=== PATIENT | male | born 1970 | race Caucasian/White ===

== ENCOUNTER → 2018-04-06 11:20 | Outpatient (CLI) | payer MEDICARE, MEDICAID, SELFPAY ==
[2018-04-06 12:26] LABS: Absolute Lymphocyte Count 1.14 X10^3/ul (0.83-4.51); Absolute Neutrophil Count 4.6 X10^3/uL (2.0-7.7); Basophil# 0.02 X10^3/uL; Basophil% 0.3 % (0-1); Eosinophil# 0.15 X10^3/uL; Eosinophils% 2.2 % (0-5); Hematocrit 38.9 % (40-54); Lymphocyte # 1.14 X10^3/ul (4.0); Lymphocyte % 16.8 % (19-41); Mean Corpuscular Hgb 31.2 pg (27.0-32.0); Mean Corpuscular Volume 86.6 fL (80-94); Mean Platelet Vol. 9.8 fl (6.2-12.0); Monocyte# 0.88 X10^3/uL; Monocyte% 12.9 % (0-10); Neutrophil # 4.58 X10^3/uL (2.7-7.7); Neutrophil % 67.4 % (47-70); Platelet Count 206 K/mm3 (150-450); RBC Distribution Width CV 12.5 % (11.6-14.6); RBC Distribution Width SD 38.8 fl (35.1-43.9); Red Blood Count 4.49 M/mm3 (4.6-6.2); White Blood Count 6.8 K/mm3 (4.4-11.0)
[2018-04-06 12:31] LABS: POSITIVE COUNT NO; POSITIVE DIFFERENTIAL NO; POSITIVE MORPHOLOGY NO
[2018-04-06 12:47] LABS: ALB/GLOB Ratio 1.1 RATIO (0.9-2.4); AST(SGOT) 12 U/L (15-37); Alanine Aminotransfer ALT/SGPT 31 U/L (16-61); Albumin, Serum 3.5 g/dL (3.2-5.0); Alkaline Phosphatase 61 U/L (45-117); Anion Gap 11 (5-15); BUN 6 mg/dL (7-18); BUN/Creat Ratio 8.6 RATIO (10-20); Calcium,Total 8.8 mg/dL (8.5-10.1); Chloride 93 mmol/L (98-107); EST Glomerular Filtration Rate 130 mL/min (>60); Est Glom Filt Rate - Afr Amer 158 mL/min (>60); Globulin 3.3 g/dL (2.2-4.2); Glucose 205 mg/dL (74-106); Potassium 3.9 mmol/L (3.5-5.1); Protein, Total 6.8 g/dL (6.4-8.2); Sodium Level 131 mmol/L (136-145); Thyroid Stim Hormone (TSH) 1.31 uIU/mL (0.358-3.74)
== END ==
PROVIDERS: Family Provider Family Medicine Geriatric Medicine; PCP Family Medicine Geriatric Medicine; Visit Provider Family Medicine Geriatric Medicine
DX: E11.9 Type 2 diabetes mellitus without complications (principal)
CPT/HCPCS: 36415; 80053; 84443; 85025

== ENCOUNTER → 2018-05-16 08:53 | Outpatient (CLI) | payer MEDICARE, MEDICAID, SELFPAY ==
[2018-05-16 10:29] LABS: Platelet Count 229 K/mm3 (150-450)
[2018-05-16 10:43] LABS: AST(SGOT) 14 U/L (15-37); Alanine Aminotransfer ALT/SGPT 34 U/L (16-61); Valproic Acid (Depakene) Level 92 ug/mL (50-100)
== END ==
PROVIDERS: Family Provider Family Medicine Geriatric Medicine; PCP Family Medicine Geriatric Medicine; Visit Provider Psychiatry & Neurology Psychiatry
DX: Z79.899 Other long term (current) drug therapy (principal)
CPT/HCPCS: 36415; 80164; 84450; 84460; 85049

== ENCOUNTER → 2018-10-12 11:54 | Outpatient (CLI) | payer MEDICARE, MEDICAID, SELFPAY ==
[2018-10-12 12:50] LABS: Absolute Lymphocyte Count 2.04 X10^3/ul (0.83-4.51); Absolute Neutrophil Count 3.7 X10^3/uL (2.0-7.7); Basophil# 0.01 X10^3/uL; Basophil% 0.2 % (0-1); Eosinophil# 0.19 X10^3/uL; Eosinophils% 2.9 % (0-5); Hematocrit 39.9 % (40-54); Hemoglobin 14.5 g/dl (13.0-16.5); Lymphocyte # 2.04 X10^3/ul (4.0); Lymphocyte % 30.6 % (19-41); Mean Corp Hgb Conc 36.3 g/gl (32-36); Mean Corpuscular Hgb 31.5 pg (27.0-32.0); Mean Corpuscular Volume 86.7 fL (80-94); Mean Platelet Vol. 11.5 fl (6.2-12.0); Monocyte# 0.64 X10^3/uL; Monocyte% 9.6 % (0-10); Neutrophil # 3.74 X10^3/uL (2.7-7.7); Neutrophil % 56.1 % (47-70); Platelet Count 173 K/mm3 (150-450); RBC Distribution Width CV 12.7 % (11.6-14.6); RBC Distribution Width SD 39.4 fl (35.1-43.9); White Blood Count 6.7 K/mm3 (4.4-11.0)
[2018-10-12 12:52] LABS: POSITIVE COUNT NO; POSITIVE DIFFERENTIAL NO; POSITIVE MORPHOLOGY NO
[2018-10-12 13:12] LABS: AST(SGOT) 21 U/L (15-37); Alanine Aminotransfer ALT/SGPT 32 U/L (16-61); Albumin, Serum 3.5 g/dL (3.2-5.0); Alkaline Phosphatase 63 U/L (45-117); Anion Gap 13 (5-15); BUN 9 mg/dL (7-18); Calcium,Total 9.1 mg/dL (8.5-10.1); Chloride 90 mmol/L (98-107); Creatinine, Serum 0.75 mg/dL (0.70-1.30); EST Glomerular Filtration Rate 120 mL/min (>60); Est Glom Filt Rate - Afr Amer 145 mL/min (>60); Globulin 3.4 g/dL (2.2-4.2); Glucose 183 mg/dL (74-106); Potassium 3.8 mmol/L (3.5-5.1); Protein, Total 6.9 g/dL (6.4-8.2); Sodium Level 131 mmol/L (136-145); Thyroid Stim Hormone (TSH) 1.81 uIU/mL (0.358-3.74)
== END ==
PROVIDERS: Family Provider Family Medicine Geriatric Medicine; PCP Family Medicine Geriatric Medicine; Visit Provider Family Medicine Geriatric Medicine
DX: E11.9 Type 2 diabetes mellitus without complications (principal); I10 Essential (primary) hypertension
CPT/HCPCS: 36415; 80053; 84443; 85025

== ENCOUNTER → 2018-11-16 08:19 | Outpatient (CLI) | payer MEDICARE, MEDICAID, SELFPAY ==
[2018-11-16 10:30] LABS: AST(SGOT) 15 U/L (15-37); Alanine Aminotransfer ALT/SGPT 33 U/L (16-61); Valproic Acid (Depakene) Level 110 ug/mL (50-100)
[2018-11-16 12:42] LABS: Platelet Count 203 K/mm3 (150-450)
--- OUTSIDE RECORDS SUMMARY | 2019-02-17 08:42 | XMS RPT_ITS ---
:1970 Author Organization OHIP Care Team Providers Name Role Phone Fabiola Vgea Attending Unavailable Astreika, Vera Referring Unavailable Kamlesh, Kit Chi Primary Care Unavailable Kamlesh, Kit Chi Attending Unavailable Kamlesh, Kit Chi Primary Care Unavailable Astreika, Vera Attending Unavailable Astreika, Vera Referring Unavailable Kamlesh, Kit Chi Primary Care Unavailable Kamlesh, Kit Chi Attending Unavailable Kamlesh, Kit Chi Primary Care Unavailable PROBLEMS PROBLEMS DATE TYPE CONDITION / CODE ATTENDING STATUS SOURCE 11/16/2018 Unknown Z79.899 - Other Fabiola Vega Active [facility]current[facility] drug Hospital therapy / Repository Z79.899(ICD-10) PROCEDURES PROCEDURES No Procedure Records FoundRESULTS RESULTS VALPROIC ACID Collected: 11/16/2018 Status: F Source: [facility]ESS[facility] ([facility]PAKEN[facility]) LEVEL 8[facility] TYPE CODE TESTS RESULT OUT OF REFERENCE UNITS RANGE LAB L501.8100 50-100 ug/mL High VALPROIC ACID 110 Performed By: #### L501.8100 #### [facility] [address] [place], [address] AST(SGOT) Collected: 11/16/2018 Status: F Source: JESSICA 8:24 AM [facility] REPOSITORY TYPE CODE TESTS RESULT OUT OF RANGE REFERENCE UNITS LAB L501.4100 15-37 U/L Normal AST 15 Performed By: #### L501.4100, L501.4405 #### [facility] [address] [place], [address] ALANINE AMINOTRANSFERAS Collected: 11/16/2018 Status: F Source: JESSICA (SGPT) 8:24 AM [facility] REPOSITORY TYPE CODE TESTS RESULT OUT OF RANGE REFERENCE UNITS LAB L501.4405 16-61 U/L Normal ALT 33 Performed By: #### L501.4100, L501.4405 #### [facility] [address] [place], [address] PLATELET COUNT Collected: 11/16/2018 Status: F Source: [place] 8:24 AM [facility] REPOSITORY TYPE CODE TESTS RESULT OUT OF RANGE REFERENCE UNITS LAB L100.1900 150-450 K/mm3 Normal PLT 203 Performed By: #### L100.1900 #### [facility] [address] [place], [address] CBC W/DIFF, AUTOMATED Collected: 10/12/2018 Status: F Source: JESSICA 11:57 AM [facility] REPOSITORY TYPE CODE TESTS RESULT OUT OF RANGE REFERENCE UNITS LAB L100.1000 4.4-11.0 K/mm3 Normal WBC 6.7 LAB L100.1200 4.6-6.2 M/mm3 Normal RBC 4.60 LAB L100.1300 13.0-16.5 g/dl Normal HGB 14.5 LAB L100.1400 40-54 % Low HCT 39.9 LAB L100.1500 80-94 fL Normal MCV 86.7 LAB L100.1600 27.0-32.0 pg Normal MCH 31.5 LAB L100.1700 32-36 g/gl High MCHC 36.3 LAB L100.1810 11.6-14.6 % Normal RDW CV 12.7 LAB L100.1820 35.1-43.9 fl Normal RDW SD 39.4 LAB L100.1900 150-450 K/mm3 Normal PLT 173 LAB L100.2000 6.2-12.0 fl Normal MPV 11.5 LAB L100.2100 47-70 % Normal NEUT% 56.1 LAB L100.2200 19-41 % Normal LY% 30.6 LAB L100.2300 0-10 % Normal MONO% 9.6 LAB L100.2400 0-5 % Normal EO% 2.9 LAB L100.2500 0-1 % Normal BASO% 0.2 LAB L100.2550 0.0-0.9 % Normal IM GRAN % 0.600 Result Comment: IG% - Immature Granulocytes (promyelocytes, myelocytes and metamyelocytes) > 1% indicates that a LEFT SHIFT is Present. LAB L100.2620 2.0-7.7 X10 3/uL Normal Absolute Neut 3.7 LAB L100.2720 0.83-4.51 X10 3/ul Normal Absolute Lymph 2.04 Performed By: #### L100.0100 #### [facility] [address] [place], [place], [address] COMPREHENSIVE METABOLIC Collected: 10/12/2018 Status: F Source: [facility] 11:57 AM [facility] REPOSITORY TYPE CODE TESTS RESULT OUT OF RANGE REFERENCE UNITS LAB L501.0100 74-106 mg/dL High GLU 183 Result Comment: Fasting Glucose result greater than or equal to 126 mg/dL suggests DIABETES MELLITUS per A.D.A. criteria. Please note revised GLUCOSE reference range effective 2017. LAB L501.1000 7-18 mg/dL Normal BUN 9 LAB L501.1100 0.70-1.30 mg/dL Normal CREAT,SERUM 0.75 Result Comment: The validity of the calculated GFR AND GFRAA in patients over 70 years has not been determined. Clinical correlation is essential. LAB L501.1110 >60 mL/min Normal EST GFR 120 Result Comment: Non- GFR Calc LAB L501.1115 >60 mL/min Normal EST GFR - AA 145 Result Comment: GFR Calc LAB L501.1300 10-20 RATIO Normal BUN/CRE 12.0 LAB L501.1500 6.4-8.2 g/dL T Normal PROT 6.9 LAB L501.1800 3.2-5.0 g/dL Normal ALB 3.5 LAB L501.1950 2.2-4.2 g/dL Normal GLOB 3.4 LAB L501.2000 0.9-2.4 RATIO Normal A/G 1.0 LAB L501.2200 8.5-10.1 mg/dL CA Normal 9.1 LAB L501.4100 15-37 U/L Normal AST 21 Result Comment: Moderate Hemolysis, Result may be falsely increased. LAB L501.4305 45-117 U/L Normal ALK P 63 LAB L501.4405 16-61 U/L Normal ALT 32 LAB L501.4600 0.20-1.00 mg/dL Normal T BILI 0.50 LAB L501.5300 136-145 mmol/L Low NA 131 LAB L501.5600 3.5-5.1 mmol/L Normal K 3.8 Result Comment: Moderate Hemolysis, Result may be falsely increased. LAB L501.5900 98-107 mmol/L Low CL 90 LAB L501.6100 21.0-32.0 mmol/L Normal CO2 28.0 LAB L501.6200 5-15 Normal GAP 13 Performed By: #### L500.4050, L501.9520 #### [facility] [address] [place], [place], [id number] THYROID STIM HORMONE Collected: 10/12/2018 Status: F Source: JESSICA (TSH) 11:57 AM [facility] REPOSITORY TYPE CODE TESTS RESULT OUT OF RANGE REFERENCE UNITS LAB L501.9520 0.358-3.74 uIU/mL Normal TSH 1.81 Performed By: #### L500.4050, L501.9520 #### [facility] [address] [place], [place], [address] PLATELET COUNT Collected: 05/16/2018 Status: F Source: [place]ESS[place] 8:59 AM [facility] REPOSITORY TYPE CODE TESTS RESULT OUT OF RANGE REFERENCE UNITS LAB L100.1900 150-450 K/mm3 Normal PLT 229 Performed By: #### L100.1900 #### [facility] [address] [place], [address] VALPROIC ACID Collected: 05/16/2018 Status: F Source: JESSICA ([place]KEN[place]) LEVEL 8:59 AM [facility] REPOSITORY TYPE CODE TESTS RESULT OUT OF RANGE REFERENCE UNITS LAB L501.8100 50-100 ug/mL Normal VALPROIC ACID 92 Performed By: #### L501.8100 #### [facility] [address] [place], [address] AST(SGOT) Collected: 05/16/2018 Status: F Source: [place] 8:59 AM [facility] REPOSITORY TYPE CODE TESTS RESULT OUT OF RANGE REFERENCE UNITS LAB L501.4100 15-37 U/L Low AST 14 Performed By: #### L501.4100, L501.4405 #### [facility] [address] [place], [address] ALANINE AMINOTRANSFERAS Collected: 05/16/2018 Status: F Source: JESSICA (SGPT) 8:59 AM [facility] REPOSITORY TYPE CODE TESTS RESULT OUT OF RANGE REFERENCE UNITS LAB L501.4405 16-61 U/L Normal ALT 34 Performed By: #### L501.4100, L501.4405 #### [facility] [address] [place], [address] CBC W/DIFF, AUTOMATED Collected: 04/06/2018 Status: F Source: [place] 11:23 AM [facility] REPOSITORY TYPE CODE TESTS RESULT OUT OF RANGE REFERENCE UNITS LAB L100.1000 4.4-11.0 K/mm3 Normal WBC 6.8 LAB L100.1200 4.6-6.2 M/mm3 Low RBC 4.49 LAB L100.1300 13.0-16.5 g/dl Normal HGB 14.0 LAB L100.1400 40-54 % Low HCT 38.9 LAB L100.1500 80-94 fL Normal MCV 86.6 LAB L100.1600 27.0-32.0 pg Normal MCH 31.2 LAB L100.1700 32-36 g/gl Normal MCHC 36.0 LAB L100.1810 11.6-14.6 % Normal RDW CV 12.5 LAB L100.1820 35.1-43.9 fl Normal RDW SD 38.8 LAB L100.1900 150-450 K/mm3 Normal PLT 206 LAB L100.2000 6.2-12.0 fl Normal MPV 9.8 LAB L100.2100 47-70 % Normal NEUT% 67.4 LAB L100.2200 19-41 % Low LY% 16.8 LAB L100.2300 0-10 % High MONO% 12.9 LAB L100.2400 0-5 % Normal EO% 2.2 LAB L100.2500 0-1 % Normal BASO% 0.3 LAB L100.2550 0.0-0.9 % Normal IM GRAN % 0.400 Result Comment: IG% - Immature Granulocytes (promyelocytes, myelocytes and metamyelocytes) > 1% indicates that a LEFT SHIFT is Present. LAB L100.2620 2.0-7.7 X10 3/uL Normal Absolute Neut 4.6 LAB L100.2720 0.83-4.51 X10 3/ul Normal Absolute Lymph 1.14 Performed By: #### L100.0100 #### [facility] [address] [place], [place], [address] COMPREHENSIVE METABOLIC Collected: 04/06/2018 Status: F Source: [facility] 11:23 AM [facility] REPOSITORY TYPE CODE TESTS RESULT OUT OF RANGE REFERENCE UNITS LAB L501.0100 74-106 mg/dL High GLU 205 Result Comment: Glucose result greater than or equal to 200 mg/dL suggests DIABETES MELLITUS per A.D.A. criteria. Please note revised GLUCOSE reference range effective 2017. LAB L501.1000 7-18 mg/dL Low BUN 6 LAB L501.1100 0.70-1.30 mg/dL Normal CREAT,SERUM 0.70 Result Comment: The validity of the calculated GFR AND GFRAA in patients over 70 years has not been determined. Clinical correlation is essential. LAB L501.1110 >60 mL/min Normal EST GFR 130 Result Comment: Non- GFR Calc LAB L501.1115 >60 mL/min Normal EST GFR - AA 158 Result Comment: GFR Calc LAB L501.1300 10-20 RATIO Low BUN/CRE 8.6 LAB L501.1500 6.4-8.2 g/dL Normal T PROT 6.8 LAB L501.1800 3.2-5.0 g/dL Normal ALB 3.5 LAB L501.1950 2.2-4.2 g/dL Normal GLOB 3.3 LAB L501.2000 0.9-2.4 RATIO Normal A/G 1.1 LAB L501.2200 8.5-10.1 mg/dL Normal CA 8.8 LAB L501.4100 15-37 U/L Low AST 12 LAB L501.4305 45-117 U/L Normal ALK P 61 LAB L501.4405 16-61 U/L Normal ALT 31 LAB L501.4600 0.20-1.00 mg/dL Normal T BILI 0.40 LAB L501.5300 136-145 mmol/L Low NA 131 LAB L501.5600 3.5-5.1 mmol/L Normal K 3.9 LAB L501.5900 98-107 mmol/L Low CL 93 LAB L501.6100 21.0-32.0 mmol/L Normal CO2 27.0 LAB L501.6200 5-15 Normal GAP 11 Performed By: #### L500.4050, L501.9520 #### [facility] [address] [place], [place], [address] THYROID STIM HORMONE Collected: 04/06/2018 Status: F Source: [place] (TSH) 11:23 AM [facility] REPOSITORY TYPE CODE TESTS RESULT OUT OF RANGE REFERENCE UNITS LAB L501.9520 0.358-3.74 uIU/mL Normal TSH 1.31 Performed By: #### L500.4050, L501.9520 #### [facility] [address] [place], [address] ALLERGIES ALLERGIES No Allergies Records FoundENCOUNTERS ENCOUNTERS ADMIT/DISCHARGE ACCOUNT ADMITTING ENCOUNTER LOCATION SOURCE NUMBER CLASS 11/16/2018 [id number] Ambulatory [address] ing:MTLAB Repository 10/12/2018 [id number] Ambulatory [address] ing:POLAB3 Repository 05/16/2018 [id number] Ambulatory [place] [facility] ing:MTLAB Repository 04/06/2018 [id number] Amb[place] [facility] ing:POLAB3 Repository PAYERS PAYERS ENCOUNTER GUARANTOR PAYER SUBSCRIBER SOURCE 11/16/2018 ALAN D Primary ALAN D [place] [id number] Insurance:MEDICARE BUTLERDOB: [facility], PART A [facility] [id number] [facility]ley [facility] [address]Ktp: Number: Repository [id number] (HP) Date:2018-11-16 11/16/2018 Secondary ALAN D [place] Insurance:MEDICAIDPol BUTLERDOB: [facility] Number: [id number] Hospital [id number] Repository Date:2018-11-16 11/16/2018 Tertiary NOT GIVENUNK Jessica Insurance:SELF PAY [facility] Number: Effective Repository Date:2018-11-16 10/12/2018 Alan D Primary Alan D [place] [id number] [place] Insurance:MEDICARE ButlerDOB: [facility] PART A [facility] [id number] Tingley Hospital [address]Thi: Number: Repository [id number] (HP) Date:2018-10-12 10/12/2018 Secondary Alan D Jessica Insurance:MEDICAIDPol ButlerDOB: [facility] Number: [id number] [facility] [id number] Repository Date:2018-10-12 10/12/2018 Tertiary NOT GIVENUNK Jessica Insurance:SELF PAY [facility] Number: Effective Repository Date:2018-10-12 05/16/2018 Alan D Primary Alan D [place] [id number] [place] Insurance:MEDICARE ButlerDOB: [facility], PART A [facility] [id number] Tingley Hospital [address]Tih: Number: Repository [id number] (HP) Date:2018-05-16 05/16/2018 Secondary Alan D [place] Insurance:MEDICAIDPol ButlerDOB: [facility] ic Number: [id number] Hospital [id number] Repository Date:2018-05-16 05/16/2018 Tertiary NOT GIVENUNK [place] Insurance:SELF PAY [facility]: Effective Repository Date:2018-05-16 04/06/2018 Alna D Primary Alan D Jessica [id number] [place] Insurance:MEDICARE ButlerDOB[facility] BPolicy [id number] Tingley Hospital [address]Szu: Number: Repository [id number] (HP) Date:2018-04-06 04/06/2018 Secondary Alan Daniels Jessica Insurance:MEDICAIDPol ButlerDOB: [facility] icy Number: [id number] Hospital [id number] Repository Date:2018-04-06 04/06/2018 Tertiary NOT GIVENUNK [place] Insurance:SELF PAY [facility] Number: Effective Repository Date:2018-04-06
== END ==
PROVIDERS: Family Provider Family Medicine Geriatric Medicine; PCP Family Medicine Geriatric Medicine; Referring Provider Psychiatry & Neurology Psychiatry; Visit Provider Psychiatry & Neurology Psychiatry
DX: Z79.899 Other long term (current) drug therapy (principal)
CPT/HCPCS: 36415; 80164; 84450; 84460; 85049

== ENCOUNTER → 2019-02-15 12:01 | Outpatient (CLI) | payer MEDICARE, MEDICAID, SELFPAY | PROVIDERS: Family Provider Family Medicine Geriatric Medicine; PCP Family Medicine Geriatric Medicine; Referring Provider Family Medicine Geriatric Medicine; Visit Provider Family Medicine Geriatric Medicine | DX: R68.83 Chills (without fever) (principal) | CPT/HCPCS: 87633 ==

== ENCOUNTER → 2019-04-13 11:32 | Outpatient (CLI) | payer MEDICARE, MEDICAID, SELFPAY ==
[2019-04-13 12:48] LABS: Absolute Lymphocyte Count 1.54 X10^3/ul (0.83-4.51); Absolute Neutrophil Count 3.3 X10^3/uL (2.0-7.7); Basophil# 0.01 X10^3/uL; Basophil% 0.2 % (0-1); Eosinophil# 0.07 X10^3/uL; Eosinophils% 1.3 % (0-5); Hematocrit 40.6 % (40-54); Hemoglobin 14.2 g/dl (13.0-16.5); Lymphocyte # 1.54 X10^3/ul (4.0); Lymphocyte % 27.8 % (19-41); Mean Corpuscular Hgb 30.9 pg (27.0-32.0); Mean Corpuscular Volume 88.3 fL (80-94); Monocyte# 0.59 X10^3/uL; Monocyte% 10.7 % (0-10); Neutrophil # 3.27 X10^3/uL (2.7-7.7); Neutrophil % 59.1 % (47-70); Platelet Count 233 K/mm3 (150-450); RBC Distribution Width CV 13.4 % (11.6-14.6); RBC Distribution Width SD 42.4 fl (35.1-43.9); White Blood Count 5.5 K/mm3 (4.4-11.0)
[2019-04-13 12:49] LABS: POSITIVE COUNT NO; POSITIVE DIFFERENTIAL NO; POSITIVE MORPHOLOGY NO
[2019-04-13 13:17] LABS: ALB/GLOB Ratio 1.2 RATIO (0.9-2.4); AST(SGOT) 11 U/L (15-37); Alanine Aminotransfer ALT/SGPT 28 U/L (16-61); Albumin, Serum 3.6 g/dL (3.2-5.0); Alkaline Phosphatase 51 U/L (45-117); Anion Gap 7 (5-15); BUN 8 mg/dL (7-18); BUN/Creat Ratio 11.2 RATIO (10-20); Calcium,Total 8.8 mg/dL (8.5-10.1); Chloride 94 mmol/L (98-107); Creatinine, Serum 0.71 mg/dL (0.70-1.30); EST Glomerular Filtration Rate 126 mL/min (>60); Est Glom Filt Rate - Afr Amer 153 mL/min (>60); Globulin 3.1 g/dL (2.2-4.2); Glucose 172 mg/dL (74-106); Potassium 3.9 mmol/L (3.5-5.1); Protein, Total 6.7 g/dL (6.4-8.2); Sodium Level 130 mmol/L (136-145); Thyroid Stim Hormone (TSH) 1.75 uIU/mL (0.358-3.74)
== END ==
PROVIDERS: Family Provider Family Medicine Geriatric Medicine; PCP Family Medicine Geriatric Medicine; Visit Provider Family Medicine Geriatric Medicine
DX: E11.9 Type 2 diabetes mellitus without complications (principal); I10 Essential (primary) hypertension
CPT/HCPCS: 36415; 80053; 84443; 85025

== ENCOUNTER → 2019-07-06 08:46 | Outpatient (CLI) | payer MEDICARE, MEDICAID, SELFPAY ==
[2019-07-06 10:02] LABS: Platelet Count 220 K/mm3 (150-450)
[2019-07-06 10:25] LABS: AST(SGOT) 11 U/L (15-37); Alanine Aminotransfer ALT/SGPT 29 U/L (16-61)
[2019-07-06 10:27] LABS: Valproic Acid (Depakene) Level 90 ug/mL (50-100)
== END ==
PROVIDERS: Family Provider Family Medicine Geriatric Medicine; PCP Family Medicine Geriatric Medicine; Referring Provider Psychiatry & Neurology Psychiatry; Visit Provider Psychiatry & Neurology Psychiatry
DX: Z79.899 Other long term (current) drug therapy (principal)
CPT/HCPCS: 36415; 80164; 82140; 84450; 84460; 85049

== ENCOUNTER → 2019-07-27 09:59 | Outpatient (CLI) | payer MEDICARE, MEDICAID, SELFPAY ==
[2019-07-27 12:14] LABS: Absolute Lymphocyte Count 1.59 X10^3/uL (0.83-4.51); Absolute Neutrophil Count 3.3 X10^3/uL (2.0-7.7); Basophil# 0.03 X10^3/uL; Basophil% 0.5 % (0-1); Eosinophil# 0.09 X10^3/uL; Eosinophils% 1.6 % (0-5); Hematocrit 44.4 % (40-54); Hemoglobin 15.3 g/dL (13.0-16.5); Lymphocyte # 1.59 X10^3/ul (4.0); Lymphocyte % 27.9 % (19-41); Mean Corp Hgb Conc 34.5 g/dL (32-36); Mean Corpuscular Hgb 31.7 pg (27.0-32.0); Mean Corpuscular Volume 92.1 fL (80-94); Mean Platelet Vol. 9.4 fl (6.2-12.0); Monocyte# 0.64 X10^3/uL; Monocyte% 11.2 % (0-10); NRBC Flagged by Analyzer 0 % (0-5); Neutrophil # 3.31 X10^3/uL (2.7-7.7); Neutrophil % 58.1 % (47-70); Platelet Count 225 K/mm3 (150-450); RBC Distribution Width CV 12.7 % (11.6-14.6); RBC Distribution Width SD 43.1 fl (35.1-43.9); Red Blood Count 4.82 M/mm3 (4.6-6.2); White Blood Count 5.7 K/mm3 (4.4-11.0)
[2019-07-27 12:34] LABS: ALB/GLOB Ratio 1.1 RATIO (0.9-2.4); AST(SGOT) 10 U/L (15-37); Alanine Aminotransfer ALT/SGPT 30 U/L (16-61); Albumin, Serum 3.8 g/dL (3.2-5.0); Alkaline Phosphatase 57 U/L (45-117); Anion Gap 6 (5-15); BUN 9 mg/dL (7-18); BUN/Creat Ratio 14.3 RATIO (10-20); Calcium,Total 9.5 mg/dL (8.5-10.1); Chloride 101 mmol/L (98-107); Creatinine, Serum 0.63 mg/dL (0.70-1.30); EST Glomerular Filtration Rate 145 mL/min (>60); Est Glom Filt Rate - Afr Amer 176 mL/min (>60); Globulin 3.6 g/dL (2.2-4.2); Glucose 131 mg/dL (74-106); Potassium 3.9 mmol/L (3.5-5.1); Protein, Total 7.4 g/dL (6.4-8.2); Sodium Level 136 mmol/L (136-145)
== END ==
PROVIDERS: Family Provider Family Medicine Geriatric Medicine; PCP Family Medicine Geriatric Medicine; Visit Provider Family Medicine Geriatric Medicine
DX: R74.8 Abnormal levels of other serum enzymes (principal); E72.20 Disorder of urea cycle metabolism, unspecified
CPT/HCPCS: 36415; 80053; 82140; 85025

== ENCOUNTER → 2019-08-04 09:01 | Outpatient (CLI) | payer MEDICARE, MEDICAID, SELFPAY ==
--- NOTE | 2019-08-04 09:04 | US_ITS ---
STUDY: ABDOMINAL ULTRASOUND - RIGHT UPPER QUADRANT REASON FOR VISIT: Male, 49 years old. Cirrhosis. TECHNIQUE: Ultrasound evaluation of the right upper quadrant was performed with real-time and static jennings-scale imaging. TECHNICAL QUALITY: Limited. Examination limited due to the patient?s condition. COMPARISON: None. FINDINGS: Liver: The liver measures 15.0 cm. There is increased echogenicity consistent with mild fatty infiltration. The bile ducts are within normal limits. There is hepatic color flow. The direction of portal flow is hepatopetal. There is no demonstrated mass lesion. Gallbladder: Normal distended gallbladder. The gallbladder wall measures 3.0 mm. There is a negative sonographic Bolivar's sign. There is no pericholecystic fluid. There are no gallstones. Common Bile Duct (C.B.D.): The common bile duct measures 4.0 mm. Pancreas: There is nonvisualization of the pancreas due to overlying bowel gas. Right Kidney: Normal size of the right kidney. The right kidney measures 12.9 cm x 7.1 cm x 7.6 cm. Normal renal cortex. The right cortex measures 2.4 cm. There is no demonstrated renal mass or cyst. There is no right hydronephrosis. US/Abdomen Limited IMPRESSION: Mild degree of fatty infiltration of the liver. Electronically Signed: Gordo Downing, at 14:57 EDT , Service support ,
== END ==
PROVIDERS: Family Provider Family Medicine Geriatric Medicine; PCP Family Medicine Geriatric Medicine; Referring Provider Family Medicine Geriatric Medicine; Visit Provider Family Medicine Geriatric Medicine
DX: K74.60 Unspecified cirrhosis of liver (principal)
CPT/HCPCS: 76705

== ENCOUNTER → 2019-08-04 09:53 | Outpatient (CLI) | payer MEDICARE, MEDICAID, SELFPAY | PROVIDERS: Family Provider Family Medicine Geriatric Medicine; PCP Family Medicine Geriatric Medicine; Visit Provider Family Medicine Geriatric Medicine | DX: E72.20 Disorder of urea cycle metabolism, unspecified (principal) | CPT/HCPCS: 36415; 76705; 82140 ==

== ENCOUNTER → 2019-09-07 09:12 | Outpatient (CLI) | payer MEDICARE, MEDICAID, SELFPAY | PROVIDERS: Family Provider Family Medicine Geriatric Medicine; PCP Family Medicine Geriatric Medicine; Visit Provider Family Medicine Geriatric Medicine | DX: E72.20 Disorder of urea cycle metabolism, unspecified (principal) | CPT/HCPCS: 36415; 82140 ==

== ENCOUNTER → 2019-10-06 08:55 | Outpatient (CLI) | payer MEDICARE, MEDICAID, SELFPAY | PROVIDERS: Family Provider Family Medicine Geriatric Medicine; PCP Family Medicine Geriatric Medicine; Referring Provider Psychiatry & Neurology Psychiatry; Visit Provider Psychiatry & Neurology Psychiatry | DX: Z79.899 Other long term (current) drug therapy (principal) | CPT/HCPCS: 36415; 82140 ==

== ENCOUNTER → 2019-10-12 14:13 | Outpatient (CLI) | payer MEDICARE, MEDICAID, SELFPAY ==
--- NOTE | 2019-10-12 14:15 | CT_ITS ---
STUDY: CT ABDOMEN AND PELVIS WITH CONTRAST REASON FOR EXAM: Male, 49 years old. Cirrhosis, diabetes and hypertension. RADIATION DOSAGE (If Supplied By Facility): CTDIvol = ( 23.61 ) mGy, DLP = ( 1481.39 ) mGycm TECHNIQUE: Transaxial images were obtained from the dome of the diaphragm to the symphysis pubis without oral contrast. IV/Oral Isovue 300 100mL was administered. Sagittal and coronal images were reconstructed. Individualized dose optimization techniques were used for this CT. COMPARISON: None. FINDINGS: The visualized lung bases are unremarkable. The visualized portions of the heart are within normal limits. Normal liver. Normal gallbladder and extrahepatic biliary system. Normal spleen. Normal pancreas. Normal bilateral adrenal glands. There is a right middle renal pole round, structure and oriented posteriorly with slightly elevated Hounsfield units compatible with a cyst. There are several, small low-attenuation structures largest seen within the left mid upper renal pole and measuring 7 mm to be adequately characterize and statistically consistent with cysts. There is nonspecific bilateral perinephric stranding. Otherwise normal bilateral kidneys. Normal visualized stomach. Normal small intestine. Normal colon. The appendix is visualized and appears normal. Normal abdominal aorta. Normal inferior vena cava. Normal retroperitoneum. Normal urinary bladder. There is absence of the uterus consistent with a prior hysterectomy. Normal abdominal wall. There are diffuse degenerative changes of the visualized lumbar spine. CT/Abdomen/Pelvis WITH Contrast IMPRESSION: Nonspecific bilateral perinephric stranding with bilateral renal cyst as described above. One cyst within the right middle with exophytic augmentation in the ultrasound. Remainder of abdominal viscera are unremarkable. No acute appendicitis. No bowel obstruction. Electronically Signed: Pinky Marcano MD at 4:21 EST , Service support ,
== END ==
PROVIDERS: Family Provider Family Medicine Geriatric Medicine; PCP Family Medicine Geriatric Medicine; Referring Provider Internal Medicine Gastroenterology; Visit Provider Internal Medicine Gastroenterology
DX: K74.60 Unspecified cirrhosis of liver (principal)
CPT/HCPCS: 74177; Q9967

== ENCOUNTER → 2019-10-16 09:05 | Outpatient (CLI) | payer MEDICARE, MEDICAID, SELFPAY ==
[2019-10-16 10:15] LABS: Absolute Lymphocyte Count 1.68 X10^3/uL (0.83-4.51); Absolute Neutrophil Count 4.5 X10^3/uL (2.0-7.7); Basophil# 0.04 X10^3/uL; Basophil% 0.6 % (0-1); Eosinophil# 0.12 X10^3/uL; Eosinophils% 1.7 % (0-5); Hematocrit 44.6 % (40-54); Hemoglobin 15.5 g/dL (13.0-16.5); Lymphocyte # 1.68 X10^3/ul (4.0); Lymphocyte % 24.2 % (19-41); Mean Corp Hgb Conc 34.8 g/dL (32-36); Mean Corpuscular Hgb 30.8 pg (27.0-32.0); Mean Corpuscular Volume 88.7 fL (80-94); Mean Platelet Vol. 10.5 fl (6.2-12.0); Monocyte# 0.52 X10^3/uL; Monocyte% 7.5 % (0-10); NRBC Flagged by Analyzer 0.3 % (0-5); Neutrophil # 4.54 X10^3/uL (2.7-7.7); Neutrophil % 65.4 % (47-70); Platelet Count 275 K/mm3 (150-450); RBC Distribution Width CV 12.6 % (11.6-14.6); RBC Distribution Width SD 40.7 fl (35.1-43.9); Red Blood Count 5.03 M/mm3 (4.6-6.2); White Blood Count 6.9 K/mm3 (4.4-11.0)
[2019-10-16 10:41] LABS: AST(SGOT) 17 U/L (15-37); Alanine Aminotransfer ALT/SGPT 39 U/L (16-61); Albumin, Serum 3.7 g/dL (3.2-5.0); Alkaline Phosphatase 82 U/L (45-117); Anion Gap 13 (5-15); BUN 17 mg/dL (7-18); BUN/Creat Ratio 17.9 RATIO (10-20); Calcium,Total 9.2 mg/dL (8.5-10.1); Chloride 99 mmol/L (98-107); Creatinine, Serum 0.95 mg/dL (0.70-1.30); EST Glomerular Filtration Rate 90 mL/min (>60); Est Glom Filt Rate - Afr Amer 109 mL/min (>60); Globulin 3.6 g/dL (2.2-4.2); Glucose 287 mg/dL (74-106); Protein, Total 7.3 g/dL (6.4-8.2); Sodium Level 137 mmol/L (136-145); Thyroid Stim Hormone (TSH) 1.84 uIU/mL (0.358-3.74)
== END ==
PROVIDERS: Family Provider Family Medicine Geriatric Medicine; PCP Family Medicine Geriatric Medicine; Visit Provider Family Medicine Geriatric Medicine
DX: E11.9 Type 2 diabetes mellitus without complications (principal); I10 Essential (primary) hypertension
CPT/HCPCS: 36415; 80053; 82140; 84443; 85025

== ENCOUNTER → 2020-01-18 11:37 | Outpatient (CLI) | payer MEDICARE, MEDICAID, SELFPAY ==
[2020-01-18 12:32] LABS: Absolute Lymphocyte Count 1.77 X10^3/uL (0.83-4.51); Absolute Neutrophil Count 4.3 X10^3/uL (2.0-7.7); Basophil# 0.05 X10^3/uL; Basophil% 0.7 % (0-1); Eosinophil# 0.21 X10^3/uL; Hematocrit 43.5 % (40-54); Hemoglobin 14.6 g/dL (13.0-16.5); Lymphocyte # 1.77 X10^3/ul (4.0); Lymphocyte % 25.6 % (19-41); Mean Corp Hgb Conc 33.6 g/dL (32-36); Mean Corpuscular Hgb 29.7 pg (27.0-32.0); Mean Corpuscular Volume 88.6 fL (80-94); Mean Platelet Vol. 10.3 fl (6.2-12.0); Monocyte# 0.59 X10^3/uL; Monocyte% 8.5 % (0-10); NRBC Flagged by Analyzer 0 % (0-5); Neutrophil # 4.25 X10^3/uL (2.7-7.7); Neutrophil % 61.6 % (47-70); Platelet Count 249 K/mm3 (150-450); RBC Distribution Width SD 42.1 fl (35.1-43.9); Red Blood Count 4.91 M/mm3 (4.6-6.2); White Blood Count 6.9 K/mm3 (4.4-11.0)
[2020-01-18 12:44] LABS: ALB/GLOB Ratio 1.1 RATIO (0.9-2.4); AST(SGOT) 12 U/L (15-37); Alanine Aminotransfer ALT/SGPT 41 U/L (16-61); Albumin, Serum 3.9 g/dL (3.2-5.0); Alkaline Phosphatase 101 U/L (45-117); Anion Gap 11 (5-15); BUN 5 mg/dL (7-18); BUN/Creat Ratio 5.3 RATIO (10-20); Calcium,Total 9.5 mg/dL (8.5-10.1); Chloride 100 mmol/L (98-107); Creatinine, Serum 0.94 mg/dL (0.70-1.30); EST Glomerular Filtration Rate 92 mL/min (>60); Est Glom Filt Rate - Afr Amer 111 mL/min (>60); Globulin 3.4 g/dL (2.2-4.2); Glucose 280 mg/dL (74-106); Potassium 3.5 mmol/L (3.5-5.1); Protein, Total 7.3 g/dL (6.4-8.2); Sodium Level 135 mmol/L (136-145); Thyroid Stim Hormone (TSH) 1.32 uIU/mL (0.358-3.74)
== END ==
PROVIDERS: PCP Family Medicine Geriatric Medicine; Visit Provider Family Medicine Geriatric Medicine
DX: E11.9 Type 2 diabetes mellitus without complications (principal); I10 Essential (primary) hypertension; E72.20 Disorder of urea cycle metabolism, unspecified
CPT/HCPCS: 36415; 80053; 82140; 84443; 85025

== ENCOUNTER → 2020-04-02 16:04 | Outpatient (CLI) | payer MEDICARE, MEDICAID, SELFPAY ==
[2020-04-02 17:49] LABS: Prothrombin Time (Protime)PT. 12.9 SECONDS (11.7-14.9)
[2020-04-02 17:50] LABS: Partial Thromboplast Time 28.1 Seconds (24.1-36.2)
[2020-04-02 18:03] LABS: ALB/GLOB Ratio 1.2 RATIO (0.9-2.4); AST(SGOT) 7 U/L (15-37); Alanine Aminotransfer ALT/SGPT 32 U/L (16-61); Alkaline Phosphatase 89 U/L (45-117); Anion Gap 6 (5-15); BUN 14 mg/dL (7-18); BUN/Creat Ratio 21.1 RATIO (10-20); Calcium,Total 9.7 mg/dL (8.5-10.1); Chloride 102 mmol/L (98-107); Creatinine, Serum 0.66 mg/dL (0.70-1.30); EST Glomerular Filtration Rate 136 mL/min (>60); Est Glom Filt Rate - Afr Amer 165 mL/min (>60); Globulin 3.4 g/dL (2.2-4.2); Glucose 138 mg/dL (74-106); Potassium 4.1 mmol/L (3.5-5.1); Protein, Total 7.4 g/dL (6.4-8.2); Sodium Level 135 mmol/L (136-145)
[2020-04-04 15:49] LABS: AFP, Tumor Marker 2.7 ng/mL (0.0-8.3)
== END ==
PROVIDERS: PCP Family Medicine Geriatric Medicine; Referring Provider Internal Medicine Gastroenterology; Visit Provider Internal Medicine Gastroenterology
DX: K74.60 Unspecified cirrhosis of liver (principal)
CPT/HCPCS: 36415; 80053; 82105; 82140; 85610; 85730

== ENCOUNTER → 2020-04-18 11:33 | Outpatient (CLI) | payer MEDICARE, MEDICAID, SELFPAY ==
[2020-04-18 12:44] LABS: Absolute Lymphocyte Count 1.99 X10^3/uL (0.83-4.51); Absolute Neutrophil Count 5.8 X10^3/uL (2.0-7.7); Basophil# 0.04 X10^3/uL; Basophil% 0.5 % (0-1); Eosinophil# 0.11 X10^3/uL; Eosinophils% 1.3 % (0-5); Hematocrit 45.8 % (40-54); Hemoglobin 15.4 g/dL (13.0-16.5); Lymphocyte # 1.99 X10^3/ul (4.0); Mean Corp Hgb Conc 33.6 g/dL (32-36); Mean Corpuscular Hgb 30.1 pg (27.0-32.0); Mean Corpuscular Volume 89.6 fL (80-94); Mean Platelet Vol. 10.3 fl (6.2-12.0); Monocyte# 0.66 X10^3/uL; Monocyte% 7.6 % (0-10); NRBC Flagged by Analyzer 0 % (0-5); Neutrophil # 5.82 X10^3/uL (2.7-7.7); Neutrophil % 67.1 % (47-70); Platelet Count 227 K/mm3 (150-450); RBC Distribution Width CV 13.5 % (11.6-14.6); RBC Distribution Width SD 44.1 fl (35.1-43.9); Red Blood Count 5.11 M/mm3 (4.6-6.2); White Blood Count 8.7 K/mm3 (4.4-11.0)
[2020-04-18 13:04] LABS: Vitamin D,25 Hydroxy 29.7 ng/mL
[2020-04-18 13:19] LABS: ALB/GLOB Ratio 1.2 RATIO (0.9-2.4); AST(SGOT) 12 U/L (15-37); Alanine Aminotransfer ALT/SGPT 29 U/L (16-61); Albumin, Serum 3.8 g/dL (3.2-5.0); Alkaline Phosphatase 77 U/L (45-117); Anion Gap 9 (5-15); BUN 10 mg/dL (7-18); BUN/Creat Ratio 16.2 RATIO (10-20); Calcium,Total 9.4 mg/dL (8.5-10.1); Chloride 102 mmol/L (98-107); Creatinine, Serum 0.62 mg/dL (0.70-1.30); EST Glomerular Filtration Rate 148 mL/min (>60); Est Glom Filt Rate - Afr Amer 180 mL/min (>60); Globulin 3.1 g/dL (2.2-4.2); Glucose 130 mg/dL (74-106); Potassium 3.9 mmol/L (3.5-5.1); Protein, Total 6.9 g/dL (6.4-8.2); Sodium Level 134 mmol/L (136-145); Thyroid Stim Hormone (TSH) 1.11 uIU/mL (0.358-3.74)
== END ==
PROVIDERS: PCP Family Medicine Geriatric Medicine; Visit Provider Family Medicine Geriatric Medicine
DX: E11.9 Type 2 diabetes mellitus without complications (principal); E55.9 Vitamin D deficiency, unspecified; I10 Essential (primary) hypertension
CPT/HCPCS: 36415; 80053; 82306; 84443; 85025

== ENCOUNTER → 2020-06-19 09:33 | Outpatient (CLI) | payer MEDICARE, MEDICAID, SELFPAY ==
[2020-06-19 10:41] LABS: Anion Gap 6 (5-15); BUN 12 mg/dL (7-18); BUN/Creat Ratio 17.9 RATIO (10-20); Calcium,Total 9.3 mg/dL (8.5-10.1); Chloride 101 mmol/L (98-107); Creatinine, Serum 0.67 mg/dL (0.70-1.30); EST Glomerular Filtration Rate 134 mL/min (>60); Est Glom Filt Rate - Afr Amer 163 mL/min (>60); Glucose 110 mg/dL (74-106); Sodium Level 133 mmol/L (136-145)
== END ==
PROVIDERS: PCP Family Medicine Geriatric Medicine; Visit Provider Family Medicine Geriatric Medicine
DX: I10 Essential (primary) hypertension (principal)
CPT/HCPCS: 36415; 80048

== ENCOUNTER → 2020-07-18 11:18 | Outpatient (CLI) | payer MEDICARE, MEDICAID, SELFPAY ==
[2020-07-18 12:20] LABS: Absolute Lymphocyte Count 1.66 X10^3/uL (0.83-4.51); Absolute Neutrophil Count 4.2 X10^3/uL (2.0-7.7); Basophil# 0.03 X10^3/uL; Basophil% 0.5 % (0-1); Eosinophils% 1.5 % (0-5); Hematocrit 44.1 % (40-54); Hemoglobin 14.6 g/dL (13.0-16.5); Lymphocyte # 1.66 X10^3/ul (4.0); Lymphocyte % 25.2 % (19-41); Mean Corp Hgb Conc 33.1 g/dL (32-36); Mean Corpuscular Hgb 30.2 pg (27.0-32.0); Mean Corpuscular Volume 91.3 fL (80-94); Mean Platelet Vol. 9.9 fl (6.2-12.0); Monocyte% 9.1 % (0-10); NRBC Flagged by Analyzer 0 % (0-5); Neutrophil # 4.16 X10^3/uL (2.7-7.7); Neutrophil % 63.2 % (47-70); Platelet Count 245 K/mm3 (150-450); RBC Distribution Width CV 13.2 % (11.6-14.6); Red Blood Count 4.83 M/mm3 (4.6-6.2); White Blood Count 6.6 K/mm3 (4.4-11.0)
[2020-07-18 12:43] LABS: Vitamin D,25 Hydroxy 40.2 ng/mL
[2020-07-18 12:52] LABS: ALB/GLOB Ratio 1.3 RATIO (0.9-2.4); AST(SGOT) 10 U/L (15-37); Alanine Aminotransfer ALT/SGPT 23 U/L (16-61); Albumin, Serum 3.9 g/dL (3.2-5.0); Alkaline Phosphatase 75 U/L (45-117); Anion Gap 4 (5-15); BUN 12 mg/dL (7-18); BUN/Creat Ratio 18.5 RATIO (10-20); Calcium,Total 9.4 mg/dL (8.5-10.1); Chloride 101 mmol/L (98-107); Creatinine, Serum 0.65 mg/dL (0.70-1.30); EST Glomerular Filtration Rate 140 mL/min (>60); Est Glom Filt Rate - Afr Amer 169 mL/min (>60); Glucose 103 mg/dL (74-106); Potassium 4.3 mmol/L (3.5-5.1); Protein, Total 6.9 g/dL (6.4-8.2); Sodium Level 132 mmol/L (136-145)
== END ==
PROVIDERS: PCP Family Medicine Geriatric Medicine; Visit Provider Family Medicine Geriatric Medicine
DX: E11.9 Type 2 diabetes mellitus without complications (principal); E55.9 Vitamin D deficiency, unspecified; I10 Essential (primary) hypertension
CPT/HCPCS: 36415; 80053; 82306; 84443; 85025

== ENCOUNTER → 2020-10-17 11:31 | Outpatient (CLI) | payer MEDICARE, MEDICAID, SELFPAY ==
[2020-10-17 12:38] LABS: Absolute Lymphocyte Count 2.01 X10^3/uL (0.83-4.51); Basophil# 0.06 X10^3/uL; Basophil% 0.8 % (0-1); Eosinophil# 0.17 X10^3/uL; Eosinophils% 2.1 % (0-5); Hematocrit 47.3 % (40-54); Hemoglobin 15.9 g/dL (13.0-16.5); Lymphocyte # 2.01 X10^3/ul (4.0); Lymphocyte % 25.4 % (19-41); Mean Corp Hgb Conc 33.6 g/dL (32-36); Mean Corpuscular Hgb 30.2 pg (27.0-32.0); Mean Corpuscular Volume 89.9 fL (80-94); Monocyte# 0.69 X10^3/uL; Monocyte% 8.7 % (0-10); NRBC Flagged by Analyzer 0 % (0-5); Neutrophil # 4.96 X10^3/uL (2.7-7.7); Neutrophil % 62.7 % (47-70); Platelet Count 249 K/mm3 (150-450); RBC Distribution Width CV 12.5 % (11.6-14.6); Red Blood Count 5.26 M/mm3 (4.6-6.2); White Blood Count 7.9 K/mm3 (4.4-11.0)
[2020-10-17 13:16] LABS: Vitamin D,25 Hydroxy 31.5 ng/mL
[2020-10-17 13:53] LABS: BUN 12 mg/dL (7-18); Creatinine, Serum 0.69 mg/dL (0.70-1.30); Glucose 94 mg/dL (74-106)
[2020-10-17 13:54] LABS: ALB/GLOB Ratio 1.4 RATIO (0.9-2.4); AST(SGOT) 15 U/L (15-37); Alanine Aminotransfer ALT/SGPT 29 U/L (16-61); Albumin, Serum 4.2 g/dL (3.2-5.0); Alkaline Phosphatase 86 U/L (45-117); Anion Gap 9 (5-15); BUN/Creat Ratio 17.3 RATIO (10-20); Calcium,Total 9.4 mg/dL (8.5-10.1); Chloride 100 mmol/L (98-107); EST Glomerular Filtration Rate 129 mL/min (>60); Est Glom Filt Rate - Afr Amer 156 mL/min (>60); Globulin 3.1 g/dL (2.2-4.2); Potassium 3.9 mmol/L (3.5-5.1); Protein, Total 7.3 g/dL (6.4-8.2); Sodium Level 133 mmol/L (136-145); Thyroid Stim Hormone (TSH) 1.15 uIU/mL (0.358-3.74)
== END ==
PROVIDERS: PCP Family Medicine Geriatric Medicine; Visit Provider Family Medicine Geriatric Medicine
DX: E11.9 Type 2 diabetes mellitus without complications (principal); E55.9 Vitamin D deficiency, unspecified; I10 Essential (primary) hypertension
CPT/HCPCS: 36415; 80053; 82306; 84443; 85025

== ENCOUNTER → 2020-10-18 10:01 | Outpatient (CLI) | payer MEDICARE, MEDICAID, SELFPAY | PROVIDERS: PCP Family Medicine Geriatric Medicine; Visit Provider Internal Medicine Gastroenterology | DX: Z11.59 Encounter for screening for other viral diseases (principal) | CPT/HCPCS: 87635; C9803; U0003 ==

== ENCOUNTER → 2021-01-22 11:30 | Outpatient (CLI) | payer MEDICARE, MEDICAID, SELFPAY ==
[2021-01-22 11:57] LABS: Absolute Neutrophil Count 5.1 X10^3/uL (2.0-7.7); Basophil# 0.05 X10^3/uL; Basophil% 0.7 % (0-1); Eosinophil# 0.15 X10^3/uL; Hematocrit 48.2 % (40-54); Hemoglobin 16.1 g/dL (13.0-16.5); Lymphocyte % 22.8 % (19-41); Mean Corp Hgb Conc 33.4 g/dL (32-36); Mean Corpuscular Hgb 30.2 pg (27.0-32.0); Mean Corpuscular Volume 90.4 fL (80-94); Mean Platelet Vol. 9.5 fl (6.2-12.0); Monocyte# 0.45 X10^3/uL; NRBC Flagged by Analyzer 0 % (0-5); Neutrophil % 68.2 % (47-70); Platelet Count 278 K/mm3 (150-450); RBC Distribution Width CV 13.1 % (11.6-14.6); RBC Distribution Width SD 42.7 fl (35.1-43.9); Red Blood Count 5.33 M/mm3 (4.6-6.2); White Blood Count 7.5 K/mm3 (4.4-11.0)
[2021-01-22 12:37] LABS: ALB/GLOB Ratio 1.2 RATIO (0.9-2.4); AST(SGOT) 12 U/L (15-37); Alanine Aminotransfer ALT/SGPT 24 U/L (16-61); Albumin, Serum 4.1 g/dL (3.2-5.0); Alkaline Phosphatase 79 U/L (45-117); Anion Gap 5 (5-15); BUN 11 mg/dL (7-18); BUN/Creat Ratio 17.2 RATIO (10-20); Calcium,Total 9.6 mg/dL (8.5-10.1); Chloride 103 mmol/L (98-107); Creatinine, Serum 0.64 mg/dL (0.70-1.30); EST Glomerular Filtration Rate 142 mL/min (>60); Est Glom Filt Rate - Afr Amer 171 mL/min (>60); Globulin 3.4 g/dL (2.2-4.2); Glucose 94 mg/dL (74-106); Potassium 4.3 mmol/L (3.5-5.1); Protein, Total 7.5 g/dL (6.4-8.2); Sodium Level 138 mmol/L (136-145); Thyroid Stim Hormone (TSH) 0.92 uIU/mL (0.358-3.74)
== END ==
PROVIDERS: PCP Family Medicine Geriatric Medicine; Visit Provider Family Medicine Geriatric Medicine
DX: E11.9 Type 2 diabetes mellitus without complications (principal); E55.9 Vitamin D deficiency, unspecified; I10 Essential (primary) hypertension
CPT/HCPCS: 36415; 80053; 82306; 84443; 85025

== ENCOUNTER → 2021-04-23 10:26 | Outpatient (CLI) | payer MEDICARE, MEDICAID, SELFPAY ==
[2021-04-23 12:14] LABS: Absolute Lymphocyte Count 1.65 X10^3/uL (0.83-4.51); Absolute Neutrophil Count 3.6 X10^3/uL (2.0-7.7); Basophil# 0.04 X10^3/uL; Basophil% 0.7 % (0-1); Eosinophil# 0.14 X10^3/uL; Eosinophils% 2.3 % (0-5); Hematocrit 44.9 % (40-54); Hemoglobin 15.4 g/dL (13.0-16.5); Lymphocyte # 1.65 X10^3/ul (0.83-4.51); Lymphocyte % 27.3 % (19-41); Mean Corp Hgb Conc 34.3 g/dL (32-36); Mean Corpuscular Hgb 30.7 pg (27.0-32.0); Mean Corpuscular Volume 89.6 fL (80-94); Mean Platelet Vol. 10.4 fl (6.2-12.0); Monocyte# 0.61 X10^3/uL; Monocyte% 10.1 % (0-10); NRBC Flagged by Analyzer 0 % (0-5); Neutrophil # 3.58 X10^3/uL (2.7-7.7); Neutrophil % 59.3 % (47-70); Platelet Count 219 K/mm3 (150-450); RBC Distribution Width CV 12.7 % (11.6-14.6); RBC Distribution Width SD 41.7 fl (35.1-43.9); Red Blood Count 5.01 M/mm3 (4.6-6.2)
[2021-04-23 12:40] LABS: ALB/GLOB Ratio 1.3 RATIO (0.9-2.4); AST(SGOT) 16 U/L (15-37); Alanine Aminotransfer ALT/SGPT 27 U/L (16-61); Albumin, Serum 3.8 g/dL (3.2-5.0); Alkaline Phosphatase 76 U/L (45-117); Anion Gap 8 (5-15); BUN 9 mg/dL (7-18); BUN/Creat Ratio 14.9 RATIO (10-20); Calcium,Total 9.3 mg/dL (8.5-10.1); Chloride 102 mmol/L (98-107); EST Glomerular Filtration Rate 151 mL/min (>60); Est Glom Filt Rate - Afr Amer 183 mL/min (>60); Globulin 2.9 g/dL (2.2-4.2); Glucose 83 mg/dL (74-106); Potassium 3.7 mmol/L (3.5-5.1); Protein, Total 6.7 g/dL (6.4-8.2); Sodium Level 137 mmol/L (136-145); Thyroid Stim Hormone (TSH) 1.32 uIU/mL (0.358-3.74)
[2021-04-24 12:19] LABS: Vitamin D,25 Hydroxy 28.2 ng/mL
== END ==
PROVIDERS: PCP Family Medicine Geriatric Medicine; Visit Provider Family Medicine Geriatric Medicine
DX: I10 Essential (primary) hypertension (principal); E11.9 Type 2 diabetes mellitus without complications; E55.9 Vitamin D deficiency, unspecified
CPT/HCPCS: 36415; 80053; 82306; 84443; 85025

== ENCOUNTER 2021-06-18 14:56 | Emergency (ER) | payer MEDICARE, MEDICAID, SELFPAY ==
[2021-06-18 14:57] VITALS: BP 110/69; PULSE 68; RESP 16; TEMP 36.4; O2SAT 97; BMI 27.9
[2021-06-18 15:57] LABS: Absolute Lymphocyte Count 1.47 X10^3/uL (0.83-4.51); Absolute Neutrophil Count 3.9 X10^3/uL (2.0-7.7); Basophil# 0.03 X10^3/uL; Basophil% 0.5 % (0-1); Eosinophil# 0.19 X10^3/uL; Eosinophils% 3.1 % (0-5); Hematocrit 44.4 % (40-54); Hemoglobin 15.5 g/dL (13.0-16.5); Lymphocyte # 1.47 X10^3/ul (0.83-4.51); Lymphocyte % 24.1 % (19-41); Mean Corp Hgb Conc 34.9 g/dL (32-36); Mean Corpuscular Hgb 30.9 pg (27.0-32.0); Mean Corpuscular Volume 88.6 fL (80-94); Mean Platelet Vol. 9.3 fl (6.2-12.0); Monocyte# 0.48 X10^3/uL; Monocyte% 7.9 % (0-10); NRBC Flagged by Analyzer 0 % (0-5); Neutrophil # 3.91 X10^3/uL (2.7-7.7); Neutrophil % 64.2 % (47-70); Platelet Count 217 K/mm3 (150-450); RBC Distribution Width CV 12.8 % (11.6-14.6); RBC Distribution Width SD 41.7 fl (35.1-43.9); Red Blood Count 5.01 M/mm3 (4.6-6.2); White Blood Count 6.1 K/mm3 (4.4-11.0)
[2021-06-18 16:18] LABS: ALB/GLOB Ratio 1.4 RATIO (0.9-2.4); AST(SGOT) 8 U/L (15-37); Alanine Aminotransfer ALT/SGPT 24 U/L (16-61); Alkaline Phosphatase 77 U/L (45-117); Anion Gap 5 (5-15); BUN 9 mg/dL (7-18); BUN/Creat Ratio 16.1 RATIO (10-20); Calcium,Total 9.2 mg/dL (8.5-10.1); Chloride 103 mmol/L (98-107); Creatinine, Serum 0.56 mg/dL (0.70-1.30); EST Glomerular Filtration Rate 165 mL/min (>60); Est Glom Filt Rate - Afr Amer 200 mL/min (>60); Estimated Creatinine Clearance 150.82 ml/min; Globulin 2.9 g/dL (2.2-4.2); Glucose 109 mg/dL (74-106); Potassium 3.7 mmol/L (3.5-5.1); Protein, Total 6.9 g/dL (6.4-8.2); Sodium Level 136 mmol/L (136-145)
--- NOTE | 2021-06-18 16:26 | EDS_ITS ---
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 He has been perseverating about being poisoned lately for no good reason. He has been hearing voices although he states he does not know exactly what they are saying, he denies any command hallucinations or suicidality. He was sent by the skilled nursing out of concerns of his behavior, and concerned that he may need further psychiatric treatment. [facility] Medical History (Updated 06/18/21 @ 19:[address] Titus Reeder MD) Schizophrenia Home Medications atenolol 100 mg PO DAILY 06/18/21 [History Last Taken Unknown] atorvastatin 40 mg PO DAILY 06/18/21 [History Last Taken Unknown] dapagliflozin [Farxiga] 10 mg PO DAILY 06/18/21 [History Last Taken Unknown] metformin 1,000 mg PO BID 06/18/21 [History Last Taken Unknown] olanzapine 30 mg PO QHS 06/18/21 [History Last Taken Unknown] pioglitazone 30 mg PO DAILY 06/18/21 [History Last Taken Unknown] risperidone 3 mg PO DAILY 06/18/21 [History Last Taken Unknown] valsartan 320 mg PO DAILY 06/18/21 [History Last Taken Unknown] Allergy/AdvReac Type Severity Reaction Status Date / Time No Known Allergies Allergy Verified 06/18/21 15:00 Social History Smoking Status: Never smoker [facility] ED Constitutional Constitutional ED: Denies chills or fever(s) Eyes Eyes: Denies change in vision or diplopia ENT ENT ED: Denies rhinorrhea or sore throat Cardiovascular Cardiovascular: Denies chest pain or palpitations Respiratory/Chest Respiratory/Chest: Denies cough or dyspnea Gastrointestinal Gastrointestinal: Reports vomiting and other Details: Patient states he was nauseated earlier and vomited once but that is resolved now ; Denies abdominal pain, diarrhea or nausea Genitourinary Genitourinary ED: Denies dysuria or hematuria Musculoskeletal Musculoskeletal: Denies back pain or neck pain Integumentary Denies abscess or rash Neurologic Neurologic: Denies headache(s), paresthesias or weakness Psychiatric Psychiatric: Reports as per HPI, behavioral changes, depression, hallucinations and paranoia; Denies homicidal ideation, suicidal ideation or suicidal thoughts EXAM Physical Exam Const Vital Signs: 06/18/21 14:57 06/18/21 18:16 Temperature 97.5 F L Temperature Source Temporal Pulse Rate 68 Respiratory Rate 16 16 Blood Pressure 110/69 Blood Pressure Mean 82 Pulse Ox 97 Oxygen Delivery Method Room Air Positive well nourished and well developed General Appearance ED: well developed and NAD HEENT Reports moist mucous membranes normocephalic and atraumatic Eyes PERRL and EOMs intact bilaterally General Eye ED: Negative for scleral icterus Neck no lymphadenopathy and supple Resp normal respiratory effort and clear to auscultation bilaterally Cardio no murmurs Rate: regular rate Rhythm: regular rhythm GI non-tender and non-distended Auscultation: normoactive bowel sounds Palpation: soft Back/Spine no CVA tenderness and normal ROM Extremity normal to inspection General Extremety ED: Negative for edema General Extremity: Negative for edema Neuro oriented x3, CN's II-XII intact bilaterally, no sensory deficits noted and gait normal Sensorium / Orientation: alert Motor Exam: strength 5/5 throughout Psych mental status grossly normal, cooperative, activity/motor behavior normal, denies homicidal ideation and denies suicidal ideation; Negative for thought process normal Appearance: grossly normal Attitude: calm Speech: minimal and slow Mood & Affect: flat affect Thought Process: illogical Thought Content: delusion(s) Delusional Thought Content Details: Positive for paranoid and hallucination(s) Positive for auditory Attention / Concentration: attention grossly intact Skin Lesions: no lesions Rashes: no rashes MDM MDM MDM Narrative Medical decision making narrative: Labs and toxicology unremarkable, patient is medically cleared. Evaluated by social work who agrees patient needs to be placed, patient is pink slipped and we are attempting to obtain placement. While waiting, patient became aggressive. He kept trying to leave so we put him with a sitter and changed him to a room closer to the nursing desk. When he was not allowed to leave at some point, he became verbally and physically aggressive towards staff requiring physical and chemical restraint to help calm him down. Lab Data Attestation: I reviewed the patient's lab results. Labs: Laboratory Results - last 24 hr 06/18/21 06/18/21 06/18/21 15:50 15:50 15:50 WBC 6.1 RBC 5.01 Hgb 15.5 Hct 44.4 MCV 88.6 MCH 30.9 MCHC 34.9 RDW Std Deviation 41.7 RDW Coeff of Gautam 12.8 Plt Count 217 MPV 9.3 Immature Gran % (Auto) 0.200 Neut % (Auto) 64.2 Lymph % (Auto) 24.1 [place] % (Auto) 7.9 Eos % (Auto) 3.1 Baso % (Auto) 0.5 Absolute Neuts (auto) 3.9 Absolute Lymphs (auto) 1.47 Nucleated RBC % 0 Sodium 136 Potassium 3.7 Chloride 103 Carbon Dioxide 28.0 Anion Gap 5 BUN 9 Creatinine 0.56 L Estim Creat Clear Calc 150.82 Est GFR (MDRD) Af Amer 200 Est GFR (MDRD) Non-Af 165 BUN/Creatinine Ratio 16.1 Glucose 109 H Calcium 9.2 Total Bilirubin 0.90 AST 8 L ALT 24 Alkaline Phosphatase 77 Total Protein 6.9 Albumin 4.0 Globulin 2.9 Albumin/Globulin Ratio 1.4 Urine Opiates Screen Urine Methadone Screen Ur Barbiturates Screen Ur Phencyclidine Scrn Ur Amphetamines Screen U Methamphetamin-MDMA U Benzodiazepines Scrn Urine Cocaine Screen U Cannabinoids Screen Ur Drug Screen Comment Ethyl Alcohol 6.0 06/18/21 17:37 WBC RBC Hgb Hct MCV MCH MCHC RDW Std Deviation RDW Coeff of Gautam Plt Count MPV Immature Gran % (Auto) Neut % (Auto) Lymph % (Auto) [place] % (Auto) Eos % (Auto) Baso % (Auto) Absolute Neuts (auto) Absolute Lymphs (auto) Nucleated RBC % Sodium Potassium Chloride Carbon Dioxide Anion Gap BUN Creatinine Estim Creat Clear Calc Est GFR (MDRD) Af Amer Est GFR (MDRD) Non-Af BUN/Creatinine Ratio Glucose Calcium Total Bilirubin AST ALT Alkaline Phosphatase Total Protein Albumin Globulin Albumin/Globulin Ratio Urine Opiates Screen NEGATIVE Urine Methadone Screen NEGATIVE Ur Barbiturates Screen NEGATIVE Ur Phencyclidine Scrn NEGATIVE Ur Amphetamines Screen NEGATIVE U Methamphetamin-MDMA NEGATIVE U Benzodiazepines Scrn NEGATIVE Urine Cocaine Screen NEGATIVE U Cannabinoids Screen NEGATIVE Ur Drug Screen Comment Ethyl Alcohol Discharge Plan Triage Chief Complaint: Mental Health ED Provider: Titus Reeder Dx/Rx/DC Orders Clinical Impression: Schizophrenia, paranoid Prescriptions: No Action atorvastatin 40 mg tablet 40 mg PO DAILY RF: 0 atenolol 100 mg tablet 100 mg PO DAILY RF: 0 risperidone 3 mg tablet 3 mg PO DAILY RF: 0 metformin 1,000 mg tablet 1,000 mg PO BID RF: 0 valsartan 320 mg tablet 320 mg PO DAILY RF: 0 pioglitazone 30 mg tablet 30 mg PO DAILY RF: 0 olanzapine 20 mg tablet 30 mg PO QHS RF: 0 Farxiga 10 mg tablet 10 mg PO DAILY RF: 0 Primary Care Provider: Kit Whitlock Chi Referrals: Kit Whitlock Chi, MD [Primary Care Provider] - Disposition Disposition: Psychiatric Hospital or Unit
--- NOTE | 2021-06-18 16:58 | CM.ED ---
SOCIAL WORK ASSESSMENT Referral Source: Crisis, Dr. Reeder Reason for Consult: Mental Health Evaluation Chief Compliant: Patient presents by police from [facility] through [facility] for mental health evaluation. Patient with history of paranoid schizophrenia. Patient with delusions stating I think I drank poison. They poisoned me. Marital/Social History: Single Living Situation: Shelter Support/Resources: [facility], staff at halfway, Dr. Vega, Board of [employer] History: None Education: High School Mental Health Treatment/History: Paranoid schizophrenia, mild intellectual disability, impulse disorder. Patient is treated with medications. Crisis staff reported no recent change to medications and is treated by Dr. Vega. Triggers/Stressors: Patient having delusions and paranoia that he has been poisoned Coping Skills: color, draw, watch cartoons Abuse Issues: Patient denies any history of emotional, physical, or sexual trauma. Substance Abuse History:Patient denies any history of substance abuse. Risk to Self/Others: Suicidal- Patient denies any suicidal ideation, plan or intent. Homicidal- Patient denies any homicidal ideation. Violence- Patient with recent violence towards objects-broke a window. Mental Status Exam: Orientation- A&Ox3 Memory: fair Appearance/General Behavior: clean/appropriate, calm Mood/Affect: depressed, anxious Communication Pattern: responds to questions Thought Process: paranoid, delusions General Intellectual Functioning: Mild Intellectual disability, connected with [facility] [employer] Judgement: poor Insight: poor Assessment: Prior to patient's arrival to ER, received call from ship worker through [facility] reporting patient is from [facility]. Patient with history of paranoid schizophrenia and has been decompensating. Patient paranoid having delusions that he has been poisoned. Patient broke a window at halfway today and has been more aggressive and attempted to wander from home. Police were called and brought patient to ER. Staff concerned for safety of self and other halfway residents. Recommending referral to inpatient psych for medication stabilization. Patient able to return to halfway was stabilized. Met with patient in room. Introduced role and reason for referral. Patient up pacing in room. Patient asking am I in trouble?? Patient easily redirected. Patient reports believes he drank poison, they are trying to poison me. Patient states I didn't mean to break the window. Patient admits to sometimes having hallucinations. Patient requesting to leave. Education and support provided to patient. Collaboration with Dr. Reeder. Plan for inpatient psych for stabilization. This worker to facilitate placement. Plan: Referral to inpatient psych for medication stabilization Godfrey Marcum MSW, ENGRAVER TIRE MOLD
--- NOTE | 2021-06-18 17:47 | CM.ED ---
SOCIAL WORK Referral faxed and called to [facility]. Godfrey Marcum, SUPERVISOR WEAVING, LEVEL DESIGNER
[2021-06-18 18:12] LABS: Amphetamine Urine VISTA NEGATIVE (<1000 ng/mL); Barbiturate Urine VISTA NEGATIVE (< 200 ng/mL); Benzodiazepine Urine VISTA NEGATIVE (< 200 ng/mL); Cocaine Urine VISTA NEGATIVE (< 300 ng/mL); Ecstacy Urine VISTA NEGATIVE (< 500 ng/mL); Methadone Urine VISTA NEGATIVE (< 300 ng/mL); PCP Urine VISTA NEGATIVE (< 25 ng/mL); THC Urine VISTA NEGATIVE (< 50 ng/mL); Vista UDS pH Range 6
[2021-06-18 18:16] VITALS: RESP 16
--- NOTE | 2021-06-18 18:46 | CM.ED ---
SOCIAL WORK Patient has been declined by [facility]. Referral has been faxed and called to [facility]. Godfrey Marcum, JAVA SPRING DEVELOPER, OPTICAL ENGINEER
[2021-06-18] MEDS: Ziprasidone IM 20 MG/ML VIAL IM (19:00)
--- NOTE | 2021-06-18 19:02 | ED.RN ---
pt escalating in room, asking Why do I have to stay in the hospital. PD outside room at this time. pt aggressively trying to leave room multiple times. dr syed notified. Geodon 20 mg IM given at 1900.
--- NOTE | 2021-06-18 19:18 | CM.ED ---
SOCIAL WORK Patient has been accepted to [facility] by Dr. Van to the Intensive Treatment Unit. Nurse to call report to option 1. [place] to set up transport. Staff kedar. Godfrey Marcum MSW, SPECIAL EDUCATION ASSOCIATE
[2021-06-18 20:17] VITALS: RESP 16
[2021-06-18 20:44] VITALS: BP 110/69; PULSE 68; RESP 16; O2SAT 99
== END 2021-06-18 20:44 ==
PROVIDERS: Emergency Provider Emergency Medicine; PCP Family Medicine Geriatric Medicine
DX: F20.0 Paranoid schizophrenia (principal); Z79.84 Long term (current) use of oral hypoglycemic drugs; Z79.899 Other long term (current) drug therapy
CPT/HCPCS: 36415; 80053; 80307; 82077; 85025; 87426; 96372; 99285; J3486

== ENCOUNTER → 2021-07-17 14:17 | Outpatient (CLI) | payer MEDICARE, MEDICAID, SELFPAY ==
[2021-07-17 15:26] LABS: Absolute Lymphocyte Count 1.48 X10^3/uL (0.83-4.51); Absolute Neutrophil Count 4.5 X10^3/uL (2.0-7.7); Basophil# 0.06 X10^3/uL; Basophil% 0.9 % (0-1); Eosinophil# 0.21 X10^3/uL; Eosinophils% 3.1 % (0-5); Hematocrit 45.7 % (40-54); Hemoglobin 15.1 g/dL (13.0-16.5); Lymphocyte # 1.48 X10^3/ul (0.83-4.51); Lymphocyte % 21.6 % (19-41); Mean Corpuscular Hgb 30.6 pg (27.0-32.0); Mean Corpuscular Volume 92.7 fL (80-94); Mean Platelet Vol. 9.6 fl (6.2-12.0); Monocyte# 0.58 X10^3/uL; Monocyte% 8.5 % (0-10); NRBC Flagged by Analyzer 0 % (0-5); Neutrophil # 4.47 X10^3/uL (2.7-7.7); Platelet Count 234 K/mm3 (150-450); RBC Distribution Width CV 13.1 % (11.6-14.6); RBC Distribution Width SD 44.3 fl (35.1-43.9); Red Blood Count 4.93 M/mm3 (4.6-6.2); White Blood Count 6.9 K/mm3 (4.4-11.0)
[2021-07-17 15:56] LABS: AST(SGOT) 11 U/L (15-37); Alanine Aminotransfer ALT/SGPT 21 U/L (16-61); Albumin, Serum 3.4 g/dL (3.2-5.0); Alkaline Phosphatase 65 U/L (45-117); Anion Gap 8 (5-15); BUN 14 mg/dL (7-18); Calcium,Total 8.9 mg/dL (8.5-10.1); Chloride 95 mmol/L (98-107); Cholesterol 154 mg/dL (200); Creatinine, Serum 0.64 mg/dL (0.70-1.30); EST Glomerular Filtration Rate 143 mL/min (>60); Est Glom Filt Rate - Afr Amer 173 mL/min (>60); Globulin 3.4 g/dL (2.2-4.2); Glucose 138 mg/dL (74-106); Hemoglobin A1c 5.9 % (3.8-5.6); High Density Lipoprotein 44 mg/dL; Protein, Total 6.8 g/dL (6.4-8.2); Sodium Level 134 mmol/L (136-145); Triglycerides 217 mg/dL; Very Low Density Lipoprotein 43 mg/dL (5-40)
== END ==
PROVIDERS: PCP Family Medicine Geriatric Medicine; Referring Provider Family Medicine Geriatric Medicine; Visit Provider Family Medicine Geriatric Medicine
DX: I10 Essential (primary) hypertension (principal); E55.9 Vitamin D deficiency, unspecified; E11.9 Type 2 diabetes mellitus without complications; E78.5 Hyperlipidemia, unspecified
CPT/HCPCS: 36415; 80053; 80061; 82140; 82306; 83036; 84443; 85025

== ENCOUNTER → 2021-07-24 08:44 | Outpatient (CLI) | payer MEDICARE, MEDICAID, SELFPAY ==
[2021-07-24 09:56] LABS: Platelet Count 208 K/mm3 (150-450)
[2021-07-24 10:12] LABS: AST(SGOT) 9 U/L (15-37); Alanine Aminotransfer ALT/SGPT 21 U/L (16-61)
[2021-07-24 10:30] LABS: Valproic Acid (Depakene) Level 99 ug/mL (50-100)
== END ==
PROVIDERS: PCP Family Medicine Geriatric Medicine; Referring Provider Psychiatry & Neurology Psychiatry; Visit Provider Psychiatry & Neurology Psychiatry
DX: Z79.899 Other long term (current) drug therapy (principal)
CPT/HCPCS: 36415; 80164; 82140; 84450; 84460; 85049

== ENCOUNTER → 2021-08-20 11:09 | Outpatient (CLI) | payer MEDICARE, MEDICAID, SELFPAY ==
[2021-08-20 12:11] LABS: Color, Urine Straw (Yellow); Glucose, Dipstick 1000 mg/dl (Normal); Ketone-Dipstick 5 mg/dl (Negative); Leukocyte Esterase-Dipstick Negative /ul (Negative); Nitrite-Dipstick Negative (Negative); Occult Blood-Urine Negative /ul (Negative); Protein-Dipstick Negative (Negative); Urine Bilirubin Dipstick Negative (Negative); Urine Clarity Clear (Clear); Urine Urobilinogen Normal (Normal)
[2021-08-20 12:36] LABS: Valproic Acid (Depakene) Level 128 ug/mL (50-100)
== END ==
PROVIDERS: PCP Family Medicine Geriatric Medicine; Referring Provider Psychiatry & Neurology Psychiatry; Visit Provider Psychiatry & Neurology Psychiatry
DX: Z79.899 Other long term (current) drug therapy (principal)
CPT/HCPCS: 36415; 80164; 81002; 82140

== ENCOUNTER → 2021-08-29 09:00 | Outpatient (CLI) | payer MEDICARE, MEDICAID, SELFPAY | PROVIDERS: PCP Family Medicine Geriatric Medicine; Visit Provider Family Medicine Geriatric Medicine | DX: E72.20 Disorder of urea cycle metabolism, unspecified (principal) | CPT/HCPCS: 36415; 82140 ==

== ENCOUNTER → 2021-09-02 12:07 | Outpatient (CLI) | payer MEDICARE, MEDICAID, SELFPAY | PROVIDERS: PCP Family Medicine Geriatric Medicine; Visit Provider Family Medicine Geriatric Medicine | DX: E72.20 Disorder of urea cycle metabolism, unspecified (principal) | CPT/HCPCS: 36415; 82140 ==

== ENCOUNTER → 2021-09-03 10:53 | Outpatient (CLI) | payer MEDICARE, MEDICAID, SELFPAY ==
--- NOTE | 2021-09-03 10:58 | RAD_ITS ---
STUDY: X-RAY - RIGHT WRIST REASON FOR EXAM: Male, 51 years old. HAND PAIN TECHNIQUE: 3 view(s) of the wrist were obtained. COMPARISON: None. FINDINGS: Normal visualized distal radius and ulna. Normal radiocarpal articulation. Normal distal radioulnar articulation. Normal carpal bones. Normal carpal articulations. Normal carpometacarpal articulation of the thumb. Normal second through fifth carpometacarpal articulations. Transverse fracture of the fifth metacarpus with displacement and angulation. Soft tissue swelling. The soft tissue structures are otherwise unremarkable. RAD/Wrist min 3 Views IMPRESSION: Fifth metacarpal fracture. Electronically Signed: Zach Vaughn MD (Brooks) at 14:27 EDT , Service support ,
--- NOTE | 2021-09-03 10:58 | RAD_ITS ---
STUDY: X-RAY - RIGHT HAND REASON FOR EXAM: Male, 51 years old. HIT HAND ON SOMETHING, PAIN AND BRUISING ON ANTERIOR ASPECT, PINKIE SIDE HAND SWOLLEN TECHNIQUE: 3 view(s) of the hand. COMPARISON: None. FINDINGS: Normal radiocarpal articulation. Normal distal radioulnar joint. Normal visualized carpal bones. Normal carpal articulations Normal carpometacarpal articulation of the thumb. Normal second through fifth carpometacarpal joints. Obliquely oriented fracture of the proximal fifth metacarpal with mild foreshortening. Approximately 4 mm of displacement. Soft tissue swelling. Normal metacarpophalangeal joint of the thumb. Normal interphalangeal joint of the thumb. Normal proximal and distal phalanges of the thumb. Normal metacarpophalangeal joints of the second through fifth fingers. Normal proximal and distal interphalangeal joints of the second through fifth fingers. Normal phalanges of the second through fifth fingers. The soft tissue structures are otherwise unremarkable. RAD/Hand Min 3 Views IMPRESSION: Right fifth metacarpal fracture. Electronically Signed: Zach Vaughn MD (Brooks) at 14:28 EDT , Service support ,
== END ==
PROVIDERS: PCP Family Medicine Geriatric Medicine; Referring Provider Family Medicine Geriatric Medicine; Visit Provider Family Medicine Geriatric Medicine
DX: M79.609 Pain in unspecified limb (principal)
CPT/HCPCS: 73110; 73130

== ENCOUNTER 2021-09-18 13:10 | Emergency (ER) | payer MEDICARE, MEDICAID, SELFPAY ==
[2021-09-18 13:10] VITALS: BP 170/95; PULSE 82; RESP 16; TEMP 36.3; O2SAT 99; BMI 26.1
--- NOTE | 2021-09-18 13:45 | EDS_ITS ---
HPI History of Present Illness Chief Complaint: Suicidal Informant: patient, family and mental health staff Narrative Narrative: 51-year-old male history of paranoid schizophrenia was at workshop today when he made the comment that he was tired of living and wanted to kill himself and kill some biometry teacher. He tells me that he is not feeling that way right now but that the radio is saying some very weird things about him to him. He cannot really specify as to what those things are. Family notes that he lives in a retirement and that he has not been sleeping. His PCP doubled his trazodone recently. He returned to the retirement at the beginning of June after being hospitalized in [place]. Apparently he was put on Depakote but he has since been weaned off of that because of high ammonia levels and elevated liver enzymes. Family states that those have returned to normal. His psychiatrist before she left on vacation had left instructions to place him on lithium if the medications that she was prescribing was not helping him. Therefore he started lithium about 7 days ago. [facility] Medical History (Updated 09/18/21 @ 13:[address] Joe Hudson, ) Diabetes mellitus Hypercholesterolemia Hypertension Schizophrenia Home Medications atorvastatin 40 mg PO DAILY 06/18/21 [History Last Taken Unknown] dapagliflozin [Farxiga] 10 mg PO DAILY 06/18/21 [History Last Taken Unknown] metformin 1,000 mg PO BID 06/18/21 [History Last Taken Unknown] pioglitazone 30 mg PO DAILY 06/18/21 [History Last Taken Unknown] valsartan 320 mg PO DAILY 06/18/21 [History Last Taken Unknown] aripiprazole 300 mg intramuscular suspension,extended release 300 mg IM QMONTH 09/05/21 [History Last Taken Unknown] divalproex 500 mg tablet,delayed release 1,000 mg PO BID tab 09/05/21 [History Last Taken Unknown] fluticasone propionate 50 mcg/actuation nasal spray,suspension 1 spray INTRANASAL DAILY g 09/05/21 [History Last Taken Unknown] lactulose 10 gram/15 mL oral solution 15 ml PO BID ml 09/05/21 [History Last Taken Unknown] propranolol 20 mg tablet 20 mg PO TID tab 09/05/21 [History Last Taken Unknown] trazodone 100 mg tablet 200 mg PO QHS tab 09/05/21 [History Last Taken Unknown] cephalexin 500 mg capsule 500 mg PO TID #30 cap 09/15/21 [Rx Last Taken Unknown] mupirocin 2 % topical ointment 1 applic TOPICAL BID #15 g 09/15/21 [Rx Last Taken Unknown] Allergy/AdvReac Type Severity Reaction Status Date / Time divalproex sodium AdvReac Severe Crtiticly Verified 09/18/21 13:12 [From Depakote] Elevated Ammonia Levels Social History (Updated 09/18/21 @ 13:[address] Joe Hudson, DO) Smoking Status: Never smoker substance use type: does not use ROS ROS ED Constitutional Constitutional ED: Reports difficulty sleeping; Denies chills, fever(s), lethargy or weight loss Eyes Eyes: Denies change in vision or diplopia ENT ENT ED: Denies ear pain, rhinorrhea or sore throat Cardiovascular Cardiovascular: Denies chest pain, orthopnea, palpitations or racing heartbeat Respiratory/Chest Respiratory/Chest: Denies cough, dyspnea or orthopnea Gastrointestinal Gastrointestinal: Denies abdominal pain, diarrhea, nausea or vomiting Genitourinary Genitourinary ED: Denies dysuria, hematuria or urinary frequency Musculoskeletal Musculoskeletal: Denies arthralgias or myalgias Integumentary Denies abscess or rash Neurologic Neurologic: Denies headache(s) or weakness Psychiatric Psychiatric: Reports abnormal sleep pattern, auditory hallucinations, hallucinations, homicidal ideation, suicidal ideation and suicidal thoughts; Denies anxiety or depression Endocrine Endocrinology: Denies polydipsia, polyphagia or polyuria Allergic/Immunologic Allergic/Immunologic ED: Denies mouth swelling, tongue swelling or urticaria EXAM Physical Exam Const Vital Signs: 09/18/21 13:10 Temperature 97.4 F L Temperature Source Temporal Pulse Rate 82 Respiratory Rate 16 Blood Pressure 170/95 H Blood Pressure Mean 120 Pulse Ox 99 Oxygen Delivery Method Room Air Positive well nourished and well developed; Negative for obese General Appearance ED: well developed Nutritional Appearance: Negative for obese HEENT Reports normocephalic, head/scalp atraumatic and moist mucous membranes Eyes PERRL and EOMs intact bilaterally General Eye ED: Yes normal appearance of both eyes Neck no lymphadenopathy, supple and no JVD Resp normal respiratory effort and clear to auscultation bilaterally Cardio regular rate, regular rhythm and no murmurs GI normal to inspection, nondistended, normoactive bowel sounds and non-tender Palpation: soft Back/Spine no CVA tenderness and normal ROM Extremity normal to inspection General Extremety ED: Negative for edema General Extremity: Negative for edema Neuro oriented x3 and CN's II-XII intact bilaterally Sensorium / Orientation: alert Motor Exam: strength 5/5 throughout Psych mental status grossly normal Psych Narrative: Patient appears internally stimulated Appearance: grossly normal Attitude: paranoid Activity / Motor Behavior: restless Speech: minimal Mood & Affect: Negative for depressed or tearful Thought Content: hallucination(s) Skin no rashes or lesions noted and no wounds MDM MDM MDM Narrative Medical decision making narrative: Basic blood work was obtained showed glucose of 121 sodium 129. Alcohol and urine tox tox negative. [place] slightly outside the normal range at 1.6 but not into a toxic area. Covid swab negative. The patient was assessed by EDIN Black and they are in agreement the patient would most likely benefit from stabilization. We will work towards that goal. Lab Data Attestation: I reviewed the patient's lab results. Labs: Laboratory Results - last 24 hr 09/18/21 09/18/21 09/18/21 14:00 14:00 14:00 WBC 7.0 RBC 5.22 Hgb 16.4 Hct 47.6 MCV 91.2 MCH 31.4 MCHC 34.5 RDW Std Deviation 44.4 H RDW Coeff of Gautam 13.2 Plt Count 279 MPV 8.5 Immature Gran % (Auto) 0.300 Neut % (Auto) 62.1 Lymph % (Auto) 25.8 Chey[place] % (Auto) 8.8 Eos % (Auto) 2.7 Baso % (Auto) 0.3 Absolute Neuts (auto) 4.4 Absolute Lymphs (auto) 1.81 Nucleated RBC % 0 Sodium 129 L Potassium 3.7 Chloride 94 L Carbon Dioxide 31.0 Anion Gap 4 L BUN 12 Creatinine 0.81 Estim Creat Clear Calc 113.91 Est GFR (MDRD) Af Amer 130 Est GFR (MDRD) Non-Af 107 BUN/Creatinine Ratio 14.8 Glucose 121 H Calcium 9.1 Total Bilirubin 1.00 AST 15 ALT 24 Alkaline Phosphatase 84 Total Protein 7.2 Albumin 3.9 Globulin 3.3 Albumin/Globulin Ratio 1.2 Urine Opiates Screen Urine Methadone Screen Ur Barbiturates Screen Ur Phencyclidine Scrn Ur Amphetamines Screen U Methamphetamin-MDMA U Benzodiazepines Scrn [place] Urine Cocaine Screen U Cannabinoids Screen Ur Drug Screen Comment Ethyl Alcohol 4.0 09/18/21 09/18/21 14:00 14:00 WBC RBC Hgb Hct MCV MCH MCHC RDW Std Deviation RDW Coeff of Gautam Plt Count MPV Immature Gran % (Auto) Neut % (Auto) Lymph % (Auto) [place] % (Auto) Eos % (Auto) Baso % (Auto) Absolute Neuts (auto) Absolute Lymphs (auto) Nucleated RBC % Sodium Potassium Chloride Carbon Dioxide Anion Gap BUN Creatinine Estim Creat Clear Calc Est GFR (MDRD) Af Amer Est GFR (MDRD) Non-Af BUN/Creatinine Ratio Glucose Calcium Total Bilirubin AST ALT Alkaline Phosphatase Total Protein Albumin Globulin Albumin/Globulin Ratio Urine Opiates Screen NEGATIVE Urine Methadone Screen NEGATIVE Ur Barbiturates Screen NEGATIVE Ur Phencyclidine Scrn NEGATIVE Ur Amphetamines Screen NEGATIVE U Methamphetamin-MDMA NEGATIVE U Benzodiazepines Scrn NEGATIVE [place] 1.60 H* Urine Cocaine Screen NEGATIVE U Cannabinoids Screen NEGATIVE Ur Drug Screen Comment Ethyl Alcohol EKG Initial EKG: Attestation: I personally reviewed and interpreted this EKG as follows: Comments: Normal sinus rhythm with a ventricular rate of 71 bpm. Discharge Plan Triage Chief Complaint: Suicidal ED Provider: Joe Hudson Dx/Rx/DC Orders Clinical Impression: Schizophrenia, paranoid Prescriptions: No Action fluticasone propionate 50 mcg/actuation spray,suspension 1 spray intranasal DAILY RF: 0 trazodone 100 mg tablet 200 mg PO QHS RF: 0 divalproex 500 mg tablet,delayed release (DR/EC) 1,000 mg PO BID RF: 0 propranolol 20 mg tablet 20 mg PO TID RF: 0 Abilify Maintena 300 mg suspension,extended rel recon 300 mg IM QMONTH RF: 0 lactulose 10 gram/15 mL solution 15 ml PO BID RF: 0 cephalexin 500 mg capsule 500 mg PO TID Qty: 30 RF: 0 mupirocin 2 % ointment 1 applic topical BID Qty: 15 RF: 0 atorvastatin 40 mg tablet 40 mg PO DAILY RF: 0 metformin 1,000 mg tablet 1,000 mg PO BID RF: 0 valsartan 320 mg tablet 320 mg PO DAILY RF: 0 pioglitazone 30 mg tablet 30 mg PO DAILY RF: 0 Farxiga 10 mg tablet 10 mg PO DAILY RF: 0 Primary Care Provider: Kit Whitlock Chi Referrals: Kit Whitlock Chi, MD [Primary Care Provider] - Disposition Disposition: Psychiatric Hospital or Unit
--- NOTE | 2021-09-18 14:06 | CM.ED ---
SOCIAL WORK ASSESSMENT Referral Source: Reason for Consult: Mental Health Chief Compliant: Patient said that he is at the hospital as he is ?hearing voices?. Patient said that the voices are coming from the AM radio. SW asked what the voices are saying, and he said, ?I don?t know?. Patient said that at the correction he was not hearing voices. Patient said that he started hearing voices at the workshop. Patient said that the voices said ?handrailing?. Patient said that the voices said, ?Identify Gee Borden? and that he ?thought I had heard transmission?. Olya, from the correction, said that the workshop called this morning and said that patient was agitated this morning and said some ?choice words? and that he did not want to live anymore and wanted to kill a copra sampler. Olya reported that patient was hearing bad things about his self. Marital/Social History: Single Living Situation: [facility]. Patient is independent in his ADL?s ?just needs to be reminded?. Support/Resources: [facility] staff, [facility] [employer] staff, Dr Vega from [facility] and the correction staff. History: None Education and Employment History: Patient goes to the [employer] workshop. He graduated from high school. Mental Health Treatment/History: Patient has a diagnosis of paranoid schizophrenia and mild intellectual disability, impulse disorder. Patient is treated with medication. Patient reports medication compliance. Patient was on Depakote but per staff at the correction patient is allergic to Depakote. MD was weaning patient off the Depakote as his liver enzymes were high and patient began lithium 150mg 2 x day on09/11/21. Patient also gets maintenance Abilify. Triggers/Stressors: Patient reports no worries or triggers. Coping Skills: Coloring, drawing, and watching cartoons Abuse and Neglect History: Patient denied Substance Abuse History: Patient denied Risk to Self/Others: Suicidal- Patient denied any current SI. Patient denied SI plans and attempts however at the workshop this morning he said that he did not want to live anymore per staffing. Homicidal: Patient denied any current HI. JOHN reviewed with patient that he reported wanting to kill ?paleobotanist?. Patient denied any police patrol officer. Patient said he was ?not mad at the paleobotanist? I just kept hearing the radio?. Violence: Per correction staff patient had broken his hand 2 weeks ago because he hit a chair and broke it. Staff reports that patient has ?hit the wall? in the past. Mental Status Exam: Orientation:x4 Memory: Intact Appearance/General Behavior: Wearing Street clothes. Disheveled. No eye contact. Mood and Affect: Depressed mood and affect Thought Process: Patient appears to be responding to internal stimuli General Intellectual Functioning: Mild intellectual disability per charting. Judgement: Impaired Insight: Impaired Assessment: Staff from correction said that patient has not been sleeping well. They report at times patient does not sleep at all. SW asked patient about his appetite, and he said it is ?alright?. SW asked if patient had lost or gained weight and he said, ?I don?t know?. Due to patient?s statements about self-harm and harm to police patient needs inpatient psychiatric hospitalization for stabilization. Patient also has had recent med changes. Plan: Inpatient psych unit [facility]
[2021-09-18 14:11] LABS: Absolute Lymphocyte Count 1.81 X10^3/uL (0.83-4.51); Absolute Neutrophil Count 4.4 X10^3/uL (2.0-7.7); Basophil# 0.02 X10^3/uL; Basophil% 0.3 % (0-1); Eosinophil# 0.19 X10^3/uL; Eosinophils% 2.7 % (0-5); Hematocrit 47.6 % (40-54); Hemoglobin 16.4 g/dL (13.0-16.5); Lymphocyte # 1.81 X10^3/ul (0.83-4.51); Lymphocyte % 25.8 % (19-41); Mean Corp Hgb Conc 34.5 g/dL (32-36); Mean Corpuscular Hgb 31.4 pg (27.0-32.0); Mean Corpuscular Volume 91.2 fL (80-94); Mean Platelet Vol. 8.5 fl (6.2-12.0); Monocyte# 0.62 X10^3/uL; Monocyte% 8.8 % (0-10); NRBC Flagged by Analyzer 0 % (0-5); Neutrophil # 4.36 X10^3/uL (2.7-7.7); Neutrophil % 62.1 % (47-70); Platelet Count 279 K/mm3 (150-450); RBC Distribution Width CV 13.2 % (11.6-14.6); RBC Distribution Width SD 44.4 fl (35.1-43.9); Red Blood Count 5.22 M/mm3 (4.6-6.2)
[2021-09-18 14:30] LABS: ALB/GLOB Ratio 1.2 RATIO (0.9-2.4); AST(SGOT) 15 U/L (15-37); Alanine Aminotransfer ALT/SGPT 24 U/L (16-61); Albumin, Serum 3.9 g/dL (3.2-5.0); Alkaline Phosphatase 84 U/L (45-117); Anion Gap 4 (5-15); BUN 12 mg/dL (7-18); BUN/Creat Ratio 14.8 RATIO (10-20); Calcium,Total 9.1 mg/dL (8.5-10.1); Chloride 94 mmol/L (98-107); Creatinine, Serum 0.81 mg/dL (0.70-1.30); EST Glomerular Filtration Rate 107 mL/min (>60); Est Glom Filt Rate - Afr Amer 130 mL/min (>60); Estimated Creatinine Clearance 113.91 ml/min; Globulin 3.3 g/dL (2.2-4.2); Glucose 121 mg/dL (74-106); Potassium 3.7 mmol/L (3.5-5.1); Protein, Total 7.2 g/dL (6.4-8.2); Sodium Level 129 mmol/L (136-145)
[2021-09-18 14:40] LABS: Amphetamine Urine VISTA NEGATIVE (<1000 ng/mL); Barbiturate Urine VISTA NEGATIVE (< 200 ng/mL); Benzodiazepine Urine VISTA NEGATIVE (< 200 ng/mL); Cocaine Urine VISTA NEGATIVE (< 300 ng/mL); Ecstacy Urine VISTA NEGATIVE (< 500 ng/mL); Methadone Urine VISTA NEGATIVE (< 300 ng/mL); PCP Urine VISTA NEGATIVE (< 25 ng/mL); THC Urine VISTA NEGATIVE (< 50 ng/mL); Vista UDS pH Range 7
--- NOTE | 2021-09-18 14:52 | CM.ED ---
JOHN Note JOHN called [facility]. They have beds. JOHN faxed referral to [facility]. JOHN called Anastacia at [facility]. They have beds. JOHN faxed referral to [facility]. Plan: Psychiatric Hospitalization [facility]
--- NOTE | 2021-09-18 16:24 | CM.ED ---
SW Note SW received call from [facility]. Patient declined. SW received call from [facility] and patient was accepted. Patient is going to psych ICU. [employer] accepting is Varsha. RN to RN is [phone]. Patient and Staff updated. JOHN called [facility] and spoke to Nettie and updated her that patient was accepted at [facility]. JOHN called Beatriz at [facility] and updated them regarding plan for patient to go to [facility]. JOHN encouraged staff to contact [facility] regarding their concern with Depakote. Plan: [place] [facility]
[2021-09-18 17:10] VITALS: BP 172/80; PULSE 80
--- NOTE | 2021-09-18 17:30 | ED.RN ---
Report called to [facility] [phone], gave ETA of [phone] to intake transferred to floor for report and no answer.
--- NOTE | 2021-09-18 19:07 | NURSING ---
CALLED PHYSICIANS ETA WAS ORIGINALLY AT 1830. I CALLED AT 1905 AND WAS TOLD IT WOULD BE ANOTHER 40-45 MINUTES TILL ARRIVAL.
[2021-09-18 20:05] VITALS: BP 174/80; PULSE 80; RESP 16
== END 2021-09-18 20:07 ==
PROVIDERS: Emergency Provider Emergency Medicine; PCP Family Medicine Geriatric Medicine
DX: F20.0 Paranoid schizophrenia (principal); E11.9 Type 2 diabetes mellitus without complications; E78.00 Pure hypercholesterolemia, unspecified; I10 Essential (primary) hypertension; Z79.84 Long term (current) use of oral hypoglycemic drugs; Z79.899 Other long term (current) drug therapy
CPT/HCPCS: 80053; 80178; 80307; 82077; 85025; 87426; 93005; 99285

== ENCOUNTER → 2021-10-21 11:29 | Outpatient (CLI) | payer MEDICARE, MEDICAID, SELFPAY ==
[2021-10-21 12:17] LABS: Absolute Lymphocyte Count 1.21 X10^3/uL (0.83-4.51); Absolute Neutrophil Count 5.4 X10^3/uL (2.0-7.7); Basophil# 0.03 X10^3/uL; Basophil% 0.4 % (0-1); Eosinophil# 0.25 X10^3/uL; Eosinophils% 3.3 % (0-5); Hematocrit 46.8 % (40-54); Hemoglobin 15.9 g/dL (13.0-16.5); Lymphocyte # 1.21 X10^3/ul (0.83-4.51); Lymphocyte % 15.7 % (19-41); Mean Corpuscular Hgb 31.7 pg (27.0-32.0); Mean Corpuscular Volume 93.4 fL (80-94); Mean Platelet Vol. 9.2 fl (6.2-12.0); Monocyte# 0.73 X10^3/uL; Monocyte% 9.5 % (0-10); NRBC Flagged by Analyzer 0 % (0-5); Neutrophil # 5.43 X10^3/uL (2.7-7.7); Neutrophil % 70.6 % (47-70); Platelet Count 250 K/mm3 (150-450); RBC Distribution Width CV 13.2 % (11.6-14.6); RBC Distribution Width SD 44.9 fl (35.1-43.9); Red Blood Count 5.01 M/mm3 (4.6-6.2); White Blood Count 7.7 K/mm3 (4.4-11.0)
[2021-10-21 12:44] LABS: Hemoglobin A1c 5.6 % (3.8-5.6)
[2021-10-21 12:52] LABS: ALB/GLOB Ratio 1.1 RATIO (0.9-2.4); AST(SGOT) 13 U/L (15-37); Alanine Aminotransfer ALT/SGPT 27 U/L (16-61); Albumin, Serum 3.8 g/dL (3.2-5.0); Alkaline Phosphatase 92 U/L (45-117); Anion Gap 8 (5-15); BUN 12 mg/dL (7-18); BUN/Creat Ratio 17.2 RATIO (10-20); Calcium,Total 9.3 mg/dL (8.5-10.1); Chloride 99 mmol/L (98-107); Cholesterol 139 mg/dL (200); EST Glomerular Filtration Rate 127 mL/min (>60); Est Glom Filt Rate - Afr Amer 154 mL/min (>60); Globulin 3.4 g/dL (2.2-4.2); Glucose 99 mg/dL (74-106); High Density Lipoprotein 51 mg/dL; Potassium 4.1 mmol/L (3.5-5.1); Protein, Total 7.2 g/dL (6.4-8.2); Sodium Level 135 mmol/L (136-145); Thyroid Stim Hormone (TSH) 2.05 uIU/mL (0.358-3.74); Triglycerides 100 mg/dL; Very Low Density Lipoprotein 20 mg/dL (5-40)
== END ==
PROVIDERS: PCP Family Medicine Geriatric Medicine; Visit Provider Family Medicine Geriatric Medicine
DX: R74.8 Abnormal levels of other serum enzymes (principal); E87.6 Hypokalemia; I10 Essential (primary) hypertension; E11.9 Type 2 diabetes mellitus without complications
CPT/HCPCS: 36415; 80053; 80061; 82140; 83036; 84443; 85025

== ENCOUNTER → 2021-11-12 07:36 | Outpatient (CLI) | payer MEDICARE, MEDICAID, SELFPAY ==
[2021-11-12 10:36] LABS: Creatinine, Serum 0.67 mg/dL (0.70-1.30); EST Glomerular Filtration Rate 134 mL/min (>60); Est Glom Filt Rate - Afr Amer 162 mL/min (>60); Thyroid Stim Hormone (TSH) 1.99 uIU/mL (0.358-3.74)
== END ==
PROVIDERS: PCP Family Medicine Geriatric Medicine; Referring Provider Psychiatry & Neurology Psychiatry; Visit Provider Psychiatry & Neurology Psychiatry
DX: Z79.899 Other long term (current) drug therapy (principal)
CPT/HCPCS: 36415; 80178; 82565; 84443

== ENCOUNTER 2021-12-23 10:48 | Outpatient (CLI) | payer MEDICARE, MEDICAID, SELFPAY ==
[2021-12-23 11:06] LABS: Absolute Lymphocyte Count 0.97 X10^3/uL (0.83-4.51); Absolute Neutrophil Count 3.3 X10^3/uL (2.0-7.7); Basophil# 0.04 X10^3/uL; Basophil% 0.8 % (0-1); Eosinophil# 0.19 X10^3/uL; Eosinophils% 3.7 % (0-5); Hematocrit 45.7 % (40-54); Lymphocyte # 0.97 X10^3/ul (0.83-4.51); Mean Corp Hgb Conc 32.8 g/dL (32-36); Mean Corpuscular Hgb 31.6 pg (27.0-32.0); Mean Corpuscular Volume 96.4 fL (80-94); Mean Platelet Vol. 9.2 fl (6.2-12.0); Monocyte# 0.56 X10^3/uL; NRBC Flagged by Analyzer 0 % (0-5); Neutrophil # 3.32 X10^3/uL (2.7-7.7); Neutrophil % 65.1 % (47-70); Platelet Count 265 K/mm3 (150-450); RBC Distribution Width CV 13.4 % (11.6-14.6); RBC Distribution Width SD 48.3 fl (35.1-43.9); Red Blood Count 4.74 M/mm3 (4.6-6.2); White Blood Count 5.1 K/mm3 (4.4-11.0)
[2021-12-23 11:47] LABS: ALB/GLOB Ratio 1.2 RATIO (0.9-2.4); AST(SGOT) 16 U/L (15-37); Alanine Aminotransfer ALT/SGPT 28 U/L (16-61); Albumin, Serum 3.6 g/dL (3.2-5.0); Alkaline Phosphatase 95 U/L (45-117); Anion Gap 5 (5-15); BUN 14 mg/dL (7-18); BUN/Creat Ratio 22.5 RATIO (10-20); Calcium,Total 8.8 mg/dL (8.5-10.1); Chloride 104 mmol/L (98-107); Creatinine, Serum 0.62 mg/dL (0.70-1.30); EST Glomerular Filtration Rate 145 mL/min (>60); Est Glom Filt Rate - Afr Amer 176 mL/min (>60); Globulin 3.1 g/dL (2.2-4.2); Glucose 85 mg/dL (74-106); Potassium 4.3 mmol/L (3.5-5.1); Protein, Total 6.7 g/dL (6.4-8.2); Sodium Level 135 mmol/L (136-145)
== END 2021-12-23 23:59 | disposition short-term general hospital (02) ==
LOC: POLAB3 10:49
PROVIDERS: PCP Family Medicine Geriatric Medicine; Visit Provider Family Medicine Geriatric Medicine
DX: E72.20 Disorder of urea cycle metabolism, unspecified (principal); G93.40 Encephalopathy, unspecified
CPT/HCPCS: 36415; 80053; 82140; 85025

== ENCOUNTER 2022-02-04 09:52 | Outpatient (CLI) | payer MEDICARE, MEDICAID, SELFPAY ==
[2022-02-04 12:05] LABS: Absolute Lymphocyte Count 1.47 X10^3/uL (0.83-4.51); Absolute Neutrophil Count 5.4 X10^3/uL (2.0-7.7); Basophil# 0.05 X10^3/uL; Basophil% 0.6 % (0-1); Eosinophil# 0.28 X10^3/uL; Eosinophils% 3.6 % (0-5); Hematocrit 43.1 % (40-54); Hemoglobin 14.7 g/dL (13.0-16.5); Lymphocyte # 1.47 X10^3/ul (0.83-4.51); Lymphocyte % 18.7 % (19-41); Mean Corp Hgb Conc 34.1 g/dL (32-36); Mean Corpuscular Hgb 32.4 pg (27.0-32.0); Mean Corpuscular Volume 94.9 fL (80-94); Mean Platelet Vol. 10.7 fl (6.2-12.0); Monocyte# 0.59 X10^3/uL; Monocyte% 7.5 % (0-10); NRBC Flagged by Analyzer 0 % (0-5); Neutrophil # 5.41 X10^3/uL (2.7-7.7); Neutrophil % 68.8 % (47-70); Platelet Count 211 K/mm3 (150-450); RBC Distribution Width CV 13.2 % (11.6-14.6); RBC Distribution Width SD 45.7 fl (35.1-43.9); Red Blood Count 4.54 M/mm3 (4.6-6.2); White Blood Count 7.9 K/mm3 (4.4-11.0)
[2022-02-04 12:17] LABS: Vitamin D,25 Hydroxy 12.9 ng/mL
[2022-02-04 12:30] LABS: ALB/GLOB Ratio 1.2 RATIO (0.9-2.4); AST(SGOT) 13 U/L (15-37); Alanine Aminotransfer ALT/SGPT 26 U/L (16-61); Albumin, Serum 3.8 g/dL (3.2-5.0); Alkaline Phosphatase 95 U/L (45-117); Anion Gap 4 (5-15); BUN 17 mg/dL (7-18); BUN/Creat Ratio 25.4 RATIO (10-20); Calcium,Total 9.7 mg/dL (8.5-10.1); Chloride 103 mmol/L (98-107); Creatinine, Serum 0.67 mg/dL (0.70-1.30); EST Glomerular Filtration Rate 134 mL/min (>60); Est Glom Filt Rate - Afr Amer 162 mL/min (>60); Globulin 3.2 g/dL (2.2-4.2); Glucose 109 mg/dL (74-106); Potassium 4.2 mmol/L (3.5-5.1); Sodium Level 137 mmol/L (136-145); Thyroid Stim Hormone (TSH) 3.09 uIU/mL (0.358-3.74)
== END 2022-02-04 23:59 | disposition home or self-care (01) ==
LOC: POLAB3 09:57
PROVIDERS: PCP Family Medicine Geriatric Medicine; Visit Provider Family Medicine Geriatric Medicine
DX: E11.9 Type 2 diabetes mellitus without complications (principal); E55.9 Vitamin D deficiency, unspecified; I10 Essential (primary) hypertension
CPT/HCPCS: 36415; 80053; 82140; 82306; 84443; 85025

== ENCOUNTER 2022-02-12 08:58 | Outpatient (CLI) | payer MEDICARE, MEDICAID, SELFPAY ==
--- NOTE | 2022-02-12 09:03 | US_ITS ---
STUDY: ABDOMINAL ULTRASOUND - ELASTOGRAPHY REASON FOR VISIT: Male, 51 years old. Fatty infiltration of the liver. TECHNIQUE: Liver stiffness measurements were obtained on a Affresol RS 85 ultrasound machine using a CA 1-7 probe following the SRU guidelines. 3 measurements were obtained using a 2-D-SWE method. The IQR/M was 24% suggesting a quality data set. TECHNICAL QUALITY: Adequate. COMPARISON: Comparison is made with prior study dated 02/12/2022. FINDINGS: Liver: Fatty infiltration of the liver. Median liver stiffness measured 6.3 kPa. US/Elastography Parenchyma/Organ IMPRESSION: Liver stiffness measures 6.3 kPa compatible with F1 Metavir score. Electronically Signed: Gordo Downing MD at 12:16 EDT ,
--- NOTE | 2022-02-12 09:03 | US_ITS ---
STUDY: ABDOMINAL ULTRASOUND - RIGHT UPPER QUADRANT REASON FOR VISIT: Male, 51 years old FATTY LIVER TECHNIQUE: Ultrasound evaluation of the right upper quadrant was performed with real-time and static jennings-scale imaging. TECHNICAL QUALITY: Limited. Examination limited by bowel gas. COMPARISON: None. FINDINGS: Liver: The liver measures 15.7 cm. There is increased echogenicity consistent with fatty infiltration. The bile ducts are within normal limits. There is hepatic color flow. The direction of portal flow is hepatopetal. There is no demonstrated mass lesion. Gallbladder: Normal distended gallbladder. The gallbladder wall measures 2.0 mm. There is a negative sonographic Bolivar''s sign. There is no pericholecystic fluid. There are no gallstones. Common Bile Duct (C.B.D.): The common bile duct measures 3.0 mm. Pancreas: There is nonvisualization of the pancreas due to overlying bowel gas. Right Kidney: Normal size of the right kidney. The right kidney measures 11.5 cm x 6.2 cm x 6.7 cm. Normal renal cortex. The right cortex measures 2 cm x 2 cm x 2.2 cm. There is no demonstrated renal mass or cyst. There is no right hydronephrosis. US/Abdomen Limited IMPRESSION: Fatty infiltration of the liver. The pancreas was not visualized due to overlying bowel gas. Electronically Signed: Gordo Downing MD at 9:19 EDT ,
== END 2022-02-12 23:59 | disposition home or self-care (01) ==
LOC: US 09:01
PROVIDERS: PCP Family Medicine Geriatric Medicine; Referring Provider Family Medicine Geriatric Medicine; Visit Provider Family Medicine Geriatric Medicine
DX: K76.0 Fatty (change of) liver, not elsewhere classified (principal)
CPT/HCPCS: 76705; 76981

== ENCOUNTER → 2022-05-06 | Outpatient (CLI) | payer MEDICARE, MEDICAID, SELFPAY ==
[2022-05-06 12:02] LABS: Absolute Lymphocyte Count 1.69 X10^3/uL (0.83-4.51); Absolute Neutrophil Count 4.6 X10^3/uL (2.0-7.7); Basophil# 0.08 X10^3/uL; Basophil% 1.1 % (0-1); Eosinophil# 0.33 X10^3/uL; Eosinophils% 4.6 % (0-5); Hematocrit 46.4 % (40-54); Hemoglobin 15.9 g/dL (13.0-16.5); Lymphocyte # 1.69 X10^3/ul (0.83-4.51); Lymphocyte % 23.3 % (19-41); Mean Corp Hgb Conc 34.3 g/dL (32-36); Mean Corpuscular Hgb 31.9 pg (27.0-32.0); Mean Corpuscular Volume 93.2 fL (80-94); Mean Platelet Vol. 9.9 fl (6.2-12.0); Monocyte# 0.53 X10^3/uL; Monocyte% 7.3 % (0-10); NRBC Flagged by Analyzer 0 % (0-5); Neutrophil # 4.57 X10^3/uL (2.7-7.7); Platelet Count 230 K/mm3 (150-450); RBC Distribution Width CV 12.6 % (11.6-14.6); RBC Distribution Width SD 43.4 fl (35.1-43.9); Red Blood Count 4.98 M/mm3 (4.6-6.2); White Blood Count 7.3 K/mm3 (4.4-11.0)
[2022-05-06 12:21] LABS: Vitamin D,25 Hydroxy 20.8 ng/mL
[2022-05-06 12:42] LABS: ALB/GLOB Ratio 1.2 RATIO (0.9-2.4); AST(SGOT) 11 U/L (15-37); Alanine Aminotransfer ALT/SGPT 29 U/L (16-61); Alkaline Phosphatase 122 U/L (45-117); Anion Gap 4 (5-15); BUN 13 mg/dL (7-18); Calcium,Total 9.5 mg/dL (8.5-10.1); Chloride 102 mmol/L (98-107); Creatinine, Serum 0.72 mg/dL (0.70-1.30); EST Glomerular Filtration Rate 123 mL/min (>60); Est Glom Filt Rate - Afr Amer 148 mL/min (>60); Globulin 3.2 g/dL (2.2-4.2); Glucose 143 mg/dL (74-106); Potassium 4.2 mmol/L (3.5-5.1); Protein, Total 7.2 g/dL (6.4-8.2); Sodium Level 136 mmol/L (136-145); Thyroid Stim Hormone (TSH) 2.98 uIU/mL (0.358-3.74)
== END | disposition home or self-care (01) ==
LOC: POLAB3 10:08
PROVIDERS: PCP Family Medicine Geriatric Medicine; Visit Provider Family Medicine Geriatric Medicine
DX: E11.9 Type 2 diabetes mellitus without complications (principal); I10 Essential (primary) hypertension; E55.9 Vitamin D deficiency, unspecified
CPT/HCPCS: 36415; 80053; 82306; 84443; 85025

== ENCOUNTER → 2022-08-04 | Outpatient (CLI) | payer MEDICARE, MEDICAID, SELFPAY ==
[2022-08-04 17:06] LABS: Absolute Lymphocyte Count 1.88 X10^3/uL (0.83-4.51); Absolute Neutrophil Count 4.4 X10^3/uL (2.0-7.7); Basophil# 0.05 X10^3/uL; Basophil% 0.7 % (0-1); Eosinophil# 0.27 X10^3/uL; Eosinophils% 3.8 % (0-5); Hematocrit 43.8 % (40-54); Hemoglobin 14.8 g/dL (13.0-16.5); Lymphocyte # 1.88 X10^3/ul (0.83-4.51); Lymphocyte % 26.3 % (19-41); Mean Corp Hgb Conc 33.8 g/dL (32-36); Mean Corpuscular Hgb 31.7 pg (27.0-32.0); Mean Corpuscular Volume 93.8 fL (80-94); Mean Platelet Vol. 10.6 fl (6.2-12.0); Monocyte# 0.53 X10^3/uL; Monocyte% 7.4 % (0-10); NRBC Flagged by Analyzer 0 % (0-5); Neutrophil # 4.37 X10^3/uL (2.7-7.7); Neutrophil % 61.1 % (47-70); Platelet Count 233 K/mm3 (150-450); RBC Distribution Width CV 13.2 % (11.6-14.6); RBC Distribution Width SD 45.3 fl (35.1-43.9); Red Blood Count 4.67 M/mm3 (4.6-6.2); White Blood Count 7.2 K/mm3 (4.4-11.0)
[2022-08-04 17:25] LABS: Vitamin D,25 Hydroxy 20.4 ng/mL
[2022-08-04 17:38] LABS: ALB/GLOB Ratio 1.1 RATIO (0.9-2.4); AST(SGOT) 13 U/L (15-37); Alanine Aminotransfer ALT/SGPT 34 U/L (16-61); Albumin, Serum 3.6 g/dL (3.2-5.0); Alkaline Phosphatase 120 U/L (45-117); Anion Gap 6 (5-15); BUN 14 mg/dL (7-18); Calcium,Total 8.9 mg/dL (8.5-10.1); Chloride 105 mmol/L (98-107); Creatinine, Serum 0.58 mg/dL (0.70-1.30); EST Glomerular Filtration Rate 156 mL/min (>60); Est Glom Filt Rate - Afr Amer 189 mL/min (>60); Globulin 3.2 g/dL (2.2-4.2); Glucose 143 mg/dL (74-106); Potassium 4.4 mmol/L (3.5-5.1); Protein, Total 6.8 g/dL (6.4-8.2); Sodium Level 137 mmol/L (136-145); Thyroid Stim Hormone (TSH) 3.91 uIU/mL (0.358-3.74)
== END | disposition home or self-care (01) ==
LOC: POLAB3 12:50
PROVIDERS: PCP Family Medicine Geriatric Medicine; Visit Provider Family Medicine Geriatric Medicine
DX: E11.9 Type 2 diabetes mellitus without complications (principal); E55.9 Vitamin D deficiency, unspecified; I10 Essential (primary) hypertension
CPT/HCPCS: 36415; 80053; 82306; 84443; 85025

== ENCOUNTER → 2022-08-21 | Outpatient (CLI) | payer MEDICARE, MEDICAID, SELFPAY ==
--- NOTE | 2022-08-22 06:37 | PFT ---
INTRODUCTION: The patient is a 52-year-old male that presents for pulmonary function studies secondary to a diagnosis of wheezing. Respiratory therapy reported that the patient was unable to cooperate with testing to produce acceptable and reproducible results. The patient was unable to complete a DLCO maneuver. INTERPRETATION: Forced expiration spirometry demonstrates no evidence of a large airways obstructive ventilatory impairment. There was a significant response to aerosolized bronchodilators. Spirograms are of suboptimal quality and terminate prior to 6 seconds, likely underestimating FVC. Body plethysmography demonstrated a decreased TLC to 3.67 L, 65% of predicted, indicative of a moderate restrictive ventilatory impairment. Diffusing capacity was unable to be obtained. IMPRESSION: Testing results should be reviewed with caution, due to the patient's inability to perform adequate test maneuvers. There was stigmata of small airways disease on spirometry with significant bronchodilator response along with a moderate restrictive ventilatory impairment on lung volumes.
== END | disposition home or self-care (01) ==
PROVIDERS: PCP Family Medicine Geriatric Medicine; Referring Provider Family Medicine Geriatric Medicine; Visit Provider Family Medicine Geriatric Medicine
DX: R06.2 Wheezing (principal)
CPT/HCPCS: 94060; 94726

== ENCOUNTER → 2022-09-08 | Outpatient (CLI) | payer MEDICARE, MEDICAID, SELFPAY | END | disposition home or self-care (01) | LOC: PSN 11:40 | PROVIDERS: PCP Family Medicine Geriatric Medicine; Referring Provider Family Medicine Geriatric Medicine; Visit Provider Family Medicine Geriatric Medicine | DX: R68.83 Chills (without fever) (principal) | CPT/HCPCS: 87635; 87804; 87807; C9803; U0003; U0005 ==

== ENCOUNTER → 2022-11-02 | Outpatient (CLI) | payer MEDICARE, MEDICAID, SELFPAY ==
[2022-11-02 17:13] LABS: Absolute Lymphocyte Count 1.69 X10^3/uL (0.83-4.51); Absolute Neutrophil Count 6.7 X10^3/uL (2.0-7.7); Basophil# 0.08 X10^3/uL; Basophil% 0.8 % (0-1); Eosinophil# 0.28 X10^3/uL; Hematocrit 44.3 % (40-54); Hemoglobin 14.8 g/dL (13.0-16.5); Lymphocyte # 1.69 X10^3/ul (0.83-4.51); Lymphocyte % 17.9 % (19-41); Mean Corp Hgb Conc 33.4 g/dL (32-36); Mean Corpuscular Hgb 31.4 pg (27.0-32.0); Mean Corpuscular Volume 93.9 fL (80-94); Mean Platelet Vol. 10.4 fl (6.2-12.0); Monocyte# 0.65 X10^3/uL; Monocyte% 6.9 % (0-10); NRBC Flagged by Analyzer 0 % (0-5); Neutrophil # 6.67 X10^3/uL (2.7-7.7); Neutrophil % 70.7 % (47-70); Platelet Count 264 K/mm3 (150-450); RBC Distribution Width CV 13.4 % (11.6-14.6); RBC Distribution Width SD 46.3 fl (35.1-43.9); Red Blood Count 4.72 M/mm3 (4.6-6.2); White Blood Count 9.4 K/mm3 (4.4-11.0)
[2022-11-02 18:09] LABS: Thyroid Stim Hormone (TSH) 3.86 uIU/mL (0.358-3.74)
[2022-11-05 09:51] LABS: ALB/GLOB Ratio 1.3 RATIO (0.9-2.4); AST(SGOT) 16 U/L (15-37); Alanine Aminotransfer ALT/SGPT 29 U/L (16-61); Albumin, Serum 3.9 g/dL (3.2-5.0); Alkaline Phosphatase 121 U/L (45-117); Anion Gap 10 (5-15); BUN 14 mg/dL (7-18); BUN/Creat Ratio 15.6 RATIO (10-20); Calcium,Total 9.5 mg/dL (8.5-10.1); Chloride 104 mmol/L (98-107); EST Glomerular Filtration Rate 95 mL/min (>60); Est Glom Filt Rate - Afr Amer 115 mL/min (>60); Glucose 154 mg/dL (74-106); Potassium 4.7 mmol/L (3.5-5.1); Protein, Total 6.9 g/dL (6.4-8.2); Sodium Level 137 mmol/L (136-145)
== END | disposition home or self-care (01) ==
LOC: POLAB3 13:41
PROVIDERS: PCP Family Medicine Geriatric Medicine; Visit Provider Family Medicine Geriatric Medicine
DX: I10 Essential (primary) hypertension (principal); E11.65 Type 2 diabetes mellitus with hyperglycemia
CPT/HCPCS: 36415; 80053; 84443; 85025

== ENCOUNTER → 2023-01-04 | Outpatient (CLI) | payer MEDICARE, MEDICAID, SELFPAY ==
[2023-01-04 14:14] LABS: Thyroid Stim Hormone (TSH) 3.05 uIU/mL (0.358-3.74)
== END | disposition home or self-care (01) ==
LOC: POLAB3 13:09
PROVIDERS: PCP Family Medicine Geriatric Medicine; Visit Provider Family Medicine Geriatric Medicine
DX: E03.9 Hypothyroidism, unspecified (principal)
CPT/HCPCS: 36415; 84443

== ENCOUNTER → 2023-02-01 | Outpatient (CLI) | payer MEDICARE, MEDICAID, SELFPAY ==
[2023-02-01 17:28] LABS: Absolute Lymphocyte Count 1.47 X10^3/uL (0.83-4.51); Absolute Neutrophil Count 8.4 X10^3/uL (2.0-7.7); Basophil# 0.06 X10^3/uL; Basophil% 0.5 % (0-1); Eosinophil# 0.32 X10^3/uL; Eosinophils% 2.9 % (0-5); Hematocrit 47.8 % (40-54); Hemoglobin 15.2 g/dL (13.0-16.5); Lymphocyte # 1.47 X10^3/ul (0.83-4.51); Lymphocyte % 13.2 % (19-41); Mean Corp Hgb Conc 31.8 g/dL (32-36); Mean Corpuscular Hgb 31.2 pg (27.0-32.0); Mean Corpuscular Volume 98.2 fL (80-94); Mean Platelet Vol. 10.4 fl (6.2-12.0); Monocyte# 0.82 X10^3/uL; Monocyte% 7.3 % (0-10); NRBC Flagged by Analyzer 0 % (0-5); Neutrophil % 75.2 % (47-70); Platelet Count 271 K/mm3 (150-450); RBC Distribution Width CV 13.4 % (11.6-14.6); Red Blood Count 4.87 M/mm3 (4.6-6.2); White Blood Count 11.2 K/mm3 (4.4-11.0)
[2023-02-01 17:48] LABS: ALB/GLOB Ratio 1.1 RATIO (0.9-2.4); AST(SGOT) 12 U/L (15-37); Alanine Aminotransfer ALT/SGPT 24 U/L (16-61); Albumin, Serum 3.6 g/dL (3.2-5.0); Alkaline Phosphatase 162 U/L (45-117); Anion Gap 7 (5-15); BUN 27 mg/dL (7-18); BUN/Creat Ratio 18.1 RATIO (10-20); Chloride 100 mmol/L (98-107); Creatinine, Serum 1.49 mg/dL (0.70-1.30); EST Glomerular Filtration Rate 53 mL/min (>60); Est Glom Filt Rate - Afr Amer 64 mL/min (>60); Globulin 3.3 g/dL (2.2-4.2); Glucose 175 mg/dL (74-106); Potassium 4.5 mmol/L (3.5-5.1); Protein, Total 6.9 g/dL (6.4-8.2); Sodium Level 136 mmol/L (136-145); Thyroid Stim Hormone (TSH) 2.47 uIU/mL (0.358-3.74)
== END | disposition home or self-care (01) ==
LOC: POLAB3 14:41
PROVIDERS: PCP Family Medicine Geriatric Medicine; Visit Provider Family Medicine Geriatric Medicine
DX: E11.65 Type 2 diabetes mellitus with hyperglycemia (principal); I10 Essential (primary) hypertension
CPT/HCPCS: 36415; 80053; 84443; 85025

== ENCOUNTER → 2023-05-03 | Outpatient (CLI) | payer MEDICARE, MEDICAID, SELFPAY | END | disposition home or self-care (01) | LOC: LAB 14:24 | PROVIDERS: PCP Family Medicine Geriatric Medicine; Referring Provider Family Medicine Geriatric Medicine; Visit Provider Family Medicine Geriatric Medicine | DX: F31.9 Bipolar disorder, unspecified (principal) | CPT/HCPCS: 36415; 82140 ==

== ENCOUNTER → 2023-05-24 | Outpatient (CLI) | payer MEDICARE, MEDICAID, SELFPAY ==
[2023-05-24 15:35] LABS: Probe Check PASS; Specimen Processing Control PASS
== END | disposition home or self-care (01) ==
LOC: PSN 12:25
PROVIDERS: PCP Family Medicine Geriatric Medicine; Referring Provider Family Medicine Geriatric Medicine; Visit Provider Family Medicine Geriatric Medicine
DX: R68.83 Chills (without fever) (principal)
CPT/HCPCS: 87635; 87804; 87807

== ENCOUNTER → 2023-07-20 | Outpatient (CLI) | payer MEDICARE, MEDICAID, SELFPAY ==
[2023-07-20 18:34] LABS: International Normalized Ratio 0.9; Prothrombin Time (Protime)PT. 12.2 SECONDS (11.7-14.9)
[2023-07-20 18:35] LABS: Partial Thromboplast Time 25.5 Seconds (24.1-36.2)
[2023-07-20 18:49] LABS: ALB/GLOB Ratio 1.1 RATIO (0.9-2.4); AST(SGOT) 19 U/L (15-37); Alanine Aminotransfer ALT/SGPT 33 U/L (16-61); Albumin, Serum 3.8 g/dL (3.2-5.0); Alkaline Phosphatase 121 U/L (45-117); Anion Gap 7 (5-15); BUN 18 mg/dL (7-18); BUN/Creat Ratio 22.5 RATIO (10-20); Calcium,Total 9.6 mg/dL (8.5-10.1); Chloride 100 mmol/L (98-107); EST Glomerular Filtration Rate 109 mL/min (>60); Est Glom Filt Rate - Afr Amer 131 mL/min (>60); Globulin 3.4 g/dL (2.2-4.2); Glucose 221 mg/dL (74-106); Potassium 4.5 mmol/L (3.5-5.1); Protein, Total 7.2 g/dL (6.4-8.2); Sodium Level 138 mmol/L (136-145)
[2023-07-22 04:07] LABS: AFP, Tumor Marker 2.1 ng/mL (0.0-8.4)
== END | disposition home or self-care (01) ==
LOC: MTLAB 15:08
PROVIDERS: PCP Family Medicine Geriatric Medicine; Referring Provider Internal Medicine Gastroenterology; Visit Provider Internal Medicine Gastroenterology
DX: K74.60 Unspecified cirrhosis of liver (principal)
CPT/HCPCS: 36415; 80053; 82105; 82140; 85610; 85730

== ENCOUNTER → 2023-08-04 | Outpatient (CLI) | payer MEDICARE, MEDICAID, SELFPAY ==
[2023-08-04 14:11] LABS: Absolute Lymphocyte Count 1.71 X10^3/uL (0.83-4.51); Absolute Neutrophil Count 7.1 X10^3/uL (2.0-7.7); Basophil# 0.05 X10^3/uL; Basophil% 0.5 % (0-1); Eosinophil# 0.25 X10^3/uL; Eosinophils% 2.5 % (0-5); Hematocrit 49.8 % (40-54); Hemoglobin 16.2 g/dL (13.0-16.5); Lymphocyte # 1.71 X10^3/ul (0.83-4.51); Lymphocyte % 17.3 % (19-41); Mean Corp Hgb Conc 32.5 g/dL (32-36); Mean Corpuscular Hgb 30.4 pg (27.0-32.0); Mean Corpuscular Volume 93.4 fL (80-94); Mean Platelet Vol. 11.8 fl (6.2-12.0); Monocyte# 0.73 X10^3/uL; Monocyte% 7.4 % (0-10); NRBC Flagged by Analyzer 0 % (0-5); Neutrophil # 7.08 X10^3/uL (2.7-7.7); Neutrophil % 71.6 % (47-70); Platelet Count 204 K/mm3 (150-450); RBC Distribution Width CV 13.5 % (11.6-14.6); RBC Distribution Width SD 46.2 fl (35.1-43.9); Red Blood Count 5.33 M/mm3 (4.6-6.2); White Blood Count 9.9 K/mm3 (4.4-11.0)
[2023-08-04 14:47] LABS: AST(SGOT) 14 U/L (15-37); Alanine Aminotransfer ALT/SGPT 34 U/L (16-61); Albumin, Serum 3.5 g/dL (3.2-5.0); Alkaline Phosphatase 127 U/L (45-117); Anion Gap 7 (5-15); BUN 22 mg/dL (7-18); BUN/Creat Ratio 18.6 RATIO (10-20); Calcium,Total 9.1 mg/dL (8.5-10.1); Chloride 100 mmol/L (98-107); Cholesterol 138 mg/dL (200); Creatinine, Serum 1.18 mg/dL (0.70-1.30); EST Glomerular Filtration Rate 69 mL/min (>60); Est Glom Filt Rate - Afr Amer 84 mL/min (>60); Globulin 3.6 g/dL (2.2-4.2); Glucose 330 mg/dL (74-106); High Density Lipoprotein 37 mg/dL; Potassium 4.5 mmol/L (3.5-5.1); Protein, Total 7.1 g/dL (6.4-8.2); Sodium Level 137 mmol/L (136-145); Thyroid Stim Hormone (TSH) 2.09 uIU/mL (0.358-3.74); Triglycerides 450 mg/dL
[2023-08-04 15:05] LABS: Hemoglobin A1c 9.4 % (3.8-5.6)
== END | disposition home or self-care (01) ==
LOC: POLAB3 13:37
PROVIDERS: PCP Family Medicine Geriatric Medicine; Visit Provider Family Medicine Geriatric Medicine
DX: E11.65 Type 2 diabetes mellitus with hyperglycemia (principal); I10 Essential (primary) hypertension
CPT/HCPCS: 36415; 80053; 80061; 83036; 84443; 85025

== ENCOUNTER → 2023-08-04 | Outpatient (CLI) | payer MEDICARE, MEDICAID, SELFPAY ==
--- NOTE | 2023-08-04 15:12 | MRI_ITS ---
EXAM: MR ABDOMEN WITHOUT AND WITH INTRAVENOUS CONTRAST CLINICAL INDICATION: CIRRHOSIS ELEVATED LIVER LABS TECHNIQUE: Multiplanar and multisequence MR images of the abdomen without and with intravenous contrast. CONTRAST: IV Yes YES COMPARISON: CT abdomen and pelvis 10/12/2019 and abdominal ultrasound 02/12/2022 FINDINGS: ARTIFACTS: Motion artifacts degrade the overall quality of the exam. LOWER THORAX: Normal. No pleural effusion. LIVER: Signal loss within the liver on the out of phase image suggests steatosis. No space-occupying lesions within the liver. No stigmata of cirrhosis. GALLBLADDER AND BILE DUCTS: Normal. No gallstones. No gallbladder distention or wall edema. No intra- or extrahepatic biliary ductal dilation. PANCREAS: Normal. No focal cystic or solid mass. SPLEEN: Normal. Normal size without focal cystic or solid mass. ADRENALS: Normal. No nodules. KIDNEYS AND URETERS: 14 mm stable left renal cyst. Stable 3 cm complex right renal cyst. Normal renal size and position. No hydronephrosis. INTRAPERITONEAL SPACE: Normal. No ascites or other fluid collection. No free air. VASCULATURE: Patent portal vein. Abdominal aorta is non-dilated. LYMPH NODES: No enlarged lymph nodes. MRI/MRI Abd WITH and W/O Contrast IMPRESSION: 1. Motion degraded exam. 2. Mild hepatic steatosis. 3. No evidence of liver cirrhosis or portal hypertension. Electronically Signed: Dinesh Birmingham MD at 8:54 EDT ,
== END | disposition home or self-care (01) ==
LOC: MRI 14:51
PROVIDERS: PCP Family Medicine Geriatric Medicine; Referring Provider Internal Medicine Gastroenterology; Visit Provider Internal Medicine Gastroenterology
DX: K74.60 Unspecified cirrhosis of liver (principal)
CPT/HCPCS: 74183; A9575; A4216

== ENCOUNTER → 2023-11-10 | Outpatient (CLI) | payer MEDICARE, MEDICAID, SELFPAY ==
[2023-11-10 14:05] LABS: Absolute Lymphocyte Count 1.69 X10^3/uL (0.83-4.51); Absolute Neutrophil Count 7.6 X10^3/uL (2.0-7.7); Basophil# 0.07 X10^3/uL; Basophil% 0.7 % (0-1); Eosinophil# 0.19 X10^3/uL; Eosinophils% 1.8 % (0-5); Hematocrit 48.4 % (40-54); Hemoglobin 15.5 g/dL (13.0-16.5); Lymphocyte # 1.69 X10^3/ul (0.83-4.51); Lymphocyte % 16.2 % (19-41); Mean Corpuscular Hgb 30.3 pg (27.0-32.0); Mean Corpuscular Volume 94.7 fL (80-94); Mean Platelet Vol. 11.1 fl (6.2-12.0); Monocyte# 0.83 X10^3/uL; Monocyte% 7.9 % (0-10); NRBC Flagged by Analyzer 0 % (0-5); Neutrophil # 7.57 X10^3/uL (2.7-7.7); Neutrophil % 72.4 % (47-70); Platelet Count 267 K/mm3 (150-450); RBC Distribution Width SD 45.5 fl (35.1-43.9); Red Blood Count 5.11 M/mm3 (4.6-6.2); White Blood Count 10.5 K/mm3 (4.4-11.0)
[2023-11-10 14:42] LABS: ALB/GLOB Ratio 1.1 RATIO (0.9-2.4); AST(SGOT) 13 U/L (15-37); Alanine Aminotransfer ALT/SGPT 32 U/L (16-61); Albumin, Serum 3.9 g/dL (3.2-5.0); Alkaline Phosphatase 129 U/L (45-117); Anion Gap 5 (5-15); BUN 24 mg/dL (7-18); BUN/Creat Ratio 23.3 RATIO (10-20); Calcium,Total 9.4 mg/dL (8.5-10.1); Chloride 101 mmol/L (98-107); Cholesterol 152 mg/dL (200); Creatinine, Serum 1.03 mg/dL (0.70-1.30); EST Glomerular Filtration Rate 81 mL/min (>60); Est Glom Filt Rate - Afr Amer 98 mL/min (>60); Globulin 3.5 g/dL (2.2-4.2); Glucose 250 mg/dL (74-106); High Density Lipoprotein 33 mg/dL; Potassium 4.8 mmol/L (3.5-5.1); Protein, Total 7.4 g/dL (6.4-8.2); Sodium Level 137 mmol/L (136-145); Thyroid Stim Hormone (TSH) 2.98 uIU/mL (0.358-3.74); Triglycerides 717 mg/dL
[2023-11-10 15:19] LABS: Hemoglobin A1c 8.9 % (3.8-5.6)
== END | disposition home or self-care (01) ==
LOC: POLAB3 13:13
PROVIDERS: PCP Family Medicine Geriatric Medicine; Visit Provider Family Medicine Geriatric Medicine
DX: E11.65 Type 2 diabetes mellitus with hyperglycemia (principal); I10 Essential (primary) hypertension
CPT/HCPCS: 36415; 80053; 80061; 83036; 84443; 85025

== ENCOUNTER → 2023-12-08 | Outpatient (CLI) | payer MEDICARE, MEDICAID, SELFPAY ==
--- OUTSIDE RECORDS SUMMARY | 2023-12-08 16:02 | XMS RPT_ITS | CCD ---
Author Name Unknown Address [address] [place] [id number] Organization [facility] Care Team Providers Care Associate Professor Of Archaeology Name Role Phone CARINA MARTINEZ MD Consulting Unavailable JAYDEN MCCABE MD Primary Care Unavailable JAYDEN MCCABE MD Attending Unavailable JAYDEN MCCABE MD Admitting Unavailable PROVIDER, UNKNOWN Consulting Unavailable PROVIDER, UNKNOWN Consulting Unavailable JAYDEN MCCABE MD Primary Care Unavailable JAYDEN MCCABE MD Attending Unavailable JAYDEN MCCABE MD Admitting Unavailable CARINA MARTINEZ MD Consulting Unavailable JAYDEN MCCABE MD Primary Care Unavailable JAYDEN MCCABE MD Attending Unavailable JAYDEN MCCABE MD Admitting Unavailable PROVIDER, UNKNOWN Consulting Unavailable PROVIDER, UNKNOWN Consulting Unavailable CSERNYIK, ALBERTINA DO Admitting Unavailable CSERNYIK, ALBERTINA DO Primary Care Unavailable CARINA MARTINEZ MD Consulting Unavailable CARINA MARTINEZ MD Referring Unavailable CSERNYIK, ALBERTINA DO Attending Unavailable PROVIDER, UNKNOWN Consulting Unavailable PROVIDER, UNKNOWN Consulting Unavailable CARINA MARTINEZ MD Consulting Unavailable JAYDEN MCCABE MD Attending Unavailable JAYDEN MCCABE MD Admitting Unavailable JAYDEN MCCABE MD Primary Care Unavailable PROVIDER, UNKNOWN Consulting Unavailable PROVIDER, UNKNOWN Consulting Unavailable Results Test Name Value Interpretation Reference Range Facil ity Encounters Encounter Date Encounter Type Care Provider Facility Start: 08-05-2023 ambulatory CARINA LANGFORD [facility] Start: 03-22-2023 End: 03-22-2023 ambulatory CARINA LANGFORD [facility] Start: 02-24-2023 End: 02-24-2023 ambulatory CARINA LANGFORD [facility] Start: 02-05-2023 End: 02-05-2023 Emergency department patient visit ALBERTINA TORRES [facility] Start: 02-04-2023 End: 02-04-2023 marely MCCABE [facility] Payers Date Payer Category Payer Unknown [id number] 2.16.8 [id number] 1972 Unknown [id number] 2.16.84 [id number] 1972 Unknown [id number] 2.16.84 [id number] 1972 Unknown [id number] 2.16.84 [id number] 1972 Unknown [id number] 2.16.84 [id number] Medicaid [id number] Medicare [id number] Summary Purpose Family History No Family History Records FoundNo Family History Records Found Advance Directives No Advanced Directives Records FoundNo Advanced Directives Records Found Additional Source Comments (unrecognized sect ion and content) No Status Records FoundNo Status Records Found INFORMATION SOURCE (unrecogn ized section and content) DATE CREATED AUTHOR AUTHOR'S ORGANNATHAN ATION 08/06/2023 [facility] FOR RECORDS PERTAINING TO PATIENTS WHO ARE OR HAVE BEEN ENROLLED IN A CHEMICAL DEPENDENCY/SUBSTANCEABUSE PROGRAM, SOME INFORMATION MAY BE OMITTED. This clinical summary was aggregated from multiple sources. Caution should be exercised in using it in the provision of clinical care. This summary normalizes information from multiple sources, and as a consequence, information in this document may materially change the coding, format and clinical context of patient data. In addition, data may be omitted in some cases. CLINICAL DECISIONS SHOULD BE BASED ON THE PRIMARY CLINICAL RECORDS. [employer] provides no warranty or guarantee of the accuracy or completeness of information in this document.
[2023-12-08 16:30] LABS: Hemoglobin A1c 8.2 % (3.8-5.6)
== END | disposition home or self-care (01) ==
LOC: POLAB3 15:34
PROVIDERS: PCP Family Medicine Geriatric Medicine; Visit Provider Family Medicine Geriatric Medicine
DX: E11.65 Type 2 diabetes mellitus with hyperglycemia (principal)
CPT/HCPCS: 36415; 83036

== ENCOUNTER → 2024-01-06 | Outpatient (CLI) | payer MEDICARE, MEDICAID, SELFPAY ==
[2024-01-06 16:12] LABS: Absolute Lymphocyte Count 1.91 X10^3/uL (0.83-4.51); Absolute Neutrophil Count 6.9 X10^3/uL (2.0-7.7); Basophil# 0.05 X10^3/uL; Basophil% 0.5 % (0-1); Eosinophil# 0.32 X10^3/uL; Eosinophils% 3.2 % (0-5); Hematocrit 45.5 % (40-54); Hemoglobin 14.7 g/dL (13.0-16.5); Lymphocyte # 1.91 X10^3/ul (0.83-4.51); Lymphocyte % 18.9 % (19-41); Mean Corp Hgb Conc 32.3 g/dL (32-36); Mean Corpuscular Hgb 30.3 pg (27.0-32.0); Mean Corpuscular Volume 93.8 fL (80-94); Mean Platelet Vol. 10.4 fl (6.2-12.0); Monocyte# 0.86 X10^3/uL; Monocyte% 8.5 % (0-10); NRBC Flagged by Analyzer 0 % (0-5); Neutrophil % 68.3 % (47-70); Platelet Count 274 K/mm3 (150-450); RBC Distribution Width CV 13.3 % (11.6-14.6); RBC Distribution Width SD 45.4 fl (35.1-43.9); Red Blood Count 4.85 M/mm3 (4.6-6.2); White Blood Count 10.1 K/mm3 (4.4-11.0)
[2024-01-06 16:33] LABS: ALB/GLOB Ratio 1.2 RATIO (0.9-2.4); AST(SGOT) 9 U/L (15-37); Alanine Aminotransfer ALT/SGPT 28 U/L (16-61); Albumin, Serum 3.8 g/dL (3.2-5.0); Alkaline Phosphatase 130 U/L (45-117); Anion Gap 5 (5-15); BUN 22 mg/dL (7-18); BUN/Creat Ratio 18.5 RATIO (10-20); Calcium,Total 9.6 mg/dL (8.5-10.1); Chloride 102 mmol/L (98-107); Creatinine, Serum 1.19 mg/dL (0.70-1.30); EST Glomerular Filtration Rate 68 mL/min (>60); Est Glom Filt Rate - Afr Amer 83 mL/min (>60); Globulin 3.3 g/dL (2.2-4.2); Glucose 160 mg/dL (74-106); Potassium 4.5 mmol/L (3.5-5.1); Protein, Total 7.1 g/dL (6.4-8.2); Sodium Level 138 mmol/L (136-145); Thyroid Stim Hormone (TSH) 3.33 uIU/mL (0.358-3.74)
--- OUTSIDE RECORDS SUMMARY | 2024-01-06 17:41 | XMS RPT_ITS | CCD ---
Author Name Unknown Address [address] [place] [id number] Organization [facility] Care Team Providers Care Sewing Machine Operator Name Role Phone CRAINA MARTINEZ MD Consulting Unavailable JAYDEN MCCABE MD [...] Provider Facility Start: 08-05-2023 ambulatory CARINA LANGFORD [facility] Start: 03-22-2023 End: 03-22-2023 ambulatory CARINA LANGFORD [facility] Start: 02-24-2023 End: 02-24-2023 ambulatory CARINA LANGFORD [facility] Start: 02-05-2023 End: 02-05-2023 Emergency department patient visit ALBERTINA TORRES [facility] Start: 02-04-2023 End: 02-04-2023 marely MCCABE [facility] Payers Date Payer Category Payer Unknown [id number] 2.16.8 [id number] 1970 Unknown [id number] 2.16.84 [id number] 1972 Unknown [id number] 2.16.84 [id number] 1972 Unknown [id number] 2.16.84 [id number] 1972 Unknown [id number] 2.16.84 [id number] Medicaid [id number] Medicare [id number] Summary Purpose Family History No Family History Records FoundNo Family History Records Found Advance Directives No Advanced Directives Records FoundNo Advanced Directives Records Found Additional Source Comments (unrecognized sect ion and content) No Status Records FoundNo Status Records Found INFORMATION SOURCE (unrecogn ized section and content) DATE CREATED AUTHOR AUTHOR'S ORGANNATHAN ATION 08/06/2023 [facility] FOR RECORDS PERTAINING TO PATIENTS [...] BE BASED ON THE PRIMARY CLINICAL RECORDS. [employer] provides no warranty or guarantee of the accuracy or completeness of information in this document.
== END | disposition home or self-care (01) ==
LOC: POLAB3 14:57
PROVIDERS: PCP Family Medicine Geriatric Medicine; Visit Provider Family Medicine Geriatric Medicine
DX: R11.2 Nausea with vomiting, unspecified (principal); E11.65 Type 2 diabetes mellitus with hyperglycemia; I10 Essential (primary) hypertension
CPT/HCPCS: 36415; 80053; 84443; 85025

== ENCOUNTER → 2024-01-11 | Outpatient (CLI) | payer MEDICARE, MEDICAID, SELFPAY ==
[2024-01-11 16:25] LABS: Color, Urine Yellow (Yellow); Glucose, Dipstick Normal (Normal); Ketone-Dipstick 5 mg/dl (Negative); Leukocyte Esterase-Dipstick 25 /ul (Negative); Nitrite-Dipstick Negative (Negative); Occult Blood-Urine Negative /ul (Negative); Protein-Dipstick 100 mg/dl (Negative); Urine Bilirubin Dipstick Negative (Negative); Urine Clarity Clear (Clear); Urine Urobilinogen Normal (Normal)
--- OUTSIDE RECORDS SUMMARY | 2024-01-11 19:53 | XMS RPT_ITS | CCD ---
Author Name Unknown Address [address] [place] [address] Organization [facility] Care Team Providers Care Manager Community Relations Name Role Phone CARINA MARTINEZ MD Consulting [...] Provider Facility Start: 08-05-2023 ambulatory CARINA LANGFORD [facility] Start: 03-22-2023 End: 03-22-2023 ambulatory CARINA LANGFORD [facility] Start: 02-24-2023 End: 02-24-2023 ambulatory CARINA LANGFORD [facility] Start: 02-05-2023 End: 02-05-2023 Emergency department patient visit ALBERTINA TORRES [facility] Start: 02-04-2023 End: 02-04-2023 marely MCCABE [facility] Payers Date Payer Category Payer Unknown [id number] 2.16.8 [id number] 1970 Unknown [id number] 2.16.84 [id number] 1972 Unknown [id number] 2.16.84 [id number] 1972 Unknown [id number] 2.16.84 [id number] 1972 Unknown [id number] 2.16.84 [id number] Medicaid [id number] Medicare [id number] Summary Purpose Family History No Family History Records FoundNo Family History Records Found Advance Directives No Advanced Directives Records FoundNo Advanced Directives Records Found Additional Source Comments (unrecognized sect ion and content) No Status Records FoundNo Status Records Found INFORMATION SOURCE (unrecogn ized section and content) DATE CREATED AUTHOR AUTHOR'S ORGANNATHAN ATION 08/06/2023 [facility] FOR RECORDS PERTAINING TO PATIENTS WHO [...] BE BASED ON THE PRIMARY CLINICAL RECORDS. [employer] provides no warranty or guarantee of the accuracy or completeness of information in this document.
== END | disposition home or self-care (01) ==
LOC: POLAB3 15:37
PROVIDERS: PCP Family Medicine Geriatric Medicine; Visit Provider Family Medicine Geriatric Medicine
DX: R11.2 Nausea with vomiting, unspecified (principal); E11.65 Type 2 diabetes mellitus with hyperglycemia; I10 Essential (primary) hypertension
CPT/HCPCS: 81002

== ENCOUNTER → 2024-02-10 | Outpatient (CLI) | payer MEDICARE, MEDICAID, SELFPAY ==
[2024-02-10 13:33] LABS: Absolute Lymphocyte Count 1.63 X10^3/uL (0.83-4.51); Absolute Neutrophil Count 6.1 X10^3/uL (2.0-7.7); Basophil# 0.05 X10^3/uL; Basophil% 0.6 % (0-1); Eosinophil# 0.24 X10^3/uL; Eosinophils% 2.7 % (0-5); Hematocrit 45.1 % (40-54); Hemoglobin 14.5 g/dL (13.0-16.5); Lymphocyte # 1.63 X10^3/ul (0.83-4.51); Lymphocyte % 18.7 % (19-41); Mean Corp Hgb Conc 32.2 g/dL (32-36); Mean Corpuscular Hgb 30.5 pg (27.0-32.0); Mean Corpuscular Volume 94.9 fL (80-94); Mean Platelet Vol. 10.4 fl (6.2-12.0); Monocyte# 0.67 X10^3/uL; Monocyte% 7.7 % (0-10); NRBC Flagged by Analyzer 0 % (0-5); Neutrophil # 6.07 X10^3/uL (2.7-7.7); Neutrophil % 69.5 % (47-70); Platelet Count 252 K/mm3 (150-450); RBC Distribution Width CV 13.4 % (11.6-14.6); RBC Distribution Width SD 46.9 fl (35.1-43.9); Red Blood Count 4.75 M/mm3 (4.6-6.2); White Blood Count 8.7 K/mm3 (4.4-11.0)
[2024-02-10 13:50] LABS: ALB/GLOB Ratio 1.1 RATIO (0.9-2.4); AST(SGOT) 11 U/L (15-37); Alanine Aminotransfer ALT/SGPT 26 U/L (16-61); Albumin, Serum 3.9 g/dL (3.2-5.0); Alkaline Phosphatase 140 U/L (45-117); Anion Gap 4 (5-15); BUN 17 mg/dL (7-18); BUN/Creat Ratio 21.3 RATIO (10-20); Calcium,Total 9.5 mg/dL (8.5-10.1); Chloride 103 mmol/L (98-107); Cholesterol 129 mg/dL (200); EST Glomerular Filtration Rate 108 mL/min (>60); Est Glom Filt Rate - Afr Amer 131 mL/min (>60); Globulin 3.5 g/dL (2.2-4.2); Glucose 178 mg/dL (74-106); High Density Lipoprotein 30 mg/dL; Protein, Total 7.4 g/dL (6.4-8.2); Sodium Level 137 mmol/L (136-145); Thyroid Stim Hormone (TSH) 2.24 uIU/mL (0.358-3.74); Triglycerides 424 mg/dL
[2024-02-10 14:18] LABS: Hemoglobin A1c 7.1 % (3.8-5.6)
--- OUTSIDE RECORDS SUMMARY | 2024-02-10 20:30 | XMS RPT_ITS | CCD ---
Author Name Unknown Address [address] [place] [id number] Organization [facility] Care Team Providers Care Ground Instructor Advanced Name Role Phone CARINA MARTINEZ MD Consulting [...] Provider Facility Start: 08-05-2023 ambulatory CARINA LANGFORD [facility] Start: 03-22-2023 End: 03-22-2023 ambulatory CARINA LANGFORD [facility] Start: 02-24-2023 End: 02-24-2023 ambulatory CARINA LANGFORD [facility] Start: 02-05-2023 End: 02-05-2023 Emergency department patient visit ALBERTINA TORRES [facility] Start: 02-04-2023 End: 02-04-2023 marely MCCABE [facility] Payers Date Payer Category Payer Unknown [id number] 2.16.8 [id number] 1970 Unknown [id number] 2.16.84 [id number] 1972 Unknown [id number] 2.16.84 [id number] 1972 Unknown [id number] 2.16.84 [id number] 1972 Unknown [id number] 2.16.84 [id number] Medicaid [id number] Medicare [id number] Summary Purpose Family History No Family History Records FoundNo Family History Records Found Advance Directives No Advanced Directives Records FoundNo Advanced Directives Records Found Additional Source Comments (unrecognized sect ion and content) No Status Records FoundNo Status Records Found INFORMATION SOURCE (unrecogn ized section and content) DATE CREATED AUTHOR AUTHOR'S ORGANNATHAN ATION 08/06/2023 [facility] FOR RECORDS PERTAINING TO PATIENTS WHO ARE [...] BE BASED ON THE PRIMARY CLINICAL RECORDS. [employer] provides no warranty or guarantee of the accuracy or completeness of information in this document.
== END | disposition home or self-care (01) ==
LOC: POLAB3 12:13
PROVIDERS: PCP Family Medicine Geriatric Medicine; Visit Provider Family Medicine Geriatric Medicine
DX: E11.65 Type 2 diabetes mellitus with hyperglycemia (principal); I10 Essential (primary) hypertension; E78.5 Hyperlipidemia, unspecified
CPT/HCPCS: 36415; 80053; 80061; 83036; 84443; 85025

== ENCOUNTER 2024-02-11 11:54 | Outpatient (CLI) | payer MEDICARE, MEDICAID, SELFPAY | END 2024-02-11 23:59 | disposition home or self-care (01) | LOC: PSN 11:55 | PROVIDERS: PCP Family Medicine Geriatric Medicine; Referring Provider Family Medicine Geriatric Medicine; Visit Provider Family Medicine Geriatric Medicine | DX: R68.83 Chills (without fever) (principal) | CPT/HCPCS: 87631 ==

== ENCOUNTER → 2024-03-07 | Outpatient (CLI) | payer MEDICARE, MEDICAID, SELFPAY | END | disposition home or self-care (01) | LOC: PSN 13:15 | PROVIDERS: PCP Family Medicine Geriatric Medicine; Referring Provider Family Medicine Geriatric Medicine; Visit Provider Family Medicine Geriatric Medicine | DX: R68.83 Chills (without fever) (principal) | CPT/HCPCS: 87631 ==

== ENCOUNTER → 2024-04-07 | Outpatient (CLI) | payer MEDICARE, MEDICAID, SELFPAY | END | disposition home or self-care (01) | LOC: PSN 11:55 | PROVIDERS: PCP Family Medicine Geriatric Medicine; Referring Provider Family Medicine Geriatric Medicine; Visit Provider Family Medicine Geriatric Medicine | DX: R68.83 Chills (without fever) (principal) | CPT/HCPCS: 87631 ==

== ENCOUNTER → 2024-05-08 | Outpatient (CLI) | payer MEDICARE, MEDICAID, SELFPAY ==
[2024-05-08 16:11] LABS: Hemoglobin A1c 8.4 % (3.8-5.6)
[2024-05-08 16:17] LABS: Cholesterol 167 mg/dL (200); High Density Lipoprotein 27 mg/dL; Triglycerides 958 mg/dL
[2024-05-09 04:21] LABS: ALB/GLOB Ratio 1.1 RATIO (0.9-2.4); AST(SGOT) 16 U/L (15-37); Alanine Aminotransfer ALT/SGPT 26 U/L (16-61); Albumin, Serum 3.7 g/dL (3.2-5.0); Alkaline Phosphatase 140 U/L (45-117); Anion Gap 5 (5-15); BUN 16 mg/dL (7-18); BUN/Creat Ratio 19.1 RATIO (10-20); Calcium,Total 9.1 mg/dL (8.5-10.1); Chloride 102 mmol/L (98-107); Creatinine, Serum 0.84 mg/dL (0.70-1.30); EST Glomerular Filtration Rate 103 mL/min (>60); Est Glom Filt Rate - Afr Amer 124 mL/min (>60); Globulin 3.3 g/dL (2.2-4.2); Glucose 254 mg/dL (74-106); Potassium 4.3 mmol/L (3.5-5.1); Sodium Level 136 mmol/L (136-145); Thyroid Stim Hormone (TSH) 2.54 uIU/mL (0.358-3.74)
[2024-05-09 05:19] LABS: Absolute Lymphocyte Count 1.67 X10^3/uL (0.83-4.51); Absolute Neutrophil Count 5.3 X10^3/uL (2.0-7.7); Basophil# 0.07 X10^3/uL; Basophil% 0.9 % (0-1); Eosinophil# 0.22 X10^3/uL; Eosinophils% 2.8 % (0-5); Hematocrit 45.9 % (40-54); Hemoglobin 15.3 g/dL (13.0-16.5); Lymphocyte # 1.67 X10^3/ul (0.83-4.51); Lymphocyte % 20.9 % (19-41); Mean Corp Hgb Conc 33.3 g/dL (32-36); Mean Corpuscular Hgb 30.9 pg (27.0-32.0); Mean Corpuscular Volume 92.7 fL (80-94); Mean Platelet Vol. 11.1 fl (6.2-12.0); Monocyte# 0.68 X10^3/uL; Monocyte% 8.5 % (0-10); NRBC Flagged by Analyzer 0 % (0-5); Neutrophil # 5.29 X10^3/uL (2.7-7.7); Neutrophil % 66.1 % (47-70); Platelet Count 319 K/mm3 (150-450); RBC Distribution Width SD 43.8 fl (35.1-43.9); Red Blood Count 4.95 M/mm3 (4.6-6.2)
== END | disposition home or self-care (01) ==
LOC: LAB 14:47
PROVIDERS: PCP Family Medicine Geriatric Medicine; Referring Provider Family Medicine Geriatric Medicine; Visit Provider Family Medicine Geriatric Medicine
DX: I10 Essential (primary) hypertension (principal); E11.65 Type 2 diabetes mellitus with hyperglycemia; E78.5 Hyperlipidemia, unspecified
CPT/HCPCS: 36415; 80053; 80061; 83036; 84443; 85025

== ENCOUNTER → 2024-06-12 | Outpatient (CLI) | payer MEDICARE, MEDICAID, SELFPAY ==
[2024-06-12 19:15] LABS: Hemoglobin A1c 8.4 % (3.8-5.6)
== END | disposition home or self-care (01) ==
LOC: LAB 13:06
PROVIDERS: PCP Family Medicine Geriatric Medicine; Referring Provider Family Medicine Geriatric Medicine; Visit Provider Family Medicine Geriatric Medicine
DX: E11.65 Type 2 diabetes mellitus with hyperglycemia (principal)
CPT/HCPCS: 36415; 83036

== ENCOUNTER → 2024-07-04 | Outpatient (CLI) | payer MEDICARE, MEDICAID, SELFPAY | END | disposition home or self-care (01) | LOC: POLAB3 16:07 | PROVIDERS: PCP Family Medicine Geriatric Medicine; Visit Provider Family Medicine Geriatric Medicine | DX: R68.83 Chills (without fever) (principal) | CPT/HCPCS: 87631 ==

== ENCOUNTER → 2024-08-07 | Outpatient (CLI) | payer MEDICARE, MEDICAID, SELFPAY ==
[2024-08-07 14:09] LABS: Absolute Lymphocyte Count 1.68 X10^3/uL (0.83-4.51); Absolute Neutrophil Count 5.6 X10^3/uL (2.0-7.7); Basophil# 0.06 X10^3/uL; Basophil% 0.7 % (0-1); Eosinophil# 0.28 X10^3/uL; Eosinophils% 3.4 % (0-5); Hematocrit 46.5 % (40-54); Hemoglobin 14.8 g/dL (13.0-16.5); Lymphocyte # 1.68 X10^3/ul (0.83-4.51); Lymphocyte % 20.1 % (19-41); Mean Corp Hgb Conc 31.8 g/dL (32-36); Mean Corpuscular Volume 94.3 fL (80-94); Mean Platelet Vol. 10.1 fl (6.2-12.0); Monocyte# 0.65 X10^3/uL; Monocyte% 7.8 % (0-10); NRBC Flagged by Analyzer 0 % (0-5); Neutrophil # 5.61 X10^3/uL (2.7-7.7); Neutrophil % 67.3 % (47-70); Platelet Count 259 K/mm3 (150-450); RBC Distribution Width CV 13.5 % (11.6-14.6); RBC Distribution Width SD 46.7 fl (35.1-43.9); Red Blood Count 4.93 M/mm3 (4.6-6.2); White Blood Count 8.3 K/mm3 (4.4-11.0)
[2024-08-07 14:59] LABS: AST(SGOT) 14 U/L (15-37); Alanine Aminotransfer ALT/SGPT 28 U/L (16-61); Albumin, Serum 3.5 g/dL (3.2-5.0); Alkaline Phosphatase 125 U/L (45-117); Anion Gap 6 (5-15); BUN 14 mg/dL (7-18); BUN/Creat Ratio 16.6 RATIO (10-20); Calcium,Total 9.2 mg/dL (8.5-10.1); Chloride 101 mmol/L (98-107); Cholesterol 127 mg/dL (200); Creatinine, Serum 0.84 mg/dL (0.70-1.30); EST Glomerular Filtration Rate 102 mL/min (>60); Est Glom Filt Rate - Afr Amer 123 mL/min (>60); Globulin 3.6 g/dL (2.2-4.2); Glucose 228 mg/dL (74-106); High Density Lipoprotein 33 mg/dL; Potassium 4.2 mmol/L (3.5-5.1); Protein, Total 7.1 g/dL (6.4-8.2); Sodium Level 138 mmol/L (136-145); Triglycerides 359 mg/dL; Very Low Density Lipoprotein 72 mg/dL (5-40)
[2024-08-07 15:07] LABS: Hemoglobin A1c 7.2 % (3.8-5.6)
== END | disposition home or self-care (01) ==
LOC: POLAB3 13:58
PROVIDERS: PCP Family Medicine Geriatric Medicine; Visit Provider Family Medicine Geriatric Medicine
DX: E11.65 Type 2 diabetes mellitus with hyperglycemia (principal); I10 Essential (primary) hypertension; E78.5 Hyperlipidemia, unspecified
CPT/HCPCS: 36415; 80053; 80061; 83036; 84443; 85025

== ENCOUNTER → 2024-11-13 | Outpatient (CLI) | payer MEDICARE, MEDICAID, SELFPAY ==
[2024-11-13 14:25] LABS: Absolute Lymphocyte Count 1.88 X10^3/uL (0.83-4.51); Absolute Neutrophil Count 6.9 X10^3/uL (2.0-7.7); Basophil# 0.07 X10^3/uL; Basophil% 0.7 % (0-1); Eosinophil# 0.27 X10^3/uL; Eosinophils% 2.7 % (0-5); Hematocrit 48.2 % (40-54); Hemoglobin 15.2 g/dL (13.0-16.5); Lymphocyte # 1.88 X10^3/ul (0.83-4.51); Lymphocyte % 18.9 % (19-41); Mean Corp Hgb Conc 31.5 g/dL (32-36); Mean Corpuscular Hgb 29.7 pg (27.0-32.0); Mean Corpuscular Volume 94.3 fL (80-94); Mean Platelet Vol. 10.1 fl (6.2-12.0); Monocyte# 0.74 X10^3/uL; Monocyte% 7.4 % (0-10); NRBC Flagged by Analyzer 0 % (0-5); Neutrophil # 6.92 X10^3/uL (2.7-7.7); Neutrophil % 69.6 % (47-70); Platelet Count 245 K/mm3 (150-450); RBC Distribution Width CV 13.5 % (11.6-14.6); RBC Distribution Width SD 46.6 fl (35.1-43.9); Red Blood Count 5.11 M/mm3 (4.6-6.2)
[2024-11-13 15:00] LABS: Hemoglobin A1c 6.6 % (3.8-5.6)
[2024-11-13 15:04] LABS: AST(SGOT) 15 U/L (15-37); Alanine Aminotransfer ALT/SGPT 29 U/L (16-61); Albumin, Serum 3.6 g/dL (3.2-5.0); Alkaline Phosphatase 133 U/L (45-117); Anion Gap 2 (5-15); BUN 17 mg/dL (7-18); BUN/Creat Ratio 17.6 RATIO (10-20); Calcium,Total 9.3 mg/dL (8.5-10.1); Chloride 104 mmol/L (98-107); Cholesterol 133 mg/dL (200); Creatinine, Serum 0.96 mg/dL (0.70-1.30); EST Glomerular Filtration Rate 87 mL/min (>60); Est Glom Filt Rate - Afr Amer 105 mL/min (>60); Globulin 3.6 g/dL (2.2-4.2); Glucose 212 mg/dL (74-106); High Density Lipoprotein 35 mg/dL; Potassium 4.1 mmol/L (3.5-5.1); Protein, Total 7.2 g/dL (6.4-8.2); Sodium Level 140 mmol/L (136-145); Triglycerides 282 mg/dL; Very Low Density Lipoprotein 56 mg/dL (5-40)
== END | disposition home or self-care (01) ==
LOC: POLAB3 14:10
PROVIDERS: PCP Family Medicine Geriatric Medicine; Visit Provider Family Medicine Geriatric Medicine
DX: E11.65 Type 2 diabetes mellitus with hyperglycemia (principal); I10 Essential (primary) hypertension; E78.5 Hyperlipidemia, unspecified
CPT/HCPCS: 36415; 80053; 80061; 82043; 83036; 84443; 85025

== ENCOUNTER → 2025-02-13 | Outpatient (CLI) | payer MEDICARE, MEDICAID, SELFPAY ==
[2025-02-13 15:50] LABS: Absolute Lymphocyte Count 1.92 X10^3/uL (0.83-4.51); Absolute Neutrophil Count 6.6 X10^3/uL (2.0-7.7); Basophil# 0.05 X10^3/uL; Basophil% 0.5 % (0-1); Eosinophil# 0.25 X10^3/uL; Eosinophils% 2.5 % (0-5); Hematocrit 48.4 % (40-54); Hemoglobin 15.5 g/dL (13.0-16.5); Lymphocyte # 1.92 X10^3/ul (0.83-4.51); Lymphocyte % 19.3 % (19-41); Mean Corpuscular Hgb 30.3 pg (27.0-32.0); Mean Corpuscular Volume 94.7 fL (80-94); Mean Platelet Vol. 10.4 fl (6.2-12.0); Monocyte# 1.03 X10^3/uL; Monocyte% 10.4 % (0-10); NRBC Flagged by Analyzer 0 % (0-5); Neutrophil # 6.64 X10^3/uL (2.7-7.7); Neutrophil % 66.9 % (47-70); Platelet Count 255 K/mm3 (150-450); RBC Distribution Width CV 13.7 % (11.6-14.6); RBC Distribution Width SD 47.7 fl (35.1-43.9); Red Blood Count 5.11 M/mm3 (4.6-6.2); White Blood Count 9.9 K/mm3 (4.4-11.0)
[2025-02-13 18:59] LABS: Hemoglobin A1c 7.4 % (<=5.6)
[2025-02-13 19:22] LABS: ALB/GLOB Ratio 1.6 RATIO (0.9-2.4); AST(SGOT) 21 U/L (<=37); Alanine Aminotransfer ALT/SGPT 25 U/L (<=46); Albumin, Serum 4.2 g/dL (3.5-5.0); Alkaline Phosphatase 137 U/L (40-129); Anion Gap 10 (5-15); BUN 22 mg/dL (4-19); BUN/Creat Ratio 20.6 RATIO (10-20); Calcium,Total 10.1 mg/dL (7.6-11.0); Carbon Dioxide 27.5 mmol/L (21.0-32.0); Chloride 100 mmol/L (98-108); Cholesterol 116 mg/dL (<=200); Creatinine, Serum 1.09 mg/dL (0.70-1.20); EST Glomerular Filtration Rate 82 (>60); Globulin 2.7 g/dL (2.2-4.2); Glucose 101 mg/dL (70-99); High Density Lipoprotein 29 mg/dL; Low Density Lipoprotein Calc. 33 mg/dL; Potassium 4.8 mmol/L (3.3-5.1); Protein, Total 6.9 g/dL (5.9-8.4); Sodium Level 137 mmol/L (133-145); Total Bilirubin 0.77 mg/dL (0.00-1.30); Triglycerides 268 mg/dL; Very Low Density Lipoprotein 54 mg/dL (5-40); cholesterol:hdl ratio screen 3.96
== END | disposition home or self-care (01) ==
PROVIDERS: PCP Family Medicine Geriatric Medicine; Referring Provider Family Medicine Geriatric Medicine; Visit Provider Family Medicine Geriatric Medicine
DX: E11.65 Type 2 diabetes mellitus with hyperglycemia (principal); I10 Essential (primary) hypertension; E78.5 Hyperlipidemia, unspecified
CPT/HCPCS: 36415; 80053; 80061; 83036; 84443; 85025

== ENCOUNTER → 2025-04-02 | Outpatient (CLI) | payer MEDICARE, MEDICAID, SELFPAY | END | disposition home or self-care (01) | PROVIDERS: PCP Family Medicine Geriatric Medicine; Referring Provider Family Medicine Geriatric Medicine; Visit Provider Family Medicine Geriatric Medicine | DX: R05.9 Cough, unspecified (principal); R06.2 Wheezing | CPT/HCPCS: 87631 ==

== ENCOUNTER 2025-05-15 14:52 | Inpatient (IN) | payer MEDICARE, MEDICAID, SELFPAY ==
[2025-05-15] VITALS (26 sets, daily range): BP systolic 84–140; BP diastolic 51–93; PULSE 60–80; RESP 10–40; TEMP 36.2–37.7; O2SAT 22–100; BMI 35.6; BMI 34.9
--- NOTE | 2025-05-15 15:39 | EKG12_ITS ---
Test Reason : SOB Blood Pressure : */* mmHG Vent. Rate : 70 BPM Atrial Rate : 70 BPM P-R Int : 166 ms QRS Dur : 84 ms QT Int : 394 ms P-R-T Axes : 63 136 37 degrees QTcB Int : 425 ms Critical Test Result: STEMI Normal sinus rhythm Left posterior fascicular block ST elevation consider inferior injury or acute infarct Reconfirmed by SABRINA LANGFORD, HARLAN ([id number]), newspaper editor BERNY GARIBAY ([id number]) on 05/16/2025 8:26:23 AM Referred By: TB/UG Confirmed By: HARLAN BENNETT MD
--- NOTE | 2025-05-15 15:41 | EX.ED.DYSGE1 ---
HPI History of Present Illness Chief Complaint: Shortness of Breath Detail of Chief Complaint: Shortness of breath and pulse ox of 70% at Dr. collier's office Informant: parent Onset/Context/Timing Onset: - (Unknown) Context: - (Unable to determine) Timing: Continuous (Per mom) Quality: Shortness of breath and low oxygen level Location: Respiratory Current Severity: Moderate Maximum Severity: Severe Worsened by: Activity and no oxygen Relieved by: Nothing Associated Symptoms Associated Symptoms: Cough Narrative Narrative: Patient is a 54-year-old male with history of schizophrenia, bipolar affective disorder, hypertension, hyperlipidemia and type 2 diabetes. He was seen for routine visit. He was sent from Dr. Russell's office. There is no call. History is limited because of patient's altered mental status and mom is not able to supplement much more than he is short of breath and has a cough Recent Illness/Hospitalization: [facility] OF [facility] Medical History Asthma Hypercholesterolemia Hypertension Diabetes mellitus Schizophrenia Home Medications ?Medication ?Instructions ?Recorded ?Last Taken ?Type atorvastatin 40 mg tablet 40 mg PO QHS 06/18/21 05/14/25 History valsartan 320 mg tablet 320 mg PO DAILY 06/18/21 05/15/25 History aripiprazole 300 mg intramuscular 300 mg IM QMONTH 09/05/21 Unknown History suspension,extended release (Abilify Maintena) fluoxetine 40 mg capsule 40 mg PO DAILY 05/15/25 05/15/25 History glimepiride 2 mg tablet 2 mg PO DAILY 05/15/25 05/15/25 History haloperidol 5 mg tablet 5 mg PO BID 05/15/25 05/15/25 History levothyroxine 25 mcg tablet 25 mcg PO DAILY 05/15/25 05/15/25 History lithium carbonate 300 mg capsule 300 mg PO BID 05/15/25 05/15/25 History metformin 500 mg tablet,extended 500 mg PO BID 05/15/25 05/15/25 History release 24 hr propranolol 40 mg tablet 40 mg PO TID 05/15/25 05/15/25 History semaglutide 3 mg tablet (Rybelsus) 3 mg PO DAILY 05/15/25 05/15/25 History Allergy/AdvReac Type Severity Reaction Status Date / Time divalproex sodium (From AdvReac Severe Crtiticly Verified 05/15/25 14:54 Depakote) Elevated Ammonia Levels Social History (Updated 05/15/25 @ 15:[address] Danny Gloria MD) household members: family Smoking Status: Never smoker substance use type: does not use ROS ROS ED Review of Systems ROS Unobtainable: due to mental status Respiratory/Chest Respiratory/Chest: Reports cough, dyspnea and dyspnea on exertion EXAM Physical Exam Const Vital Signs: 05/15/25 14:55 05/15/25 14:55 05/15/25 15:00 Temperature 97.7 F L 97.7 F L Temperature Source Oral Oral Pulse Rate 67 67 Respiratory Rate 24 H 24 H Respiratory Effort Respiratory Depth Respiratory Pattern Blood Pressure 115/57 L 115/57 L Blood Pressure Mean 76 76 Pulse Ox 78 78 97 Oxygen Delivery Method Room Air Room Air Nasal Cannula Oxygen Flow Rate (L/min) 4 Fraction of Inspired Oxygen (FIO2) 05/15/25 15:03 05/15/25 15:23 05/15/25 15:30 Temperature Temperature Source Pulse Rate 66 66 Respiratory Rate 40 H 25 H Respiratory Effort Labored Respiratory Depth Shallow Respiratory Pattern Tachypnea Blood Pressure 131/61 H 125/70 H Blood Pressure Mean 84 88 Pulse Ox 97 98 Oxygen Delivery Method Nasal Cannula Nasal Cannula Nasal Cannula Oxygen Flow Rate (L/min) 4 4 4 Fraction of Inspired Oxygen (FIO2) 05/15/25 16:00 05/15/25 16:15 05/15/25 16:18 Temperature 97.5 F L Temperature Source Axillary Pulse Rate 64 64 Respiratory Rate 36 H 35 H 33 H Respiratory Effort Respiratory Depth Respiratory Pattern Normal Blood Pressure 119/70 117/76 Blood Pressure Mean 86 89 Pulse Ox 92 94 93 Oxygen Delivery Method Nasal Cannula Bi-pap Oxygen Flow Rate (L/min) 4 Fraction of Inspired Oxygen (FIO2) 35 35 05/15/25 16:30 05/15/25 16:36 05/15/25 17:00 Temperature 97.5 F L Temperature Source Axillary Pulse Rate 62 67 69 Respiratory Rate 20 H 23 H 30 H Respiratory Effort Respiratory Depth Respiratory Pattern Tachypnea Blood Pressure 115/73 116/68 Blood Pressure Mean 87 84 Pulse Ox 22 94 93 Oxygen Delivery Method Bi-pap Bi-pap Oxygen Flow Rate (L/min) Fraction of Inspired Oxygen (FIO2) 35 35 35 Positive well nourished and well developed Constitutional Narrative: BMI is 35.6. Patient is breathing rapidly with depressed level of consciousness he needs continuous verbal stimuli to keep his eyes open. He is slow to answer questions. General Appearance ED: well developed; Negative for pallor HEENT Reports dry mucous membranes HEENT Narrative: Head is atraumatic normocephalic. Ears normal. TMs normal. Nares patent with slight clear drainage. Mucosas dry. Posterior pharynx is normal Mouth ED: Yes dry mucous membranes Mouth: dry mucous membranes Eyes PERRL and EOMs intact bilaterally Eyes Narrative: Patient has injected conjunctive, slight drainage noted bilaterally General Eye ED: Negative for pale conjunctiva or scleral icterus Neck no lymphadenopathy, supple and no JVD Neck Narrative: Trachea is midline. There is no JVD. Chest Wall inspection of chest normal and palpation of chest normal Resp No normal respiratory effort and No clear to auscultation bilaterally Resp Narrative: Patient has use of accessory muscles. There is no retractions. He is breathing rapidly. There is abnormal breath sounds at the right and left base posteriorly. Cardio regular rate, regular rhythm, S1 normal heart sound, S2 normal heart sound and no murmurs GI normal to inspection, nondistended, normoactive bowel sounds, non-tender, non-distended and no masses; Negative for hepatosplenomegaly Back/Spine no CVA tenderness Extremity normal to inspection General Extremety ED: Negative for edema or tenderness General Extremity: Negative for edema Neuro No oriented x3, CN's II-XII intact bilaterally and no sensory deficits noted Neuro Narrative: He is disoriented to time. He initially state he was 64 years of age. He did not know the month or year. Sensorium / Orientation: Negative for alert Psych Psych Narrative: Patient with depressed level consciousness. Difficult to assess his mood and affect. Skin no rashes or lesions noted, no wounds and skin turgor normal General Skin Exam: Negative for jaundice or pallor MDM MDM MDM Narrative Medical decision making narrative: Patient with altered mental status. He was hypoxic. Need to evaluate for pneumonia, pulmonary embolus, or other causes of hypoxia. Doubt pneumothorax as he has equal breath sounds bilaterally. Clinically he does not appear in failure. Will obtain ABG to assess AA gradient and CO2 because there is concern for hypercapnia since he is obese with a BMI greater than 35. Because there is a concern for pneumonia sepsis workup was undertaken which included electrolyte panel, CBC and lactate. Will await chest x-ray to determine if antibiotics are indicated. Lab Data Attestation: I reviewed the patient's lab results. Lab results narrative: White count is elevated 14,000. H&H is normal. There is a slight shift. There is no bandemia. BUN and creatinine are elevated 29 and 1.4 from baseline. BUN to creatinine ratio slightly elevated. Glucose is 173 with a normal CO2 anion gap. Alkaline phosphatase slightly elevated. Labs: Laboratory Results - last 24 hr 05/15/25 15:47 WBC 14.0 H RBC 5.22 Hgb 16.0 Hct 51.1 MCV 97.9 H MCH 30.7 MCHC 31.3 L RDW Std Deviation 52.8 H RDW Coeff of Gautam 14.6 Plt Count 273 MPV 10.4 Immature Gran % (Auto) 0.600 Neut % (Auto) 75.3 H Lymph % (Auto) 14.4 L Story % (Auto) 7.8 Eos % (Auto) 1.4 Baso % (Auto) 0.5 Absolute Neuts (auto) 10.6 H Absolute Lymphs (auto) 2.01 Nucleated RBC % 0 Sodium 140 Potassium 5.0 Chloride 100 Carbon Dioxide 30.2 Anion Gap 10 BUN 29 H Creatinine 1.40 H Estim Creat Clear Calc 77.56 Est GFR (MDRD) Non-Af 60 BUN/Creatinine Ratio 20.4 H Glucose 173 H Lactic Acid 1.4 Calcium 9.7 Total Bilirubin 0.78 AST 16 ALT 36 Alkaline Phosphatase 167 H Total Protein 7.0 Albumin 4.3 Globulin 2.7 Albumin/Globulin Ratio 1.6 ABG Data ABG results: ABG 05/15/25 15:59 Specimen Type ART Sample Site R Radial pH 7.29 L Bicarbonate Actual 32.6 H Total CO2 35 Base Excess 6 H O2 Saturation 96 O2 % 4.0 ABG pCO2 68.5 H* ABG pO2 93 Asif Test Positive O2 Delivery Device Cannula Vent Mode Not entered Crit Call To/Read Back Yes Blood Gas Notified Whom ug Blood Gas Notified Time 16:00:42 Radiography Chest X-Ray - ED: 2 View, Read by ED Physician (Difficult to read because of limited inspiration. There is cardiomegaly. The left heart border is obstructed and consistent with pneumonia. This is best seen on the lateral film. Osseous structures reveal no acute abnormality.) and Left Infiltrate EKG Initial EKG: Attestation: I personally reviewed and interpreted this EKG as follows: Interpretation: Sinus Rhythm (Rate is 70. NH interval is 106 6 ms. QRS duration 84 ms. QT duration 394 ms. Lyons to the ri right. There is evidence of left posterior fascicular block. There is abnormal ST segments that are new from September 18, 2021) Prior: Changed (The flipped T waves in V1 through V4 are new since August 2021.) Management Discussion w/another healthcare provider: Hospitalist (Spoke with Dr. Diaz. Admit to ICU. He requested CTA.) Treatment and Re-Evaluation :: I was informed by patient's nurse that the blood pressure reading of 83/53 was an error. Therefore will not administer the 30 cc/kg bolus. Dr. Diaz requested CTA to evaluate for pulmonary embolus. Critical Care Time Critical Care Time: Yes Critical care time (excluding procedures): 30-74 minutes (33), Including time spent: (History, physical, documentation, discussion with mother, independent rotation laboratory results, imaging and treat for pneumonia with respiratory failure with hypoxemia and hypercapnia.), Discussing w/Patient &/or Family/Research Fellow, Discussing w/Consultants and Arranging Admission or Transfer Discharge Plan Dx/Rx/DC Orders Clinical Impression: Community acquired pneumonia, Schizophrenia, paranoid, Acute respiratory failure with hypoxia and hypercapnia, Encephalopathy, Elevated serum creatinine, Abnormal EKG Disposition Disposition: Acute Care [facility]
--- NOTE | 2025-05-15 15:55 | RAD_ITS ---
PROCEDURE: CHEST PA AND LATERAL 05/15/2025 REASON FOR EXAM: TACHYPNEA, HYPOXIA TECHNIQUE: CHEST PA AND LATERAL COMPARISON: 05/15/2025 FINDINGS: Mild pulmonary vascular congestion and interstitial edema. Retrocardiac/left lower lobe opacity suspected. Stable moderate cardiomegaly. Interval removal of enteric tube and endotracheal tubes. No pleural effusion or pneumothorax. RAD/Chest PA and Lateral IMPRESSION: Mild pulmonary vascular congestion interstitial edema. Retrocardiac/left lower lobe opacity suspected. Stable moderate cardiomegaly. Reading Location: [id number]
[2025-05-15 16:00] LABS: Absolute Lymphocyte Count 2.01 X10^3/uL (0.83-4.51); Absolute Neutrophil Count 10.6 X10^3/uL (2.0-7.7); Basophil# 0.07 X10^3/uL; Basophil% 0.5 % (0-1); Eosinophil# 0.19 X10^3/uL; Eosinophils% 1.4 % (0-5); Hematocrit 51.1 % (40-54); Lymphocyte # 2.01 X10^3/ul (0.83-4.51); Lymphocyte % 14.4 % (19-41); Mean Corp Hgb Conc 31.3 g/dL (32-36); Mean Corpuscular Hgb 30.7 pg (27.0-32.0); Mean Corpuscular Volume 97.9 fL (80-94); Mean Platelet Vol. 10.4 fl (6.2-12.0); Monocyte# 1.09 X10^3/uL; Monocyte% 7.8 % (0-10); NRBC Flagged by Analyzer 0 % (0-5); Neutrophil # 10.55 X10^3/uL (2.7-7.7); Neutrophil % 75.3 % (47-70); Platelet Count 273 K/mm3 (150-450); RBC Distribution Width CV 14.6 % (11.6-14.6); RBC Distribution Width SD 52.8 fl (35.1-43.9); Red Blood Count 5.22 M/mm3 (4.6-6.2)
[2025-05-15 16:03] LABS: Allen Test Positive; Base Excess 6 mmol/L (-2 to +2); Bicarbonate 32.6 mmol/L (22-26); Blood Gas Specimen Type ART; Mode Not entered; O2 Delivery Device Cannula; PO2 93 mmHG (75-100); SITE R Radial; SO2 96 % (95-99); Time Given 16:00:42; Total Carbon Dioxide 35 mmol/L; pCO2 68.5 mmHg (35-45); pH 7.29 (7.35-7.45)
[2025-05-15 16:31] LABS: Lactic Acid 1.4 mmol/L (0.0-2.0)
[2025-05-15 16:33] LABS: ALB/GLOB Ratio 1.6 RATIO (0.9-2.4); AST(SGOT) 16 U/L (<=37); Alanine Aminotransfer ALT/SGPT 36 U/L (<=46); Albumin, Serum 4.3 g/dL (3.5-5.0); Alkaline Phosphatase 167 U/L (40-129); Anion Gap 10 (5-15); BUN 29 mg/dL (4-19); BUN/Creat Ratio 20.4 RATIO (10-20); Calcium,Total 9.7 mg/dL (7.6-11.0); Carbon Dioxide 30.2 mmol/L (21.0-32.0); Chloride 100 mmol/L (98-108); EST Glomerular Filtration Rate 60 (>60); Estimated Creatinine Clearance 77.56 ml/min (50-250); Globulin 2.7 g/dL (2.2-4.2); Glucose 173 mg/dL (70-99); Sodium Level 140 mmol/L (133-145); Total Bilirubin 0.78 mg/dL (0.00-1.30)
--- NOTE | 2025-05-15 17:01 | PCM.HP.STD ---
HPI - General General Date of Admission: 05/15/25 Date of Service: 05/15/25 Chief Complaint: Shortness of breath and hypoxia HPI Narrative ALAN DAUGHERTY, is a 54 M who presented to [facility] ED on 05/15/2025 with worsening shortness of breath and hypoxia. Medical history significant for class I obesity, hypertension, hyperlipidemia, type 2 diabetes, bipolar affective disorder and schizophrenia. He was sent to the ED from his PCP Dr. Whitlock's office due to shortness of breath and hypoxia. Patient was altered on arrival to the ED so history was limited. He was noted to be short of breath and had a nonproductive cough. On home oxygen and was requiring 4 L nasal cannula initially to maintain appropriate oxygen saturations. ABG showed pH 7.29, pCO2 68, pO2 93 on nasal cannula. Given the hypercapnia, patient was placed on BiPAP. Unfortunately, despite being on BiPAP his repeat ABG about 1.5 hours later showed pH 7.29, worsening pCO2 75. He continues to be altered so decision was made to intubate the patient. Intubation was done in the ED without issue. ABG after 2 hours on the ventilator showed improvement with pH 7.39, pCO2 56. CTA chest showed no PE, did show probable pulmonary edema and small pericardial effusion but no other significant abnormalities. Given his respiratory failure, hospitalist was contacted for admission. I saw the patient at bedside in the ED. He was intubated and sedated and not following commands. Will be admitted to the ICU for further management. [facility] Medical History Asthma Hypercholesterolemia Hypertension Diabetes mellitus Schizophrenia Home Medications ?Medication ?Instructions ?Recorded ?Last Taken ?Type atorvastatin 40 mg tablet 40 mg PO QHS 06/18/21 05/14/25 History valsartan 320 mg tablet 320 mg PO DAILY 06/18/21 05/15/25 History aripiprazole 300 mg intramuscular 300 mg IM QMONTH 09/05/21 Unknown History suspension,extended release (Abilify Maintena) fluoxetine 40 mg capsule 40 mg PO DAILY 05/15/25 05/15/25 History glimepiride 2 mg tablet 2 mg PO DAILY 05/15/25 05/15/25 History haloperidol 5 mg tablet 5 mg PO BID 05/15/25 05/15/25 History levothyroxine 25 mcg tablet 25 mcg PO DAILY 05/15/25 05/15/25 History lithium carbonate 300 mg capsule 300 mg PO BID 05/15/25 05/15/25 History metformin 500 mg tablet,extended 500 mg PO BID 05/15/25 05/15/25 History release 24 hr propranolol 40 mg tablet 40 mg PO TID 05/15/25 05/15/25 History semaglutide 3 mg tablet (Rybelsus) 3 mg PO DAILY 05/15/25 05/15/25 History Allergy/AdvReac Type Severity Reaction Status Date / Time divalproex sodium (From AdvReac Severe Crtiticly Verified 05/15/25 14:54 Depakote) Elevated Ammonia Levels Social History (Updated 05/15/25 @ 15:[address] Danny Gloria MD) household members: family Smoking Status: Never smoker substance use type: does not use ROS Review of Systems ROS Unobtainable: due to endotracheal tube Vital Signs Vital Signs Vital Signs: 05/15/25 14:55 05/15/25 14:55 05/15/25 15:00 Temperature 97.7 F L 97.7 F L Temperature Source Oral Oral Pulse Rate 67 67 Respiratory Rate 24 H 24 H Respiratory Effort Respiratory Depth Respiratory Pattern Blood Pressure 115/57 L 115/57 L Blood Pressure Mean 76 76 Pulse Ox 78 78 97 Oxygen Delivery Method Room Air Room Air Nasal Cannula Oxygen Flow Rate (L/min) 4 Fraction of Inspired Oxygen (FIO2) 05/15/25 15:03 05/15/25 15:23 05/15/25 15:30 Temperature Temperature Source Pulse Rate 66 66 Respiratory Rate 40 H 25 H Respiratory Effort Labored Respiratory Depth Shallow Respiratory Pattern Tachypnea Blood Pressure 131/61 H 125/70 H Blood Pressure Mean 84 88 Pulse Ox 97 98 Oxygen Delivery Method Nasal Cannula Nasal Cannula Nasal Cannula Oxygen Flow Rate (L/min) 4 4 4 Fraction of Inspired Oxygen (FIO2) 05/15/25 16:00 05/15/25 16:15 05/15/25 16:18 Temperature 97.5 F L Temperature Source Axillary Pulse Rate 64 64 Respiratory Rate 36 H 35 H 33 H Respiratory Effort Respiratory Depth Respiratory Pattern Normal Blood Pressure 119/70 117/76 Blood Pressure Mean 86 89 Pulse Ox 92 94 93 Oxygen Delivery Method Nasal Cannula Bi-pap Oxygen Flow Rate (L/min) 4 Fraction of Inspired Oxygen (FIO2) 35 35 05/15/25 16:30 05/15/25 16:36 Temperature Temperature Source Pulse Rate 62 67 Respiratory Rate 20 H 23 H Respiratory Effort Respiratory Depth Respiratory Pattern Tachypnea Blood Pressure 115/73 Blood Pressure Mean 87 Pulse Ox 22 94 Oxygen Delivery Method Bi-pap Oxygen Flow Rate (L/min) Fraction of Inspired Oxygen (FIO2) 35 35 Weight Weight: 112.6 kg Body Mass Index (BMI) 35.6 Physical Exam Const Constitutional Narrative: Intubated and sedated, not following commands. HEENT normocephalic and head/scalp atraumatic HEENT Narrative: ET tube in place. Eyes PERRL, EOMs intact bilaterally and conjunctivae normal Neck supple Resp Resp Narrative: Breathing comfortably on mechanical ventilation. Diminished breath sounds noted in bilateral lung bases with mild crackles noted. No wheezing noted. Cardio regular rate, regular rhythm and no murmurs GI normal to inspection, nondistended, normoactive bowel sounds, soft to palpation, non-tender and non-distended Extremity normal to inspection, full ROM and no clubbing, cyanosis or edema Results Lab / Micro Data 05/15/25 15:47 05/15/25 21:08 Labs: Laboratory Results - last 24 hr 05/15/25 15:47: WBC 14.0 H, RBC 5.22, Hgb 16.0, Hct 51.1, MCV 97.9 H, MCH 30.7, MCHC 31.3 L, RDW Std Deviation 52.8 H, RDW Coeff of Gautam 14.6, Plt Count 273, MPV 10.4, Immature Gran % (Auto) 0.600, Neut % (Auto) 75.3 H, Lymph % (Auto) 14.4 L, [place] % (Auto) 7.8, Eos % (Auto) 1.4, Baso % (Auto) 0.5, Absolute Neuts (auto) 10.6 H, Absolute Lymphs (auto) 2.01, Nucleated RBC % 0, Sodium 140, Potassium 5.0, Chloride 100, Carbon Dioxide 30.2, Anion Gap 10, BUN 29 H, Creatinine 1.40 H, Estim Creat Clear Calc 77.56, Est GFR (MDRD) Non-Af 60, BUN/Creatinine Ratio 20.4 H, Glucose 173 H, Lactic Acid 1.4, Calcium 9.7, Total Bilirubin 0.78, AST 16, ALT 36, Alkaline Phosphatase 167 H, Total Protein 7.0, Albumin 4.3, Globulin 2.7, Albumin/Globulin Ratio 1.6 ABG Data ABG results: ABG 05/15/25 15:59 Specimen Type ART Sample Site R Radial pH 7.29 L Bicarbonate Actual 32.6 H Total CO2 35 Base Excess 6 H O2 Saturation 96 O2 % 4.0 ABG pCO2 68.5 H* ABG pO2 93 Asif Test Positive O2 Delivery Device Cannula Vent Mode Not entered Crit Call To/Read Back Yes Blood Gas Notified Whom ug Blood Gas Notified Time 16:00:42 Assessment & Plan Assessment/Plan (1) Acute respiratory failure with hypoxia and hypercapnia: PLAN: Plan Patient is a 54-year-old male who presented to [facility] ED on 05/15/2025 for shortness of breath and hypoxia. 1. Acute hypoxic and hypercapnic respiratory failure suspected secondary to CHF exacerbation, concern for pneumonia ? Admit under inpatient status to ICU. Geology Teacher consulted. Patient presented with hypoxia and altered mentation. Initial ABG showed pH 7.29, pCO2 68, pO2 93. Placed on BiPAP but unfortunately repeat pH remained at 7.29 and had worsening pCO2 75 and pO2 75 so patient was intubated in the ED. Repeat ABG on mechanical ventilation with pH 7.39, pCO2 56, pO2 only 54. CTA chest showed probable pulmonary edema with small pericardial effusion. Did have mildly elevated WBC count of 14 and low-grade fevers noted. BNP elevated at 1732. No prior history of CHF noted in chart. Echo ordered. Will treat with IV Lasix daily for now. Procalcitonin negative so we will hold on antibiotics for now. Ventilator management per equipment maintenance engineer. 2. Mild creatinine elevation ? Creatinine 1.40 on admit, baseline around 1.0-1.1. Presume secondary to CHF exacerbation as above. Treating with IV Lasix as above, monitor daily BMP and urine output. Chronic medical conditions: ? Class I obesity: BMI 34 on admit. Complicates hospital course, care and prognosis. ? Type 2 diabetes mellitus: Glucose 173 on admit. Most recent A1c 7.4% in January. Hold home oral medications. Will treat with sliding scale insulin every 6 hours for now, adjust as needed. ? Hypertension: Holding home propranolol and valsartan as patient has been borderline hypotensive on sedation. ? Hyperlipidemia: Continue home statin. ? History of schizoaffective disorder: Continue home fluoxetine, haloperidol and lithium. ? Hypothyroidism: TSH normal. Continue home Synthroid. DVT prophylaxis: Lovenox CODE STATUS: Full code, unverified Expected disposition: TBD Total clinical time spent by myself addressing the patient's medical issues, reviewing all the data, and collaborating with patient's care team: 75 minutes. Charges/Coding Visit Charges Inpatient E&M: 47430 Init Hosp L3
[2025-05-15 17:29] LABS: Allen Test Positive; Base Excess 10 mmol/L (-2 to +2); Bicarbonate 36.4 mmol/L (22-26); Blood Gas Specimen Type ART; Mode avaps; O2 Delivery Device BiPAP; PEEP 10; PO2 75 mmHG (75-100); RR 10; SITE L Radial; SO2 92 % (95-99); Time Given 17:26:47; Total Carbon Dioxide 39 mmol/L; pCO2 75.1 mmHg (35-45); pH 7.29 (7.35-7.45)
[2025-05-15] MEDS: Etomidate 20 MG/10 ML Vial IV (17:40)
[2025-05-15 17:41] LABS: Troponin T High Sensitivity 18 ng/L (<=22)
[2025-05-15] MEDS: Rocuronium Bromide 50 MG/5 ML Vial 73 MG IV (17:41)
[2025-05-15] MEDS: Propofol 10MG/Ml 1,000 MG/100 ML Bottle 6.8 MG CONT INF (17:45)
[2025-05-15 18:08] LABS: D-Dimer Quantitative (DVT/PE) 0.27 FEU/ug/m (0.27-0.49)
[2025-05-15 18:15] LABS: Troponin T High Sens 2 HR 15 ng/L (<=22)
--- NOTE | 2025-05-15 18:16 | RAD_ITS ---
PROCEDURE: CHEST 1 VIEW (PORTABLE) 05/15/2025 REASON FOR EXAM: INTUBATION TECHNIQUE: Frontal view of the chest. COMPARISON: 05/15/2025 RAD/Chest 1 View (Portable) IMPRESSION: Endotracheal tube tip 2.6 cm above the erika; consider 1 cm retraction. Enteric tube in appropriate placement. Retrocardiac/left lower lobe opacity not excluded. Mild pulmonary vascular con gestion. Stable moderate cardiomegaly. No pleural effusion or pneumothorax. Reading Location: [id number]
--- NOTE | 2025-05-15 18:35 | CT_ITS ---
PROCEDURE: CTA CHEST W/WO CONTRAST 05/15/2025 REASON FOR EXAM: RESPIRATORY FAILURE TECHNIQUE: CTA CHEST W/WO CONTRAST Multiplanar Sagittal and Coronal images were obtained. CONTRAST: Isovue 370 VOLUME: 100 mL One or more dose reduction techniques were used (e.g., Automated exposure control, adjustment of the mA and/or kV according to patient size, use of iterative reconstruction technique). RADIATION DOSE SUMMARY: CTDlvol: 19.00+ 15.83 mGy DLP: 571.91 mGycm . COMPARISON: None. FINDINGS: The peripheral soft tissues are unremarkable. No acute osseous abnormalities. The thyroid is unremarkable. Normal caliber esophagus. Orogastric tube terminates in the mid gastric body. Partially visualized right kidney indeterminate lesion. No mediastinal lymphadenopathy. Small pericardial effusion. The heart is enlarged. No pulmonary artery filling defects. Interlobular septal thickening and bronchial wall thickening in a pattern favoring edema. CT/CTA Chest W/WO Contrast IMPRESSION: No pulmonary embolism. Probable pulmonary edema. Small pericardial effusion. Indeterminate right kidney lesion. Further characterization with nonemergent u ltrasound to determine if it is cystic is recommended. Reading Location: [place] [id number]
[2025-05-15 18:45] LABS: Pro- Brain NATRIURETIC PEPTIDE 1732 pg/mL (<=900); Procalcitonin 0.09 ng/mL (<=0.10)
[2025-05-15] MEDS: Insulin Lispro 100 UNIT/ML INSULN.PEN SC (19:41)
[2025-05-15 19:56] LABS: Bedside Glucose 158 mg/dL (74-106)
[2025-05-15] MEDS: Lactated Ringers 1,000 ML 999 ML IV (20:42)
[2025-05-15] MEDS: fentaNYL drip 100 ML 2.5 MCG CONT INF (21:15)
[2025-05-15] MEDS: Piperacil/Tazobactam 3.375 GM in 0.9% Normal Saline (50mL MB+) 50 ML IV (21:18)
[2025-05-15] MEDS: Haloperidol 5 MG Tablet PO (21:22)
[2025-05-15] MEDS: Atorvastatin Calcium 40 MG Tablet PO (21:22)
[2025-05-15] MEDS: Lithium Carbonate 300mg Capsule 300 MG PO (21:22)
[2025-05-15] MEDS: 0.9% Saline Lock 10 ML Syringe IV (21:23)
[2025-05-15] MEDS: Chlorhexidine 15 ML PO (21:23)
[2025-05-15 21:40] LABS: Allen Test Positive; Blood Gas Specimen Type ART; SITE R RADIAL
[2025-05-15 21:41] LABS: Mode A-C; O2 Delivery Device ADULT VENTILATOR
[2025-05-15 21:42] LABS: PEEP 5; RR 18
[2025-05-15 21:44] LABS: pCO2 56.9 mmHg (35-45); pH 7.39 (7.35-7.45)
[2025-05-15 21:45] LABS: Base Excess 10 mmol/L (-2 to +2); Bicarbonate 34.5 mmol/L (22-26); PO2 54 mmHG (75-100); SO2 86 % (95-99); Total Carbon Dioxide 36 mmol/L
[2025-05-15 21:53] LABS: CPK Total, Creatine Kinase 25 U/L (24-195); Triglycerides 271 mg/dL
[2025-05-15 22:12] LABS: Troponin T High Sens 4 HR 17 ng/L (<=22)
[2025-05-15 22:48] LABS: Anion Gap 14 (5-15); BUN 31 mg/dL (4-19); BUN/Creat Ratio 23.4 RATIO (10-20); Calcium,Total 9.3 mg/dL (7.6-11.0); Carbon Dioxide 27.4 mmol/L (21.0-32.0); Chloride 99 mmol/L (98-108); Creatinine, Serum 1.32 mg/dL (0.70-1.20); EST Glomerular Filtration Rate 65 (>60); Estimated Creatinine Clearance 81.51 ml/min (50-250); Glucose 168 mg/dL (70-99); Potassium 4.9 mmol/L (3.3-5.1); Sodium Level 140 mmol/L (133-145)
--- NOTE | 2025-05-15 23:26 | ECHOD_ITS ---
Reason For Study : CHF Procedure This was a 2D Doppler, Color Flow transthoracic echocardiogram. The study was technically difficult. Patient scanned supine and on a vent. Exam performed portable in ICU/CCU. Left Ventricle Normal LV size. Left ventricular systolic function is normal. The left ventricular ejection fraction is 55 %. No regional wall motion abnormalities noted. Right Ventricle Normal RV size. Normal systolic function. Atria Normal left atrium. Normal right atrium. Mitral Valve Normal mitral valve. Tricuspid Valve Normal tricuspid valve. Aortic Valve Trisinus/trileaflet aortic valve. Mild (1+) aortic valve insufficiency. Great Vessels Normal aortic root. The pulmonary artery is normal size. Pericardium/Pleural Moderate (1.0-2.0 cm) pericardial effusion. There are no echocardiographic indications of cardiac tamponade. MMode/2D Measurements & Calculations LVIDd: 4.5 cm IVSd: 1.3 cm LAV(MOD- bp): 30.0 ml LVIDs: 2.9 cm LVPWd: 0.87 cm LAV(MOD- bp) Indexed: 13.1 ml/m2 RVDd: 4.0 cm FS: 36.1 % LAV(MOD- sp2): 27.3 ml LAV(MOD- sp4): 33.6 ml LA A4 area: 15.1 cm2 LA dimension(2D): 4.1 cm RA A4 area: 13.4 cm2 Time Measurements MV dec time: 0.20 sec Doppler Measurements & Calculations MV E max hardik: 56.7 cm/sec Lat Peak E' Hardik: 10.3 cm/sec Med Peak E' Hardik: 5.0 cm/sec MV A max hardik: 53.1 cm/sec E/E' lat: 5.5 E/E' med: 11.3 MV E/A: 1.1 MV V2 max: 62.0 cm/sec MV P1/2t max hardik: 63.1 cm/sec Ao V2 max: 152.3 cm/sec MV max P.5 mmHg MV P1/2t: 72.5 msec Ao max P.3 mmHg MV V2 mean: 34.0 cm/sec MV dec slope: 254.9 cm/sec2 Ao V2 mean: 88.7 cm/sec MV mean P.55 mmHg Ao mean P.8 mmHg MV V2 VTI: 24.8 cm MVA(P1/2t): 3.0 cm2 Ao V2 VTI: 30.3 cm AV (velocity ratio): 0.53 AI max hardik: 362.4 cm/sec LV V1 max: 91.0 cm/sec PA V2 max: 103.9 cm/sec AI max P.5 mmHg LV V1 max P.3 mmHg PA V2 mean: 74.9 cm/sec AI dec slope: 108.6 cm/sec2 LV V1 mean P.5 mmHg AI P1/2t: 977.3 msec LV V1 mean: 56.1 cm/sec LV V1 VTI: 16.0 cm ECHO/Echo Complete Interpretation Summary Normal LV size. Left ventricular systolic function is normal. The left ventricular ejection fraction is 55 %. Moderate (1.0-2.0 cm) pericardial effusion. There are no echocardiographic indications of cardiac tamponade. Mild (1+) aortic valve insufficiency. Ordering Physician: Fede Diaz Performed By: Lance Best RCS
[2025-05-15 23:32] LABS: Bedside Glucose 120 mg/dL (74-106)
[2025-05-16] VITALS (33 sets, daily range): BP systolic 86–112; BP diastolic 53–78; PULSE 57–65; RESP 18–19; TEMP 37.1–37.6; O2SAT 90–98; BMI 35.7
--- OUTSIDE RECORDS SUMMARY | 2025-05-16 00:23 | XMS RPT_ITS | CCD ---
Author Organization [facility]iniSym[facility] Care Team Providers Care Government Operations Consultant Name Role Phone Dr. Carina Whitlock Chi Primary Care Provider [phone] Dr. Carina Whitlock Chi Referring Provider Dr. Carina Whitlock Chi Other Provider Dr. Real Dent Attending Provider [phone] JAYDEN MCCABE MD Attending Unavailable JAYDEN MCCABE MD Admitting Unavailable JAYDEN MCCABE MD Primary Care Unavailable JAYDEN MCCABE MD Primary Care Unavailable JAYDEN MCCABE MD Attending Unavailable JUAN, CARINA CHI Consulting Unavailable JAYDEN MCCABE MD Admitting Unavailable PROVIDER, UNKNOWN Consulting Unavailable PROVIDER, UNKNOWN Consulting Unavailable JAYDEN MCCABE MD Attending Unavailable JAYDEN MCCABE MD Admitting Unavailable JUAN, CARINA CHI Consulting Unavailable JAYDEN MCCABE MD Primary Care Unavailable PROVIDER, UNKNOWN Consulting Unavailable PROVIDER, UNKNOWN Consulting Unavailable Juan LANGFORD, Dr. Carina West Primary Care Provider Dr. Cairna Whitlock MD, Chi Attending Provider Dr. Carina Whitlock MD, Chi Referring Provider [phone] Dr. Carina Whitlock MD, Chi Primary Care Provider Dr. Carina Whitlock MD, Chi Attending Provider [phone] Juan Carina Chi Attending Unavailable Juan, Carina Chi Primary Care Unavailable Juan, Carina Chi Attending Unavailable Juan, Carina Chi Referring Unavailable Juan, Carina Chi Primary Care Unavailable Juan, Carina Chi Attending Unavailable Juan, Carina Chi Referring Unavailable Juan, Carina Chi Primary Care Unavailable Juan, Carina Chi Primary Care Unavailable Juan, Carina Chi Attending Unavailable Juan, Carina Chi Referring Unavailable Juan, Carina Chi Primary Care Unavailable Juan, Carina Chi Attending Unavailable Juan, Carina Chi Referring Unavailable Juan, Carina Chi Primary Care Unavailable Juan Carina Chi Attending Unavailable Juan, Carina Chi Referring Unavailable Juan, Carina Chi Primary Care Unavailable Juan Carina Chi Attending Unavailable JuanCarina christensen Chi Attending Unavailable Juan, Carina Chi Primary Care Unavailable Faizan LANGFORD, Dr. Delgado Emergency Provider [phone] Fede Diaz DO Admit Provider [phone] Dr. Fede Diaz DO Attending Provider Allergies Allergy Classification Reported Allergen(s) Allergy Type Date of Onset Reaction(s) Facility (19 sources) Valproate Drug Allergy 1 Crtiticly Elevated Ammonia Levels [facility] (1 source) Valproate Drug Allergy 1 [facility] Repository Medications Current Medications Medication Drug Class(es) Dates Sig (Normalized) Sig (Original) ARIPiprazole 300 mg injection (19 sources) Atypical Antipsychotic Start: 09-05-2021 inject 300 mg by intramuscular injection every month Aripiprazole (Abilifmedhat Maintena) 300 mg suspension,extende d rel recon Active 300 mg IM EVERY MONTH September 05, 2021 12:00am atorvastatin 40 mg oral tablet (19 sources) HMG-CoA Reductase Inhibitor Start: 06-18-2021 take 1 tablet by mouth at bedtime Atorvastatin 40 mg tablet Active 40 mg PO AT BEDTIME June 18, 2021 12:00am FLUoxetine 40 mg oral capsule (1 source) Serotonin Reuptake Inhibitor Start: 05-15-2025 take 1 capsule by mouth once daily Fluoxetine 40 mg capsule Active 40 mg PO DAILY May 15, 2025 12:00am glimepiride 2 mg oral tablet (1 source) Sulfonylurea Start: 05-15-2025 take 1 tablet by mouth once daily Glimepiride 2 mg tablet Active 2 mg PO DAILY May 15, 2025 12:00am haloperidol 5 mg oral tablet (1 source) Typical Antipsychotic Start: 05-15-2025 take 1 tablet by mouth twice daily Haloperidol 5 mg tablet Active 5 mg PO TWICE A DAY May 15, 2025 12:00am levothyroxine sodium 0.025 mg oral tablet (1 source) l-Thyroxine Start: 05-15-2025 take 1 tablet by mouth once daily Levothyroxine 25 mcg tablet Active 25 ug PO DAILY May 15, 2025 12:00am lithium carbonate 300 mg oral capsule (1 source) Start: 05-15-2025 take 1 capsule by mouth twice daily [place] Carbonate 300 mg capsule Active 300 mg PO TWICE A DAY May 15, 2025 12:00am 24 hr metFORMIN hydrochloride 500 mg extended release oral tablet (20 sources) Biguanide Start: 05-15-2025 take 1 tablet by mouth twice daily Metformin 500 mg tablet extended release 24 hr Active 500 mg PO TWICE A DAY May 15, 2025 12:00am Start: 06-18-2021 End: 05-15-2025 take 1 tablet by mouth twice daily Metformin 1,000 mg tablet Discontinued 1000 mg PO TWICE A DAY June 18, 2021 12:00am May 15, 2025 4:52pm propranolol hydrochloride 40 mg oral tablet (20 sources) beta-Adrenergic Vargas Start: 05-15-2025 take 1 tablet by mouth three times daily Propranolol 40 mg tablet Active 40 mg PO THREE TIMES A DAY May 15, 2025 12:00am Start: 09-05-2021 End: 05-15-2025 take 1 tablet by mouth three times daily Propranolol 20 mg tablet Discontinued 20 mg PO THREE TIMES A DAY September 05, 2021 12:00am May 15, 2025 4:51pm Semaglutide (Rybelsus) 3 mg tablet (1 source) Start: 05-15-2025 take 1 tablet by mouth once daily Semaglutide (Rybelsus) 3 mg tablet Active 3 mg PO DAILY May 15, 2025 12:00am valsartan 320 mg oral tablet (19 sources) Angiotensin 2 Receptor Vargas Start: 06-18-2021 take 1 tablet by mouth once daily Valsartan 320 mg tablet Active 320 mg PO DAILY June 18, 2021 12:00am Completed/Discontinued Medications Medication Drug Class(es) Dates Sig (Normalized) Sig (Original) atenolol 100 mg oral tablet (19 sources) beta-Adrenergic Vargas Start: 06-18-2021 End: 09-05-2021 take 1 tablet by mouth once daily Atenolol 100 mg tablet Discontinued 100 mg PO DAILY June 18, 2021 12:00am September 05, 2021 10:35am cephalexin 500 mg oral capsule (19 sources) Cephalosporin Antibacterial Start: 09-15-2021 End: 05-15-2025 take 1 capsule by mouth three times daily Cephalexin 500 mg capsule Discontinued 500 mg PO THREE TIMES A DAY September 15, 2021 12:00am May 15, 2025 4:52pm dapagliflozin 10 mg oral tablet (19 sources) Sodium-Glucose Cotransporter 2 Inhibitor Start: 06-18-2021 End: 05-15-2025 take 1 tablet by mouth once daily Dapagliflozin Propanediol (Farxiga) 10 mg tablet Discontinued 10 mg PO DAILY June 18, 2021 12:00am May 15, 2025 4:52pm fluticasone propionate 0.05 mg/actuat metered dose nasal spray (19 sources) Corticosteroid Start: 09-05-2021 End: 05-15-2025 Fluticasone Propionate 50 mcg/actuation spray,suspension Discontinued 1 NMA INTRANASAL DAILY September 05, 2021 12:00am May 15, 2025 4:52pm Start: 09-05-2021 Fluticasone Pr opionate Active 1 SPRAY INTRANASAL DAILY September 05, 2021 12:00am lactulose 667 mg/ml oral solution (19 sources) Osmotic Laxative Start: 09-05-2021 End: 05-15-2025 take 1 mL by mouth twice daily Lactulose 10 gram/15 mL solution Discontinued 15 mL PO TWICE A DAY September 05, 2021 12:00am May 15, 2025 4:52pm Start: 09-05-2021 take 1 mL by mouth twice daily Lactulose Active 15 ML PO TWICE A DAY September 05, 2021 12:00am mupirocin 0.02 mg/mg topical ointment (19 sources) RNA Synthetase Inhibitor Antibacterial Start: 09-15-2021 End: 05-15-2025 Mupirocin 2 % ointment Discontinued 1 NMA TOPICAL TWICE A DAY September 15, 2021 12:00am May 15, 2025 4:52pm OLANZapine 20 mg oral tablet (19 sources) Atypical Antipsychotic Start: 06-18-2021 End: 09-05-2021 Olanzapine 20 mg tablet Discontinued 30 mg PO AT BEDTIME June 18, 2021 12:00am September 05, 2021 10:35am Start: 06-18-2021 End: 09-05-2021 take 30 mg by mouth at bedtime Olanzapine Discontinued 30 MG PO AT BEDTIME June 18, 2021 12:00am September 05, 2021 10:35am pioglitazone 30 mg oral tablet (19 sources) Peroxisome Proliferator Receptor alpha Agonist, Peroxisome Proliferator Receptor gamma Agonist, Thiazolidinedione Start: 06-18-2021 End: 05-15-2025 take 1 tablet by mouth once daily Pioglitazone 30 mg tablet Discontinued 30 mg PO DAILY June 18, 2021 12:00am May 15, 2025 4:52pm risperiDONE 3 mg oral tablet (19 sources) Atypical Antipsychotic Start: 06-18-2021 End: 09-05-2021 take 1 tablet by mouth once daily Risperidone 3 mg tablet Discontinued 3 mg PO DAILY June 18, 2021 12:00am September 05, 2021 10:35am traZODone hydrochloride 100 mg oral tablet (19 sources) Serotonin Reuptake Inhibitor Start: 09-05-2021 End: 05-15-2025 take 2 tablets by mouth at bedtime Trazodone 100 mg tablet Discontinued 200 mg PO AT BEDTIME September 05, 2021 12:00am May 15, 2025 4:52pm Start: 09-05-2021 take 200 mg by mouth at bedtim e Trazodone Active 200 MG PO AT BEDTIME September 05, 2021 12:00am Problems Active Problems Problem Classification Problem Date Documented Da te Episodic/Chronic Diabetes mellitus with complications (1 source) Type 2 diabetes mellitus with hyperglycemia; Translations: [Type 2 diabetes mellitus with hyperglycemia] Onset: 02-22-2025 Chronic Essential hypertension (1 source) Essential (primary) hypertension; Translations: [Essential (primary) hypertension] Onset: 05-16-2024 Chronic Fracture of upper limb (19 sources) Fracture of metacarpal bone; Translations: [Unspecified fracture of fifth metacarpal bone, right hand, initial encounter for closed fracture] 09-05-2021 Episodic Other nervous system disorders (1 source) Disorder of brain; Translations: [Encephalopathy, unspecified] 05-15-2025 Chronic Other screening for suspected conditions (not mental disorders or infectious disease) (3 sources) Serum creatinine raised; Translations: [Other specified abnormal findings of blood chemistry] 05-15-2025 Episodic Pneumonia (except that caused by tuberculosis or sexually transmitted disease) (1 source) Community acquired pneumonia; Translations: [Pneumonia, unspecified organism] 05-15-2025 Episodic Respiratory failure; insufficiency; arrest (adult) (1 source) Acute hypoxemic and hypercapnic respiratory failure; Translations: [Acute respiratory failure with hypoxia] 05-15-2025 Episodic Schizophrenia and other psychotic disorders (19 sources) Paranoid schizophrenia; Translations: [Paranoid schizophrenia] 09-18-2021 Chronic Superficial injury; contusion (19 sources) Abrasion of right hand, initial encounter; Translations: [Abrasion of skin of right hand] 09-15-2021 Episodic Unclassified (1 source) Cough, unspecified; Translations: [Cough, unspecified] Onset: 04-05-2025 Past or Other Problems Problem Classification Problem Date Documented Da te Episodic/Chronic Residual codes; unclassified (1 source) Chills (without fever); Translations: [Chills (without fever)] Onset: 08-03-2024 Episodic Results Test Name Value Interpretation Reference Range Facility Absolute lymphocyte countOrd ered By: Danny Hannon on 05-15-2025 Lymphocytes Auto (Unsp spec) [#/Vol] 2.01 10*3/uL 0.83-4.51 [facility] Absolute neutrophil countOrd ered By: Dannywolfgagn Hannon on 05-15-2025 Neutrophils (Bld) [#/Vol] 10.6 10*3/uL High 2.0-7.7 [facility] Anion gap in Serum or Plasma Ordered By: Dannywolfgang Hannon on 05-15-2025 Anion gap [Moles/Vol] 10 mmol/L 5-15 [facility] Assessment of wrist artery p atency prior to arterial punctureOrdered By: Danny Hannon on 05-15-2025 Arterial patency Wrist artery --pre arterial puncture Positive [facility] Automated lymphocyte count a s percentage of total leukocytesOrdered By: Danny Hannon on 05-15-2025 Lymphocytes/100 WBC Auto (Unsp spec) 14.4 % Low 19-41 [facility] BUN/creatinine ratioOrdered By: Dannywolfgang Hannon on 05-15-2025 Urea nitrogen/Creatinine [Mass ratio] 20.4 mg/mg High 10-20 [facility] Basophil percentageOrdered B y: Danny Hannon on 05-15-2025 Basophils/100 WBC (Bld) 0.5 % 0-1 [facility] Bilirubin, totalOrdered By: Dannywolfgang Hannon on 05-15-2025 Bilirubin [Mass/Vol] 0.78 mg/dL 0.00-1.30 [facility] Blood base excess determinat ionOrdered By: Danny Hannon on 05-15-2025 Base excess Calc (BldV) [Moles/Vol] 10 mmol/L High -2-2 [facility] Blood bicarbonate measuremen tOrdered By: Danny Hannon on 05-15-2025 HCO3 (Bld) [Moles/Vol] 36.4 mmol/L High 22-26 [facility] Carbon dioxide, total [Moles /volume] in Central venous bloodOrdered By: Danny Hannon on 05-15-2025 CO2 [Moles/Vol] 30.2 mmol/L 21.0-32.0 [facility] Chloride assayOrdered By: Lorie Hannon on 05-15-2025 Chloride [Moles/Vol] 100 mmol/L 98-108 [facility] Eosinophil percentageOrdered By: Danny Hannon on 05-15-2025 Eosinophils/100 WBC (Bld) 1.4 % 0-5 [facility] Erythrocyte distribution wid th ratioOrdered By: Danny Hannon on 05-15-2025 Erythrocyte distribution width (RBC) [Ratio] 14.6 % 11.6-14.6 [facility] Erythrocyte distribution wid th standard deviationOrdered By: Dannywolfgang Hannon on 05-15-2025 Erythrocyte distribution width (RBC) [Ratio] 52.8 fl High 35.1-43.9 [facility] Glomerular filtration rate ( GFR) estimation/1.73 sq m using serum, plasma, or whole bOrdered By: Danny Hannon on 05-15-2025 GFR/1.73 sq M.predicted among non-blacks MDRD (S/P/Bld) [Vol rate/Area] 60 mL/min/{1.73_m2} >60 [facility] Comment on above: mL/min/1.73m2 CKD-EP I Creatinine Equation (2020) Hematocrit Auto (Bld) [Volum e fraction]Ordered By: Danny Hannon on 05-15-2025 Hematocrit (Bld) [Volume fraction] 51.1 % 40-54 [facility] Hemoglobin measurementOrdere d By: Danny Hannon on 05-15-2025 Hemoglobin (Bld) [Mass/Vol] 16.0 g/dL 13.0-16.5 [facility] Immature granulocytes/100 WB C Auto (Bld)Ordered By: Danny Hannon on 05-15-2025 Immature granulocytes/100 WBC (Bld) 0.600 % 0.0-0.9 [facility] Comment on above: IG% - Immature Granu locytes (promyelocytes, myelocytes and metamyelocytes) > 1% indicates that a LEFT SHIFT is Present. Influenza virus A and B and SARS-CoV-2 (COVID-19) and Respiratory syncytial virus RNAOrdered By: Danny Hannon on 05-15-2025 SARS-CoV-2 (COVID-19) RNA NELLA+probe Ql (Unsp spec) [facility] Laboratory - Chemistry and C hemistry - challengeOrdered By: Danny Hannon on 05-15-2025 AST [Catalytic activity/Vol] 16 U/L <38 [facility] Lactic acid measurementOrder ed By: Danny Hannon on 05-15-2025 Lactate [Moles/Vol] 1.4 mmol/L 0.0-2.0 [facility] MCV (mean corpuscular volume ) determinationOrdered By: Danny Hannon on 05-15-2025 MCV (RBC) [Entitic vol] 97.9 fL High 80-94 [facility] Mean corpuscular hemoglobin (MCH) determinationOrdered By: Danny Hannon on 05-15-2025 MCH (RBC) [Entitic mass] 30.7 pg 27.0-32.0 [facility] Mean corpuscular hemoglobin concentration (MCHC) determinationOrdered By: Danny Hannon on 05-15-2025 MCHC (RBC) [Mass/Vol] 31.3 g/dL Low 32-36 [facility] Mean platelet volume determi nationOrdered By: Danny Hannon on 05-15-2025 Platelet mean volume (Bld) [Entitic vol] 10.4 fL 6.2-12.0 [facility] Measurement, pHOrdered By: Dorothea Hannon on 05-15-2025 pH (Unsp spec) 7.29 [pH] Low 7.35-7.45 [facility] Monocyte percentageOrdered B y: Danny Hannon on 05-15-2025 Monocytes/100 WBC (Bld) 7.8 % 0-10 [facility] Natriuretic peptide.B prohor kemar N-Terminal [Mass/volume] in Serum or PlasmaOrdered By: Fede Diaz on 05-15-2025 Natriuretic peptide.B prohormone N-Terminal [Mass/Vol] 1732 pg/mL High <900 [facility] Comment on above: Heart Failure Unlike ly: < 300 pg/mLHeart Failure Likely< 50 Years: > 450 pg/mL50-75 Years: > 900 pg/mL>75 Years: > 1800 pg/mL Neutrophil percentageOrdered By: Danny Hannon on 05-15-2025 Neutrophils/100 WBC (Bld) 75.3 % High 47-70 [facility] No Panel InformationOrdered By: Danny Hannon on 05-15-2025 Bedside Blood Gas PEEP 10 [facility] Bld Gas Crit Called To/Read Back By Yes [facility] Blood Gas Notified Time 17:26:47 [facility] Res[facility] Rate 10 [facility] Blood Gas Sample Site L Radial [facility] Blood Gas Specimen Type ART [facility] Blood Gas Tidal Volume 500.0 mL [facility] Blood Gas Vent Mode avaps [facility] Oxygen Delivery Device BiPAP [facility] Nucleated red blood cell per centageOrdered By: Danny Hannon on 05-15-2025 Nucleated RBC/100 WBC (Bld) [Ratio] 0 % 0-5 [facility] Platelet countOrdered By: Lorie Hannon on 05-15-2025 Platelets (Bld) [#/Vol] 273 10*3/uL 150-450 [facility] Potassium measurement (mass/ volume)Ordered By: Danny Hannon on 05-15-2025 Potassium (Unsp spec) [Mass/Vol] 5.0 mmol/L 3.3-5.1 [facility] Procalcitonin [Mass/volume] in Serum or Plasma by ImmunoassayOrdered By: Fede Diaz on 05-15-2025 Procalcitonin IA [Mass/Vol] 0.09 ng/mL <0.11 [facility] Comment on above: Interpretation:<0.10 -0.25 ng/mL: Antibiotic therapy discouraged. Bacterial infection unlikely.0.25-0.50 ng/mL: Antibiotic therapy encouraged. Bacterial infection possible.>0.50 ng/mL: Antibiotic therapy strongly encouraged. Suggestive of presence of bacterial infection.PCT should always be interpreted in the clinical context of the patient. Therefore, clinicians should use the PCT results in conjunction with other laboratory findings and clinical signs of the patient. RBC Auto (Bld) [#/Vol]Ordere d By: Danny Hannon on 05-15-2025 RBC (Bld) [#/Vol] 5.22 10*6/uL 4.6-6.2 [facility] Serum creatinine measurement (mass/volume)Ordered By: Danny Hannon on 05-15-2025 Creatinine [Mass/Vol] 1.40 mg/dL High 0.70-1.20 [facility] Serum globulin measurementOr dered By: Danny Hannon 05-15-2025 Globulin (S) [Mass/Vol] 2.7 g/dL 2.2-4.2 [facility] Serum glucose measurement (m ass/volume)Ordered By: Danny Hannon 05-15-2025 Glucose [Mass/Vol] 173 mg/dL High 70-99 [facility] Serum or plasma alanine guido otransferase (ALT) measurementOrdered By: Danny Hannon 05-15-2025 ALT [Catalytic activity/Vol] 36 U/L <47 [facility] Serum or plasma albumin stacey urement (mass/volume)Ordered By: Danny Hannon 05-15-2025 Albumin [Mass/Vol] 4.3 g/dL 3.5-5.0 [facility] Serum or plasma albumin/glob ulin mass ratioOrdered By: Dannywolfgang Hannon 05-15-2025 Albumin/Globulin [Mass ratio] 1.6 {ratio} 0.9-2.4 [facility] Serum or plasma alkaline rebeca sphatase measurementOrdered By: Dannywolfgang Hannon 05-15-2025 ALP [Catalytic activity/Vol] 167 U/L High 40-129 [facility] Serum or plasma calcium stacey urement (mass/volume)Ordered By: Danny Hannon 05-15-2025 Calcium [Mass/Vol] 9.7 mg/dL 7.6-11.0 [facility] Serum or plasma urea nitroge n measurement (mass/volume)Ordered By: Danny Hannon on 05-15-2025 Urea nitrogen [Mass/Vol] 29 mg/dL High 4-19 [facility] Sodium levelOrdered By: Danny Hannon on 05-15-2025 Sodium [Moles/Vol] 140 mmol/L 133-145 [facility] Total carbon dioxide measure mentOrdered By: Danny Hannon on 05-15-2025 CO2 [Moles/Vol] 39 mmol/L [facility] Total proteinOrdered By: Danny Hannon on 05-15-2025 Protein [Mass/Vol] 7.0 g/dL 5.9-8.4 [facility] Troponin T.cardiac [Mass/vol ume] in Serum or Plasma by High sensitivity methodOrdered By: Danny Hannon on 05-15-2025 Troponin T.cardiac High sensitivity method [Mass/Vol] 15 ng/L <22 [facility] Troponin T.cardiac High sensitivity method [Mass/Vol] 18 ng/L <22 [facility] White blood cell (WBC) count Ordered By: Danny Hannon on 05-15-2025 WBC (Bld) [#/Vol] 14.0 10*3/uL High 4.4-11.0 [facility] Influenza virus A and B and SARS-CoV-2 (COVID-19) and Respiratory syncytial virus RNAOrdered By: Carina Whitlock on 04-02-2025 SARS-CoV-2 (COVID-19) RNA NELLA+probe Ql (Unsp spec) [facility] M100.678on 04-02-2025 M100.678 Pending SARS-CoV-2 (COVID 19) Negative INFLUENZA A Negative INFLUENZA B Negative RSV PCR Negative Normal [facility] Comment on above: Performed By: #### L 100.0100, L500.4100, L501.9985, L501.9520, L500.4050 #### [facility] [address] [place] [address]. [place], [address] Absolute lymphocyte countOrd ered By: Carina Whitlock on 02-13-2025 Lymphocytes Auto (Unsp spec) [#/Vol] 1.92 10*3/uL 0.83-4.51 [facility] Absolute neutrophil countOrd ered By: Carina Whitlock on 02-13-2025 Neutrophils (Bld) [#/Vol] 6.6 10*3/uL 2.0-7.7 [facility] Anion gap in Serum or Plasma Ordered By: Carina Juan on 02-13-2025 Anion gap [Moles/Vol] 10 mmol/L 5-15 [facility] Automated lymphocyte count a s percentage of total leukocytesOrdered By: Carina Whitlock on 02-13-2025 Lymphocytes/100 WBC Auto (Unsp spec) 19.3 % 19-41 [facility] BUN/creatinine ratioOrdered By: Carina Whitlock on 02-13-2025 Urea nitrogen/Creatinine [Mass ratio] 20.6 mg/mg High 10-20 [facility] Basophil percentageOrdered B y: Carina Juan on 02-13-2025 Basophils/100 WBC (Bld) 0.5 % 0-1 [facility] Bilirubin, totalOrdered By: Carina Whitlock on 02-13-2025 Bilirubin [Mass/Vol] 0.77 mg/dL 0.00-1.30 [facility] CBC W/Diff, Automatedon 01-27 Absolute Lymph 1.92 X10 3/uL Normal 0.83-4.51 [facility] Comment on above: Performed By: #### L 100.0100, L500.4100, L501.9985, L501.9520, L500.4050 #### [facility] [address] [place], [address] Absolute Neut 6.6 X10 3/uL Normal 2.0-7.7 [facility] Comment on above: Performed By: #### L 100.0100, L500.4100, L501.9985, L501.9520, L500.4050 #### [facility] [address] [place], [address] Basophils/100 WBC (Bld) 0.5 % Normal 0-1 [facility] Comment on above: Performed By: #### L 100.0100, L500.4100, L501.9985, L501.9520, L500.4050 #### [facility] [address] [place], [address] Eosinophils/100 WBC (Bld) 2.5 % Normal 0-5 [facility] Comment on above: Performed By: #### L 100.0100, L500.4100, L501.9985, L501.9520, L500.4050 #### [facility] [address] [place], [address] Erythrocyte distribution width (RBC) [Ratio] 13.7 % Normal 11.6-14.6 [facility] Comment on above: Performed By: #### L 100.0100, L500.4100, L501.9985, L501.9520, L500.4050 #### [facility] [address] [place], [address] Hematocrit (Bld) [Volume fraction] 48.4 % Normal 40-54 [facility] Comment on above: Performed By: #### L 100.0100, L500.4100, L501.9985, L501.9520, L500.4050 #### [facility] [address] [place], [address] Hemoglobin (Bld) [Mass/Vol] 15.5 g/dL Normal 13.0-16.5 [facility] Comment on above: Performed By: #### L 100.0100, L500.4100, L501.9985, L501.9520, L500.4050 #### [facility] [address] [place], [address] IG% 0.400 Normal 0.0-0.9 [facility] Comment on above: Result Comment: IG% - Immature Granulocytes (promyelocytes, myelocytes and metamyelocytes) > 1% indicates that a LEFT SHIFT is Present. Performed By: #### L 100.0100, L500.4100, L501.9985, L501.9520, L500.4050 #### [facility] [address] [place], [address] Lymphocytes/100 WBC (Bld) 19.3 % Normal 19-41 [facility] Comment on above: Performed By: #### L 100.0100, L500.4100, L501.9985, L501.9520, L500.4050 #### [facility] [address] [place], [address] MCH (RBC) [Entitic mass] 30.3 pg Normal 27.0-32.0 [facility] Comment on above: Performed By: #### L 100.0100, L500.4100, L501.9985, L501.9520, L500.4050 #### [facility] [address] [place], [address] MCHC (RBC) [Mass/Vol] 32.0 g/dL Normal 32-36 [facility] Comment on above: Performed By: #### L 100.0100, L500.4100, L501.9985, L501.9520, L500.4050 #### [facility] [address] [place], [address] MCV (RBC) [Entitic vol] 94.7 fL High 80-94 [facility] Comment on above: Performed By: #### L 100.0100, L500.4100, L501.9985, L501.9520, L500.4050 #### [facility] [address] [place], [address] Monocytes/100 WBC (Bld) 10.4 % High 0-10 [facility] Comment on above: Performed By: #### L 100.0100, L500.4100, L501.9985, L501.9520, L500.4050 #### [facility] [address] [place], [address] Neutrophils/100 WBC (Bld) 66.9 % Normal 47-70 [facility] Comment on above: Performed By: #### L 100.0100, L500.4100, L501.9985, L501.9520, L500.4050 #### [facility] [address] [place], [address] Nucleated RBC (Bld) [#/Vol] 0 10*3/uL Normal 0-5 [facility] Comment on above: Performed By: #### L 100.0100, L500.4100, L501.9985, L501.9520, L500.4050 #### [facility] [address] [place], [address] Platelet mean volume (Bld) [Entitic vol] 10.4 fL Normal 6.2-12.0 [facility] Comment on above: Performed By: #### L 100.0100, L500.4100, L501.9985, L501.9520, L500.4050 #### [facility] [address] [place], [address] Platelets (Bld) [#/Vol] 255 10*3/uL Normal 150-450 [facility] Comment on above: Performed By: #### L 100.0100, L500.4100, L501.9985, L501.9520, L500.4050 #### [facility] [address] [place], [address] RBC (Bld) [#/Vol] 5.11 10*6/uL Normal 4.6-6.2 [facility] Comment on above: Performed By: #### L 100.0100, L500.4100, L501.9985, L501.9520, L500.4050 #### [facility] [address] [place], [address] RDW SD 47.7 fl High 35.1-43.9 [facility] Comment on above: Performed By: #### L 100.0100, L500.4100, L501.9985, L501.9520, L500.4050 #### [facility] [address] [place], [address] WBC (Bld) [#/Vol] 9.9 10*3/uL Normal 4.4-11.0 [facility] Comment on above: Performed By: #### L 100.0100, L500.4100, L501.9985, L501.9520, L500.4050 #### [facility] [address] [place], [address] Calculated very low density lipoprotein (VLDL) cholesterol measurementOrdered By: Carina Whitlock on 02-13-2025 Calculated very low density lipoprotein (VLDL) cholesterol measurement 54 mg/dL High 5-40 [facility] VLDL Cholesterol 54 mg/dL High 5-40 [facility] Carbon dioxide, total [Moles /volume] in Central venous bloodOrdered By: Carina Whitlock on 02-13-2025 CO2 [Moles/Vol] 27.5 mmol/L 21.0-32.0 [facility] Chloride assayOrdered By: Tano Whitlock on 02-13-2025 Chloride [Moles/Vol] 100 mmol/L 98-108 [facility] Comprehensive Metabolic Prof ilon 02-13-2025 Albumin [Mass/Vol] 4.2 g/dL Normal 3.5-5.0 [facility] Comment on above: Performed By: #### L 100.0100, L500.4100, L501.9985, L501.9520, L500.4050 #### [facility] [address] [place], [address] Albumin/Globulin [Mass ratio] 1.6 {ratio} Normal 0.9-2.4 [facility] Comment on above: Performed By: #### L 100.0100, L500.4100, L501.9985, L501.9520, L500.4050 #### [facility] [address] [place], [address] ALK PHOS 137 U/L High 40-129 [facility] Comment on above: Performed By: #### L 100.0100, L500.4100, L501.9985, L501.9520, L500.4050 #### [facility] [address] [place], [address] ALT [Catalytic activity/Vol] 25 U/L Normal <=46 [facility] Comment on above: Performed By: #### L 100.0100, L500.4100, L501.9985, L501.9520, L500.4050 #### [facility] [address] [place], [address] AST [Catalytic activity/Vol] 21 U/L Normal <=37 [facility] Comment on above: Performed By: #### L 100.0100, L500.4100, L501.9985, L501.9520, L500.4050 #### [facility] [address] [place], [address] Bilirubin [Mass/Vol] 0.77 mg/dL Normal 0.00-1.30 [facility] Comment on above: Performed By: #### L 100.0100, L500.4100, L501.9985, L501.9520, L500.4050 #### [facility] [address] [place], [address] BUN/CRE 20.6 RATIO High 10-20 [facility] Comment on above: Performed By: #### L 100.0100, L500.4100, L501.9985, L501.9520, L500.4050 #### [facility] [address] [place], [address] Calcium [Mass/Vol] 10.1 mg/dL Normal 7.6-11.0 [facility] Comment on above: Performed By: #### L 100.0100, L500.4100, L501.9985, L501.9520, L500.4050 #### [facility] [address] [place], [address] Chloride [Moles/Vol] 100 mmol/L Normal 98-108 [facility] Comment on above: Performed By: #### L 100.0100, L500.4100, L501.9985, L501.9520, L500.4050 #### [facility] [address] [place], [address] CO2 [Moles/Vol] 27.5 mmol/L Normal 21.0-32.0 [facility] Comment on above: Performed By: #### L 100.0100, L500.4100, L501.9985, L501.9520, L500.4050 #### [facility] [address] [place], [address] Creatinine [Mass/Vol] 1.09 mg/dL Normal 0.70-1.20 [facility] Comment on above: Performed By: #### L 100.0100, L500.4100, L501.9985, L501.9520, L500.4050 #### [facility] [address] [place], [address] GAP 10 Normal 5-15 [facility] Comment on above: Performed By: #### L 100.0100, L500.4100, L501.9985, L501.9520, L500.4050 #### [facility] [address] [place], [address] GFR/1.73 sq M.predicted among non-blacks MDRD (S/P/Bld) [Vol rate/Area] 82 mL/min/{1.73_m2} Normal >60 [facility] Comment on above: Result Comment: mL/m in/1.73m2 CKD-EPI Creatinine Equation (2020) Performed By: #### L 100.0100, L500.4100, L501.9985, L501.9520, L500.4050 #### [facility] [address] [place], [address] Globulin (S) [Mass/Vol] 2.7 g/dL Normal 2.2-4.2 [facility] Comment on above: Performed By: #### L 100.0100, L500.4100, L501.9985, L501.9520, L500.4050 #### [facility] [address] [place], [address] Glucose [Mass/Vol] 101 mg/dL High 70-99 [facility] Comment on above: Performed By: #### L 100.0100, L500.4100, L501.9985, L501.9520, L500.4050 #### [facility] [address] [place], [address] Potassium [Moles/Vol] 4.8 mmol/L Normal 3.3-5.1 [facility] Comment on above: Performed By: #### L 100.0100, L500.4100, L501.9985, L501.9520, L500.4050 #### [facility] [address] [place], [address] Sodium [Moles/Vol] 137 mmol/L Normal 133-145 [facility] Comment on above: Performed By: #### L 100.0100, L500.4100, L501.9985, L501.9520, L500.4050 #### [facility] [address] [place], [address] T PROT 6.9 g/dL Normal 5.9-8.4 [facility] Comment on above: Performed By: #### L 100.0100, L500.4100, L501.9985, L501.9520, L500.4050 #### [facility] [address] [place], [address] Urea nitrogen [Mass/Vol] 22 mg/dL High 4-19 [facility] Comment on above: Performed By: #### L 100.0100, L500.4100, L501.9985, L501.9520, L500.4050 #### [facility] [address] [place], [address] Eosinophil percentageOrdered By: Carina Whitlock on 02-13-2025 Eosinophils/100 WBC (Bld) 2.5 % 0-5 [facility] Erythrocyte distribution wid th ratioOrdered By: Carina Whitlock on 02-13-2025 Erythrocyte distribution width (RBC) [Ratio] 13.7 % 11.6-14.6 [facility] Erythrocyte distribution wid th standard deviationOrdered By: Carina Whitlock on 02-13-2025 Erythrocyte distribution width (RBC) [Entitic vol] 47.7 fL High 35.1-43.9 [facility] Erythrocyte distribution width (RBC) [Ratio] 47.7 fl High 35.1-43.9 [facility] GFR/1.73 sq M.predicted devyn g non-blacks MDRD (S/P/Bld) [Vol rate/Area]Ordered By: Carina Whitlock on 02-13-2025 Estimated GFR (MDRD) Non-Af Amer 82 >60 [facility] Comment on above: mL/min/1.73m2 CKD-EP I Creatinine Equation (2020) Glomerular filtration rate ( GFR) estimation/1.73 sq m using serum, plasma, or whole bOrdered By: Carina Whitlock on 02-13-2025 GFR/1.73 sq M.predicted among non-blacks MDRD (S/P/Bld) [Vol rate/Area] 82 mL/min/{1.73_m2} >60 [facility] Comment on above: mL/min/1.73m2 CKD-EP I Creatinine Equation (2020) Hematocrit Auto (Bld) [Volum e fraction]Ordered By: Carina Whitlock on 02-13-2025 Hematocrit (Bld) [Volume fraction] 48.4 % 40-54 [facility] Hemoglobin A1con 02-13-2025 HbA1c (Bld) [Mass fraction] 7.4 % Normal <=5.6 [facility] Comment on above: Performed By: #### L 100.0100, L500.4100, L501.9985, L501.9520, L500.4050 #### [facility] [address] [place], [place], [id number] Hemoglobin A1c percentageOrd ered By: Carina Whitlock on 02-13-2025 HbA1c (Bld) [Mass fraction] 7.4 % >5.7 [facility] Hemoglobin measurementOrdere d By: Carina Whitlock on 02-13-2025 Hemoglobin (Bld) [Mass/Vol] 15.5 g/dL 13.0-16.5 [facility] Immature granulocytes/100 WB C Auto (Bld)Ordered By: Carina Whitlock on 02-13-2025 Immature granulocytes/100 WBC (Bld) 0.400 % 0.0-0.9 [facility] Comment on above: IG% - Immature Granu locytes (promyelocytes, myelocytes and metamyelocytes) > 1% indicates that a LEFT SHIFT is Present. LDL calc ser/plasOrdered By: Carina Whitlock on 02-13-2025 Cholesterol in LDL [Mass/Vol] 33 mg/dL [facility] Comment on above: Vhzcddshis=981-164 m g/dL & Higher Gkib=276 mg/dL or greater LDL Cholesterol, Calculated 33 mg/dL [facility] Comment on above: Szvyycyoej=080-607 m g/dL & Higher Lrsw=062 mg/dL or greater Laboratory - Chemistry and C hemistry - challengeOrdered By: Carina Whitlock on 02-13-2025 AST [Catalytic activity/Vol] 21 U/L <38 [facility] Lipid Profileon 02-13-2025 CHOL:HDL 3.96 Normal [facility] Comment on above: Performed By: #### L 100.0100, L500.4100, L501.9985, L501.9520, L500.4050 #### [facility] [address] [place], [address] Cholesterol [Mass/Vol] 116 mg/dL Normal <=200 [facility] Comment on above: Result Comment: Chol esterol level, Desirable <200 mg/dL Borderline high cholesterol 200-239 mg/dL High cholesterol >=240 mg/dL Recommendations of the NCEP Adult Treatment Panel for the following risk-cutoff thresholds for the [place] population. Performed By: #### L 100.0100, L500.4100, L501.9985, L501.9520, L500.4050 #### [facility] [address] [place], [address] Cholesterol in HDL [Mass/Vol] 29 mg/dL Low [facility] Comment on above: Result Comment: Lizett onal Cholesterol Education Program (NCEP) guidelines: <40 mg/dL: Low HDL-cholesterol (major risk factor for CHD) >= 60 mg/dL: High HDL-cholesterol (negative risk factor for CHD) HDL-cholesterol is affected by a number of factors, e.g. smoking, exercise, hormones, sex and age. Performed By: #### L 100.0100, L500.4100, L501.9985, L501.9520, L500.4050 #### [facility] [address] [place], [address] Cholesterol in LDL [Mass/Vol] 33 mg/dL Normal [facility] Comment on above: Result Comment: Bord zcmnnj=867-836 mg/dL Higher Hhvl=858 mg/dL or greater Performed By: #### L 100.0100, L500.4100, L501.9985, L501.9520, L500.4050 #### [facility] [address] [place], [address] Cholesterol in VLDL [Mass/Vol] 54 mg/dL High 5-40 [facility] Comment on above: Performed By: #### L 100.0100, L500.4100, L501.9985, L501.9520, L500.4050 #### [facility] [address] [place], [address] Triglyceride [Mass/Vol] 268 mg/dL High [facility] Comment on above: Result Comment: The drugs N-Acetylcysteine and Metamizole may falsely depress this assay. Normal range: <150 mg/dL Borderline High: 150-199 mg/dL High: 200-499 mg/dL Very High: >500 mg/dL Performed By: #### L 100.0100, L500.4100, L501.9985, L501.9520, L500.4050 #### [facility] [address] [place], [address] Lymphocytes Auto (Unsp spec) [#/Vol]Ordered By: Carina Whitlock on 02-13-2025 Lymphocytes (Bld) [#/Vol] 1.92 10*3/uL 0.83-4.51 [facility] Lymphocytes/100 WBC Auto (Un sp spec)Ordered By: Carina Whitlock on 02-13-2025 Lymphocytes/100 WBC (Bld) 19.3 % 19-41 [facility] MCV (mean corpuscular volume ) determinationOrdered By: Carina Whitlock on 02-13-2025 MCV (RBC) [Entitic vol] 94.7 fL High 80-94 [facility] Mean corpuscular hemoglobin (MCH) determinationOrdered By: Carina Whitlock 02-13-2025 MCH (RBC) [Entitic mass] 30.3 pg 27.0-32.0 [facility] Mean corpuscular hemoglobin concentration (MCHC) determinationOrdered By: Carina Whitlock 02-13-2025 MCHC (RBC) [Mass/Vol] 32.0 g/dL 32-36 [facility] Mean platelet volume determi nationOrdered By: Carina Whitlock on 02-13-2025 Platelet mean volume (Bld) [Entitic vol] 10.4 fL 6.2-12.0 [facility] Monocyte percentageOrdered B y: Carina Whitlock on 02-13-2025 Monocytes/100 WBC (Bld) 10.4 % High 0-10 [facility] Neutrophil percentageOrdered By: Carina Whitlock on 02-13-2025 Neutrophils/100 WBC (Bld) 66.9 % 47-70 [facility] Nucleated red blood cell per centageOrdered By: Carina Whitlock on 02-13-2025 Nucleated RBC/100 WBC (Bld) [Ratio] 0 % 0-5 [facility] Platelet countOrdered By: Tano Whitlock on 02-13-2025 Platelets (Bld) [#/Vol] 255 10*3/uL 150-450 [facility] Potassium (Unsp spec) [Mass/ Vol]Ordered By: Carina Whitlock on 02-13-2025 Potassium [Moles/Vol] 4.8 mmol/L 3.3-5.1 [facility] Potassium measurement (mass/ volume)Ordered By: Carina Whitlock on 02-13-2025 Potassium (Unsp spec) [Mass/Vol] 4.8 mmol/L 3.3-5.1 [facility] RBC Auto (Bld) [#/Vol]Ordere d By: Carina Whitlock on 02-13-2025 RBC (Bld) [#/Vol] 5.11 10*6/uL 4.6-6.2 [facility] Screening total cholesterol/ high density lipoprotein (HDL) cholesterol ratioOrdered By: Carina Whitlock on 02-13-2025 Cholesterol.total/Ana María sterol in HDL [Mass ratio] 3.96 {ratio} [facility] Serum creatinine measurement (mass/volume)Ordered By: Carina Whitlock on 02-13-2025 Creatinine [Mass/Vol] 1.09 mg/dL 0.70-1.20 [facility] Serum globulin measurementOr dered By: Carina Whitlock 02-13-2025 Globulin (S) [Mass/Vol] 2.7 g/dL 2.2-4.2 [facility] Serum glucose measurement (m ass/volume)Ordered By: Carina Whitlock on 02-13-2025 Glucose [Mass/Vol] 101 mg/dL High 70-99 [facility] Serum or plasma alanine guido otransferase (ALT) measurementOrdered By: Carina Whitlock 02-13-2025 ALT [Catalytic activity/Vol] 25 U/L <47 [facility] Serum or plasma albumin stacey urement (mass/volume)Ordered By: Carina Juan 02-13-2025 Albumin [Mass/Vol] 4.2 g/dL 3.5-5.0 [facility] Serum or plasma albumin/glob ulin mass ratioOrdered By: Carina Juan 02-13-2025 Albumin/Globulin [Mass ratio] 1.6 {ratio} 0.9-2.4 [facility] Serum or plasma alkaline rebeca sphatase measurementOrdered By: Carina Whitlock 02-13-2025 ALP [Catalytic activity/Vol] 137 U/L High 40-129 [facility] Serum or plasma calcium stacey urement (mass/volume)Ordered By: Carina Juan 02-13-2025 Calcium [Mass/Vol] 10.1 mg/dL 7.6-11.0 [facility] Serum or plasma cholesterol in HDL measurement (mass/volume)Ordered By: Carina Juan 02-13-2025 Cholesterol in HDL [Mass/Vol] 29 mg/dL Low >40 [facility] Comment on above: National Cholesterol Education Program (NCEP) guidelines:<40 mg/dL: Low HDL-cholesterol (major risk factor for CHD)>= 60 mg/dL: High HDL-cholesterol (negative risk factor for CHD)HDL-cholesterol is affected by a number of factors, e.g. smoking, exercise, hormones, sex and age. Serum or plasma cholesterol measurement (mass/volume)Ordered By: Carina Juan 02-13-2025 Cholesterol [Mass/Vol] 116 mg/dL <201 [facility] Comment on above: Cholesterol level, D esirable <200 mg/dLBorderline high cholesterol 200-239 mg/dLHigh cholesterol >=240 mg/dLRecommendations of the NCEP Adult Treatment Panel for the following risk-cutoff thresholds for the [place] population. Serum or plasma urea nitroge n measurement (mass/volume)Ordered By: Carina Juan 02-13-2025 Urea nitrogen [Mass/Vol] 22 mg/dL High 4-19 [facility] Sodium levelOrdered By: Carina Juan 02-13-2025 Sodium [Moles/Vol] 137 mmol/L 133-145 [facility] TSH DL <= 0.005 mIU/L QnOrde red By: Carina Whitlock on 02-13-2025 Thyroid Stimulating Hormone (TSH) 3.100 uIU/mL 0.300-4.20 0 [facility] TSH Qn 3.100 uIU/mL 0.300-4.20 0 [facility] Thyroid Stim Hormone (TSH)on 02-13-2025 TSH 3.100 uIU/mL Normal 0.300-4.20 0 [facility] Comment on above: Performed By: #### L 100.0100, L500.4100, L501.9985, L501.9520, L500.4050 #### [facility] [address] [place] [address]. [place], [address] Total proteinOrdered By: Carina Whitlock on 02-13-2025 Protein [Mass/Vol] 6.9 g/dL 5.9-8.4 [facility] Triglycerides measurementOrd ered By: Carina Whitlock on 02-13-2025 Triglyceride [Mass/Vol] 268 mg/dL High <199 [facility] Comment on above: The drugs N-Acetylcy steine and Metamizole may falsely depress this assay. Normal range: <150 mg/dLBorderline High: 150-199 mg/dLHigh: 200-499 mg/dLVery High: >500 mg/dL White blood cell (WBC) count Ordered By: Carina Whitlock on 02-13-2025 WBC (Bld) [#/Vol] 9.9 10*3/uL 4.4-11.0 [facility] PROLACTIN [CCL]on 01-10-2025 Prolactin 10.2 ng/mL Normal 4.1-25.1 [facility] Comment on above: Result Comment: Prol actin test is performed using the [employer] Electrochemiluminescence Immunoassay method. Results obtained with different methods or kits cannot be used interchangeably. [facility] [id number] Juan Daniel Chawla III, M.D. [id number] Performed By: #### 2 [id number] #### [facility],[address] [place] [address] CMP with eGFRon 01-09-2025 AGE 54 years Normal [facility] Comment on above: Performed By: #### 2 14307 #### [facility],[address] [place], [place] [id number] Albumin [Mass/Vol] 3.6 g/dL Normal 3.4 - 5.0 [facility] Comment on above: Performed By: #### 2 45210 #### [facility],[address] [place] [address] Albumin/Globulin [Mass ratio] 1.0 {ratio} Normal 0.9 - 1.6 [facility] Comment on above: Performed By: #### 2 86129 #### [facility],[address] [place] [address] ALK PHOS 138 U/L High 46 - 116 [facility] Comment on above: Performed By: #### 2 96443 #### [facility],[address] [place] [address] ALT [Catalytic activity/Vol] 29 U/L Normal 16 - 63 [facility] Comment on above: Performed By: #### 2 68049 #### [facility],[address] [place] [address] Anion gap [Moles/Vol] 14 mmol/L Normal 10 - 20 [facility] Comment on above: Performed By: #### 2 07569 #### [facility],[address] [place] [address] AST [Catalytic activity/Vol] 21 U/L Normal 15 - 37 [facility] Comment on above: Performed By: #### 2 74564 #### [facility],[address] [place] [address] B/C RATIO 21 ratio Normal 0 - 30 [facility] Comment on above: Performed By: #### 2 24462 #### [facility],[address],[place] [address] Bilirubin [Mass/Vol] 1.1 mg/dL High 0.2 - 1.0 [facility] Comment on above: Performed By: #### 2 31648 #### [facility],[address] [place] [address] Calcium [Mass/Vol] 9.4 mg/dL Normal 8.5 - 10.1 [facility] Comment on above: Performed By: #### 2 27035 #### [facility],[address] [place] [address] Chloride [Moles/Vol] 98 mmol/L Normal 98 - 107 [facility] Comment on above: Performed By: #### 2 93755 #### [facility],[address] [place] [address] CMP with eGFR Normal [facility] Comment on above: Result Comment: COMP REHENSIVE METABOLIC PANEL Performed By: #### 2 86612 #### [facility],[address] [place] [address] CO2 [Moles/Vol] 29.6 mmol/L Normal 21.0 - 32.0 [facility] Comment on above: Performed By: #### 2 60995 #### [facility],[address] [place] [address] Creatinine [Mass/Vol] 1.17 mg/dL Normal 0.70 - 1.30 [facility] Comment on above: Performed By: #### 2 80924 #### [facility],[address] [place] [address] GFR/1.73 sq M.predicted among non-blacks MDRD (S/P/Bld) [Vol rate/Area] mL/min/{1.73_m2} Normal 60 - 999 [facility] Comment on above: Performed By: #### 2 59998 #### [facility],[address] [place] [address] Result Comment: ACCO RDING TO THE NATIONAL KIDNEY DISEASE EDUCATION PROGRAM(NKDE), A NORMAL eGFR IS A VALUE GREATER THAN OR EQUAL TO 60 ML/MIN/1.73 SQ METERS. CHRONIC KIDNEY DISEASE: <60mL/MIN/1.73 SQ METERS KIDNEY FAILURE: <15mL/MIN/1.73 SQ METERS THIS TEST SHOULD ONLY BE USED FOR PATIENTS 18 YEARS OF AGE AND OLDER. Globulin (S) [Mass/Vol] 3.6 g/dL Normal 1.5 - 3.8 [facility] Comment on above: Performed By: #### 2 [id number] #### [facility],[address] [place] [address]249 Glucose [Mass/Vol] 250 mg/dL High 74 - 106 [facility] Comment on above: Performed By: #### 2 23020 #### [facility],[address] [place] [address]104 Potassium [Moles/Vol] 4.4 mmol/L Normal 3.5 - 5.1 [facility] Comment on above: Performed By: #### 2 [id number] #### [facility],[address] [place] [address]21 Protein [Mass/Vol] 7.2 g/dL Normal 6.4 - 8.2 [facility] Comment on above: Performed By: #### 2 [id number] #### [facility],[address] [place] [address] 67983 Sodium [Moles/Vol] 137 mmol/L Normal 136 - 145 [facility] Comment on above: Performed By: #### 2 22867 #### [facility],[address] [place] [address] 73828 Urea nitrogen [Mass/Vol] 25 mg/dL High 7 - 18 [facility] Comment on above: Performed By: #### 2 67829 #### [facility],[address] [place] [address] 20177 HEMOGLOBIN A1C (POM)on 01-09 Glucose [Mass/Vol] 157.1 mg/dL High 0.0 - 0.0 [facility] Comment on above: Result Comment: BLDo HEMOGLOBIN A1C REFERENCE RANGESBLDo Suggested Diagnosis HbA1c(%) HbA1C (mmol/mol Diabetic >/=6.5 >/=48 Prediabetes 5.7 - 6.4 39 - 47 Normal <5.7 <39 Performed By: #### 2 [id number] #### [facility],[address] [place] [address] HbA1c (Bld) [Mass fraction] 7.1 % High 0.0 - 6.5 [facility] Comment on above: Performed By: #### 2 09094 #### [facility],[address] [place] [address] LITHIUMon 01-09-2025 [place] [Moles/Vol] 0.7 mmol/L Normal 0.6 - 1.2 [facility] Comment on above: Performed By: #### 2 99157 #### [facility],[address] [place] [address] TSH W/ REFLEX TO FREE T4on 0 01-09-2025 TSH Qn 2.89 m[IU]/L Normal 0.34 - 5.60 [facility] Comment on above: Performed By: #### 2 56686 #### [facility],[address] [place] [address] Absolute neutrophil countOrd ered By: Carina Whitlock on 11-13-2024 Neutrophils (Bld) [#/Vol] 6.9 10*3/uL 2.0-7.7 [facility] Albumin to globulin ratioOrd ered By: Carina Whitlock on 11-13-2024 Albumin/Globulin [Mass ratio] 1.0 {ratio} 0.9-2.4 [facility] Basophil percentageOrdered B y: Carina Whitlock on 11-13-2024 Basophils/100 WBC (Bld) 0.7 % 0-1 [facility] Bilirubin, totalOrdered By: Carina Whitlock on 11-13-2024 Bilirubin [Mass/Vol] 0.60 mg/dL 0.20-1.00 [facility] Comment on above: For patients on eltr ombopag therapy, use of Dimension [place] TBIL is not recommended. Blood urea nitrogen (BUN)/cr eatinine ratioOrdered By: Carina Whitlock on 11-13-2024 Urea nitrogen/Creatinine [Mass ratio] 17.6 mg/mg - [facility] CBC W/Diff, Automatedon 10-29 Absolute Lymph 1.88 X10 3/uL Normal 0.83-4.51 [facility] Comment on above: Performed By: #### L 100.0100, L500.4100, L501.9985, L501.9520, L500.4050 #### [facility] [address] [place], [address] Absolute Neut 6.9 X10 3/uL Normal 2.0-7.7 [facility] Comment on above: Performed By: #### L 100.0100, L500.4100, L501.9985, L501.9520, L500.4050 #### [facility] [address] [place], [address] Basophils/100 WBC (Bld) 0.7 % Normal 0-1 [facility] Comment on above: Performed By: #### L 100.0100, L500.4100, L501.9985, L501.9520, L500.4050 #### [facility] [address] [place], [address] Eosinophils/100 WBC (Bld) 2.7 % Normal 0-5 [facility] Comment on above: Performed By: #### L 100.0100, L500.4100, L501.9985, L501.9520, L500.4050 #### [facility] [address] [place], [address] Erythrocyte distribution width (RBC) [Ratio] 13.5 % Normal 11.6-14.6 [facility] Comment on above: Performed By: #### L 100.0100, L500.4100, L501.9985, L501.9520, L500.4050 #### [facility] [address] [place], [address] Hematocrit (Bld) [Volume fraction] 48.2 % Normal 40-54 [facility] Comment on above: Performed By: #### L 100.0100, L500.4100, L501.9985, L501.9520, L500.4050 #### [facility] [address] [place], [address] Hemoglobin (Bld) [Mass/Vol] 15.2 g/dL Normal 13.0-16.5 [facility] Comment on above: Performed By: #### L 100.0100, L500.4100, L501.9985, L501.9520, L500.4050 #### [facility] [address] [place], [address] IG% 0.700 Normal 0.0-0.9 [facility] Comment on above: Result Comment: IG% - Immature Granulocytes (promyelocytes, myelocytes and metamyelocytes) > 1% indicates that a LEFT SHIFT is Present. Performed By: #### L 100.0100, L500.4100, L501.9985, L501.9520, L500.4050 #### [facility] [address] [place], [address] Lymphocytes/100 WBC (Bld) 18.9 % Low 19-41 [facility] Comment on above: Performed By: #### L 100.0100, L500.4100, L501.9985, L501.9520, L500.4050 #### [facility] [address] [place], [address] MCH (RBC) [Entitic mass] 29.7 pg Normal 27.0-32.0 [facility] Comment on above: Performed By: #### L 100.0100, L500.4100, L501.9985, L501.9520, L500.4050 #### [facility] [address] [place], [address] MCHC (RBC) [Mass/Vol] 31.5 g/dL Low 32-36 [facility] Comment on above: Performed By: #### L 100.0100, L500.4100, L501.9985, L501.9520, L500.4050 #### [facility] [address] [place], [address] MCV (RBC) [Entitic vol] 94.3 fL High 80-94 [facility] Comment on above: Performed By: #### L 100.0100, L500.4100, L501.9985, L501.9520, L500.4050 #### [facility] [address] [place], [address] Monocytes/100 WBC (Bld) 7.4 % Normal 0-10 [facility] Comment on above: Performed By: #### L 100.0100, L500.4100, L501.9985, L501.9520, L500.4050 #### [facility] [address] [place], [address] Neutrophils/100 WBC (Bld) 69.6 % Normal 47-70 [facility] Comment on above: Performed By: #### L 100.0100, L500.4100, L501.9985, L501.9520, L500.4050 #### [facility] [address] [place], [address] Nucleated RBC (Bld) [#/Vol] 0 10*3/uL Normal 0-5 [facility] Comment on above: Performed By: #### L 100.0100, L500.4100, L501.9985, L501.9520, L500.4050 #### [facility] [address] [place], [address] Platelet mean volume (Bld) [Entitic vol] 10.1 fL Normal 6.2-12.0 [facility] Comment on above: Performed By: #### L 100.0100, L500.4100, L501.9985, L501.9520, L500.4050 #### [facility] [address] [place], [address] Platelets (Bld) [#/Vol] 245 10*3/uL Normal 150-450 [facility] Comment on above: Performed By: #### L 100.0100, L500.4100, L501.9985, L501.9520, L500.4050 #### [facility] [address] [place], [address] RBC (Bld) [#/Vol] 5.11 10*6/uL Normal 4.6-6.2 [facility] Comment on above: Performed By: #### L 100.0100, L500.4100, L501.9985, L501.9520, L500.4050 #### [facility] [address] [place], [address] RDW SD 46.6 fl High 35.1-43.9 [facility] Comment on above: Performed By: #### L 100.0100, L500.4100, L501.9985, L501.9520, L500.4050 #### [facility] [address] [place], [address] WBC (Bld) [#/Vol] 10.0 10*3/uL Normal 4.4-11.0 [facility] Comment on above: Performed By: #### L 100.0100, L500.4100, L501.9985, L501.9520, L500.4050 #### [facility] [address] [place], [address] Carbon dioxide measurementOr dered By: Carina Whitlock on 11-13-2024 CO2 [Moles/Vol] 33.0 mmol/L High 21.0-32.0 [facility] Chloride measurementOrdered By: Carina Whitlock on 11-13-2024 Chloride [Moles/Vol] 104 mmol/L 98-107 [facility] Comprehensive Metabolic Prof ilon 11-13-2024 Albumin [Mass/Vol] 3.6 g/dL Normal 3.2-5.0 [facility] Comment on above: Performed By: #### L 100.0100, L500.4100, L501.9985, L501.9520, L500.4050 #### [facility] [address] [place], [address] Albumin/Globulin [Mass ratio] 1.0 {ratio} Normal 0.9-2.4 [facility] Comment on above: Performed By: #### L 100.0100, L500.4100, L501.9985, L501.9520, L500.4050 #### [facility] [address] [place], [address] ALK P 133 U/L High 45-117 [facility] Comment on above: Performed By: #### L 100.0100, L500.4100, L501.9985, L501.9520, L500.4050 #### [facility] [address] [place], [address] ALT [Catalytic activity/Vol] 29 U/L Normal 16-61 [facility] Comment on above: Performed By: #### L 100.0100, L500.4100, L501.9985, L501.9520, L500.4050 #### [facility] [address] [place], [address] AST [Catalytic activity/Vol] 15 U/L Normal 15-37 [facility] Comment on above: Performed By: #### L 100.0100, L500.4100, L501.9985, L501.9520, L500.4050 #### [facility] [address] [place], [address] Bilirubin [Mass/Vol] 0.60 mg/dL Normal 0.20-1.00 [facility] Comment on above: Result Comment: For patients on eltrombopag therapy, use of Dimension [place] TBIL is not recommended. Performed By: #### L 100.0100, L500.4100, L501.9985, L501.9520, L500.4050 #### [facility] [address] [place], [address] BUN/CRE 17.6 RATIO Normal 10-20 [facility] Comment on above: Performed By: #### L 100.0100, L500.4100, L501.9985, L501.9520, L500.4050 #### [facility] [address] [place], [address] CA,Total 9.3 mg/dL Normal 8.5-10.1 [facility] Comment on above: Performed By: #### L 100.0100, L500.4100, L501.9985, L501.9520, L500.4050 #### [facility] [address] [place], [address] Chloride [Moles/Vol] 104 mmol/L Normal 98-107 [facility] Comment on above: Performed By: #### L 100.0100, L500.4100, L501.9985, L501.9520, L500.4050 #### [facility] [address] [place], [address] CO2 [Moles/Vol] 33.0 mmol/L High 21.0-32.0 [facility] Comment on above: Performed By: #### L 100.0100, L500.4100, L501.9985, L501.9520, L500.4050 #### [facility] [address] [place], [address] Creatinine [Mass/Vol] 0.96 mg/dL Normal 0.70-1.30 [facility] Comment on above: Result Comment: The validity of the calculated GFR GFRAA in patients over 70 years has not been determined. Clinical correlation is essential. Performed By: #### L 100.0100, L500.4100, L501.9985, L501.9520, L500.4050 #### [facility] [address] [place], [address] EST GFR - AA 105 mL/min Normal >60 [facility] Comment on above: Result Comment: Afri can Indian GFR Calc Performed By: #### L 100.0100, L500.4100, L501.9985, L501.9520, L500.4050 #### [facility] [address] [place], [address] GAP 2 Low 5-15 [facility] Comment on above: Performed By: #### L 100.0100, L500.4100, L501.9985, L501.9520, L500.4050 #### [facility] [address] [place], [address] GFR/1.73 sq M.predicted among non-blacks MDRD (S/P/Bld) [Vol rate/Area] 87 mL/min/{1.73_m2} Normal >60 [facility] Comment on above: Result Comment: Non- GFR Calc Performed By: #### L 100.0100, L500.4100, L501.9985, L501.9520, L500.4050 #### [facility] [address] [place], [address] Globulin (S) [Mass/Vol] 3.6 g/dL Normal 2.2-4.2 [facility] Comment on above: Performed By: #### L 100.0100, L500.4100, L501.9985, L501.9520, L500.4050 #### [facility] [address] [place], [address] Glucose [Mass/Vol] 212 mg/dL High 74-106 [facility] Comment on above: Result Comment: Gluc ose result greater than or equal to 200 mg/dL suggests DIABETES MELLITUS per A.D.A. criteria. Performed By: #### L 100.0100, L500.4100, L501.9985, L501.9520, L500.4050 #### [facility] [address] [place], [address] Potassium [Moles/Vol] 4.1 mmol/L Normal 3.5-5.1 [facility] Comment on above: Performed By: #### L 100.0100, L500.4100, L501.9985, L501.9520, L500.4050 #### [facility] [address] [place], [address] Sodium [Moles/Vol] 140 mmol/L Normal 136-145 [facility] Comment on above: Performed By: #### L 100.0100, L500.4100, L501.9985, L501.9520, L500.4050 #### [facility] [address] [place], [address] T PROT 7.2 g/dL Normal 6.4-8.2 [facility] Comment on above: Performed By: #### L 100.0100, L500.4100, L501.9985, L501.9520, L500.4050 #### [facility] [address] [place], [address] Urea nitrogen [Mass/Vol] 17 mg/dL Normal 7-18 [facility] Comment on above: Performed By: #### L 100.0100, L500.4100, L501.9985, L501.9520, L500.4050 #### [facility] [address] [place], [place], [id number] Eosinophil percentageOrdered By: Carina Whitlock on 11-13-2024 Eosinophils/100 WBC (Bld) 2.7 % 0-5 [facility] Erythrocyte distribution wid th ratioOrdered By: Carina Juan on 11-13-2024 Erythrocyte distribution width (RBC) [Ratio] 13.5 % 11.6-14.6 [facility] Erythrocyte distribution wid th standard deviationOrdered By: [facility] on 11-13-2024 Erythrocyte distribution width (RBC) [Entitic vol] 46.6 fL High 35.1-43.9 [facility] Estimated glomerular filtrat ion rate (GFR) AmericanOrdered By: Carina Whitlock on 11-13-2024 Estimated GFR (MDRD) Amer 105 mL/min >60 [facility] Comment on above: GFR Calc Glomerular filtration rate ( GFR) estimationOrdered By: Carina Whitlock on 11-13-2024 Estimated GFR (MDRD) Non-Af Amer 87 mL/min >60 [facility] Comment on above: Non- GFR Calc Glucose measurementOrdered B y: Carina Whitlock on 11-13-2024 Glucose [Mass/Vol] 212 mg/dL High 74-106 [facility] Comment on above: Glucose result great er than or equal to 200 mg/dLsuggests DIABETES MELLITUS per A.D.A. criteria. Hematocrit Auto (Bld) [Volum e fraction]Ordered By: Carina Whitlock on 11-13-2024 Hematocrit (Bld) [Volume fraction] 48.2 % 40-54 [facility] Hemoglobin A1c percentageOrd ered By: Carina Juan on 11-13-2024 HbA1c (Bld) [Mass fraction] 6.6 % High 3.8-5.6 [facility] Comment on above: Normal < 5.7 % Predi abetic 5.7 - 6.4 % Diabetic >or= 6.5 % Please note range changes. Result Comment: Norm al < 5.7 % Prediabetic 5.7 - 6.4 % Diabetic >or= 6.5 % Please note range changes. Performed By: #### L 100.0100, L500.1795, L501.9985, L501.9520, L500.4050 #### [facility] [address] [place], [place], [id number] Hemoglobin measurementOrdere d By: Carina Whitlock on 11-13-2024 Hemoglobin (Bld) [Mass/Vol] 15.2 g/dL 13.0-16.5 [facility] High density lipoprotein (HD L) measurementOrdered By: Carina Whitlock on 11-13-2024 Cholesterol in HDL [Mass/Vol] 35 mg/dL Low >40 [facility] Comment on above: The drugs N-Acetylcy steine and Metamizole may falsely depress this assay. Reference Range HDL <40 mg/dL Low HDL Cholesterol HDL >or= 60 mg/dL High HDL Cholesterol Immature granulocytes/100 WB C Auto (Bld)Ordered By: Carina Whitlock on 11-13-2024 Immature granulocytes/100 WBC (Bld) 0.700 % 0.0-0.9 [facility] Comment on above: IG% - Immature Granu locytes (promyelocytes, myelocytes and metamyelocytes) > 1% indicates that a LEFT SHIFT is Present. Laboratory - Chemistry and C hemistry - challengeOrdered By: Carina Whitlock on 11-13-2024 AST [Catalytic activity/Vol] 15 U/L 15-37 [facility] Lipid Profileon 11-13-2024 Cholesterol [Mass/Vol] 133 mg/dL Normal 200 [facility] Comment on above: Result Comment: <200 mg/dL Desirable 200-240 mg/dL Borderline >240 mg/dL High Risk Performed By: #### L 100.0100, L500.4100, L501.9985, L501.9520, L500.4050 #### [facility] [address] [place], [place], [id number] Cholesterol in HDL [Mass/Vol] 35 mg/dL Low [facility] Comment on above: Result Comment: The drugs N-Acetylcysteine and Metamizole may falsely depress this assay. Reference Range HDL <40 mg/dL Low HDL Cholesterol HDL >or= 60 mg/dL High HDL Cholesterol Performed By: #### L 100.0100, L500.4100, L501.9985, L501.9520, L500.4050 #### [facility] [address] [place], [address] Cholesterol in LDL [Mass/Vol] 42 mg/dL Normal 0-130 [facility] Comment on above: Performed By: #### L 100.0100, L500.4100, L501.9985, L501.9520, L500.4050 #### [facility] [address] [place], [address] Cholesterol in VLDL [Mass/Vol] 56 mg/dL High 5-40 [facility] Comment on above: Performed By: #### L 100.0100, L500.4100, L501.9985, L501.9520, L500.4050 #### [facility] [address] [place], [address] Triglyceride [Mass/Vol] 282 mg/dL High [facility] Comment on above: Result Comment: The drugs N-Acetylcysteine and Metamizole may falsely depress this assay. Serum Triglycerides Reference Interval Normal <150 mg/dL Borderline high 150 - 199 mg/dL High 200 - 499 mg/dL Very High > or = 500 mg/dL Performed By: #### L 100.0100, L500.4100, L501.9985, L501.9520, L500.4050 #### [facility] [address] [place], [address] Low density lipoprotein (LDL ) cholesterol measurementOrdered By: Carina Whitlock on 11-13-2024 Cholesterol in LDL [Mass/Vol] 42 mg/dL 0-130 [facility] Lymphocytes Auto (Unsp spec) [#/Vol]Ordered By: Carina Whitlock on 11-13-2024 Lymphocytes (Bld) [#/Vol] 1.88 10*3/uL 0.83-4.51 [facility] Lymphocytes/100 WBC Auto (Un sp spec)Ordered By: Carina Whitlock on 11-13-2024 Lymphocytes/100 WBC (Bld) 18.9 % Low 19-41 [facility] MCV (mean corpuscular volume ) determinationOrdered By: Carina Whitlock on 11-13-2024 MCV (RBC) [Entitic vol] 94.3 fL High 80-94 [facility] Mean corpuscular hemoglobin (MCH) determinationOrdered By: Carina Whitlock on 11-13-2024 MCH (RBC) [Entitic mass] 29.7 pg 27.0-32.0 [facility] Mean corpuscular hemoglobin concentration (MCHC) determinationOrdered By: Carina Whitlock on 11-13-2024 MCHC (RBC) [Mass/Vol] 31.5 g/dL Low 32-36 [facility] Mean platelet volume determi nationOrdered By: Carina Whitlock on 11-13-2024 Platelet mean volume (Bld) [Entitic vol] 10.1 fL 6.2-12.0 [facility] Microalbumin,Random Urineon 11-13-2024 MICROALBUMIN,UR 406.0 mg/L Normal NO RANGE EST. [facility] Comment on above: Performed By: #### L 100.0100, L500.4100, L501.9985, L501.9520, L500.4050 #### [facility] [address] [place], [address] Monocyte percentageOrdered B y: Carina Whitlock on 11-13-2024 Monocytes/100 WBC (Bld) 7.4 % 0-10 [facility] Neutrophil percentageOrdered By: Carina Whitlock on 11-13-2024 Neutrophils/100 WBC (Bld) 69.6 % 47-70 [facility] Nucleated red blood cell per centageOrdered By: Carina Whitlock on 11-13-2024 Nucleated RBC/100 WBC (Bld) [Ratio] 0 % 0-5 [facility] Platelet countOrdered By: Tano Whitlock on 11-13-2024 Platelets (Bld) [#/Vol] 245 10*3/uL 150-450 [facility] Potassium measurementOrdered By: Carina Whitlock on 11-13-2024 Potassium [Moles/Vol] 4.1 mmol/L 3.5-5.1 [facility] RBC Auto (Bld) [#/Vol]Ordere d By: Carina Whitlock on 11-13-2024 RBC (Bld) [#/Vol] 5.11 10*6/uL 4.6-6.2 [facility] Random urine microalbumin me asurementOrdered By: Carina Whitlock on 11-13-2024 Urine Random Microalbumin 406.0 mg/L NO RANGE EST. [facility] Serum anion gap measurementO rdered By: Carina Whitlock on 11-13-2024 Anion gap [Moles/Vol] 2 mmol/L Low 5-15 [facility] Serum globulin measurementOr dered By: Carina Whitlock on 11-13-2024 Globulin (S) [Mass/Vol] 3.6 g/dL 2.2-4.2 [facility] Serum or plasma alanine guido otransferase (ALT) measurementOrdered By: Carina Whitlock 11-13-2024 ALT [Catalytic activity/Vol] 29 U/L 16-61 [facility] Serum or plasma albumin stacey urement (mass/volume)Ordered By: Carina Whitlock 11-13-2024 Albumin [Mass/Vol] 3.6 g/dL 3.2-5.0 [facility] Serum or plasma alkaline rebeca sphatase measurementOrdered By: Carina Whitlock 11-13-2024 ALP [Catalytic activity/Vol] 133 U/L High 45-117 [facility] Serum or plasma calcium stacey urement (mass/volume)Ordered By: Carina Whitlock 11-13-2024 Calcium [Mass/Vol] 9.3 mg/dL 8.5-10.1 [facility] Serum or plasma cholesterol measurement (mass/volume)Ordered By: Carina Whitlock 11-13-2024 Cholesterol [Mass/Vol] 133 mg/dL <200 [facility] Comment on above: <200 mg/dL Desirable 200-240 mg/dL Borderline >240 mg/dL High Risk Serum or plasma creatinine m easurement (mass/volume)Ordered By: Carina Whitlock 11-13-2024 Creatinine [Mass/Vol] 0.96 mg/dL 0.70-1.30 [facility] Comment on above: The validity of the calculated GFR & GFRAA in patients over 70 years has not been determined. Clinical correlation is essential. Serum or plasma urea nitroge n measurement (mass/volume)Ordered By: Carina Whitlock on 11-13-2024 Urea nitrogen [Mass/Vol] 17 mg/dL 7-18 [facility] Sodium levelOrdered By: Carina Whitlock on 11-13-2024 Sodium [Moles/Vol] 140 mmol/L 136-145 [facility] TSH QnOrdered By: Carina Whitlock o n 11-13-2024 Thyroid Stimulating Hormone (TSH) 2.350 uIU/mL 0.358-3.74 0 [facility] Thyroid Stim Hormone (TSH)on 11-13-2024 TSH 2.350 uIU/mL Normal 0.358-3.74 0 [facility] Comment on above: Performed By: #### L 100.0100, L500.4100, L501.9985, L501.9520, L500.4050 #### [facility] [address] [place], [place] [address]all [facility]. [place], [place], [address] Total proteinOrdered By: Carina Whitlock on 11-13-2024 Protein [Mass/Vol] 7.2 g/dL 6.4-8.2 [facility] Triglycerides measurementOrd ered By: Carina Whitlock on 11-13-2024 Triglyceride [Mass/Vol] 282 mg/dL High <199 [facility] Comment on above: The drugs N-Acetylcy steine and Metamizole may falsely depress this assay.Serum Triglycerides Reference Interval Normal <150 mg/dL Borderline high 150 - 199 mg/dL High 200 - 499 mg/dL Very High > or = 500 mg/dL Very low density lipoprotein (VLDL) cholesterol measurementOrdered By: Carina Whitlock on 11-13-2024 VLDL Cholesterol 56 mg/dL High 5-40 [facility] White blood cell (WBC) count Ordered By: Carina Whitlock on 11-13-2024 WBC (Bld) [#/Vol] 10.0 10*3/uL 4.4-11.0 [facility] CBC W/Diff, Automatedon 09-0 Absolute Lymph 1.68 X10 3/uL Normal 0.83-4.51 [facility] Comment on above: Performed By: #### L 100.0100, L500.4100, L501.9985, L501.9520, L500.4050 #### [facility] [address] [place], [address] Absolute Neut 5.6 X10 3/uL Normal 2.0-7.7 [facility] Comment on above: Performed By: #### L 100.0100, L500.4100, L501.9985, L501.9520, L500.4050 #### [facility] [address] [place], [address] Basophils/100 WBC (Bld) 0.7 % Normal 0-1 [facility] Comment on above: Performed By: #### L 100.0100, L500.4100, L501.9985, L501.9520, L500.4050 #### [facility] [address] [place], [address] Eosinophils/100 WBC (Bld) 3.4 % Normal 0-5 [facility] Comment on above: Performed By: #### L 100.0100, L500.4100, L501.9985, L501.9520, L500.4050 #### [facility] [address] [place], [address] Erythrocyte distribution width (RBC) [Ratio] 13.5 % Normal 11.6-14.6 [facility] Comment on above: Performed By: #### L 100.0100, L500.4100, L501.9985, L501.9520, L500.4050 #### [facility] [address] [place], [address] Hematocrit (Bld) [Volume fraction] 46.5 % Normal 40-54 [facility] Comment on above: Performed By: #### L 100.0100, L500.4100, L501.9985, L501.9520, L500.4050 #### [facility] [address] [place], [address] Hemoglobin (Bld) [Mass/Vol] 14.8 g/dL Normal 13.0-16.5 [facility] Comment on above: Performed By: #### L 100.0100, L500.4100, L501.9985, L501.9520, L500.4050 #### [facility] [address] [place], [address] IG% 0.700 Normal 0.0-0.9 [facility] Comment on above: Result Comment: IG% - Immature Granulocytes (promyelocytes, myelocytes and metamyelocytes) > 1% indicates that a LEFT SHIFT is Present. Performed By: #### L 100.0100, L500.4100, L501.9985, L501.9520, L500.4050 #### [facility] [address] [place], [address] Lymphocytes/100 WBC (Bld) 20.1 % Normal 19-41 [facility] Comment on above: Performed By: #### L 100.0100, L500.4100, L501.9985, L501.9520, L500.4050 #### [facility] [address] [place], [address] MCH (RBC) [Entitic mass] 30.0 pg Normal 27.0-32.0 [facility] Comment on above: Performed By: #### L 100.0100, L500.4100, L501.9985, L501.9520, L500.4050 #### [facility] [address] [place], [address] MCHC (RBC) [Mass/Vol] 31.8 g/dL Low 32-36 [facility] Comment on above: Performed By: #### L 100.0100, L500.4100, L501.9985, L501.9520, L500.4050 #### [facility] [address] [place], [address] MCV (RBC) [Entitic vol] 94.3 fL High 80-94 [facility] Comment on above: Performed By: #### L 100.0100, L500.4100, L501.9985, L501.9520, L500.4050 #### [facility] [address] [place], [address] Monocytes/100 WBC (Bld) 7.8 % Normal 0-10 [facility] Comment on above: Performed By: #### L 100.0100, L500.4100, L501.9985, L501.9520, L500.4050 #### [facility] [address] [place], [address] Neutrophils/100 WBC (Bld) 67.3 % Normal 47-70 [facility] Comment on above: Performed By: #### L 100.0100, L500.4100, L501.9985, L501.9520, L500.4050 #### [facility] [address] [place], [address] Nucleated RBC (Bld) [#/Vol] 0 10*3/uL Normal 0-5 [facility] Comment on above: Performed By: #### L 100.0100, L500.4100, L501.9985, L501.9520, L500.4050 #### [facility] [address] [place], [address] Platelet mean volume (Bld) [Entitic vol] 10.1 fL Normal 6.2-12.0 [facility] Comment on above: Performed By: #### L 100.0100, L500.4100, L501.9985, L501.9520, L500.4050 #### [facility] [address] [place], [address] Platelets (Bld) [#/Vol] 259 10*3/uL Normal 150-450 [facility] Comment on above: Performed By: #### L 100.0100, L500.4100, L501.9985, L501.9520, L500.4050 #### [facility] [address] [place], [address] RBC (Bld) [#/Vol] 4.93 10*6/uL Normal 4.6-6.2 [facility] Comment on above: Performed By: #### L 100.0100, L500.4100, L501.9985, L501.9520, L500.4050 #### [facility] [address] [place], [address] RDW SD 46.7 fl High 35.1-43.9 [facility] Comment on above: Performed By: #### L 100.0100, L500.4100, L501.9985, L501.9520, L500.4050 #### [facility] [address] [place], [address] WBC (Bld) [#/Vol] 8.3 10*3/uL Normal 4.4-11.0 [facility] Comment on above: Performed By: #### L 100.0100, L500.4100, L501.9985, L501.9520, L500.4050 #### [facility] [address] [place], [address] Comprehensive Metabolic Prof njon 08-07-2024 Albumin [Mass/Vol] 3.5 g/dL Normal 3.2-5.0 [facility] Comment on above: Performed By: #### L 100.0100, L500.4100, L501.9985, L501.9520, L500.4050 #### [facility] [address] [place], [address] Albumin/Globulin [Mass ratio] 1.0 {ratio} Normal 0.9-2.4 [facility] Comment on above: Performed By: #### L 100.0100, L500.4100, L501.9985, L501.9520, L500.4050 #### [facility] [address] [place], [address] ALK P 125 U/L High 45-117 [facility] Comment on above: Performed By: #### L 100.0100, L500.4100, L501.9985, L501.9520, L500.4050 #### [facility] [address] [place], [address] ALT [Catalytic activity/Vol] 28 U/L Normal 16-61 [facility] Comment on above: Performed By: #### L 100.0100, L500.4100, L501.9985, L501.9520, L500.4050 #### [facility] [address] [place], [address] AST [Catalytic activity/Vol] 14 U/L Low 15-37 [facility] Comment on above: Performed By: #### L 100.0100, L500.4100, L501.9985, L501.9520, L500.4050 #### [facility] [address] [place], [address] Bilirubin [Mass/Vol] 0.60 mg/dL Normal 0.20-1.00 [facility] Comment on above: Result Comment: For patients on eltrombopag therapy, use of Dimension [place] TBIL is not recommended. Performed By: #### L 100.0100, L500.4100, L501.9985, L501.9520, L500.4050 #### [facility] [address] [place], [address] BUN/CRE 16.6 RATIO Normal 10-20 [facility] Comment on above: Performed By: #### L 100.0100, L500.4100, L501.9985, L501.9520, L500.4050 #### [facility] [address] [place], [address] CA,Total 9.2 mg/dL Normal 8.5-10.1 [facility] Comment on above: Performed By: #### L 100.0100, L500.4100, L501.9985, L501.9520, L500.4050 #### [facility] [address] [place], [address] Chloride [Moles/Vol] 101 mmol/L Normal 98-107 [facility] Comment on above: Performed By: #### L 100.0100, L500.4100, L501.9985, L501.9520, L500.4050 #### [facility] [address] [place], [address] CO2 [Moles/Vol] 31.0 mmol/L Normal 21.0-32.0 [facility] Comment on above: Performed By: #### L 100.0100, L500.4100, L501.9985, L501.9520, L500.4050 #### [facility] [address] [place], [address] Creatinine [Mass/Vol] 0.84 mg/dL Normal 0.70-1.30 [facility] Comment on above: Result Comment: The validity of the calculated GFR GFRAA in patients over 70 years has not been determined. Clinical correlation is essential. Performed By: #### L 100.0100, L500.4100, L501.9985, L501.9520, L500.4050 #### [facility] [address] [place], [address] EST GFR - AA 123 mL/min Normal >60 [facility] Comment on above: Result Comment: Afri can Indian GFR Calc Performed By: #### L 100.0100, L500.4100, L501.9985, L501.9520, L500.4050 #### [facility] [address] [place], [address] GAP 6 Normal 5-15 [facility] Comment on above: Performed By: #### L 100.0100, L500.4100, L501.9985, L501.9520, L500.4050 #### [facility] [address] [place], [address] GFR/1.73 sq M.predicted among non-blacks MDRD (S/P/Bld) [Vol rate/Area] 102 mL/min/{1.73_m2} Normal >60 [facility] Comment on above: Result Comment: Non- GFR Calc Performed By: #### L 100.0100, L500.4100, L501.9985, L501.9520, L500.4050 #### [facility] [address] [place], [address] Globulin (S) [Mass/Vol] 3.6 g/dL Normal 2.2-4.2 [facility] Comment on above: Performed By: #### L 100.0100, L500.4100, L501.9985, L501.9520, L500.4050 #### [facility] [address] [place], [address] Glucose [Mass/Vol] 228 mg/dL High 74-106 [facility] Comment on above: Result Comment: Gluc ose result greater than or equal to 200 mg/dL suggests DIABETES MELLITUS per A.D.A. criteria. Performed By: #### L 100.0100, L500.4100, L501.9985, L501.9520, L500.4050 #### [facility] [address] [place], [address] Potassium [Moles/Vol] 4.2 mmol/L Normal 3.5-5.1 [facility] Comment on above: Performed By: #### L 100.0100, L500.4100, L501.9985, L501.9520, L500.4050 #### [facility] [address] [place], [address] Sodium [Moles/Vol] 138 mmol/L Normal 136-145 [facility] Comment on above: Performed By: #### L 100.0100, L500.4100, L501.9985, L501.9520, L500.4050 #### [facility] [address] [place], [address] T PROT 7.1 g/dL Normal 6.4-8.2 [facility] Comment on above: Performed By: #### L 100.0100, L500.4100, L501.9985, L501.9520, L500.4050 #### [facility] [address] [place], [address] Urea nitrogen [Mass/Vol] 14 mg/dL Normal 7-18 [facility] Comment on above: Performed By: #### L 100.0100, L500.4100, L501.9985, L501.9520, L500.4050 #### [facility] [address] [place], [address] Hemoglobin A1con 08-07-2024 HbA1c (Bld) [Mass fraction] 7.2 % High 3.8-5.6 [facility] Comment on above: Result Comment: Norm al < 5.7 % Prediabetic 5.7 - 6.4 % Diabetic >or= 6.5 % Please note range changes. Performed By: #### L 100.0100, L500.4100, L501.9985, L501.9520, L500.4050 #### [facility] [address] [place], [address] Lipid Profileon 08-07-2024 Cholesterol [Mass/Vol] 127 mg/dL Normal 200 [facility] Comment on above: Result Comment: <200 mg/dL Desirable 200-240 mg/dL Borderline >240 mg/dL High Risk Performed By: #### L 100.0100, L500.4100, L501.9985, L501.9520, L500.4050 #### [facility] [address] [place], [address] Cholesterol in HDL [Mass/Vol] 33 mg/dL Low [facility] Comment on above: Result Comment: The drugs N-Acetylcysteine and Metamizole may falsely depress this assay. Reference Range HDL <40 mg/dL Low HDL Cholesterol HDL >or= 60 mg/dL High HDL Cholesterol Performed By: #### L 100.0100, L500.4100, L501.9985, L501.9520, L500.4050 #### [facility] [address] [place], [address] Cholesterol in LDL [Mass/Vol] 22 mg/dL Normal 0-130 [facility] Comment on above: Performed By: #### L 100.0100, L500.4100, L501.9985, L501.9520, L500.4050 #### [facility] [address] [place], [address] Cholesterol in VLDL [Mass/Vol] 72 mg/dL High 5-40 [facility] Comment on above: Performed By: #### L 100.0100, L500.4100, L501.9985, L501.9520, L500.4050 #### [facility] [address] [place], [address] Triglyceride [Mass/Vol] 359 mg/dL High [facility] Comment on above: Result Comment: The drugs N-Acetylcysteine and Metamizole may falsely depress this assay. Serum Triglycerides Reference Interval Normal <150 mg/dL Borderline high 150 - 199 mg/dL High 200 - 499 mg/dL Very High > or = 500 mg/dL Performed By: #### L 100.0100, L500.4100, L501.9985, L501.9520, L500.4050 #### [facility] [address] [place], [address] Thyroid Stim Hormone (TSH)on 08-07-2024 TSH 1.450 uIU/mL Normal 0.358-3.74 0 [facility] Comment on above: Performed By: #### L 100.0100, L500.4100, L501.9985, L501.9520, L500.4050 #### [facility] [address] [place], [address] M100.678on 07-04-2024 M100.678 SARS-CoV-2 (COVID 19 ) Negative INFLUENZA A Negative INFLUENZA B Negative RSV PCR Negative Normal [facility] Comment on above: Performed By: #### L 100.0100, L500.4100, L501.9985, L501.9520, L500.4050 #### [facility] [address] [place], [address] Hemoglobin A1con 06-12-2024 HbA1c (Bld) [Mass fraction] 8.4 % High 3.8-5.6 [facility] Comment on above: Result Comment: Norm al < 5.7 % Prediabetic 5.7 - 6.4 % Diabetic >or= 6.5 % Please note range changes. Performed By: #### L 501.9985 #### [facility] [address] [place], [address] CBC W/Diff, Automatedon 04-29 Absolute Lymph 1.67 X10 3/uL Normal 0.83-4.51 [facility] Comment on above: Performed By: #### L 100.0100, L500.4100, L501.9985, L501.9520, L500.4050 #### [facility] [address] [place], [address] Absolute Neut 5.3 X10 3/uL Normal 2.0-7.7 [facility] Comment on above: Performed By: #### L 100.0100, L500.4100, L501.9985, L501.9520, L500.4050 #### [facility] [address] [place], [address] Basophils/100 WBC (Bld) 0.9 % Normal 0-1 [facility] Comment on above: Performed By: #### L 100.0100, L500.4100, L501.9985, L501.9520, L500.4050 #### [facility] [address] [place], [address] Eosinophils/100 WBC (Bld) 2.8 % Normal 0-5 [facility] Comment on above: Performed By: #### L 100.0100, L500.4100, L501.9985, L501.9520, L500.4050 #### [facility] [address] [place], [address] Erythrocyte distribution width (RBC) [Ratio] 13.0 % Normal 11.6-14.6 [facility] Comment on above: Performed By: #### L 100.0100, L500.4100, L501.9985, L501.9520, L500.4050 #### [facility] [address] [place], [address] Hematocrit (Bld) [Volume fraction] 45.9 % Normal 40-54 [facility] Comment on above: Performed By: #### L 100.0100, L500.4100, L501.9985, L501.9520, L500.4050 #### [facility] [address] [place], [address] Hemoglobin (Bld) [Mass/Vol] 15.3 g/dL Normal 13.0-16.5 [facility] Comment on above: Performed By: #### L 100.0100, L500.4100, L501.9985, L501.9520, L500.4050 #### [facility] [address] [place], [address] IG% 0.800 Normal 0.0-0.9 [facility] Comment on above: Result Comment: IG% - Immature Granulocytes (promyelocytes, myelocytes and metamyelocytes) > 1% indicates that a LEFT SHIFT is Present. Performed By: #### L 100.0100, L500.4100, L501.9985, L501.9520, L500.4050 #### [facility] [address] [place], [address] Lymphocytes/100 WBC (Bld) 20.9 % Normal 19-41 [facility] Comment on above: Performed By: #### L 100.0100, L500.4100, L501.9985, L501.9520, L500.4050 #### [facility] [address] [place], [address] MCH (RBC) [Entitic mass] 30.9 pg Normal 27.0-32.0 [facility] Comment on above: Performed By: #### L 100.0100, L500.4100, L501.9985, L501.9520, L500.4050 #### [facility] [address] [place], [address] MCHC (RBC) [Mass/Vol] 33.3 g/dL Normal 32-36 [facility] Comment on above: Performed By: #### L 100.0100, L500.4100, L501.9985, L501.9520, L500.4050 #### [facility] [address] [place], [address] MCV (RBC) [Entitic vol] 92.7 fL Normal 80-94 [facility] Comment on above: Performed By: #### L 100.0100, L500.4100, L501.9985, L501.9520, L500.4050 #### [facility] [address] [place], [address] Monocytes/100 WBC (Bld) 8.5 % Normal 0-10 [facility] Comment on above: Performed By: #### L 100.0100, L500.4100, L501.9985, L501.9520, L500.4050 #### [facility] [address] [place], [address] Neutrophils/100 WBC (Bld) 66.1 % Normal 47-70 [facility] Comment on above: Performed By: #### L 100.0100, L500.4100, L501.9985, L501.9520, L500.4050 #### [facility] [address] [place], [address] Nucleated RBC (Bld) [#/Vol] 0 10*3/uL Normal 0-5 [facility] Comment on above: Performed By: #### L 100.0100, L500.4100, L501.9985, L501.9520, L500.4050 #### [facility] [address] [place], [address] Platelet mean volume (Bld) [Entitic vol] 11.1 fL Normal 6.2-12.0 [facility] Comment on above: Performed By: #### L 100.0100, L500.4100, L501.9985, L501.9520, L500.4050 #### [facility] [address] [place], [address] Platelets (Bld) [#/Vol] 319 10*3/uL Normal 150-450 [facility] Comment on above: Performed By: #### L 100.0100, L500.4100, L501.9985, L501.9520, L500.4050 #### [facility] [address] [place], [address] RBC (Bld) [#/Vol] 4.95 10*6/uL Normal 4.6-6.2 [facility] Comment on above: Performed By: #### L 100.0100, L500.4100, L501.9985, L501.9520, L500.4050 #### [facility] [address] [place], [address] RDW SD 43.8 fl Normal 35.1-43.9 [facility] Comment on above: Performed By: #### L 100.0100, L500.4100, L501.9985, L501.9520, L500.4050 #### [facility] [address] [place], [address] WBC (Bld) [#/Vol] 8.0 10*3/uL Normal 4.4-11.0 [facility] Comment on above: Performed By: #### L 100.0100, L500.4100, L501.9985, L501.9520, L500.4050 #### [facility] [address] [place], [address] [facility] 05-09-2024 Albumin [Mass/Vol] 3.7 g/dL Normal 3.2-5.0 [facility] Comment on above: Order Comment: PATIE NT NOT FASTING-OATMEAL AM Performed By: #### L 500.4100, L501.9520, L100.0100, L501.9985, L500.4050 #### [facility] [address] [place], [address] Albumin/Globulin [Mass ratio] 1.1 {ratio} Normal 0.9-2.4 [facility] Comment on above: Order Comment: PATIE NT NOT FASTING-OATMEAL AM Performed By: #### L 500.4100, L501.9520, L100.0100, L501.9985, L500.4050 #### [facility] [address] [place], [address] ALK P 140 U/L High 45-117 [facility] Comment on above: Order Comment: PATIE NT NOT FASTING-OATMEAL AM Performed By: #### L 500.4100, L501.9520, L100.0100, L501.9985, L500.4050 #### [facility] [address] [place], [address] ALT [Catalytic activity/Vol] 26 U/L Normal 16-61 [facility] Comment on above: Order Comment: PATIE NT NOT FASTING-OATMEAL AM Performed By: #### L 500.4100, L501.9520, L100.0100, L501.9985, L500.4050 #### [facility] [address] [place], [address] AST [Catalytic activity/Vol] 16 U/L Normal 15-37 [facility] Comment on above: Order Comment: PATIE NT NOT FASTING-OATMEAL AM Result Comment: Slig ht Hemolysis, Result may be falsely increased. Performed By: #### L 500.4100, L501.9520, L100.0100, L501.9985, L500.4050 #### [facility] [address] [place], [address] Bilirubin [Mass/Vol] 0.70 mg/dL Normal 0.20-1.00 [facility] Comment on above: Order Comment: PATIE NT NOT FASTING-OATMEAL AM Result Comment: For patients on eltrombopag therapy, use of Dimension [place] TBIL is not recommended. Performed By: #### L 500.4100, L501.9520, L100.0100, L501.9985, L500.4050 #### [facility] [address] [place], [address] BUN/CRE 19.1 RATIO Normal 10-20 [facility] Comment on above: Order Comment: PATIE NT NOT FASTING-OATMEAL AM Performed By: #### L 500.4100, L501.9520, L100.0100, L501.9985, L500.4050 #### [facility] [address] [place], [address] CA,Total 9.1 mg/dL Normal 8.5-10.1 [facility] Comment on above: Order Comment: PATIE NT NOT FASTING-OATMEAL AM Performed By: #### L 500.4100, L501.9520, L100.0100, L501.9985, L500.4050 #### [facility] [address] [place], [address] Chloride [Moles/Vol] 102 mmol/L Normal 98-107 [facility] Comment on above: Order Comment: PATIE NT NOT FASTING-OATMEAL AM Performed By: #### L 500.4100, L501.9520, L100.0100, L501.9985, L500.4050 #### [facility] [address] [place], [address] CO2 [Moles/Vol] 29.0 mmol/L Normal 21.0-32.0 [facility] Comment on above: Order Comment: PATIE NT NOT FASTING-OATMEAL AM Performed By: #### L 500.4100, L501.9520, L100.0100, L501.9985, L500.4050 #### [facility] [address] [place], [address] Creatinine [Mass/Vol] 0.84 mg/dL Normal 0.70-1.30 [facility] [facility] Comment on above: Order Comment: PATIE NT NOT FASTING-OATMEAL AM Result Comment: The validity of the calculated GFR GFRAA in patients over 70 years has not been determined. Clinical correlation is essential. Performed By: #### L 500.4100, L501.9520, L100.0100, L501.9985, L500.4050 #### [facility] [address] [place], [address] EST GFR - AA 124 mL/min Normal >60 [facility] Comment on above: Order Comment: PATIE NT NOT FASTING-OATMEAL AM Result Comment: Afri can Indian GFR Calc Performed By: #### L 500.4100, L501.9520, L100.0100, L501.9985, L500.4050 #### [facility] [address] [place], [address] GAP 5 Normal 5-15 [facility] Comment on above: Order Comment: PATIE NT NOT FASTING-OATMEAL AM Performed By: #### L 500.4100, L501.9520, L100.0100, L501.9985, L500.4050 #### [facility] [address] [place], [address] GFR/1.73 sq M.predicted among non-blacks MDRD (S/P/Bld) [Vol rate/Area] 103 mL/min/{1.73_m2} Normal >60 [facility] Comment on above: Order Comment: PATIE NT NOT FASTING-OATMEAL AM Result Comment: Non- GFR Calc Performed By: #### L 500.4100, L501.9520, L100.0100, L501.9985, L500.4050 #### [facility] [address] [place], [address] Globulin (S) [Mass/Vol] 3.3 g/dL Normal 2.2-4.2 [facility] Comment on above: Order Comment: PATIE NT NOT FASTING-OATMEAL AM Performed By: #### L 500.4100, L501.9520, L100.0100, L501.9985, L500.4050 #### [facility] [address] [place], [address] Glucose [Mass/Vol] 254 mg/dL High 74-106 [facility] Comment on above: Order Comment: PATIE NT NOT FASTING-OATMEAL AM Result Comment: Gluc ose result greater than or equal to 200 mg/dL suggests DIABETES MELLITUS per A.D.A. criteria. Performed By: #### L 500.4100, L501.9520, L100.0100, L501.9985, L500.4050 #### [facility] [address] [place], [address] Potassium [Moles/Vol] 4.3 mmol/L Normal 3.5-5.1 [facility] Comment on above: Order Comment: PATIE NT NOT FASTING-OATMEAL AM Result Comment: Slig ht Hemolysis, Result may be falsely increased. Performed By: #### L 500.4100, L501.9520, L100.0100, L501.9985, L500.4050 #### [facility] [address] [place], [address] Sodium [Moles/Vol] 136 mmol/L Normal 136-145 [facility] Comment on above: Order Comment: PATIE NT NOT FASTING-OATMEAL AM Performed By: #### L 500.4100, L501.9520, L100.0100, L501.9985, L500.4050 #### [facility] [address] [place], [address] T PROT 7.0 g/dL Normal 6.4-8.2 [facility] Comment on above: Order Comment: PATIE NT NOT FASTING-OATMEAL AM Performed By: #### L 500.4100, L501.9520, L100.0100, L501.9985, L500.4050 #### [facility] [address] [place], [address] Urea nitrogen [Mass/Vol] 16 mg/dL Normal 7-18 [facility] Comment on above: Order Comment: PATIE NT NOT FASTING-OATMEAL AM Performed By: #### L 500.4100, L501.9520, L100.0100, L501.9985, L500.4050 #### [facility] [address] [place], [address] Thyroid Stim Hormone (TSH)on 05-09-2024 TSH 2.54 uIU/mL Normal 0.358-3.74 [facility] Comment on above: Order Comment: PATIE NT NOT FASTING-OATMEAL AM Performed By: #### L 500.4100, L501.9520, L100.0100, L501.9985, L500.4050 #### [facility] [address] [place], [address] Hemoglobin A1con 05-08-2024 HbA1c (Bld) [Mass fraction] 8.4 % High 3.8-5.6 [facility] Comment on above: Result Comment: Norm al < 5.7 % Prediabetic 5.7 - 6.4 % Diabetic >or= 6.5 % Please note range changes. Performed By: #### L 500.4100, L501.9520, L100.0100, L501.9985, L500.4050 #### [facility] [address] [place], [address] Lipid Profileon 05-08-2024 Cholesterol [Mass/Vol] 167 mg/dL Normal 200 [facility] Comment on above: Order Comment: PATIE NT NOT FASTING-OATMEAL AM Result Comment: <200 mg/dL Desirable 200-240 mg/dL Borderline >240 mg/dL High Risk Performed By: #### L 500.4100, L501.9520, L100.0100, L501.9985, L500.4050 #### [facility] [address] [place], [address] Cholesterol in HDL [Mass/Vol] 27 mg/dL Low [facility] Comment on above: Order Comment: PATIE NT NOT FASTING-OATMEAL AM Result Comment: The drugs N-Acetylcysteine and Metamizole may falsely depress this assay. Reference Range HDL <40 mg/dL Low HDL Cholesterol HDL >or= 60 mg/dL High HDL Cholesterol Performed By: #### L 500.4100, L501.9520, L100.0100, L501.9985, L500.4050 #### [facility] [address] [place], [address] LDL TNP Normal 0-130 [facility] Comment on above: Order Comment: PATIE NT NOT FASTING-OATMEAL AM Performed By: #### L 500.4100, L501.9520, L100.0100, L501.9985, L500.4050 #### [facility] [address] [place], [address] Triglyceride [Mass/Vol] 958 mg/dL High [facility] Comment on above: Order Comment: PATIE NT NOT FASTING-OATMEAL AM Result Comment: The drugs N-Acetylcysteine and Metamizole may falsely depress this assay. TRIGLYCERIDE IS GREATER THAN 400 mg/dL. LDL RESULT IS INVALID AND WILL NOT BE REPORTED. Serum Triglycerides Reference Interval Normal <150 mg/dL Borderline high 150 - 199 mg/dL High 200 - 499 mg/dL Very High > or = 500 mg/dL Performed By: #### L 500.4100, L501.9520, L100.0100, L501.9985, L500.4050 #### [facility] [address] [place], [address] VLDL TNP Normal 5-40 [facility] Comment on above: Order Comment: PATIE NT NOT FASTING-OATMEAL AM Performed By: #### L 500.4100, L501.9520, L100.0100, L501.9985, L500.4050 #### [facility] [address] [place], [address] M100.678on 04-07-2024 M100.678 SARS-CoV-2 (COVID 19 ) Negative INFLUENZA A Negative INFLUENZA B Negative RSV PCR Negative Normal [facility] Comment on above: Performed By: #### L 100.0100, L500.4100, L501.9990, L501.9520, L500.5710 #### [facility] [address] [place], [address] Laboratory - Microbiology an d Antimicrobial susceptibilityOrdered By: Carina Whitlock on 03-07-2024 SARS-CoV-2 (COVID-19) RNA NELLA+probe Ql (Unsp spec) [facility] - Microbiology an d Antimicrobial susceptibilityOrdered By: Carina Whitlock on 02-11-2024 SARS-CoV-2 (COVID-19) RNA NELLA+probe Ql (Unsp spec) [facility] Absolute lymphocyte countOrd ered By: [facility] 02-10-[facility]24 Lymphocytes Auto (Unsp spec) [#/Vol] 1.63 10*3/uL 0.83-4.51 [facility] Automated lymphocyte count a s percentage of total leukocytesOrdered By: Carina Juan on 02-10-2024 Lymphocytes/100 WBC Auto (Unsp spec) 18.7 % 19-41 [facility] Basophil percentageOrdered B y: Carina Whitlock on 02-10-2024 Basophils/100 WBC (Bld) 0.6 % 0-1 [facility] Bilirubin [Mass/Vol] 0.90 mg/dL 0.20-1.00 [facility] Comment on above: For patients on eltr ombopag therapy, use of Dimension [place] TBIL is not recommended. Chloride [Moles/Vol] 103 mmol/L 98-107 [facility] Cholesterol [Mass/Vol] 129 mg/dL <200 [facility] Comment on above: <200 mg/dL Desirable 200-240 mg/dL Borderline >240 mg/dL High Risk Eosinophils/100 WBC (Bld) 2.7 % 0-5 [facility] Glucose [Mass/Vol] 178 mg/dL 74-106 [facility] Comment on above: Fasting Glucose resu lt greater than or equal to 126 mg/dL suggests DIABETES MELLITUS per A.D.A. criteria. Hemoglobin (Bld) [Mass/Vol] 14.5 g/dL 13.0-16.5 [facility] Monocytes/100 WBC (Bld) 7.7 % 0-10 [facility] Neutrophils (Bld) [#/Vol] 6.1 10*3/uL 2.0-7.7 [facility] Neutrophils/100 WBC (Bld) 69.5 % 47-70 [facility] Potassium [Moles/Vol] 5.0 mmol/L 3.5-5.1 [facility] Protein [Mass/Vol] 7.4 g/dL 6.4-8.2 [facility] Sodium [Moles/Vol] 137 mmol/L 136-145 [facility] Triglyceride [Mass/Vol] 424 mg/dL <199 [facility] Comment on above: The drugs N-Acetylcy steine and Metamizole may falsely depress this assay. TRIGLYCERIDE IS GREATER THAN 400 mg/dL. LDL RESULT IS INVALID AND WILL NOT BE REPORTED.Serum Triglycerides Reference Interval Normal <150 mg/dL Borderline high 150 - 199 mg/dL High 200 - 499 mg/dL Very High > or = 500 mg/dL WBC (Bld) [#/Vol] 8.7 10*3/uL 4.4-11.0 [facility] Determination of erythrocyte mean corpuscular volume (MCV)Ordered By: Carina Whitlock on 02-10-2024 MCV (RBC) [Entitic vol] 94.9 fL 80-94 [facility] Erythrocyte distribution wid th ratioOrdered By: Carina Whitlock 02-10-2024 Erythrocyte distribution width (RBC) [Ratio] 13.4 % 11.6-14.6 [facility] Erythrocyte distribution wid th standard deviationOrdered By: Carina Whitlock on 02-10-2024 Erythrocyte distribution width (RBC) [Entitic vol] 46.9 fL 35.1-43.9 [facility] Hematocrit Auto (Bld) [Volum e fraction]Ordered By: Carina Whitlock on 02-10-2024 Hematocrit (Bld) [Volume fraction] 45.1 % 40-54 [facility] Immature granulocytes/100 WB C Auto (Bld)Ordered By: Carina Whitlock on 02-10-2024 Immature granulocytes/100 WBC (Bld) 0.800 % 0.0-0.9 [facility] Comment on above: IG% - Immature Granu locytes (promyelocytes, myelocytes and metamyelocytes) > 1% indicates that a LEFT SHIFT is Present. Laboratory - Chemistry and C hemistry - challengeOrdered By: Carina Whitlock on 02-10-2024 Albumin/Globulin [Mass ratio] 1.1 {ratio} 0.9-2.4 [facility] ALP [Catalytic activity/Vol] 140 U/L 45-117 [facility] ALT [Catalytic activity/Vol] 26 U/L 16-61 [facility] Cholesterol in HDL [Mass/Vol] 30 mg/dL >40 [facility] Comment on above: The drugs N-Acetylcy steine and Metamizole may falsely depress this assay. Reference Range HDL <40 mg/dL Low HDL Cholesterol HDL >or= 60 mg/dL High HDL Cholesterol CO2 [Moles/Vol] 30.0 mmol/L 21.0-32.0 [facility] Globulin (S) [Mass/Vol] 3.5 g/dL 2.2-4.2 [facility] Urea nitrogen/Creatinine [Mass ratio] 21.3 mg/mg 10-20 [facility] - Hematology and Cell countsOrdered By: Carina Whitlock on 02-10-2024 MCH (RBC) [Entitic mass] 30.5 pg 27.0-32.0 [facility] MCHC (RBC) [Mass/Vol] 32.2 g/dL 32-36 [facility] Nucleated RBC/100 WBC (Bld) [Ratio] 0 % 0-5 [facility] Platelet mean volume (Bld) [Entitic vol] 10.4 fL 6.2-12.0 [facility] Platelets (Bld) [#/Vol] 252 10*3/uL 150-450 [facility] No Panel InformationOrdered By: Carina Whitlock on 02-10-2024 Estimated GFR (MDRD) Amer 131 mL/min >60 [facility] Comment on above: GFR Calc Estimated GFR (MDRD) Non-Af Amer 108 mL/min >60 [facility] Comment on above: Non- GFR Calc LDL Cholesterol [facility] Comment on above: Test not performed VLDL Cholesterol [facility] Comment on above: Test not performed RBC Auto (Bld) [#/Vol]Ordere d By: Carina Whitlock on 02-10-2024 RBC (Bld) [#/Vol] 4.75 10*6/uL 4.6-6.2 [facility] Serum or plasma calcium stacey urement (mass/volume)Ordered By: Carina Whitlock on 02-10-2024 Calcium [Mass/Vol] 9.5 mg/dL 8.5-10.1 [facility] Serum or plasma creatinine m easurement (mass/volume)Ordered By: Carina Whitlock on 02-10-2024 Creatinine [Mass/Vol] 0.80 mg/dL 0.70-1.30 [facility] Comment on above: The validity of the calculated GFR & GFRAA in patients over 70 years has not been determined. Clinical correlation is essential. Serum or plasma thyroid stim ulating hormone (TSH) measurement (units/volume)Ordered By: Carina Whitlock on 02-10-2024 TSH Qn 2.24 uIU/mL 0.358-3.74 [facility] Serum or plasma urea nitroge n measurement (mass/volume)Ordered By: Carina Whitlock on 02-10-2024 Urea nitrogen [Mass/Vol] 17 mg/dL 7-18 [facility] Thin prep Papanicolaou smear with manual screeningOrdered By: Carina Whitlock on 02-10-2024 Thin prep Papanicolaou smear with manual screening 3.9 g/dL 3.2-5.0 [facility] Thin prep Papanicolaou smear with manual screening 11 U/L 15-37 [facility] Thin prep Papanicolaou smear with manual screening 4 5-15 [facility] Whole blood hemoglobin A1c/t otal hemoglobin ratio (mass fraction)Ordered By: Carina Whitlock on 02-10-2024 HbA1c (Bld) [Mass fraction] 7.1 % 3.8-5.6 [facility] Comment on above: Normal < 5.7 % Predi abetic 5.7 - 6.4 % Diabetic >or= 6.5 % Please note range changes. CMP with eGFRon 01-25-2024 /SGPT 26 Normal [facility] Comment on above: Performed By: #### 2 [id number] #### [facility],[address] [place] [address] AGE 53 years Normal [facility] Comment on above: Performed By: #### 2 [id number] #### [facility],[address] [place] [address] Albumin [Mass/Vol] 3.8 g/dL Normal 3.4 - 5.0 [facility] Comment on above: Performed By: #### 2 [id number] #### [facility],[address] [place] [address] Albumin/Globulin [Mass ratio] 1.1 {ratio} Normal 0.9 - 1.6 [facility] Comment on above: Performed By: #### 2 42081 #### [facility],[address] [place] [address]28[address] ALK PHOS 141 U/L High 46 - 116 [facility] Comment on above: Performed By: #### 2 88757 #### [facility],[address] [place] [address] Anion gap [Moles/Vol] 11 mmol/L Normal 10 - 20 [facility] Comment on above: Performed By: #### 2 01306 #### [facility],[address] [place] [address] 08631 AST [Catalytic activity/Vol] 18 U/L Normal 15 - 37 [facility] Comment on above: Performed By: #### 2 95787 #### [facility],[address] [place] [address]98 B/C RATIO 16 ratio Normal 0 - 30 [facility] Comment on above: Performed By: #### 2 33771 #### [facility],[address] [place] [address] Bilirubin [Mass/Vol] 1.2 mg/dL High 0.2 - 1.0 [facility] Comment on above: Performed By: #### 2 70199 #### [facility],[address] [place] [address] Calcium [Mass/Vol] 9.7 mg/dL Normal 8.5 - 10.1 [facility] Comment on above: Performed By: #### 2 29722 #### [facility],[address] [place] [address] Chloride [Moles/Vol] 101 mmol/L Normal 98 - 107 [facility] Comment on above: Performed By: #### 2 87366 #### [facility],[address] [place] [address] CMP with eGFR Normal [facility] Comment on above: Result Comment: COMP REHENSIVE METABOLIC PANEL Performed By: #### 2 18807 #### [facility],[address] [place] [address]7714 CO2 [Moles/Vol] 32.6 mmol/L High 21.0 - 32.0 [facility] Comment on above: Performed By: #### 2 44868 #### [facility],[address] [place] [address]5960 Creatinine [Mass/Vol] 0.82 mg/dL Normal 0.70 - 1.30 [facility] Comment on above: Performed By: #### 2 69568 #### [facility],[address] [place] [address]1510 GFR/1.73 sq M.predicted among non-blacks MDRD (S/P/Bld) [Vol rate/Area] mL/min/{1.73_m2} Normal 60 - 999 [facility] Comment on above: Performed By: #### 2 42307 #### [facility],[address] [place] [address] Result Comment: ACCO RDING TO THE NATIONAL KIDNEY DISEASE EDUCATION PROGRAM(NKDE), A NORMAL eGFR IS A VALUE GREATER THAN OR EQUAL TO 60 ML/MIN/1.73 SQ METERS. CHRONIC KIDNEY DISEASE: <60mL/MIN/1.73 SQ METERS KIDNEY FAILURE: <15mL/MIN/1.73 SQ METERS THIS TEST SHOULD ONLY BE USED FOR PATIENTS 18 YEARS OF AGE AND OLDER. Globulin (S) [Mass/Vol] 3.6 g/dL Normal 1.5 - 3.8 [facility] Comment on above: Performed By: #### 2 27078 #### [facility],[address] [place] [address] Glucose [Mass/Vol] 144 mg/dL High 74 - 106 [facility] Comment on above: Performed By: #### 2 02849 #### [facility],[address] [place] [address]3570 Potassium [Moles/Vol] 5.2 mmol/L High 3.5 - 5.1 [facility] Comment on above: Performed By: #### 2 57062 #### [facility],[address] [place] [address]776 Protein [Mass/Vol] 7.4 g/dL Normal 6.4 - 8.2 [facility] Comment on above: Performed By: #### 2 54823 #### [facility],[address] [place] [address]861 Sodium [Moles/Vol] 139 mmol/L Normal 136 - 145 [facility] Comment on above: Performed By: #### 2 75938 #### [facility],[address] [place] [address] 34569 Urea nitrogen [Mass/Vol] 13 mg/dL Normal 7 - 18 [facility] Comment on above: Performed By: #### 2 66790 #### [facility],[address] [place] [address] 10246 HEMOGLOBIN A1C (POM)on 01-25 Glucose [Mass/Vol] 171.4 mg/dL High 0.0 - 0.0 [facility] Comment on above: Result Comment: BLDo HEMOGLOBIN A1C REFERENCE RANGESBLDo Suggested Diagnosis HbA1c(%) HbA1C (mmol/mol Diabetic >/=6.5 >/=48 Prediabetes 5.7 - 6.4 39 - 47 Normal <5.7 <39 Performed By: #### 2 35823 #### [place] [id number] HbA1c (Bld) [Mass fraction] 7.6 % High 0.0 - 6.5 [facility] Comment on above: Performed By: #### 2 35126 #### [place] [phone] PROLACTIN [CCL]on 01-25-2024 Prolactin 7.9 ng/mL Normal 4.0-15.2 [facility] Comment on above: Result Comment: Prol actin test is performed using the [employer] Electrochemiluminescence Immunoassay method. Results obtained with different methods or kits cannot be used interchangeably. [place] [id number] [place] [address] Juan Daniel Chawla III, M.D. [id number] Performed By: #### 2 37642 #### [place] [phone] TSHon 01-25-2024 TSH Qn 3.19 m[IU]/L Normal 0.35 - 3.74 [facility] Comment on above: Performed By: #### 2 23648 #### [place] [id number] Bilirubin Test strip Ql (U)O rdered By: Carina Whitlock on 01-11-2024 Bilirubin Ql (U) Negative Negative [facility] Ketones Test strip Ql (U)Ord ered By: Carina Whitlock on 01-11-2024 Ketones Ql (U) 5 mg/dl Negative [facility] Nitrite Test strip Ql (U)Ord ered By: Carina Whitlock on 01-11-2024 Nitrite Ql (U) Negative Negative [facility] Protein Test strip Ql (U)Ord ered By: Carina Whitlock on 01-11-2024 Protein Ql (U) 100 mg/dl Negative [facility] Urine blood detectionOrdered By: Carina Whitlock on 01-11-2024 RBC Ql (U) Negative Negative [facility] Urine clarityOrdered By: Carina Whitlock on 01-11-2024 Clarity (U) Clear Clear [facility] Urine color determinationOrd ered By: Carina Whitlock on 01-11-2024 Color (U) Yellow Yellow [facility] Urine glucose detectionOrder ed By: Carina Whitlock on 01-11-2024 Glucose Ql (U) Normal mg/dl Normal [facility] Urine leukocyte esterase det ection by dipstickOrdered By: Carina Whitlock on 01-11-2024 Leukocyte esterase Test strip Ql (U) 25 /ul Negative [facility] Urine pHOrdered By: Carina Whitlock on 01-11-2024 pH (U) 5.0 [pH] 5.0 - 8.0 [facility] Urine specific gravity measu rementOrdered By: Carina Whitlock on 01-11-2024 Specific gravity (U) [Rel density] 1.020 1.002-1.03 0 [facility] Urine urobilinogen measureme ntOrdered By: Carina Whitlock on 01-11-2024 Urobilinogen Ql (U) Normal mg/dl Normal [facility] Absolute lymphocyte countOrd ered By: Carina Whitlock on 01-06-2024 Lymphocytes Auto (Unsp spec) [#/Vol] 1.91 10*3/uL 0.83-4.51 [facility] Automated lymphocyte count a s percentage of total leukocytesOrdered By: Carina Whitlock on 01-06-2024 Lymphocytes/100 WBC Auto (Unsp spec) 18.9 % 19-41 [facility] Basophil percentageOrdered B y: Carina Whitlock on 01-06-2024 Basophils/100 WBC (Bld) 0.5 % 0-1 [facility] Bilirubin [Mass/Vol] 1.10 mg/dL 0.20-1.00 [facility] Comment on above: For patients on eltr ombopag therapy, use of Dimension [place] TBIL is not recommended. Chloride [Moles/Vol] 102 mmol/L 98-107 [facility] Eosinophils/100 WBC (Bld) 3.2 % 0-5 [facility] Glucose [Mass/Vol] 160 mg/dL 74-106 [facility] Comment on above: Fasting Glucose resu lt greater than or equal to 126 mg/dL suggests DIABETES MELLITUS per A.D.A. criteria. Hemoglobin (Bld) [Mass/Vol] 14.7 g/dL 13.0-16.5 [facility] Monocytes/100 WBC (Bld) 8.5 % 0-10 [facility] Neutrophils (Bld) [#/Vol] 6.9 10*3/uL 2.0-7.7 [facility] Neutrophils/100 WBC (Bld) 68.3 % 47-70 [facility] Potassium [Moles/Vol] 4.5 mmol/L 3.5-5.1 [facility] Comment on above: Slight Hemolysis, Re sult may be falsely increased. Protein [Mass/Vol] 7.1 g/dL 6.4-8.2 [facility] Sodium [Moles/Vol] 138 mmol/L 136-145 [facility] WBC (Bld) [#/Vol] 10.1 10*3/uL 4.4-11.0 [facility] Determination of erythrocyte mean corpuscular volume (MCV)Ordered By: Carina Whitlock on 01-06-2024 MCV (RBC) [Entitic vol] 93.8 fL 80-94 [facility] Erythrocyte distribution wid th ratioOrdered By: Carina Whitlock 01-06-2024 Erythrocyte distribution width (RBC) [Ratio] 13.3 % 11.6-14.6 [facility] Erythrocyte distribution wid th standard deviationOrdered By: Carina Whitlock on 01-06-2024 Erythrocyte distribution width (RBC) [Entitic vol] 45.4 fL 35.1-43.9 [facility] Hematocrit Auto (Bld) [Volum e fraction]Ordered By: Carina Whitlock on 01-06-2024 Hematocrit (Bld) [Volume fraction] 45.5 % 40-54 [facility] Immature granulocytes/100 WB C Auto (Bld)Ordered By: Carina Whitlock 01-06-2024 Immature granulocytes/100 WBC (Bld) 0.600 % 0.0-0.9 [facility] Comment on above: IG% - Immature Granu locytes (promyelocytes, myelocytes and metamyelocytes) > 1% indicates that a LEFT SHIFT is Present. Laboratory - Chemistry and C hemistry - challengeOrdered By: Carina Whitlock on 01-06-2024 Albumin/Globulin [Mass ratio] 1.2 {ratio} 0.9-2.4 [facility] ALP [Catalytic activity/Vol] 130 U/L 45-117 [facility] ALT [Catalytic activity/Vol] 28 U/L 16-61 [facility] CO2 [Moles/Vol] 31.0 mmol/L 21.0-32.0 [facility] Globulin (S) [Mass/Vol] 3.3 g/dL 2.2-4.2 [facility] Urea nitrogen/Creatinine [Mass ratio] 18.5 mg/mg 10-20 [facility] Laboratory - Hematology and Cell countsOrdered By: Carina Whitlock on 01-06-2024 MCH (RBC) [Entitic mass] 30.3 pg 27.0-32.0 [facility] MCHC (RBC) [Mass/Vol] 32.3 g/dL 32-36 [facility] Nucleated RBC/100 WBC (Bld) [Ratio] 0 % 0-5 [facility] Platelet mean volume (Bld) [Entitic vol] 10.4 fL 6.2-12.0 [facility] Platelets (Bld) [#/Vol] 274 10*3/uL 150-450 [facility] No Panel InformationOrdered By: Carina Whitlock on 01-06-2024 Estimated GFR (MDRD) Amer 83 mL/min >60 [facility] Comment on above: GFR Calc Estimated GFR (MDRD) Non-Af Amer 68 mL/min >60 [facility] Comment on above: Non- GFR Calc RBC Auto (Bld) [#/Vol]Ordere d By: Carina Whitlock on 01-06-2024 RBC (Bld) [#/Vol] 4.85 10*6/uL 4.6-6.2 [facility] Serum or plasma calcium stacey urement (mass/volume)Ordered By: Carina Whitlock on 01-06-2024 Calcium [Mass/Vol] 9.6 mg/dL 8.5-10.1 [facility] Serum or plasma creatinine m easurement (mass/volume)Ordered By: Carina Whitlock on 01-06-2024 Creatinine [Mass/Vol] 1.19 mg/dL 0.70-1.30 [facility] Comment on above: The validity of the calculated GFR & GFRAA in patients over 70 years has not been determined. Clinical correlation is essential. Serum or plasma thyroid stim ulating hormone (TSH) measurement (units/volume)Ordered By: Carina Whitlock on 01-06-2024 TSH Qn 3.33 uIU/mL 0.358-3.74 [facility] Serum or plasma urea nitroge n measurement (mass/volume)Ordered By: Carina Whitlock on 01-06-2024 Urea nitrogen [Mass/Vol] 22 mg/dL 7- [facility] Thin prep Papanicolaou smear with manual screeningOrdered By: Carina Whitlock on 01-06-2024 Thin prep Papanicolaou smear with manual screening 3.8 g/dL 3.2-5.0 [facility] Thin prep Papanicolaou smear with manual screening 9 U/L 15 [facility] Comment on above: Slight Hemolysis, Re sult may be falsely increased. Thin prep Papanicolaou smear with manual screening 5 5-15 [facility] Whole blood hemoglobin A1c/t otal hemoglobin ratio (mass fraction)Ordered By: Carina Whitlock on 12-08-2023 HbA1c (Bld) [Mass fraction] 8.2 % 3.8-5.6 [facility] Comment on above: Normal < 5.7 % Predi abetic 5.7 - 6.4 % Diabetic >or= 6.5 % Please note range changes. Absolute lymphocyte countOrd ered By: Carina Whitlock on 11-10-2023 Lymphocytes Auto (Unsp spec) [#/Vol] 1.69 10*3/uL 0.83-4.51 [facility] Basophil percentageOrdered B y: Carina Whitlock on 11-10-2023 Basophils/100 WBC (Bld) 0.7 % 0-1 [facility] Bilirubin [Mass/Vol] 0.80 mg/dL 0.20-1.00 [facility] Comment on above: For patients on eltr ombopag therapy, use of Dimension [place] TBIL is not recommended. Chloride [Moles/Vol] 101 mmol/L 98-107 [facility] Cholesterol [Mass/Vol] 152 mg/dL <200 [facility] Comment on above: <200 mg/dL Desirable 200-240 mg/dL Borderline >240 mg/dL High Risk Eosinophils/100 WBC (Bld) 1.8 % 0-5 [facility] Glucose [Mass/Vol] 250 mg/dL 74-106 [facility] Comment on above: Glucose result great er than or equal to 200 mg/dLsuggests DIABETES MELLITUS per A.D.A. criteria. Neutrophils (Bld) [#/Vol] 7.6 10*3/uL 2.0-7.7 [facility] Neutrophils/100 WBC (Bld) 72.4 % 47-70 [facility] Potassium [Moles/Vol] 4.8 mmol/L 3.5-5.1 [facility] Comment on above: Slight Hemolysis, Re sult may be falsely increased. Protein [Mass/Vol] 7.4 g/dL 6.4-8.2 [facility] Sodium [Moles/Vol] 137 mmol/L 136-145 [facility] Triglyceride [Mass/Vol] 717 mg/dL <199 [facility] Comment on above: The drugs N-Acetylcy steine and Metamizole may falsely depress this assay. TRIGLYCERIDE IS GREATER THAN 400 mg/dL. LDL RESULT IS INVALID AND WILL NOT BE REPORTED.Serum Triglycerides Reference Interval Normal <150 mg/dL Borderline high 150 - 199 mg/dL High 200 - 499 mg/dL Very High > or = 500 mg/dL WBC (Bld) [#/Vol] 10.5 10*3/uL 4.4-11.0 [facility] Blood erythrocytes count (nu mber/volume)Ordered By: Carina Whitlock on 11-10-2023 RBC (Bld) [#/Vol] 5.11 10*6/uL 4.6-6.2 [facility] Blood hemoglobin measurement (mass/volume)Ordered By: Carina Whitlock on 11-10-2023 Hemoglobin (Bld) [Mass/Vol] 15.5 g/dL 13.0-16.5 [facility] Blood lymphocytes/100 leukoc ytesOrdered By: Carina Whitlock on 11-10-2023 Lymphocytes/100 WBC (Bld) 16.2 % 19-41 [facility] Blood monocytes/100 leukocyt esOrdered By: Carina Whitlock on 11-10-2023 Monocytes/100 WBC (Bld) 7.9 % 0-10 [facility] Blood platelet mean volumeOr dered By: Carina Whitlock on 11-10-2023 Platelet mean volume (Bld) [Entitic vol] 11.1 fL 6.2-12.0 [facility] Determination of erythrocyte mean corpuscular volume (MCV)Ordered By: Carina Whitlock on 11-10-2023 MCV (RBC) [Entitic vol] 94.7 fL 80-94 [facility] Hematocrit Auto (Bld) [Volum e fraction]Ordered By: [facility] Juan on 11-10-2023 Hematocrit (Bld) [Volume fraction] 48.4 % 40-54 [facility] Laboratory - Chemistry and C hemistry - challengeOrdered By: [facility] ALP [Catalytic activity/Vol] 129 U/L 45-117 [facility] ALT [Catalytic activity/Vol] 32 U/L 16-61 [facility] CO2 [Moles/Vol] 31.0 mmol/L 21.0-32.0 [facility] Globulin (S) [Mass/Vol] 3.5 g/dL 2.2-4.2 [facility] Urea nitrogen/Creatinine [Mass ratio] 23.3 mg/mg 10-20 [facility] Laboratory - Hematology and Cell countsOrdered By: Carina Whitlock 11-10-2023 Erythrocyte distribution width (RBC) [Entitic vol] 45.5 fL 35.1-43.9 [facility] Erythrocyte distribution width (RBC) [Ratio] 13.0 % 11.6-14.6 [facility] Immature granulocytes/100 WBC (Bld) 1.000 % 0.0-0.9 [facility] Comment on above: IG% - Immature Granu locytes (promyelocytes, myelocytes and metamyelocytes) > 1% indicates that a LEFT SHIFT is Present. MCH (RBC) [Entitic mass] 30.3 pg 27.0-32.0 [facility] Nucleated RBC/100 WBC (Bld) [Ratio] 0 % 0-5 [facility] MCHC Auto (RBC) [Mass/Vol]Or dered By: Carina Whitlock on 11-10-2023 MCHC (RBC) [Mass/Vol] 32.0 g/dL 32-36 [facility] No Panel InformationOrdered By: Carina Whitlock on 11-10-2023 Estimated GFR (MDRD) Amer 98 mL/min >60 [facility] Comment on above: GFR Calc Estimated GFR (MDRD) Non-Af Amer 81 mL/min >60 [facility] Comment on above: Non- GFR Calc Thyroid Stimulating Hormone (TSH) 2.98 uIU/mL 0.358-3.74 [facility] Platelets bldOrdered By: Carina Whitlock on 11-10-2023 Platelets (Bld) [#/Vol] 267 10*3/uL 150-450 [facility] Serum or plasma albumin stacey urement (mass/volume)Ordered By: Carina Whitlock on 11-10-2023 Albumin [Mass/Vol] 3.9 g/dL 3.2-5.0 [facility] Serum or plasma albumin/glob ulin mass ratioOrdered By: Carina Whitlock 11-10-2023 Albumin/Globulin [Mass ratio] 1.1 {ratio} 0.9-2.4 [facility] Serum or plasma calcium stacey urement (mass/volume)Ordered By: Carina Whitlock 11-10-2023 Calcium [Mass/Vol] 9.4 mg/dL 8.5-10.1 [facility] Serum or plasma cholesterol in HDL measurement (mass/volume)Ordered By: Carina Whitlock 11-10-2023 Cholesterol in HDL [Mass/Vol] 33 mg/dL >40 [facility] Comment on above: The drugs N-Acetylcy steine and Metamizole may falsely depress this assay. Reference Range HDL <40 mg/dL Low HDL Cholesterol HDL >or= 60 mg/dL High HDL Cholesterol Serum or plasma cholesterol in VLDL measurement (mass/volume)Ordered By: Carina Whitlock 11-10-2023 Cholesterol in VLDL [Mass/Vol] TNP [facility] Comment on above: Test not performed Serum or plasma creatinine m easurement (mass/volume)Ordered By: Carina Whitlock on 11-10-2023 Creatinine [Mass/Vol] 1.03 mg/dL 0.70-1.30 [facility] Comment on above: The validity of the calculated GFR & GFRAA in patients over 70 years has not been determined. Clinical correlation is essential. Serum or plasma low density lipoprotein (LDL) cholesterol measurement (mass/volume)Ordered By: Carina Whitlock on 11-10-2023 Cholesterol in LDL [Mass/Vol] TNP [facility] Comment on above: Test not performed Serum or plasma urea nitroge n measurement (mass/volume)Ordered By: Carina Whitlock on 11-10-2023 Urea nitrogen [Mass/Vol] 24 mg/dL 7-18 [facility] Thin prep Papanicolaou smear with manual screeningOrdered By: Carina Whitlock on 11-10-2023 Thin prep Papanicolaou smear with manual screening 13 U/L 15-37 [facility] Comment on above: Slight Hemolysis, Re sult may be falsely increased. Thin prep Papanicolaou smear with manual screening 5 5-15 [facility] Whole blood hemoglobin A1c/t otal hemoglobin ratio (mass fraction)Ordered By: Carina Whitlock on 11-10-2023 HbA1c (Bld) [Mass fraction] 8.9 % 3.8-5.6 [facility] Comment on above: Normal < 5.7 % Predi abetic 5.7 - 6.4 % Diabetic >or= 6.5 % Please note range changes. Absolute lymphocyte countOrd ered By: Carina Whitlock on 08-04-2023 Lymphocytes Auto (Unsp spec) [#/Vol] 1.71 10*3/uL 0.83-4.51 [facility] Basophil percentageOrdered B y: Carina Whitlock on 08-04-2023 Basophils/100 WBC (Bld) 0.5 % 0-1 [facility] Bilirubin [Mass/Vol] 1.00 mg/dL 0.20-1.00 [facility] Comment on above: For patients on eltr ombopag therapy, use of Dimension [place] TBIL is not recommended. Chloride [Moles/Vol] 100 mmol/L 98-107 [facility] Cholesterol [Mass/Vol] 138 mg/dL <200 [facility] Comment on above: <200 mg/dL Desirable 200-240 mg/dL Borderline >240 mg/dL High Risk Eosinophils/100 WBC (Bld) 2.5 % 0-5 [facility] Glucose [Mass/Vol] 330 mg/dL 74-106 [facility] Comment on above: Glucose result great er than or equal to 200 mg/dLsuggests DIABETES MELLITUS per A.D.A. criteria. Neutrophils (Bld) [#/Vol] 7.1 10*3/uL 2.0-7.7 [facility] Neutrophils/100 WBC (Bld) 71.6 % 47-70 [facility] Potassium [Moles/Vol] 4.5 mmol/L 3.5-5.1 [facility] Protein [Mass/Vol] 7.1 g/dL 6.4-8.2 [facility] Sodium [Moles/Vol] 137 mmol/L 136-145 [facility] Triglyceride [Mass/Vol] 450 mg/dL <199 [facility] Comment on above: The drugs N-Acetylcy steine and Metamizole may falsely depress this assay. TRIGLYCERIDE IS GREATER THAN 400 mg/dL. LDL RESULT IS INVALID AND WILL NOT BE REPORTED.Serum Triglycerides Reference Interval Normal <150 mg/dL Borderline high 150 - 199 mg/dL High 200 - 499 mg/dL Very High > or = 500 mg/dL WBC (Bld) [#/Vol] 9.9 10*3/uL 4.4-11.0 [facility] Blood erythrocytes count (nu mber/volume)Ordered By: Carina Whitlock on 08-04-2023 RBC (Bld) [#/Vol] 5.33 10*6/uL 4.6-6.2 [facility] Blood hemoglobin measurement (mass/volume)Ordered By: Carina Whitlock on 08-04-2023 Hemoglobin (Bld) [Mass/Vol] 16.2 g/dL 13.0-16.5 [facility] Blood lymphocytes/100 leukoc ytesOrdered By: Carina Whitlock on 08-04-2023 Lymphocytes/100 WBC (Bld) 17.3 % 19-41 [facility] Blood monocytes/100 leukocyt esOrdered By: Carina Whitlock on 08-04-2023 Monocytes/100 WBC (Bld) 7.4 % 0-10 [facility] Blood platelet mean volumeOr dered By: Carina Whitlock on 08-04-2023 Platelet mean volume (Bld) [Entitic vol] 11.8 fL 6.2-12.0 [facility] Determination of erythrocyte mean corpuscular volume (MCV)Ordered By: Carina Whitlock on 08-04-2023 MCV (RBC) [Entitic vol] 93.4 fL 80-94 [facility] Hematocrit Auto (Bld) [Volum e fraction]Ordered By: Carina Whitlock on 08-04-2023 Hematocrit (Bld) [Volume fraction] 49.8 % 40-54 [facility] Laboratory - Chemistry and C hemistry - challengeOrdered By: Carina Whitlock on 08-04-2023 ALP [Catalytic activity/Vol] 127 U/L 45-117 [facility] ALT [Catalytic activity/Vol] 34 U/L 16-61 [facility] CO2 [Moles/Vol] 30.0 mmol/L 21.0-32.0 [facility] Globulin (S) [Mass/Vol] 3.6 g/dL 2.2-4.2 [facility] Urea nitrogen/Creatinine [Mass ratio] 18.6 mg/mg 10-20 [facility] Laboratory - Hematology and Cell countsOrdered By: Carina Whitlock on 08-04-2023 Erythrocyte distribution width (RBC) [Entitic vol] 46.2 fL 35.1-43.9 [facility] Erythrocyte distribution width (RBC) [Ratio] 13.5 % 11.6-14.6 [facility] Immature granulocytes/100 WBC (Bld) 0.700 % 0.0-0.9 [facility] Comment on above: IG% - Immature Granu locytes (promyelocytes, myelocytes and metamyelocytes) > 1% indicates that a LEFT SHIFT is Present. MCH (RBC) [Entitic mass] 30.4 pg 27.0-32.0 [facility] Nucleated RBC/100 WBC (Bld) [Ratio] 0 % 0-5 [facility] MCHC Auto (RBC) [Mass/Vol]Or dered By: Carina Whitlock on 08-04-2023 MCHC (RBC) [Mass/Vol] 32.5 g/dL 32-36 [facility] No Panel InformationOrdered By: Carina Whitlock on 08-04-2023 Estimated GFR (MDRD) Amer 84 mL/min >60 [facility] Comment on above: GFR Calc Estimated GFR (MDRD) Non-Af Amer 69 mL/min >60 [facility] Comment on above: Non- GFR Calc Thyroid Stimulating Hormone (TSH) 2.09 uIU/mL 0.358-3.74 [facility] Platelets bldOrdered By: Carina Whitlock on 08-04-2023 Platelets (Bld) [#/Vol] 204 10*3/uL 150-450 [facility] Serum or plasma albumin stacey urement (mass/volume)Ordered By: Carina Whitlock on 08-04-2023 Albumin [Mass/Vol] 3.5 g/dL 3.2-5.0 [facility] Serum or plasma albumin/glob ulin mass ratioOrdered By: Carina Whitlock on 08-04-2023 Albumin/Globulin [Mass ratio] 1.0 {ratio} 0.9-2.4 [facility] Serum or plasma calcium stacey urement (mass/volume)Ordered By: Carina Whitlock 08-04-2023 Calcium [Mass/Vol] 9.1 mg/dL 8.5-10.1 [facility] Serum or plasma cholesterol in HDL measurement (mass/volume)Ordered By: Carina Whitlock on 08-04-2023 Cholesterol in HDL [Mass/Vol] 37 mg/dL >40 [facility] Comment on above: The drugs N-Acetylcy steine and Metamizole may falsely depress this assay. Reference Range HDL <40 mg/dL Low HDL Cholesterol HDL >or= 60 mg/dL High HDL Cholesterol Serum or plasma cholesterol in VLDL measurement (mass/volume)Ordered By: Carina Whitlock 08-04-2023 Cholesterol in VLDL [Mass/Vol] [facility] Comment on above: Test not performed Serum or plasma creatinine m easurement (mass/volume)Ordered By: Carina Whitlock on 08-04-2023 Creatinine [Mass/Vol] 1.18 mg/dL 0.70-1.30 [facility] Comment on above: The validity of the calculated GFR & GFRAA in patients over 70 years has not been determined. Clinical correlation is essential. Serum or plasma low density lipoprotein (LDL) cholesterol measurement (mass/volume)Ordered By: Carina Whitlock on 08-04-2023 Cholesterol in LDL [Mass/Vol] [facility] Comment on above: Test not performed Serum or plasma urea nitroge n measurement (mass/volume)Ordered By: Carina Whitlock on 08-04-2023 Urea nitrogen [Mass/Vol] 22 mg/dL 7-18 [facility] Thin prep Papanicolaou smear with manual screeningOrdered By: Carina Whitlock on 08-04-2023 Thin prep Papanicolaou smear with manual screening 14 U/L 15-37 [facility] Thin prep Papanicolaou smear with manual screening 7 5-15 [facility] Whole blood hemoglobin A1c/t otal hemoglobin ratio (mass fraction)Ordered By: Carina Whitlock on 08-04-2023 HbA1c (Bld) [Mass fraction] 9.4 % 3.8-5.6 [facility] Comment on above: Normal < 5.7 % Predi abetic 5.7 - 6.4 % Diabetic >or= 6.5 % Please note range changes. Basophil percentageOrdered B y: Karlos Cleary on 07-20-2023 Ammonia (P) [Moles/Vol] 59.0 umol/L 11-32 [facility] Bilirubin [Mass/Vol] 0.90 mg/dL 0.20-1.00 [facility] Comment on above: For patients on eltr ombopag therapy, use of Dimension [place] TBIL is not recommended. Chloride [Moles/Vol] 100 mmol/L 98-107 [facility] Glucose [Mass/Vol] 221 mg/dL 74-106 [facility] Comment on above: Glucose result great er than or equal to 200 mg/dLsuggests DIABETES MELLITUS per A.D.A. criteria. Potassium [Moles/Vol] 4.5 mmol/L 3.5-5.1 [facility] Protein [Mass/Vol] 7.2 g/dL 6.4-8.2 [facility] Sodium [Moles/Vol] 138 mmol/L 136-145 [facility] INR in Blood by Coagulation assayOrdered By: Karlos Cleary on 07-20-2023 INR Coag (Bld) [Relative time] 0.9 {INR} [facility] Laboratory - Chemistry and C hemistry - challengeOrdered By: Karlos Cleary on 07-20-2023 ALP [Catalytic activity/Vol] 121 U/L 45-117 [facility] ALT [Catalytic activity/Vol] 33 U/L 16-61 [facility] CO2 [Moles/Vol] 31.0 mmol/L 21.0-32.0 [facility] Globulin (S) [Mass/Vol] 3.4 g/dL 2.2-4.2 [facility] Urea nitrogen/Creatinine [Mass ratio] 22.5 mg/mg 10-20 [facility] Laboratory - CoagulationOrde red By: Karlos Cleary on 07-20-2023 aPTT Coag (Bld) [Time] 25.5 s 24.1-36.2 [facility] PT Coag (PPP) [Time] 12.2 s 11.7-14.9 [facility] No Panel InformationOrdered By: Karlos Cleary on 07-20-2023 Estimated GFR (MDRD) Amer 131 mL/min >60 [facility] Comment on above: GFR Calc Estimated GFR (MDRD) Non-Af Amer 109 mL/min >60 [facility] Comment on above: Non- GFR Calc Serum or plasma albumin stacey urement (mass/volume)Ordered By: Karlos Cleary on 07-20-2023 Albumin [Mass/Vol] 3.8 g/dL 3.2-5.0 [facility] Serum or plasma albumin/glob ulin mass ratioOrdered By: Karlos Cleary on 07-20-2023 Albumin/Globulin [Mass ratio] 1.1 {ratio} 0.9-2.4 [facility] Serum or plasma [id number] protein tumor marker measurement (units/volume)Ordered By: Karlos Cleary on 07-20-2023 AFP.tumor marker Qn 2.1 ng/mL 0.0-8.4 [facility] Comment on above: [employer] El ectrochemiluminescence Immunoassay(ECLIA)Values obtained with different assay methods or kits cannotbe used interchangeably. Results cannot be interpreted asabsolute evidence of the presence or absence of malignantdisease.This test is not interpretable in females.Performed at: [facility] [id number] Director: Karlos Caraballo PhD, Phone: [phone] Serum or plasma calcium stacey urement (mass/volume)Ordered By: Karlos Cleary on 07-20-2023 Calcium [Mass/Vol] 9.6 mg/dL 8.5-10.1 [facility] Serum or plasma creatinine m easurement (mass/volume)Ordered By: Karlos Cleary on 07-20-2023 Creatinine [Mass/Vol] 0.80 mg/dL 0.70-1.30 [facility] Comment on above: The validity of the calculated GFR & GFRAA in patients over 70 years has not been determined. Clinical correlation is essential. Serum or plasma urea nitroge n measurement (mass/volume)Ordered By: Karlos Cleary on 07-20-2023 Urea nitrogen [Mass/Vol] 18 mg/dL 7-18 [facility] Thin prep Papanicolaou smear with manual screeningOrdered By: Karlos Cleary on 07-20-2023 Thin prep Papanicolaou smear with manual screening 19 U/L 15-37 [facility] Thin prep Papanicolaou smear with manual screening 7 5-15 [facility] COVID-19 virus antigen assay Ordered By: Carina Whitlock on 05-24-2023 SARS-CoV-2 (COVID-19) Ag IA.rapid Ql (Resp) Negative Not Detect [facility] Comment on above: Normal Reference Ran ge: Not DetectedMethod:(RT-PCR) real-time reverse transcriptase PCRLuminex MINERVA Instrument*The Food and Drug Administration (FDA) has issued an Emergency Use Authorization (EAU) for the MINERVA SARS-CoV-2 Assay for the rapid detection of the virus that causes COVID-19. This test has been validated, but the FDAs independent review of this validation is pending.*Negative results do not preclude infection and should not be used as the sole basis for treatment or patient management. Optimum specimen types and timing for peak viral levels during infections caused by SARS-CoV-2 have not been determined. Collection of multiple specimens from the same patient may be necessary to detect the virus. The possibility of a false negative result should be considered if the patient has clinical presentation or has had recent exposure. No Panel InformationOrdered By: Carina Whitlock on 05-24-2023 Influenza Types A,B Direct FA (SULY) [facility] RSV Ag EIAOrdered By: Carina christensen on 06-26-2023 RSV Ag Immune stain Ql (Tiss) [facility] Basophil percentageOrdered B y: Carina Whitlock on 05-03-2023 Ammonia (P) [Moles/Vol] 51.0 umol/L 11-32 [facility] Absolute lymphocyte countOrd ered By: Dr. Whitlock on 02-01-2023 Lymphocytes Auto (Unsp spec) [#/Vol] 1.47 10*3/uL 0.83-4.51 [facility] Basophil percentageOrdered B y: Dr. Whitlock on 02-01-2023 Basophils/100 WBC (Bld) 0.5 % 0-1 [facility] Bilirubin [Mass/Vol] 0.80 mg/dL 0.20-1.00 [facility] Comment on above: For patients on eltr ombopag therapy, use of Dimension [place] TBIL is not recommended. Chloride [Moles/Vol] 100 mmol/L 98-107 [facility] Eosinophils/100 WBC (Bld) 2.9 % 0-5 [facility] Glucose [Mass/Vol] 175 mg/dL 74-106 [facility] Comment on above: Fasting Glucose resu lt greater than or equal to 126 mg/dL suggests DIABETES MELLITUS per A.D.A. criteria. Neutrophils (Bld) [#/Vol] 8.4 10*3/uL 2.0-7.7 [facility] Neutrophils/100 WBC (Bld) 75.2 % 47-70 [facility] Potassium [Moles/Vol] 4.5 mmol/L 3.5-5.1 [facility] Comment on above: Slight Hemolysis, Re sult may be falsely increased. Protein [Mass/Vol] 6.9 g/dL 6.4-8.2 [facility] Sodium [Moles/Vol] 136 mmol/L 136-145 [facility] WBC (Bld) [#/Vol] 11.2 10*3/uL 4.4-11.0 [facility] Blood erythrocytes count (nu mber/volume)Ordered By: Dr. Whitlock on 02-01-2023 RBC (Bld) [#/Vol] 4.87 10*6/uL 4.6-6.2 [facility] Blood hemoglobin measurement (mass/volume)Ordered By: Dr. Whitlock on 02-01-2023 Hemoglobin (Bld) [Mass/Vol] 15.2 g/dL 13.0-16.5 [facility] Blood lymphocytes/100 leukoc ytesOrdered By: Dr. Whitlock on 02-01-2023 Lymphocytes/100 WBC (Bld) 13.2 % 19-41 [facility] Blood monocytes/100 leukocyt esOrdered By: Dr. Whitlock on 02-01-2023 Monocytes/100 WBC (Bld) 7.3 % 0-10 [facility] Blood platelet mean volumeOr dered By: Dr. Whitlock on 02-01-2023 Platelet mean volume (Bld) [Entitic vol] 10.4 fL 6.2-12.0 [facility] Determination of erythrocyte mean corpuscular volume (MCV)Ordered By: Dr. Whitlock on 02-01-2023 MCV (RBC) [Entitic vol] 98.2 fL 80-94 [facility] Hematocrit Auto (Bld) [Volum e fraction]Ordered By: Dr. Whitlock on 02-01-2023 Hematocrit (Bld) [Volume fraction] 47.8 % 40-54 [facility] Laboratory - Chemistry and C hemistry - challengeOrdered By: Dr. Whitlock on 02-01-2023 ALP [Catalytic activity/Vol] 162 U/L 45-117 [facility] ALT [Catalytic activity/Vol] 24 U/L 16-61 [facility] CO2 [Moles/Vol] 29.0 mmol/L 21.0-32.0 [facility] Globulin (S) [Mass/Vol] 3.3 g/dL 2.2-4.2 [facility] Urea nitrogen/Creatinine [Mass ratio] 18.1 mg/mg 10-20 [facility] Laboratory - Hematology and Cell countsOrdered By: Dr. Whitlock on 02-01-2023 Erythrocyte distribution width (RBC) [Entitic vol] 49.0 fL 35.1-43.9 [facility] Erythrocyte distribution width (RBC) [Ratio] 13.4 % 11.6-14.6 [facility] Immature granulocytes/100 WBC (Bld) 0.900 % 0.0-0.9 [facility] Comment on above: IG% - Immature Granu locytes (promyelocytes, myelocytes and metamyelocytes) > 1% indicates that a LEFT SHIFT is Present. MCH (RBC) [Entitic mass] 31.2 pg 27.0-32.0 [facility] Nucleated RBC/100 WBC (Bld) [Ratio] 0 % 0-5 [facility] MCHC Auto (RBC) [Mass/Vol]Or dered By: Dr. Whitlock on 02-01-2023 MCHC (RBC) [Mass/Vol] 31.8 g/dL 32-36 [facility] No Panel InformationOrdered By: Dr. Whitlock on 02-01-2023 Estimated GFR (MDRD) Amer 64 mL/min >60 [facility] Comment on above: GFR Calc Estimated GFR (MDRD) Non-Af Amer 53 mL/min >60 [facility] Comment on above: Non- GFR Calc Thyroid Stimulating Hormone (TSH) 2.47 uIU/mL 0.358-3.74 [facility] Platelets bldOrdered By: Dr. Whitlock on 02-01-2023 Platelets (Bld) [#/Vol] 271 10*3/uL 150-450 [facility] Serum or plasma albumin stacey urement (mass/volume)Ordered By: Dr. Whitlock on 02-01-2023 Albumin [Mass/Vol] 3.6 g/dL 3.2-5.0 [facility] Serum or plasma albumin/glob ulin mass ratioOrdered By: Dr. Whitlock on 02-01-2023 Albumin/Globulin [Mass ratio] 1.1 {ratio} 0.9-2.4 [facility] Serum or plasma calcium stacey urement (mass/volume)Ordered By: Dr. Whitlock on 02-01-2023 Calcium [Mass/Vol] 10.0 mg/dL 8.5-10.1 [facility] Serum or plasma creatinine m easurement (mass/volume)Ordered By: Dr. Whitlock on 02-01-2023 Creatinine [Mass/Vol] 1.49 mg/dL 0.70-1.30 [facility] Comment on above: The validity of the calculated GFR & GFRAA in patients over 70 years has not been determined. Clinical correlation is essential. Serum or plasma urea nitroge n measurement (mass/volume)Ordered By: Dr. Whitlock on 02-01-2023 Urea nitrogen [Mass/Vol] 27 mg/dL 7-18 [facility] Thin prep Papanicolaou smear with manual screeningOrdered By: Dr. Whitlock on 02-01-2023 Thin prep Papanicolaou smear with manual screening 12 U/L 15-37 [facility] Comment on above: Slight Hemolysis, Re sult may be falsely increased. Thin prep Papanicolaou smear with manual screening 7 5-15 [facility] No Panel InformationOrdered By: Dr. Whitlock on 01-04-2023 Thyroid Stimulating Hormone (TSH) 3.05 uIU/mL 0.358-3.74 [facility] Absolute lymphocyte countOrd ered By: Dr. Whitlock on 11-02-2022 Lymphocytes Auto (Unsp spec) [#/Vol] 1.69 10*3/uL 0.83-4.51 [facility] Basophil percentageOrdered B y: Dr. Whitlock on 11-02-2022 Basophils/100 WBC (Bld) 0.8 % 0-1 [facility] Bilirubin [Mass/Vol] 1.10 mg/dL 0.20-1.00 [facility] Comment on above: For patients on eltr ombopag therapy, use of Dimension [place] TBIL is not recommended. Chloride [Moles/Vol] 104 mmol/L 98-107 [facility] Eosinophils/100 WBC (Bld) 3.0 % 0-5 [facility] Glucose [Mass/Vol] 154 mg/dL 74-106 [facility] Comment on above: Fasting Glucose resu lt greater than or equal to 126 mg/dL suggests DIABETES MELLITUS per A.D.A. criteria. Neutrophils (Bld) [#/Vol] 6.7 10*3/uL 2.0-7.7 [facility] Neutrophils/100 WBC (Bld) 70.7 % 47-70 [facility] Potassium [Moles/Vol] 4.7 mmol/L 3.5-5.1 [facility] Protein [Mass/Vol] 6.9 g/dL 6.4-8.2 [facility] Sodium [Moles/Vol] 137 mmol/L 136-145 [facility] WBC (Bld) [#/Vol] 9.4 10*3/uL 4.4-11.0 [facility] Blood erythrocytes count (nu mber/volume)Ordered By: Dr. Whitlock on 11-02-2022 RBC (Bld) [#/Vol] 4.72 10*6/uL 4.6-6.2 [facility] Blood hemoglobin measurement (mass/volume)Ordered By: Dr. Whitlock on 11-02-2022 Hemoglobin (Bld) [Mass/Vol] 14.8 g/dL 13.0-16.5 [facility] Blood lymphocytes/100 leukoc ytesOrdered By: Dr. Whitlock on 11-02-2022 Lymphocytes/100 WBC (Bld) 17.9 % 19-41 [facility] Blood monocytes/100 leukocyt esOrdered By: Dr. Whitlock on 11-02-2022 Monocytes/100 WBC (Bld) 6.9 % 0-10 [facility] Blood platelet mean volumeOr dered By: Dr. Whitlock on 11-02-2022 Platelet mean volume (Bld) [Entitic vol] 10.4 fL 6.2-12.0 [facility] Determination of erythrocyte mean corpuscular volume (MCV)Ordered By: Dr. Whitlock on 11-02-2022 MCV (RBC) [Entitic vol] 93.9 fL 80-94 [facility] Hematocrit Auto (Bld) [Volum e fraction]Ordered By: Dr. Whitlock on 11-02-2022 Hematocrit (Bld) [Volume fraction] 44.3 % 40-54 [facility] Laboratory - Chemistry and C hemistry - challengeOrdered By: Dr. Whitlock on 11-02-2022 ALP [Catalytic activity/Vol] 121 U/L 45-117 [facility] ALT [Catalytic activity/Vol] 29 U/L 16-61 [facility] CO2 [Moles/Vol] 23.0 mmol/L 21.0-32.0 [facility] Globulin (S) [Mass/Vol] 3.0 g/dL 2.2-4.2 [facility] Urea nitrogen/Creatinine [Mass ratio] 15.6 mg/mg 10-20 [facility] Laboratory - Hematology and Cell countsOrdered By: Dr. Whitlock on 11-02-2022 Erythrocyte distribution width (RBC) [Entitic vol] 46.3 fL 35.1-43.9 [facility] Erythrocyte distribution width (RBC) [Ratio] 13.4 % 11.6-14.6 [facility] Immature granulocytes/100 WBC (Bld) 0.700 % 0.0-0.9 [facility] Comment on above: IG% - Immature Granu locytes (promyelocytes, myelocytes and metamyelocytes) > 1% indicates that a LEFT SHIFT is Present. MCH (RBC) [Entitic mass] 31.4 pg 27.0-32.0 [facility] Nucleated RBC/100 WBC (Bld) [Ratio] 0 % 0-5 [facility] MCHC Auto (RBC) [Mass/Vol]Or dered By: Dr. Whitlock on 11-02-2022 MCHC (RBC) [Mass/Vol] 33.4 g/dL 32-36 [facility] No Panel InformationOrdered By: Dr. Whitlock on 11-02-2022 Estimated GFR (MDRD) Amer 115 mL/min >60 [facility] Comment on above: GFR Calc Estimated GFR (MDRD) Non-Af Amer 95 mL/min >60 [facility] Comment on above: Non- GFR Calc Thyroid Stimulating Hormone (TSH) 3.86 uIU/mL 0.358-3.74 [facility] Platelets bldOrdered By: Dr. Whitlock on 11-02-2022 Platelets (Bld) [#/Vol] 264 10*3/uL 150-450 [facility] Serum or plasma albumin stacey urement (mass/volume)Ordered By: Dr. Whitlock on 11-02-2022 Albumin [Mass/Vol] 3.9 g/dL 3.2-5.0 [facility] Serum or plasma albumin/glob ulin mass ratioOrdered By: Dr. Whitlock on 11-02-2022 Albumin/Globulin [Mass ratio] 1.3 {ratio} 0.9-2.4 [facility] Serum or plasma calcium stacey urement (mass/volume)Ordered By: Dr. Whitlock on 11-02-2022 Calcium [Mass/Vol] 9.5 mg/dL 8.5-10.1 [facility] Serum or plasma creatinine m easurement (mass/volume)Ordered By: Dr. Whitlock on 11-02-2022 Creatinine [Mass/Vol] 0.90 mg/dL 0.70-1.30 [facility] Comment on above: The validity of the calculated GFR & GFRAA in patients over 70 years has not been determined. Clinical correlation is essential. Serum or plasma urea nitroge n measurement (mass/volume)Ordered By: Dr. Whitlock on 11-02-2022 Urea nitrogen [Mass/Vol] 14 mg/dL 7-18 [facility] Thin prep Papanicolaou smear with manual screeningOrdered By: Dr. Whitlock on 11-02-2022 Thin prep Papanicolaou smear with manual screening 16 U/L 15-37 [facility] Thin prep Papanicolaou smear with manual screening 10 5-15 [facility] Laboratory - Microbiology an d Antimicrobial susceptibilityon 09-08-2022 SARS-CoV-2 (COVID-19) RNA NELLA+probe Ql (Unsp spec) Not detected Not Detect [facility] Work Phone: Comment on above: Normal Reference Ran ge: Not DetectedMethod:(RT-PCR) real-time reverse transcriptase PCRLuminex MINERVA Instrument*The Food and Drug Administration (FDA) has issued an Emergency Use Authorization (EAU) for the MINERVA SARS-CoV-2 Assay for the rapid detection of the virus that causes COVID-19. This test has been validated, but the FDAs independent review of this validation is pending.*Negative results do not preclude infection and should not be used as the sole basis for treatment or patient management. Optimum specimen types and timing for peak viral levels during infections caused by SARS-CoV-2 have not been determined. Collection of multiple specimens from the same patient may be necessary to detect the virus. The possibility of a false negative result should be considered if the patient has clinical presentation or has had recent exposure. Absolute lymphocyte counton 08-04-2022 Lymphocytes Auto (Unsp spec) [#/Vol] 1.88 10*3/uL 0.83-4.51 [facility] Work Phone: Basophil percentageon 2021 Basophils/100 WBC (Bld) 0.7 % 0-1 [facility] Work Phone: Bilirubin [Mass/Vol] 0.80 mg/dL 0.20-1.00 [facility] Work Phone: Comment on above: For patients on eltr ombopag therapy, use of Dimension [place] TBIL is not recommended. Chloride [Moles/Vol] 105 mmol/L 98-107 [facility] Work Phone: [phone] Eosinophils/100 WBC (Bld) 3.8 % 0-5 [facility] Work Phone: Glucose [Mass/Vol] 143 mg/dL 74-106 [facility] Work Phone: [phone] Comment on above: Fasting Glucose resu lt greater than or equal to 126 mg/dL suggests DIABETES MELLITUS per A.D.A. criteria. Neutrophils (Bld) [#/Vol] 4.4 10*3/uL 2.0-7.7 [facility] Work Phone: Neutrophils/100 WBC (Bld) 61.1 % 47-70 [facility] Work Phone: Potassium [Moles/Vol] 4.4 mmol/L 3.5-5.1 [facility] Work Phone: Protein [Mass/Vol] 6.8 g/dL 6.4-8.2 [facility] Work Phone: Sodium [Moles/Vol] 137 mmol/L 136-145 [facility] Work Phone: [phone] WBC (Bld) [#/Vol] 7.2 10*3/uL 4.4-11.0 [facility] Work Phone: Blood erythrocytes count (nu mber/volume)on 08-04-2022 RBC (Bld) [#/Vol] 4.67 10*6/uL 4.6-6.2 [facility] Work Phone: Blood hemoglobin measurement (mass/volume)on 08-04-2022 Hemoglobin (Bld) [Mass/Vol] 14.8 g/dL 13.0-16.5 [facility] Work Phone: Blood lymphocytes/100 leukoc yteson 08-04-2022 Lymphocytes/100 WBC (Bld) 26.3 % 19-41 [facility] Work Phone: Blood monocytes/100 leukocyt eson 08-04-2022 Monocytes/100 WBC (Bld) 7.4 % 0-10 [facility] Work Phone: Blood platelet mean volumeon 08-04-2022 Platelet mean volume (Bld) [Entitic vol] 10.6 fL 6.2-12.0 [facility] Work Phone: Determination of erythrocyte mean corpuscular volume (MCV)on 08-04-2022 MCV (RBC) [Entitic vol] 93.8 fL 80-94 [facility] Work Phone: Hematocrit Auto (Bld) [Volum e fraction]on 08-04-2022 Hematocrit (Bld) [Volume fraction] 43.8 % 40-54 [facility] Work Phone: Laboratory - Chemistry and C hemistry - challengeon 08-04-2022 ALP [Catalytic activity/Vol] 120 U/L 45-117 [facility] Work Phone: ALT [Catalytic activity/Vol] 34 U/L 16-61 [facility] Work Phone: CO2 [Moles/Vol] 26.0 mmol/L 21.0-32.0 [facility] Work Phone: Globulin (S) [Mass/Vol] 3.2 g/dL 2.2-4.2 [facility] Work Phone: Urea nitrogen/Creatinine [Mass ratio] 24.0 mg/mg 10-20 [facility] Work Phone: Laboratory - Hematology and Cell countson 08-04-2022 Erythrocyte distribution width (RBC) [Entitic vol] 45.3 fL 35.1-43.9 [facility] Work Phone: Erythrocyte distribution width (RBC) [Ratio] 13.2 % 11.6-14.6 [facility] Work Phone: Immature granulocytes/100 WBC (Bld) 0.700 % 0.0-0.9 [facility] Work Phone: Comment on above: IG% - Immature Granu locytes (promyelocytes, myelocytes and metamyelocytes) > 1% indicates that a LEFT SHIFT is Present. MCH (RBC) [Entitic mass] 31.7 pg 27.0-32.0 [facility] Work Phone: Nucleated RBC/100 WBC (Bld) [Ratio] 0 % 0-5 [facility] Work Phone: MCHC Auto (RBC) [Mass/Vol]on 08-04-2022 MCHC (RBC) [Mass/Vol] 33.8 g/dL 32-36 [facility] Work Phone: No Panel Informationon 08-04 Estimated GFR (MDRD) Amer 189 mL/min >60 [facility] Work Phone: Comment on above: GFR Calc Estimated GFR (MDRD) Non-Af Amer 156 mL/min >60 [facility] Work Phone: Comment on above: Non- GFR Calc Thyroid Stimulating Hormone (TSH) 3.91 uIU/mL 0.358-3.74 [facility] Work Phone: Vitamin D 25-Hydroxy 20.4 ng/mL [facility] Work Phone: Comment on above: Vitamin D 25(OH) Sta tus Range Deficiency <20 ng/mL (50nmol/L) Insufficiency 20 - 30 ng/mL (50 - 75 nmol/L) Sufficiency 30 - 100 ng/mL (75 - 250 nmol/L) Toxicity >100 ng/mL (>250 nmol/L) Platelets bldon 08-04-2022 Platelets (Bld) [#/Vol] 233 10*3/uL 150-450 [facility] Work Phone: Serum or plasma albumin stacey urement (mass/volume)on 08-04-2022 Albumin [Mass/Vol] 3.6 g/dL 3.2-5.0 [facility] Work Phone: Serum or plasma albumin/glob ulin mass ratioon 08-04-2022 Albumin/Globulin [Mass ratio] 1.1 {ratio} 0.9-2.4 [facility] Work Phone: Serum or plasma calcium stacey urement (mass/volume)on 08-04-2022 Calcium [Mass/Vol] 8.9 mg/dL 8.5-10.1 [facility] Work Phone: Serum or plasma creatinine m easurement (mass/volume)on 08-04-2022 Creatinine [Mass/Vol] 0.58 mg/dL 0.70-1.30 [facility] Work Phone: Comment on above: The validity of the calculated GFR & GFRAA in patients over 70 years has not been determined. Clinical correlation is essential. Serum or plasma urea nitroge n measurement (mass/volume)on 08-04-2022 Urea nitrogen [Mass/Vol] 14 mg/dL 7-18 [facility] Work Phone: Thin prep Papanicolaou smear with manual screeningon 08-04-2022 Thin prep Papanicolaou smear with manual screening 13 U/L 15-37 [facility] Work Phone: Thin prep Papanicolaou smear with manual screening 6 5-15 [facility] Work Phone: Absolute lymphocyte counton 05-06-2022 Lymphocytes Auto (Unsp spec) [#/Vol] 1.69 10*3/uL 0.83-4.51 [facility] Work Phone: Basophil percentageon 2021 Basophils/100 WBC (Bld) 1.1 % 0-1 [facility] Work Phone: Bilirubin [Mass/Vol] 1.10 mg/dL 0.20-1.00 [facility] Work Phone: Comment on above: For patients on eltr ombopag therapy, use of Dimension [place] TBIL is not recommended. Chloride [Moles/Vol] 102 mmol/L 98-107 [facility]: Eosinophils/100 WBC (Bld) 4.6 % 0-5 [facility] Work Phone: Glucose [Mass/Vol] 143 mg/dL 74-106 [facility] Work Phone: Comment on above: Fasting Glucose resu lt greater than or equal to 126 mg/dL suggests DIABETES MELLITUS per A.D.A. criteria. Neutrophils (Bld) [#/Vol] 4.6 10*3/uL 2.0-7.7 [facility] Work Phone: Neutrophils/100 WBC (Bld) 63.0 % 47-70 [facility] Work Phone: Potassium [Moles/Vol] 4.2 mmol/L 3.5-5.1 [facility] Work Phone: Protein [Mass/Vol] 7.2 g/dL 6.4-8.2 [facility] Work Phone: Sodium [Moles/Vol] 136 mmol/L 136-145 [facility] Work Phone: WBC (Bld) [#/Vol] 7.3 10*3/uL 4.4-11.0 [facility] Work Phone: [phone] Blood erythrocytes count (nu mber/volume)on 05-06-2022 RBC (Bld) [#/Vol] 4.98 10*6/uL 4.6-6.2 [facility] Work Phone: Blood hemoglobin measurement (mass/volume)on 05-06-2022 Hemoglobin (Bld) [Mass/Vol] 15.9 g/dL 13.0-16.5 [facility] Work Phone: Blood lymphocytes/100 leukoc yteson 05-06-2022 Lymphocytes/100 WBC (Bld) 23.3 % 19-41 [facility] Work Phone: Blood monocytes/100 leukocyt eson 06-08-2022 Monocytes/100 WBC (Bld) 7.3 % 0-10 [facility] Work Phone: Blood platelet mean volumeon 05-06-2022 Platelet mean volume (Bld) [Entitic vol] 9.9 fL 6.2-12.0 [facility] Work Phone: Determination of erythrocyte mean corpuscular volume (MCV)on 05-06-2022 MCV (RBC) [Entitic vol] 93.2 fL 80-94 [facility] Work Phone: Hematocrit Auto (Bld) [Volum e fraction]on 05-06-2022 Hematocrit (Bld) [Volume fraction] 46.4 % 40-54 [facility] Work Phone: Laboratory - Chemistry and C hemistry - challengeon 05-06-2022 ALP [Catalytic activity/Vol] 122 U/L 45-117 [facility] Work Phone: ALT [Catalytic activity/Vol] 29 U/L 16-61 [facility] Work Phone: CO2 [Moles/Vol] 30.0 mmol/L 21.0-32.0 [facility] Work Phone: Globulin (S) [Mass/Vol] 3.2 g/dL 2.2-4.2 [facility] Work Phone: Urea nitrogen/Creatinine [Mass ratio] 18.0 mg/mg 10-20 [facility] Work Phone: Laboratory - Hematology and Cell countson 05-06-2022 Erythrocyte distribution width (RBC) [Entitic vol] 43.4 fL 35.1-43.9 [facility] Work Phone: Erythrocyte distribution width (RBC) [Ratio] 12.6 % 11.6-14.6 [facility] Work Phone: Immature granulocytes/100 WBC (Bld) 0.700 % 0.0-0.9 [facility] Work Phone: Comment on above: IG% - Immature Granu locytes (promyelocytes, myelocytes and metamyelocytes) > 1% indicates that a LEFT SHIFT is Present. MCH (RBC) [Entitic mass] 31.9 pg 27.0-32.0 [facility] Work Phone: Nucleated RBC/100 WBC (Bld) [Ratio] 0 % 0-5 [facility] Work Phone: MCHC Auto (RBC) [Mass/Vol]on 05-06-2022 MCHC (RBC) [Mass/Vol] 34.3 g/dL 32-36 [facility] Work Phone: No Panel Informationon 05-06 Estimated GFR (MDRD) Amer 148 mL/min >60 [facility] Work Phone: Comment on above: GFR Calc Estimated GFR (MDRD) Non-Af Amer 123 mL/min >60 [facility] Work Phone: Comment on above: Non- GFR Calc Thyroid Stimulating Hormone (TSH) 2.98 uIU/mL 0.358-3.74 [facility] Work Phone: Vitamin D 25-Hydroxy 20.8 ng/mL [facility] Work Phone: Comment on above: Vitamin D 25(OH) Sta tus Range Deficiency <20 ng/mL (50nmol/L) Insufficiency 20 - 30 ng/mL (50 - 75 nmol/L) Sufficiency 30 - 100 ng/mL (75 - 250 nmol/L) Toxicity >100 ng/mL (>250 nmol/L) Platelets bldon 05-06-2022 Platelets (Bld) [#/Vol] 230 10*3/uL 150-450 [facility] Work Phone: Serum or plasma albumin stacey urement (mass/volume)on 05-06-2022 Albumin [Mass/Vol] 4.0 g/dL 3.2-5.0 [facility] Work Phone: Serum or plasma albumin/glob ulin mass ratioon 05-06-2022 Albumin/Globulin [Mass ratio] 1.2 {ratio} 0.9-2.4 [facility] Work Phone: Serum or plasma calcium stacey urement (mass/volume)on 05-06-2022 Calcium [Mass/Vol] 9.5 mg/dL 8.5-10.1 [facility] Work Phone: Serum or plasma creatinine m easurement (mass/volume)on 05-06-2022 Creatinine [Mass/Vol] 0.72 mg/dL 0.70-1.30 [facility] Work Phone: Comment on above: The validity of the calculated GFR & GFRAA in patients over 70 years has not been determined. Clinical correlation is essential. Serum or plasma urea nitroge n measurement (mass/volume)on 05-06-2022 Urea nitrogen [Mass/Vol] 13 mg/dL 7-18 [facility] Work Phone: Thin prep Papanicolaou smear with manual screeningon 05-06-2022 Thin prep Papanicolaou smear with manual screening 11 U/L 15-37 [facility] Work Phone: Thin prep Papanicolaou smear with manual screening 4 5-15 [facility] Work Phone: Absolute lymphocyte counton 02-04-2022 Lymphocytes Auto (Unsp spec) [#/Vol] 1.47 10*3/uL 0.83-4.51 [facility] Work Phone: Basophil percentageon 2021 Ammonia (P) [Moles/Vol] 58.0 umol/L 11-32 [facility] Work Phone: Basophils/100 WBC (Bld) 0.6 % 0-1 [facility] Work Phone: Bilirubin [Mass/Vol] 0.90 mg/dL 0.20-1.00 [facility] Work Phone: Comment on above: For patients on eltr ombopag therapy, use of Dimension [place] TBIL is not recommended. Chloride [Moles/Vol] 103 mmol/L 98-107 [facility] Work Phone: Eosinophils/100 WBC (Bld) 3.6 % 0-5 [facility] Work Phone: Glucose [Mass/Vol] 109 mg/dL 74-106 [facility] Work Phone: Comment on above: Fasting Glucose resu lt from 100 to 125 mg/dL suggests IMPAIRED HOMEOSTASIS per A.D.A. criteria. Neutrophils (Bld) [#/Vol] 5.4 10*3/uL 2.0-7.7 [facility] Work Phone: Neutrophils/100 WBC (Bld) 68.8 % 47-70 [facility] Work Phone: Potassium [Moles/Vol] 4.2 mmol/L 3.5-5.1 [facility] Work Phone: Protein [Mass/Vol] 7.0 g/dL 6.4-8.2 [facility] Work Phone: Sodium [Moles/Vol] 137 mmol/L 136-145 [facility] Work Phone: WBC (Bld) [#/Vol] 7.9 10*3/uL 4.4-11.0 [facility] Work Phone: Blood erythrocytes count (nu mber/volume)on 02-04-2022 RBC (Bld) [#/Vol] 4.54 10*6/uL 4.6-6.2 [facility] Work Phone: Blood hemoglobin measurement (mass/volume)on 02-04-2022 Hemoglobin (Bld) [Mass/Vol] 14.7 g/dL 13.0-16.5 [facility] Work Phone: Blood lymphocytes/100 leukoc yteson 02-04-2022 Lymphocytes/100 WBC (Bld) 18.7 % 19-41 [facility] [facility] Work Phone: Blood monocytes/100 leukocyt eson 02-04-2022 Monocytes/100 WBC (Bld) 7.5 % 0-10 [facility] Work Phone: Blood platelet mean volumeon 02-04-2022 Platelet mean volume (Bld) [Entitic vol] 10.7 fL 6.2-12.0 [facility] Work Phone: Determination of erythrocyte mean corpuscular volume (MCV)on 02-04-2022 MCV (RBC) [Entitic vol] 94.9 fL 80-94 [facility] Work Phone: Hematocrit Auto (Bld) [Volum e fraction]on 02-04-2022 Hematocrit (Bld) [Volume fraction] 43.1 % 40-54 [facility] Work Phone: Laboratory - Chemistry and C hemistry - challengeon 02-04-2022 ALP [Catalytic activity/Vol] 95 U/L 45-117 [facility] Work Phone: ALT [Catalytic activity/Vol] 26 U/L 16-61 [facility] Work Phone: CO2 [Moles/Vol] 30.0 mmol/L 21.0-32.0 [facility] Work Phone: Globulin (S) [Mass/Vol] 3.2 g/dL 2.2-4.2 [facility] Work Phone: Urea nitrogen/Creatinine [Mass ratio] 25.4 mg/mg 10-20 [facility] Work Phone: Laboratory - Hematology and Cell countson 02-04-2022 Erythrocyte distribution width (RBC) [Entitic vol] 45.7 fL 35.1-43.9 [facility] Work Phone: Erythrocyte distribution width (RBC) [Ratio] 13.2 % 11.6-14.6 [facility] Work Phone: Immature granulocytes/100 WBC (Bld) 0.800 % 0.0-0.9 [facility] Work Phone: Comment on above: IG% - Immature Granu locytes (promyelocytes, myelocytes and metamyelocytes) > 1% indicates that a LEFT SHIFT is Present. MCH (RBC) [Entitic mass] 32.4 pg 27.0-32.0 [facility] Work Phone: Nucleated RBC/100 WBC (Bld) [Ratio] 0 % 0-5 [facility] Work Phone: MCHC Auto (RBC) [Mass/Vol]on 02-04-2022 MCHC (RBC) [Mass/Vol] 34.1 g/dL 32-36 [facility] Work Phone: No Panel Informationon 02-04 Estimated GFR (MDRD) Amer 162 mL/min >60 [facility] Work Phone: Comment on above: GFR Calc Estimated GFR (MDRD) Non-Af Amer 134 mL/min >60 [facility] Work Phone: Comment on above: Non- GFR Calc Thyroid Stimulating Hormone (TSH) 3.09 uIU/mL 0.358-3.74 [facility] Work Phone: Vitamin D 25-Hydroxy 12.9 ng/mL [facility] Work Phone: Comment on above: Vitamin D 25(OH) Sta tus Range Deficiency <20 ng/mL (50nmol/L) Insufficiency 20 - 30 ng/mL (50 - 75 nmol/L) Sufficiency 30 - 100 ng/mL (75 - 250 nmol/L) Toxicity >100 ng/mL (>250 nmol/L) Platelets bldon 02-04-2022 Platelets (Bld) [#/Vol] 211 10*3/uL 150-450 [facility] Work Phone: Serum or plasma albumin stacey urement (mass/volume)on 02-04-2022 Albumin [Mass/Vol] 3.8 g/dL 3.2-5.0 [facility] Work Phone: Serum or plasma albumin/glob ulin mass ratioon 02-04-2022 Albumin/Globulin [Mass ratio] 1.2 {ratio} 0.9-2.4 [facility] Work Phone: Serum or plasma calcium stacey urement (mass/volume)on 02-04-2022 Calcium [Mass/Vol] 9.7 mg/dL 8.5-10.1 [facility] Work Phone: Serum or plasma creatinine m easurement (mass/volume)on 02-04-2022 Creatinine [Mass/Vol] 0.67 mg/dL 0.70-1.30 [facility] Work Phone: Comment on above: The validity of the calculated GFR & GFRAA in patients over 70 years has not been determined. Clinical correlation is essential. Serum or plasma urea nitroge n measurement (mass/volume)on 02-04-2022 Urea nitrogen [Mass/Vol] 17 mg/dL 7-18 [facility] Work Phone: Thin prep Papanicolaou smear with manual screeningon 02-04-2022 Thin prep Papanicolaou smear with manual screening 13 U/L 15-37 [facility] Work Phone: Thin prep Papanicolaou smear with manual screening 4 5-15 [facility] Work Phone: US ELASTOGRAPHY LIVER W/ABD LTDon 04-05-2020 US ELASTOGRAPHY LIVER W/ABD LTD ORIGINAL Ultrasound RIGHT upper quadrant and Hepatic elastography CLINICAL STATEMENT:FATTY LIVER, COMPARISON: None FINDINGS: The study is less than optimal due to patient's condition, bowel gas and rapid breathing. Small lesions could easily be obscured. The gallbladder is grossly normal. There is no intra or extrahepatic bile duct dilatation. The common duct is 4 mm at the yefri hepatis. The liver is mildly heterogeneous with some coarsening without obvious increase in echogenicity. No focal lesions are seen. No obvious nodularity of the visualized liver margins. The pancreas is not well seen due to bowel gas artifacts. No ascites is seen in the RIGHT upper quadrant. Limited survey images of the RIGHT kidney shows normal cortical thickness and echogenicity with no pelvocaliectasis. There is a 3 cm exophytic simple appearing cyst of the kidney. Elastography of the liver was performed in the right lobe: Median velocity: 1.24 m/s IQR/median ratio: 0.27 (Value less than or equal to 0.3 should be seen to ensure exam adequacy.) IMPRESSION: Mildly heterogeneous liver suggesting a diffuse hepatocellular process probably fatty infiltration. Liver elastography does not indicate clinically significant liver fibrosis. Simple cyst of the RIGHT kidney. \H\SRU Consensus of Suggested Thresholds in Patients with Hepatitis C (Based upon Siemens pSWE):\N\ Median Velocity: Recommendation: < 1.2 m/s (Seimens No Clinically Significant Fibrosis: METAVIR Stage 2.2 m/s Advanced Fibrosis and/or Cirrhosis: METAVIR Stage F4 and Some F3 Clinically significant Fibrosis \H\ __ \N\ Elastography Assessment of Liver Fibrosis: Society of Radiologists in Ultrasound Consensus Conference Statement Sukhdev Garg, Jennifer Wallis, Michael Lomeli, Ambrose Marvin, Lola Baldwin, Eriberto Christianson, Bakari Diego, Garfield Rico, Sonja Collins, Ana Rosa Zimmer, and Ana Rosa [facility] 2015 276:3, [phone] Interpreted By: Chacho Sierra MD Preliminary Report By: Chacho Sierra MD Electronically Signed By: Chacho Sierra MD Dictated Date: 04/05/2020 8:28:22 AM Prelim Date: 04/05/2020 8:28:22 AM Sign Date: 04/05/2020 8:30:57 AM Ordering Provider:Karlos Cleary [facility] ([place]) No Panel Information Influenza Types A,B Direct FA (SULY) [facility] Work Phone: RSV Ag EIA RSV Ag Immune stain Ql (Tiss) [facility] Work Phone: Vital Signs Date Time Vital Sign Value Performing Clinician Facility 05-15-2025 18:10-0400 Inhaled oxygen concentration 30 % Dr. Carina Whitlock MD Work Phone: [facility] 05-15-2025 18:00-0400 Body temperature 97.2 [degF] Dr. Carina Whitlock MD Work Phone: [facility] 05-15-2025 18:00-0400 Diastolic blood pressure 83 mm[Hg] Dr. Carina Whitlock MD Work Phone: [facility] 05-15-2025 18:00-0400 Heart rate 78 /min Dr. Carina Whitlock MD Work Phone: [facility] 05-15-2025 18:00-0400 Respiratory rate 14 /min Dr. Carina Whitlock MD Work Phone: [facility] 05-15-2025 18:00-0400 SaO2% (BldA) [Mass fraction] 88 % Dr. Carina Whitlock MD Work Phone: [facility] 05-15-2025 18:00-0400 Systolic blood pressure 138 mm[Hg] Dr. Carina Whitlock MD Work Phone: [facility] 05-15-2025 16:00-0400 Inhaled oxygen flow rate 4 L/min Dr. Carina Whitlock MD Work Phone: [facility] 05-15-2025 15:07-0400 Body mass index (BMI) [Ratio] 35.6 kg/m2 Dr. Carina Whitlock MD Work Phone: [facility] 05-15-2025 15:07-0400 Body weight 112.[address] Carina Whitlock MD Work Phone: [facility] 05-15-2025 14:55-0400 Body height 177.[address] Carina Whitlock MD Work Phone: [facility] Encounters Encounter Date Encounter Type Care Provider Facility Start: 05-15-2025 Evaluation and management of inpatient Dr. Fede Diaz DO -Intensive Care Unit Work Phone: Start: 04-02-2025 End: 04-02-[address] Carina Whitlock MD Work Phone: [facility] Work Phone: Start: 04-02-2025 End: 04-02-[address] Carina Whitlock MD -Laboratory, Specimen Work Phone: Start: 04-02-2025 End: 04-02-2025 ambulatory Carina Chi Juan Facility:[facility] Start: 02-13-2025 End: 02-13-[address] Carina Whitlock MD Work Phone: [facility] Work Phone: Start: 02-13-2025 End: 02-13-[address] Carina Whitlock MD -Laboratory Work Phone: Start: 02-13-2025 End: 02-13-2025 ambulatory Carina Chi Juan Facility:[facility] Start: 01-09-2025 End: 01-09-2025 ambulatory JAYDEN LANGFORD [facility] Start: 11-13-2024 End: 11-13-[address] Carina Whitlock MD -Laboratory, Phy Office 3rd Mnr Start: 11-13-2024 End: 11-13-2024 ambulatory Carina Chi Juan Facility:[facility] Start: 08-07-2024 End: 08-07-2024 ambulatory Carina Chi Juan Facility:[facility] Start: 07-04-2024 End: 07-04-2024 ambulatory Carina Chi Juan Facility:[facility] Start: 06-12-2024 End: 06-12-2024 ambulatory Carina Chi Juan Facility:[facility] Start: 05-08-2024 End: 05-08-2024 ambulatory Carina Chi Juan Facility:[facility] Start: 04-07-2024 End: 04-07-2024 ambulatory Carina Chi Juan Facility:[facility] Start: 03-07-2024 End: 03-07-2024 ambulatory [facility] Work Phone: Start: 03-07-2024 End: 03-07-2024 Patient encounter procedure [facility]-Pulmonary Services/Neurology Work Phone: Start: 02-11-2024 End: 02-11-2024 ambulatory [facility] Work Phone: Start: 02-11-2024 End: 02-11-2024 Patient encounter procedure [facility]-Pulmonary Services/Neurology Work Phone: Start: 02-10-2024 End: 02-10-2024 ambulatory [facility] Work Phone: Start: 02-10-2024 End: 02-10-2024 Patient encounter procedure [facility]-Laboratory, Phy Office 3rd Flr Start: 01-25-2024 End: 01[facility]25[facility]: 01-11-2024 End: 01-11-2024 ambulatory [facility] Work Phone: Start: 01-11-2024 End: 01-11-2024 Patient encounter procedure [facility]-Laboratory, Phy Office 3rd Flr Start: 01-06-2024 End: 01-06-2024 ambulatory [facility] Work Phone: Start: 01-06-2024 End: 01-06-2024 Patient encounter procedure [facility]-Laboratory, Phy Office 3rd Flr Start: 12-08-2023 End: 12-08-2023 ambulatory [facility] Work Phone: Start: 12-08-2023 End: 12-08-2023 Patient encounter procedure [facility]-Laboratory, Phy Office 3rd Flr Start: 11-10-2023 End: 11-10-2023 ambulatory [facility] Work Phone: Start: 11-10-2023 End: 11-10-2023 Patient encounter procedure [facility]-Laboratory, Phy Office 3rd Flr Start: 08-04-2023 End: 08-04-2023 Patient encounter procedure [facility] Work Phone: Start: 08-04-2023 End: 08-04-2023 ambulatory [facility] Work Phone: Start: 08-04-2023 End: 08-04-2023 Patient encounter procedure [facility]-Laboratory, Phy Office 3rd Flr Start: 07-20-2023 End: 07-20-2023 ambulatory [facility] Work Phone: Start: 07-20-2023 End: 07-20-2023 [facility] [place] [facility] Start: 05-24-2023 End: 05-24-2023 ambulatory [facility] Work Phone: Start: 05-24-2023 End: 05-24-2023 [facility] Start: 05-03-2023 End: 05-03-2023 [facility] Start: 02-01-2023 End: 02-01-2023 ambulatory [facility] Work Phone: Start: 02-01-2023 End: 02-01-2023 Patient encounter procedure [facility], y Office 3rd Flr Start: 01-04-2023 End: 01-04-2023 ambulatory [facility] Work Phone: Start: 01-04-2023 End: 01-04-2023 Patient encounter procedure [facility], y Office 3rd Flr Start: 11-02-2022 End: 11-02-[address] Carina Whitlock Work Phone: [facility] Work Phone: Start: 11-02-2022 End: 11-02-[address] [facility] Start: 09-08-2022 End: 09-08-[address] Carina Whitlock Work Phone: [facility] Work Phone: Start: 09-08-2022 End: 09-08-[address] Carina Whitlock Work Phone: [facility]-Pulmonary Services/Neurology Start: 08-22-2022 Non-patient / Non-visit Dr. Tano Whitlock Work Phone: [facility] Start: 08-21-2022 End: 08-21-[address] Carina Whitlock Work Phone: [facility]-Pulmonary Services/Neurology Start: 08-04-2022 End: 08-04-2022 ambulatory [facility] Work Phone: Start: 08-04-2022 End: 08-04-2022 Patient encounter procedure [facility]-Laboratory, Phy Office 3rd Flr Start: 05-06-2022 End: 05-06-2022 Patient encounter procedure [facility]-Laboratory, Phy Office 3rd Flr Start: 02-12-2022 End: 02-12-2022 Patient encounter procedure [facility] Start: 02-04-2022 End: 02-04-2022 Patient encounter procedure [facility]-Laboratory, y Office 3rd Flr Procedures Date Procedure Procedure Detail Performing Clinician Start: 05-15-2025 Carbon dioxide measu rement, partial pressure Dr. Carina Whitlock MD Work Phone: Start: 05-15-2025 Gases blood o2 satur ation only direct stacey Dr. Carina Whitlock MD Work Phone: Start: 05-15-2025 Measurement of parti al pressure of oxygen in blood Dr. Carina Whitlock MD Work Phone: Start: 05-15-[address] Carina Whitlock MD Work Phone: Start: 05-15-[address] Carina Whitlock MD Work Phone: Start: 05-15-2025 D-dimer assay, quantitative Dr. Carina Whitlock MD Work Phone: Comment on above: NORMAL D-Dimer level (<0.50) indicates no DVT or PE. Start: 05-15-2025 SARS-CoV-2, Influenz a & RSV (PCR) Dr. Carina Whitlock MD Work Phone: Start: 04-02-2025 SARS-CoV-2, Influenz a & RSV (PCR) Dr. Carina Whitlock MD Work Phone: Start: 03-07-2024 SARS-CoV-2, Influenz a & RSV (PCR) Start: 02-11-2024 SARS-CoV-2, Influenz a & RSV (PCR) Start: 08-04-2023 MRI of abdomen with contrast Start: 05-24-2023 Influenza Types A,B Direct FA (SULY) Start: 05-24-2023 Respiratory syncytia l virus antigen assay Start: 02-12-2022 Ultrasonography of abdomen Start: 02-12-2022 Ultrasound elastography Influenza Types A,B Direct FA (SULY) Dr. Carina Whitlock Work Phone: Respiratory syncytia l virus antigen assay Dr. Carina Whitlock Work Phone: Plan of Treatment Date Care Activity Detail Author Start: 05-15-2025 CT angiography of chest with contrast CTA Chest W/WO Contrast [facility] Start: 05-15-2025 CTA Chest vessels WO and W contrast IV [facility] Start: 05-15-2025 Plain chest X-ray Chest 1 View (Portable) [facility] Start: 05-15-2025 XR Chest Single view [facility] Start: 05-15-2025 Airway suction technique [facility] Start: 05-15-2025 Creatine kinase [Enzymatic activity/volume] in Serum or Plasma [facility] Start: 05-15-2025 Triglycerides measurement [facility] Start: 05-15-2025 Hospital admission, emergency, from emergency room, medical nature [facility] Start: 05-15-2025 Verification routine [facility] Start: 05-15-2025 Admission procedure [facility] Start: 05-15-2025 [facility] Start: 05-15-2025 Continuous pulse oximetry [facility] Start: 05-15-2025 X-ray of chest, PA and lateral views Chest PA and Lateral [facility] Start: 05-15-2025 XR Chest PA and Lateral [facility] Start: 05-15-2025 [facility] Start: 05-15-2025 Microscopic observation [Identifier] in Unspecified specimen by Gram stain [facility] Start: 05-15-2025 Respiratory Culture Respiratory Culture [facility] Start: 05-15-2025 [facility] Bacteria identified in Sputum by Respiratory culture [facility] Patient referral [facility] Work Phone: Troponin T.cardiac [Mass/volume] in Serum or Plasma by High sensitivity method [facility] Payers Date Payer Category Payer Self-pay [id number] 2016 Medicaid [id number] 1998 Medicare [id number] 1972 Unknown [id number] 2.16.8 [id number] 1972 Unknown [id number] 2.16.8 [id number] 1972 Unknown [id number] 2.16.8 [id number] Unknown [id number] 2.16.8 [id number] Unknown [id number] 2.16.8 [id number] Unknown [id number] 2.16.8 [id number] Unknown [id number] 2.16.8 [id number] Unknown [id number] 2.16.8 [id number] Unknown [id number] 2.16.8 [id number] Unknown [id number] 2.16.8 [id number] Unknown [id number] 2.16.8 [id number] Social History Date Type Detail Facility Start: 10-22-2021 End: 10-22-2021 Tobacco smoking status NHIS Unknown if ever smoked [facility] Start: 1970 Sex Assigned At Male [facility] Start: 10-22-2021 End: 05-15-2025 Tobacco smoking status NHIS Never smoked tobacco (finding) [facility] Start: 02-22-2025 Sex Male (finding) [facility] Discharge summary 05-15-2025 Note Date & Type Note Facility 05-15-2025 Discharge summary [facility] Discharge summary 05-15-2025 Note Date & Type Note Facility 05-15-2025 Discharge summary Note Date/Time May 15, 2025 5:44pm [facility] Medical Records Department [address] [place] [address] Emergency Department Summary 05/15/25 MR#: [id number] Acct: [id number] Name: ALAN DAUGHERTY Rep #:[id number] 2 : 1970 54 From: Danny Hannon MD PCP: Dr. Carina Whitlock MD Status:REG E R Location: ED ADDENDUM by Dr. Danny Hannon MD on 05/15/25 at 1744 Patient was intubated by RSI technique. He received 20 mg of etomidate followedby 75 mg of rocuronium. He was preoxygenated. Patient was easily orotracheallyintubated with a 7.5 Guinean endotracheal tube. Appropriate color change noted on the capnometer. Breath sounds were noted bilaterally. Will obtain postintubation x-ray and x-ray post OG placement. Patient was intubated prior to going to radiology suite for CTA. 05/15/25 1744<Electronically signed by Danny Hannon MD> Cosigner Signature (if applicable): cc: Dr. Carina Whitlock MD ~* Signed ADDENDUM by Dr. Danny Hannon MD on 05/15/25 at 1732 Repeat ABG reveals a pH of 7.29, pCO2 75, pO2 75, bicarb 36.4 with a base excessof 9.9 and 92% saturation. Patient has not improved with regards to ventilationtherefore will intubate. 05/15/25 173<Electronically signed by Danny Hannon MD> Cosigner Signature (if applicable): cc: Dr. Carina Whitlock MD ~* Signed HPI History of Present Illness Chief Complaint: Shortness of Breath Detail of Chief Complaint: Shortness of breath and pulse ox of 70% at Dr. cuellar Informant: parent Onset/Context/Timing Onset: - (Unknown) Context: - (Unable to determine) Timing: Continuous (Per mom) Quality: Shortness of breath and low oxygen level Location: Respiratory Current Severity: Moderate Maximum Severity: Severe Worsened by: Activity and no oxygen Relieved by: Nothing Associated Symptoms Associated Symptoms: Cough Narrative Narrative: Patient is a 54-year-old male with history of schizophrenia, bipolar affective disorder, hypertension, hyperlipidemia and type 2 diabetes. He was seen for routine visit. He was sent from Dr. Russell's office. There is no call. Historyis limited because of patient's altered mental status and mom is not able to supplement much more than he is short of breath and has a cough Recent [facility] Medical History Asthma Hypercholesterolemia Hypertension Diabetes mellitus Schizophrenia Home Medications ?Medication ?Instructions ?Recorded ?Last Taken ?Type atorvastatin 40 mg tablet 40 mg PO QHS 06/18/21 History valsartan 320 mg tablet 320 mg PO DAILY 06/18/21 History aripiprazole 300 mg intramuscular 300 mg IM QMONTH 07/19 Unknown History suspension,extended release (Abilify Maintena) fluoxetine 40 mg capsule 40 mg PO DAILY 05/15/2504/29 History glimepiride 2 mg tablet 2 mg PO DAILY 05/15/2505/15 History haloperidol 5 mg tablet 5 mg PO BID 05/15/25 5 History levothyroxine 25 mcg tablet 25 mcg PO DAILY 05/15/25 0 05/15/25 History lithium carbonate 300 mg capsule 300 mg PO BID 5 05/15/25 History metformin 500 mg tablet,extended 500 mg PO BID 5 05/15/25 History release 24 hr propranolol 40 mg tablet 40 mg PO TID 05/15/25 History semaglutide 3 mg tablet (Rybelsus) 3 mg PO DAILY 05/1505/15/25 History Allergy/AdvReac Type Severity Reaction Status Date / Time divalproex sodium (From AdvReac Severe Crtiticly Verified 05/15/25 14:54 Depakote) Elevated Ammonia Levels Social History (Updated 05/15/25 @ 15:[address] Danny Hannon MD) household members: family Smoking Status: Never smoker substance use type: does not use ROS ROS ED Review of Systems ROS Unobtainable: due to mental status Respiratory/Chest Respiratory/Chest: Reports cough, dyspnea and dyspnea on exertion EXAM Physical Exam Const Vital Signs: 05/15/25 14:55 05/15/25 14:55 05/15/25 15:00 Temperature 97.7 F L 97.7 F L Temperature Source Oral Oral Pulse Rate 67 67 Respiratory Rate 24 H 24 H Respiratory Effort Respiratory Depth Respiratory Pattern Blood Pressure 115/57 L 115/57 L Blood Pressure Mean 76 76 Pulse Ox 78 78 97 Oxygen Delivery Method Room Air Room Air Nasal Cannula Oxygen Flow Rate (L/min) 4 Fraction of Inspired Oxygen (FIO2) 05/15/25 15:03 05/15/25 15:23 05/15/25 15:30 Temperature Temperature Source Pulse Rate 66 66 Respiratory Rate 40 H 25 H Respiratory Effort Labored Respiratory Depth Shallow Respiratory Pattern Tachypnea Blood Pressure 131/61 H 125/70 H Blood Pressure Mean 84 88 Pulse Ox 97 98 Oxygen Delivery Method Nasal Cannula Nasal Cannula Nasal Cannula Oxygen Flow Rate (L/min) 4 4 4 Fraction of Inspired Oxygen (FIO2) 05/15/25 16:00 05/15/25 16:15 05/15/25 16:18 Temperature 97.5 F L Temperature Source Axillary Pulse Rate 64 64 Respiratory Rate 36 H 35 H 33 H Respiratory Effort Respiratory Depth Respiratory Pattern Normal Blood Pressure 119/70 117/76 Blood Pressure Mean 86 89 Pulse Ox 92 94 93 Oxygen Delivery Method Nasal Cannula Bi-pap Oxygen Flow Rate (L/min) 4 Fraction of Inspired Oxygen (FIO2) 35 35 05/15/25 16:30 05/15/25 16:36 05/15/25 17:00 Temperature 97.5 F L Temperature Source Axillary Pulse Rate 62 67 69 Respiratory Rate 20 H 23 H 30 H Respiratory Effort Respiratory Depth Respiratory Pattern Tachypnea Blood Pressure 115/73 116/68 Blood Pressure Mean 87 84 Pulse Ox 22 94 93 Oxygen Delivery Method Bi-pap Bi-pap Oxygen Flow Rate (L/min) Fraction of Inspired Oxygen (FIO2) 35 35 35 Positive well nourished and well developed Constitutional Narrative: BMI is 35.6. Patient is breathing rapidly with depressed level of consciousnesshe needs continuous verbal stimuli to keep his eyes open. He is slow to answer questions. General Appearance ED: well developed; Negative for pallor HEENT Reports dry mucous membranes HEENT Narrative: Head is atraumatic normocephalic. Ears normal. TMs normal. Nares patent with slight clear drainage. Mucosas dry. Posterior pharynx is normal Mouth ED: Yes dry mucous membranes Mouth: dry mucous membranes Eyes PERRL and EOMs intact bilaterally Eyes Narrative: Patient has injected conjunctive, slight drainage noted bilaterally General Eye ED: Negative for pale conjunctiva or scleral icterus Neck no lymphadenopathy, supple and no JVD Neck Narrative: Trachea is midline. There is no JVD. Chest Wall inspection of chest normal and palpation of chest normal Resp No normal respiratory effort and No clear to auscultation bilaterally Resp Narrative: Patient has use of accessory muscles. There is no retractions. He is breathingrapidly. There is abnormal breath sounds at the right and left base posteriorly. Cardio regular rate, regular rhythm, S1 normal heart sound, S2 normal heart sound and no murmurs GI normal to inspection, nondistended, normoactive bowel sounds, non-tender, non-distended and no masses; Negative for hepatosplenomegaly Back/Spine no CVA tenderness Extremity normal to inspection General Extremety ED: Negative for edema or tenderness General Extremity: Negative for edema Neuro No oriented x3, CN's II-XII intact bilaterally and no sensory deficits noted Neuro Narrative: He is disoriented to time. He initially state he was 64 years of age. He did not know the month or year. Sensorium / Orientation: Negative for alert Psych Psych Narrative: Patient with depressed level consciousness. Difficult to assess his mood and affect. Skin no rashes or lesions noted, no wounds and skin turgor normal General Skin Exam: Negative for jaundice or pallor MDM MDM MDM Narrative Medical decision making narrative: Patient with altered mental status. He was hypoxic. Need to evaluate for pneumonia, pulmonary embolus, or other causes of hypoxia. Doubt pneumothorax dejan has equal breath sounds bilaterally. Clinically he does not appear in failure. Will obtain ABG to assess AA gradient and CO2 because there is concern for hypercapnia since he is obese with a BMI greater than 35. Because there is a concern for pneumonia sepsis workup was undertaken which included electrolyte panel, CBC and lactate. Will await chest x-ray to determine if antibiotics are indicated. Lab Data Attestation: I reviewed the patient's lab results. Lab results narrative: White count is elevated 14,000. H&H is normal. There is a slight shift. Thereis no bandemia. BUN and creatinine are elevated 29 and 1.4 from baseline. BUN to creatinine ratio slightly elevated. Glucose is 173 with a normal CO2 anion gap. Alkaline phosphatase slightly elevated. Labs: Laboratory Results - last 24 hr 05/15/25 15:47 WBC 14.0 H RBC 5.22 Hgb 16.0 Hct 51.1 MCV 97.9 H MCH 30.7 MCHC 31.3 L RDW Std Deviation 52.8 H RDW Coeff of Gautam 14.6 Plt Count 273 MPV 10.4 Immature Gran % (Auto) 0.600 Neut % (Auto) 75.3 H Lymph % (Auto) 14.4 L [place] % (Auto) 7.8 Eos % (Auto) 1.4 Baso % (Auto) 0.5 Absolute Neuts (auto) 10.6 H Absolute Lymphs (auto) 2.01 Nucleated RBC % 0 Sodium 140 Potassium 5.0 Chloride 100 Carbon Dioxide 30.2 Anion Gap 10 BUN 29 H Creatinine 1.40 H Estim Creat Clear Calc 77.56 Est GFR (MDRD) Non-Af 60 BUN/Creatinine Ratio 20.4 H Glucose 173 H Lactic Acid 1.4 Calcium 9.7 Total Bilirubin 0.78 AST 16 ALT 36 Alkaline Phosphatase 167 H Total Protein 7.0 Albumin 4.3 Globulin 2.7 Albumin/Globulin Ratio 1.6 ABG Data ABG results: ABG 05/15/25 15:59 Specimen Type ART Sample Site R Radial pH 7.29 L Bicarbonate Actual 32.6 H Total CO2 35 Base Excess 6 H O2 Saturation 96 O2 % 4.0 ABG pCO2 68.5 H* ABG pO2 93 Asif Test Positive O2 Delivery Device Cannula Vent Mode Not entered Crit Call To/Read Back Yes Blood Gas Notified Whom ug Blood Gas Notified Time 16:00:42 Radiography Chest X-Ray - ED: 2 View, Read by ED Physician (Difficult to read because of limited inspiration. There is cardiomegaly. The left heart border is obstructed and consistent with pneumonia. This is best seen on the lateral film. Osseous structures reveal no acute abnormality.) and Left Infiltrate EKG Initial EKG: Attestation: I personally reviewed and interpreted this EKG as follows: Interpretation: Sinus Rhythm (Rate is 70. GA interval is 106 6 ms. QRS duration 84 ms. QT duration 394 ms. Clyde to the ri right. There is evidence of left posterior fascicular block. There is abnormal ST segments that are new from September 18, 2021) Prior: Changed (The flipped T waves in V1 through V4 are new since August2021.) Management Discussion w/another healthcare provider: Hospitalist (Spoke with Dr. Diaz. Admit to ICU. He requested CTA.) Treatment and Re-Evaluation :: I was informed by patient's nurse that the blood pressure reading of 83/53 was an error. Therefore will not administer the 30 cc/kg bolus. Dr. Diaz requested CTA to evaluate for pulmonary embolus. Critical Care Time Critical Care Time: Yes Critical care time (excluding procedures): 30-74 minutes (33), Including time spent: (History, physical, documentation, discussion with mother, independent rotation laboratory results, imaging and treat for pneumonia with respiratory failure with hypoxemia and hypercapnia.), Discussing w/Patient &/or Family/Press Writer, Discussing w/Consultants and Arranging Admission or Transfer Discharge Plan Dx/Rx/DC Orders Clinical Impression: Community acquired pneumonia, Schizophrenia, paranoid, Acute respiratory failure with hypoxia and hypercapnia, Encephalopathy, Elevated serum creatinine,Abnormal EKG Disposition Disposition: Acute Care [facility] What to do if you have Problems For any increased pain, shortness of breath, bleeding, nausea or vomiting, chestpain, or any unexpected problems, contact your Primary Care Provider. Call [facility] ([phone]) or report to the closest Emergency Room. Call 911 if necessary. 05/15/25 1723 <Electronically signed by Danny Hannon MD> Cosigner Signature (if applicable): CC: Dr. Carina Whitlock MD ~ Signed [facility] Work Phone: Evaluation note Note Date & Type Note Facility Evaluation note No assessment information availa ble [facility] Work Phone: Evaluation note Note Date & Type Note Facility Evaluation note Diagnosis Onset Date Resolution Abnormal EKG acute May 15, 2 025 5:17pm [facility] Work Phone: Reason for referral (narrative) Note Date & Type Note Facility Reason for referral (narrative) No reason for referral information available [facility] Work Phone: Summary Purpose Family History No Family History Records FoundNo Family History Records FoundNo Family History Records Found Advance Directives Advance Directive Response Recorded Date/ Time Living Will No September 18 1:47pm Power of Licensed Prosthetist/Orthotist No September 18, 2021 1:47pm Advance Directive Response Recorded Date/ Time Living Will No September 18 12:47pm Power of Licensed Prosthetist/Orthotist No September 18, 2021 12:47pm Advance Directive Response Recorded Date/ Time Do you have a Healthcare Power of Licensed Prosthetist/Orthotist? No May 15, 2025 3:02pm Chief Complaint and Reason for Visit Chief Complaint FATTY LIVER Chief Complaint WHEEZING WHEEZING CHILLS Chief Complaint Bipolar disorder, un specified CHILLS WITHOUT FEVER Chief Complaint Bipolar disorder, un specified CHILLS WITHOUT FEVER SEE ORDER Chief Complaint Bipolar disorder, un specified CHILLS WITHOUT FEVER SEE ORDER CIRRHOSIS Chief Complaint SCREENING Chief Complaint SCREENING SCREENING Chief Complaint SEE ORDER CIRRHOSIS Chief Complaint Admit Date sobACUTE HYPERCAPNIC RESPIRATORY FAILURE May 15, 2025 5:17pm Reason for Visit Admit Date Abnormal EKG May 15, 2025 5:17 pm Additional Source Comments (unrecognized sect ion and content) No Status Records FoundNo Status Records FoundNo Status Records Found INFORMATION SOURCE (unrecogn ized section and content) DATE CREATED AUTHOR 04/13/2020 [facility] ([place]) DATE CREATED AUTHOR AUTHOR'S ORGANIZ ATION 01/11/2025 [facility] DATE CREATED AUTHOR AUTHOR'S ORGANIZ ATION 04/05/2025 [facility] Goals (unrecognized section and content) Goals may be documented in a n alternate sectionGoals may be documented in an alternate sectionGoals may be documented in an alternate sectionGoals may be documented in an alternate sectionGoals may be documented in an alternate sectionGoals may be documented in an alternate sectionGoals may be documented in an alternate sectionGoals may be documented in an alternate sectionGoals may be documented in an alternate sectionGoals may be documented in an alternate sectionGoals may be documented in an alternate sectionGoals may be documented in an alternate sectionGoals may be documented in an alternate sectionGoals may be documented in an alternate sectionGoals may be documented in an alternate sectionGoals may be documented in an alternate sectionGoals may be documented in an alternate sectionGoals may be documented in an alternate sectionGoals may be documented in an alternate section Care Teams (unrecognized sec tion and content) Team Status: Active Member Role Status Dates Dr. Carina Whitlock MD Primary Care Provider Active Team Status: Inactive Member Role Status Dates Dr. Carina Whitlock MD Primary Care Provider Active Start: February 13, 2025 End: February 13, 2025 Dr. Carina Whitlock MD Attending Provider Active Start: February 13, 2025 End: February 13, 2025 Dr. Carina Whitlock MD Referring Provider Active Start: February 13, 2025 End: February 13, 2025 Team Status: Inactive Member Role Status Dates Dr. Carina Whitlock MD Primary Care Provider Active Start: April 02, 2025 End: April 02, 2025 Dr. Carina Whitlock MD Attending Provider Active Start: April 02, 2025 End: April 02, 2025 Dr. Carina Whitlock MD Referring Provider Active Start: April 02, 2025 End: April 02, 2025 Team Status: Active Member Role Status Dates Dr. Carina Whitlock MD Primary Care Provider Active Start: May 15, 2025 Dr. Danny Hannon MD Emergency Provider Active Sta rt: May 15, 2025 Dr. Fede Diaz DO Admit Provider Active Start: May 15, 2025 Dr. Fede Diaz DO Attending Provider Active Start: May 15, 2025 Team Status: Active Member Role Status Dates Dr. Carina Whitlock MD Family Provider Active Dr. Carina Whitlock MD Primary Care Provider Active Team Status: Inactive Member Role Status Dates Dr. Carina Whitlock MD Primary Care Provider, Attending Provider Active Team Status: Inactive Member Role Status Dates Dr. Carina Whitlock MD Primary Care Provi doron, Attending Provider, Referring Provider Active Team Status: Inactive Member Role Status Dates Dr. Carina Whitlock MD Primary Care Provider Active Dr. Karlos Cleary MD Attending Provider, Referring Provider Active Team Status: Active Member Role Status Dates Dr. Carina Whitlock MD Primary Care Provider Active Dr. Karlos Cleary MD Attending Provider, Referring Provider Active Team Status: Active Member Role Status Dates Dr. Carina Whitlock MD Primary Care Provider, Attending Provider Active Team Status: Active Member Role Status Dates Dr. Carina Whitlock MD Primary Care Provi doron, Attending Provider, Referring Provider Active Team Status: Inactive Member Role Status Dates Dr. Carina Whitlock MD Primary Care Provider Active Start: November 13, 2024 End: November 13, 2024 Dr. Carina Whitlock MD Attending Provider Active Start: November 13, 2024 End: November 13, 2024 Team Status: Inactive Member Role Status Dates Dr. Carina Whitlock MD Primary Care Provider Active Start: February 13, 2025 End: February 13, 2025 Dr. Carina Whitlock MD Attending Provider Active Start: February 13, 2025 End: February 13, 2025 Dr. Carina Whitlock MD Referring Provider Active Start: February 13, 2025 End: February 13, 2025 Team Status: Inactive Member Role Status Dates Dr. Carina Whitlock MD Primary Care Provider Active Start: April 02, 2025 End: April 02, 2025 Dr. Carina Whitlock MD Attending Provider Active Start: April 02, 2025 End: April 02, 2025 Dr. Carina Whitlock MD Referring Provider Active Start: April 02, 2025 End: April 02, 2025 Team Status: Active Member Role Status Dates Dr. Carina Whitlock MD Primary Care Provider Active Team Status: Active Member Role Status Dates Dr. Carina Whitlock MD Primary Care Provider Active Start: May 15, 2025 Dr. Danny Hannon MD Emergency Provider Active Sta rt: May 15, 2025 Dr. Fede Diaz DO Admit Provider Active Start: May 15, 2025 Dr. Fede Diaz DO Attending Provider Active Start: May 15, 2025 FOR RECORDS PERTAINING TO PATIENTS WHO ARE [...] BE BASED ON THE PRIMARY CLINICAL RECORDS. [facility]. provides no warranty or guarantee of the accuracy or completeness of information in this document.
--- NOTE | 2025-05-16 01:29 | PCMCONS.TICU ---
HPI Consult Data Date of Consult: 05/15/25 HPI Narrative HPI Narrative: ALAN DAUGHERTY, is a 54 M who presents SOB from his PCP's office. He was foun to be hypercapnic and hypoxic on Bipap in the ED, after saturations of 70s at his PCPs office. He was intubated and now admitted to the ICU. [facility] Medical History Asthma Hypercholesterolemia Hypertension Diabetes mellitus Schizophrenia Home Medications ?Medication ?Instructions ?Recorded ?Last Taken ?Type atorvastatin 40 mg tablet 40 mg PO QHS 06/18/21 05/14/25 History valsartan 320 mg tablet 320 mg PO DAILY 06/18/21 05/15/25 History aripiprazole 300 mg intramuscular 300 mg IM QMONTH 09/05/21 Unknown History suspension,extended release (Abilify Maintena) fluoxetine 40 mg capsule 40 mg PO DAILY 05/15/25 05/15/25 History glimepiride 2 mg tablet 2 mg PO DAILY 05/15/25 05/15/25 History haloperidol 5 mg tablet 5 mg PO BID 05/15/25 05/15/25 History levothyroxine 25 mcg tablet 25 mcg PO DAILY 05/15/25 05/15/25 History lithium carbonate 300 mg capsule 300 mg PO BID 05/15/25 05/15/25 History metformin 500 mg tablet,extended 500 mg PO BID 05/15/25 05/15/25 History release 24 hr propranolol 40 mg tablet 40 mg PO TID 05/15/25 05/15/25 History semaglutide 3 mg tablet (Rybelsus) 3 mg PO DAILY 05/15/25 05/15/25 History Allergy/AdvReac Type Severity Reaction Status Date / Time divalproex sodium (From AdvReac Severe Crtiticly Verified 05/15/25 14:54 Depakote) Elevated Ammonia Levels Social History (Updated 05/15/25 @ 15:[address] Danny Hannon MD) household members: family Smoking Status: Never smoker substance use type: does not use ROS ROS Narrative as per HPI Objective Data Objective Data Vital Signs: Vital Signs Last response Temperature 37.3 C 05/16/25 01:00 Temperature Source Core 05/16/25 01:00 Pulse Rate 58 L 05/16/25 01:00 Pulse Strength Normal (2+) 05/15/25 21:49 Respiratory Rate 18 05/16/25 01:00 Respiratory Effort Mechanically Ventilated 05/15/25 23:39 Respiratory Depth Normal 05/15/25 23:39 Respiratory Pattern Normal 05/15/25 23:39 Blood Pressure 93/66 05/16/25 01:00 Blood Pressure Mean 75 05/16/25 01:00 Blood Pressure Source Monitor 05/16/25 01:00 Blood Pressure Position Semi-Fowlers 05/16/25 01:00 Blood Pressure Location Right Arm 05/16/25 01:00 Pulse Ox 93 05/16/25 01:00 Oxygen Delivery Method Mechanical Ventilator 05/16/25 01:00 Oxygen Flow Rate (L/min) 4 05/15/25 16:00 Fraction of Inspired Oxygen (FIO2) 40 05/16/25 01:00 I&O: I&O Last 24 Hours 05/15/25 05/15/25 05/16/25 11:59 23:59 11:59 Intake Total 1160.87 / 1175.97 ..1 Output Total 600 / 600 Balance 560.87 / 575.97 ..1 I&O: Total Stay 05/15/25 14:52 thru 05/16/25 00:00 Intake Total 1175.97 Output Total 600 Balance 575.97 Current Meds Ordered / Administered: Current meds ordered / Administered Generic Name Dose Route Start Last Admin Trade Name Freq PRN Reason Stop Dose Admin Acetaminophen 650 mg 05/15/25 19:16 Acetaminophen 325 Mg Tablet PO Q6H PRN PRN Pain 1-10 Or Fever>100.7 Atorvastatin Calcium 40 mg 05/15/25 22:00 05/15/25 21:22 Atorvastatin Calcium 40 Mg Tablet PO 40 mg QHS SAMUEL Administration Chlorhexidine Gluconate 15 ml 05/15/25 22:00 05/15/25 21:23 Chlorhexidine 15 Ml PO 15 ml BID [facility] Administration Chlorhexidine Gluconate 1 each 05/16/25 10:00 Chlorhexidine Gluc 2% Cloth 1 Each [place] TOPICAL DAILY [facility] Enoxaparin Sodium 40 mg 05/16/25 10:00 Enoxaparin 40 Mg/0.4 Ml Syringe SC DAILY [facility] Fluoxetine HCl 40 mg 05/16/25 10:00 Fluoxetine Hcl 40 Mg Capsule PO DAILY [facility] Furosemide 40 mg 05/16/25 10:00 Furosemide 40 Mg/4 Ml Vial IV DAILY SAMUEL Protocol Glucagon 1 mg 05/15/25 19:16 Glucagon 1 Mg/Ml Syringe IM X1 PRN Hypoglycemia Protocol Haloperidol 5 mg 05/15/25 22:00 05/15/25 21:22 Haloperidol 5 Mg Tablet PO 5 mg BID SAMUEL Administration Protocol Propofol 1,000 mg in 100 mls @ 6.756 mls/hr 05/15/25 17:30 05/16/25 00:00 Diprivan CONT INF 15 mcg/kg/min .Q12H SAMUEL 10.1 mls/hr Titration Protocol 10 MCG/KG/MIN Dextrose 250 mls @ 0 mls/hr 05/15/25 19:16 Dextrose 10%-Water IV .Q0M PRN HYPOGLYCEMIA Protocol As Directed Sodium Chloride 250 mls @ 15 mls/hr 05/15/25 19:23 IV .[id number] PRN Saline Flush Sodium Chloride 250 mls @ 15 mls/hr 05/15/25 19:23 IV .[id number] PRN Additional IVPB Infusion Fentanyl 100 mls @ 2.5 mls/hr 05/15/25 20:00 05/16/25 00:00 CONT INF 50 mcg/hr UD SAMUEL 5 mls/hr Titration Protocol 25 MCG/HR Pantoprazole Sodium 40 mg/ 100 mls @ 330 mls/hr 05/16/25 10:00 Sodium Chloride IV Q24 SAMUEL Piperacillin Sod/Tazobactam 50 mls @ 12.5 mls/hr 05/15/25 22:00 05/15/25 21:18 Sod 3.375 gm/ Sodium Chloride IV 12.5 mls/hr Q8 SAMUEL Administration Insulin Human Lispro 0 unit 05/15/25 19:16 05/15/25 23:16 Insulin Lispro 100 Unit/Ml Insuln.Pen SC Not Given Q6 [facility] Protocol Levothyroxine Sodium 25 mcg 05/16/25 06:00 Levothyroxine 25 Mcg Tablet PO DAILY@0600 SAMUEL [place] Carbonate 300 mg 05/15/25 22:00 05/15/25 21:22 [place] Carbonate 300mg Capsule PO 300 mg BID SAMUEL Administration Melatonin 3 mg 05/15/25 19:16 Melatonin 3 Mg Tablet PO QHS PRN PRN INSOMNIA Ondansetron HCl 4 mg 05/15/25 19:16 Ondansetron 4 Mg/2 Ml Vial IV Q8H PRN PRN NAUSEA/VOMITING Sodium Chloride 10 - 40 ml 05/15/25 19:23 05/15/25 21:23 0.9% Saline Lock 10 Ml Syringe IV 20 ml UD PRN Administration SALINE FLUSH Physical Exam Const well nourished General Appearance: well developed HEENT HEENT Narrative: ETT in place Eyes EOMs intact bilaterally Chest inspection of chest normal Resp normal respiratory effort Cardio regular rate and regular rhythm GI soft to palpation, non-tender and non-distended Lab / Micro Data 05/15/25 15:47 05/15/25 21:08 Labs: Laboratory Results - last 24 hr 05/15/25 15:10: D-Dimer Quant (PE/DVT) 0.27 05/15/25 15:47: WBC 14.0 H, RBC 5.22, Hgb 16.0, Hct 51.1, MCV 97.9 H, MCH 30.7, MCHC 31.3 L, RDW Std Deviation 52.8 H, RDW Coeff of Gautam 14.6, Plt Count 273, MPV 10.4, Immature Gran % (Auto) 0.600, Neut % (Auto) 75.3 H, Lymph % (Auto) 14.4 L, [place] % (Auto) 7.8, Eos % (Auto) 1.4, Baso % (Auto) 0.5, Absolute Neuts (auto) 10.6 H, Absolute Lymphs (auto) 2.01, Nucleated RBC % 0, Sodium 140, Potassium 5.0, Chloride 100, Carbon Dioxide 30.2, Anion Gap 10, BUN 29 H, Creatinine 1.40 H, Estim Creat Clear Calc 77.56, Est GFR (MDRD) Non-Af 60, BUN/Creatinine Ratio 20.4 H, Glucose 173 H, Lactic Acid 1.4, Calcium 9.7, Total Bilirubin 0.78, AST 16, ALT 36, Alkaline Phosphatase 167 H, Troponin T High Sens 18, NT pro BNP II 1732 H, Total Protein 7.0, Albumin 4.3, Globulin 2.7, Albumin/Globulin Ratio 1.6, Procalcitonin 0.09 05/15/25 17:43: Troponin T Hi Sens 2 Hr 15 05/15/25 19:35: POC Glucose 158 H 05/15/25 21:08: Sodium 140, Potassium 4.9, Chloride 99, Carbon Dioxide 27.4, Anion Gap 14, BUN 31 H, Creatinine 1.32 H, Estim Creat Clear Calc 81.51, Est GFR (MDRD) Non-Af 65, BUN/Creatinine Ratio 23.4 H, Glucose 168 H, Calcium 9.3, Total Creatine Kinase 25, Troponin T Hi Sens 4Hr 17, Triglycerides 271 H 05/15/25 23:13: POC Glucose 120 H Micro: Microbiology 05/15/25 15:50 Mucosa - Nose SARS-CoV-2, Influenza & RSV (PCR) - Final ABG Data ABG results: ABG 05/15/25 05/15/25 05/15/25 15:59 17:23 19:39 Specimen Type ART ART ART Sample Site R Radial L Radial R RADIAL pH 7.29 L 7.29 L 7.39 Bicarbonate Actual 32.6 H 36.4 H 34.5 H Total CO2 35 39 36 Base Excess 6 H 10 H 10 H O2 Saturation 96 92 L 86 L O2 % 4.0 35.0 30.0 ABG pCO2 68.5 H* 75.1 H* 56.9 H ABG pO2 93 75 54 L Asif Test Positive Positive Positive Respiration Rate 10 18 O2 Delivery Device Cannula BiPAP ADULT VENTILATOR Vent Mode Not entered avaps A-C Tidal Volume 500.0 400.0 POC PEEP 10 5 Crit Call To/Read Back Yes Yes Yes Blood Gas Notified Whom ug hannon Blood Gas Notified Time 16:00:42 17:26:47 Imaging Radiology Impression Chest X-Ray 05/15/25 15:55 IMPRESSION: Mild pulmonary vascular congestion interstitial edema. Retrocardiac/left lower lobe opacity suspected. Stable moderate cardiomegaly. Reading Location: [id number] Chest X-Ray 05/15/25 18:16 IMPRESSION: Endotracheal tube tip 2.6 cm above the erika; consider 1 cm retraction. Enteric tube in appropriate placement. Retrocardiac/left lower lobe opacity not excluded. Mild pulmonary vascular congestion. Stable moderate cardiomegaly. No pleural effusion or pneumothorax. Reading Location: [id number] Chest CTA 05/15/25 18:35 IMPRESSION: No pulmonary embolism. Probable pulmonary edema. Small pericardial effusion. Indeterminate right kidney lesion. Further characterization with nonemergent ultrasound to determine if it is cystic is recommended. Reading Location: [id number] Assessment and Plan . Assessment and plan: Acute Hypoxic Respiratory Failure CHADD AMS Hypotension Plan - Admit ICU - Vent adjusted - Hold diuertics given hypotension - ECHO - Abx - F/u infectious w/u -->covid, flu neg - GI and DVT ppx Critical Care Time: 60 minutes The entirety of this encounter was done via Telemedicine
[2025-05-16] MEDS: Propofol 10MG/Ml 1,000 MG/100 ML Bottle 10.1 MG CONT INF (01:46)
[2025-05-16] MEDS: CHLORHEXIDINE GLUC 2% CLOTH 1 EACH TOWELETTE TOPICAL (02:04)
[2025-05-16] MEDS: 0.9% Saline Lock 10 ML Syringe IV (03:22)
[2025-05-16 03:36] LABS: Hematocrit 44.1 % (40-54); Hemoglobin 14.2 g/dL (13.0-16.5); Mean Corp Hgb Conc 32.2 g/dL (32-36); Mean Corpuscular Hgb 30.7 pg (27.0-32.0); Mean Corpuscular Volume 95.2 fL (80-94); Mean Platelet Vol. 10.4 fl (6.2-12.0); Platelet Count 228 K/mm3 (150-450); RBC Distribution Width CV 14.8 % (11.6-14.6); RBC Distribution Width SD 51.5 fl (35.1-43.9); Red Blood Count 4.63 M/mm3 (4.6-6.2); White Blood Count 13.2 K/mm3 (4.4-11.0)
[2025-05-16 03:58] LABS: Anion Gap 10 (5-15); BUN 30 mg/dL (4-19); BUN/Creat Ratio 25.7 RATIO (10-20); Calcium,Total 9.2 mg/dL (7.6-11.0); Carbon Dioxide 29.4 mmol/L (21.0-32.0); Chloride 101 mmol/L (98-108); Creatinine, Serum 1.18 mg/dL (0.70-1.20); EST Glomerular Filtration Rate 74 (>60); Estimated Creatinine Clearance 92.27 ml/min (50-250); Glucose 139 mg/dL (70-99); Potassium 4.1 mmol/L (3.3-5.1); Sodium Level 140 mmol/L (133-145)
--- NOTE | 2025-05-16 05:10 | RAD_ITS ---
PROCEDURE: CHEST 1 VIEW (PORTABLE) 05/16/2025 REASON FOR EXAM: VERIFY ETT PLACEMENT TECHNIQUE: Frontal view of the chest. COMPARISON: 05/15/2025. FINDINGS: Endotracheal tube is in good position. Enteric feeding tube is in good position with its tip extending below the level of the left hemidiaphragm. Mild increase in bilateral basilar atelectatic pulmonary changes. Mild increase in central pulmonary venous congestion. There is no demonstrated pleural abnormality. Enlarged cardiac silhouette. Normal mediastinum and myra. Normal visualized pulmonary arteries. Atheromatous plaques of the visualized aortic arch and descending thoracic aorta. Diffuse spondylosis of the visualized thoracic spine. Normal visualized ribs, clavicles. Degenerative joint disease. There is no demonstrated abnormality of the visualized soft tissue structures of the upper abdomen. RAD/Chest 1 View (Portable) IMPRESSION: Endotracheal tube is in good position with its tip 2.8 cm above the level of th e erika. Enteric feeding tube is in good position with its tip extending below the level of the left hemidiaphragm. Mild increase in bilateral basilar atelectatic pulmonary changes. Mild increase in central pulmonary venous congestion. Enlarged cardiac silhouette. Reading [facility]
[2025-05-16] MEDS: Insulin Lispro 100 UNIT/ML INSULN.PEN SC ×3 (05:12→18:06)
[2025-05-16] MEDS: Levothyroxine 25 MCG TABLET PO (05:12)
[2025-05-16] MEDS: Piperacil/Tazobactam 3.375 GM in 0.9% Normal Saline (50mL MB+) 50 ML IV ×3 (05:13→23:01)
[2025-05-16 05:40] LABS: Bedside Glucose 152 mg/dL (74-106)
--- NOTE | 2025-05-16 07:30 | PCM.PN.HOSP ---
Reason for Visit Reason for Visit: Diagnoses Acute respiratory failure with hypoxia (05/15/25) Acute respiratory failure with hypercapnia (05/15/25) Objective Data Objective Data Vital Signs: Vital Signs Temp Pulse Resp BP Pulse Ox O2 Del Method O2 Flow Rate 99.2 F H 59 L 18 112/74 93 Mechanical Ventilator 4 05/16/25 06:00 05/16/25 07:02 05/16/25 07:02 05/16/25 06:00 05/16/25 07:02 05/16/25 06:00 05/15/25 16:00 FiO2 40 05/16/25 07:02 Oxygen Flow Rate (L/min) 4 Oxygen Delivery Method Mechanical Ventilator Weight: 249 lb 9.6 oz Body Mass Index (BMI) 35.7 Intake & Output: Intake and Output for Last 24 Hours 05/14/25 05/15/25 05/16/25 23:59 23:59 23:59 Intake Total 1160.87 / 1175.97 215.70 / 215.70 Output Total 600 / 600 175 / 175 Balance 560.87 / 575.97 40.70 / 40.70 Lab / Micro Data 05/16/25 03:19 05/16/25 03:19 Labs: Laboratory Results - last 24 hr 05/15/25 15:10: D-Dimer Quant (PE/DVT) 0.27 05/15/25 15:47: WBC 14.0 H, RBC 5.22, Hgb 16.0, Hct 51.1, MCV 97.9 H, MCH 30.7, MCHC 31.3 L, RDW Std Deviation 52.8 H, RDW Coeff of Gautam 14.6, Plt Count 273, MPV 10.4, Immature Gran % (Auto) 0.600, Neut % (Auto) 75.3 H, Lymph % (Auto) 14.4 L, [place] % (Auto) 7.8, Eos % (Auto) 1.4, Baso % (Auto) 0.5, Absolute Neuts (auto) 10.6 H, Absolute Lymphs (auto) 2.01, Nucleated RBC % 0, Sodium 140, Potassium 5.0, Chloride 100, Carbon Dioxide 30.2, Anion Gap 10, BUN 29 H, Creatinine 1.40 H, Estim Creat Clear Calc 77.56, Est GFR (MDRD) Non-Af 60, BUN/Creatinine Ratio 20.4 H, Glucose 173 H, Lactic Acid 1.4, Calcium 9.7, Total Bilirubin 0.78, AST 16, ALT 36, Alkaline Phosphatase 167 H, Troponin T High Sens 18, NT pro BNP II 1732 H, Total Protein 7.0, Albumin 4.3, Globulin 2.7, Albumin/Globulin Ratio 1.6, Procalcitonin 0.09 05/15/25 17:43: Troponin T Hi Sens 2 Hr 15 05/15/25 19:35: POC Glucose 158 H 05/15/25 21:08: Sodium 140, Potassium 4.9, Chloride 99, Carbon Dioxide 27.4, Anion Gap 14, BUN 31 H, Creatinine 1.32 H, Estim Creat Clear Calc 81.51, Est GFR (MDRD) Non-Af 65, BUN/Creatinine Ratio 23.4 H, Glucose 168 H, Calcium 9.3, Total Creatine Kinase 25, Troponin T Hi Sens 4Hr 17, Triglycerides 271 H 05/15/25 23:13: POC Glucose 120 H 05/16/25 03:19: WBC 13.2 H, RBC 4.63, Hgb 14.2, Hct 44.1, MCV 95.2 H, MCH 30.7, MCHC 32.2, RDW Std Deviation 51.5 H, RDW Coeff of Gautam 14.8 H, Plt Count 228, MPV 10.4, Sodium 140, Potassium 4.1, Chloride 101, Carbon Dioxide 29.4, Anion Gap 10, BUN 30 H, Creatinine 1.18, Estim Creat Clear Calc 92.27, Est GFR (MDRD) Non-Af 74, BUN/Creatinine Ratio 25.7 H, Glucose 139 H, Calcium 9.2 05/16/25 05:11: POC Glucose 152 H Micro: Microbiology 05/16/25 05:07 Urine Catheter - Summers Legionella Antigen - Final 05/16/25 05:07 Urine Catheter - Summers Streptococcus pneumoniae Antigen (M - Final 05/15/25 15:50 Mucosa - Nose SARS-CoV-2, Influenza & RSV (PCR) - Final ABG Data ABG results: ABG 05/15/25 05/15/25 05/15/25 15:59 17:23 19:39 Specimen Type ART ART ART Sample Site R Radial L Radial R RADIAL pH 7.29 L 7.29 L 7.39 Bicarbonate Actual 32.6 H 36.4 H 34.5 H Total CO2 35 39 36 Base Excess 6 H 10 H 10 H O2 Saturation 96 92 L 86 L O2 % 4.0 35.0 30.0 ABG pCO2 68.5 H* 75.1 H* 56.9 H ABG pO2 93 75 54 L Asif Test Positive Positive Positive Respiration Rate 10 18 O2 Delivery Device Cannula BiPAP ADULT VENTILATOR Vent Mode Not entered avaps A-C Tidal Volume 500.0 400.0 POC PEEP 10 5 Crit Call To/Read Back Yes Yes Yes Blood Gas Notified Whom ug hannon Blood Gas Notified Time 16:00:42 17:26:47 Radiography Diagnostic Testing: Radiology Impression Chest X-Ray 05/15/25 15:55 IMPRESSION: Mild pulmonary vascular congestion interstitial edema. Retrocardiac/left lower lobe opacity suspected. Stable moderate cardiomegaly. Reading Location: [facility] Chest X-Ray 05/15/25 18:16 IMPRESSION: Endotracheal tube tip 2.6 cm above the erika; consider 1 cm retraction. Enteric tube in appropriate placement. Retrocardiac/left lower lobe opacity not excluded. Mild pulmonary vascular congestion. Stable moderate cardiomegaly. No pleural effusion or pneumothorax. Reading Location: [facility] Chest CTA 05/15/25 18:35 IMPRESSION: No pulmonary embolism. Probable pulmonary edema. Small pericardial effusion. Indeterminate right kidney lesion. Further characterization with nonemergent ultrasound to determine if it is cystic is recommended. Reading Location: [id number] Chest X-Ray 05/16/25 05:10 IMPRESSION: Endotracheal tube is in good position with its tip 2.8 cm above the level of the erika. Enteric feeding tube is in good position with its tip extending below the level of the left hemidiaphragm. Mild increase in bilateral basilar atelectatic pulmonary changes. Mild increase in central pulmonary venous congestion. Enlarged cardiac silhouette. Reading Location: [place] [id number] Physical Exam Narrative Seen and examined. Patient is intubated on ventilator. mount loader shows bradycardia 57/min. On 45% FiO2, 450/5 PEEP. History could not be taken because of being on ventilator. Undergoing 2D echo. Not since admit that patient does not have chest pain. Physical exam: General: Awake/lightly sedated. Nods his head. HEENT: Atraumatic, PERRLA, EOMI, Normocephalic. Oral: ETT and OG tube. Neck: Supple, No JVD, Negative Carotid Bruits Chest wall/Lungs: Air entry present in both lungs. Mild crepitations. On vent Cardiovascular: Regular rate and rhythm, Normal S1,S2, No M/G/R Abdomen: Bowel Sounds Present, Soft, Non Tender, Non-Distended : No dysuria. No renal angle tenderness. No suprapubic tenderness. Extremities: 2+ pedal edema, Capillary Refill Less than 3 Seconds Skin: No rashes, No breakdown Musculoskeletal: No Tenderness to Palpation of Joints or Extremities. ROM restricted Neurological: Detailed neuro unobtainable. No obvious focal lateralization sign. Psych/Mental Status: Lightly sedated Assessment & Plan Assessment/Plan (1) Acute respiratory failure with hypoxia and hypercapnia: PLAN: Plan Patient is a 54-year-old male who presented to [facility] ED on 05/15/2025 for shortness of breath and hypoxia. 1. Acute hypoxic and hypercapnic respiratory failure suspected secondary to CHF exacerbation, concern for pneumonia ? Admit under inpatient status to ICU. Soil Field Technician consulted. Patient presented with hypoxia and altered mentation. Initial ABG showed pH 7.29, pCO2 68, pO2 93. Placed on BiPAP but unfortunately repeat pH remained at 7.29 and had worsening pCO2 75 and pO2 75 so patient was intubated in the ED. Repeat ABG on mechanical ventilation with pH 7.39, pCO2 56, pO2 only 54. CTA chest showed probable pulmonary edema with small pericardial effusion. Mildly elevated leukocytosis, improving. D-dimer negative. Electrolytes in normal range. BNP elevated at 1732. No prior history of CHF noted in chart. On IV Lasix, dose as per hemodynamics parameters and kidney function. Procalcitonin negative. 2D echo shows EF 55% with moderate 1 to 2 cm pericardial effusion. No echo indication for cardiac tamponade. Mild AI Heart failure core measures including intake and output, fluid restriction less than 1500 mL, daily weight monitoring, kidney and electrolytes monitoring. Ventilator management per circuits engineer. Chest x-ray individually reviewed and shows pulmonary venous congestion and left lower/retrocardiac opacity. 2. GNR bacteremia with hypotension with high suspicion of sepsis: Prelim blood culture positive gram-positive cocci. Urinary antigens are negative. Triple PCR for SARS-CoV-2, flu and RSV are negative. Preliminary sputum culture negative. Started on empiric IV vancomycin and Zosyn. BP on lower side 92/53, 90/59, 84/63 x 2. Mild low-grade fever 99.9 Tmax. In the appropriate clinical setting, high suspicion of sepsis but patient may have hypotension from heart failure. Procalcitonin normal. Suspected infection, exact source unclear possible pneumonia. On broad-spectrum antibiotic. Patient does not meet criteria for IV fluid bolus 30 mL/h because of heart failure exacerbation Mild creatinine elevation ? Creatinine 1.32 on admit, baseline around 1.0-1.1. Presume secondary to CHF exacerbation as above. Treating with IV Lasix as above, monitor daily BMP and urine output. 05/16: Creatinine 1.18, better than 1.32. Chronic medical conditions: ? Class I obesity: BMI 34 on admit. Complicates hospital course, care and prognosis. ? Type 2 diabetes mellitus: Glucose 173 on admit. Most recent A1c 7.4% in January. Hold home oral medications. Will treat with sliding scale insulin every 6 hours for now, adjust as needed. ? Hypertension: Holding home propranolol and valsartan as patient has been borderline hypotensive on sedation. ? Hyperlipidemia: Continue home statin. ? History of schizoaffective disorder: Continue home fluoxetine, haloperidol and lithium. ? Hypothyroidism: TSH normal. Continue home Synthroid. DVT prophylaxis: Lovenox CODE STATUS: Full code, unverified Expected disposition: TBD Total time of the visit including total time spent in counseling or coordination of care, (more than 50% of the total time, spent in obtaining medical information from nurses and other ancillary care providers ,explaining to the patient about labs, imaging, diagnosis and management of active complex medical conditions), , review of labs and imaging is 35 minutes. Clinical Impression(s) from Imaging Studies Chest X-Ray 05/15/25 15:55 IMPRESSION: Mild pulmonary vascular congestion interstitial edema. Retrocardiac/left lower lobe opacity suspected. Stable moderate cardiomegaly. Reading Location: [facility] Chest X-Ray 05/15/25 18:16 IMPRESSION: Endotracheal tube tip 2.6 cm above the erika; consider 1 cm retraction. Enteric tube in appropriate placement. Retrocardiac/left lower lobe opacity not excluded. Mild pulmonary vascular congestion. Stable moderate cardiomegaly. No pleural effusion or pneumothorax. Reading Location: [facility] Chest CTA 05/15/25 18:35 IMPRESSION: No pulmonary embolism. Probable pulmonary edema. Small pericardial effusion. Indeterminate right kidney lesion. Further characterization with nonemergent ultrasound to determine if it is cystic is recommended. Reading Location: [id number] Echocardiogram 05/15/25 23:26 Interpretation Summary Normal LV size. Left ventricular systolic function is normal. The left ventricular ejection fraction is 55 %. Moderate (1.0-2.0 cm) pericardial effusion. There are no echocardiographic indications of cardiac tamponade. Mild (1+) aortic valve insufficiency. Ordering Physician: Fede Diaz Performed By: Lance Best RCS Chest X-Ray 05/16/25 05:10 IMPRESSION: Endotracheal tube is in good position with its tip 2.8 cm above the level of the erika. Enteric feeding tube is in good position with its tip extending below the level of the left hemidiaphragm. Mild increase in bilateral basilar atelectatic pulmonary changes. Mild increase in central pulmonary venous congestion. Enlarged cardiac silhouette. [facility]
--- NOTE | 2025-05-16 08:03 | SEPSISATNOTE ---
Sepsis Attestation Sepsis Alert: Yes Sepsis Attestation: Agree w/Sepsis Date exam was performed: 05/16/25 Time exam was performed: 07:15 Possible Source of Sepsis: Pulmonary Sepsis Organ Dysfunction Criteria Present: SBP < 90 mmHg or MAP < 65 mmHg, Acute Respiratory Failure (New need for BiPAP/CPAP or MV), PaO2/FiO2 ratio < 300 and New/Unexplained change in mental status Fluid Resuscitation Fluid resuscitation indicated?: Yes Fluid Resuscitation ordered: Lesser volume fluid bolus ordered Amount of fluid ordered: 2,000 Reason for lesser fluid bolus:: Concern for fluid overload and Heart failure Sepsis Note Date exam was performed: 05/16/25 Time exam was performed: 10:12 Sepsis Attestation: Sepsis re-evaluation was performed Response to fluids: Fluid responsive hypotension
[2025-05-16] MEDS: Enoxaparin 40 MG/0.4 ML Syringe SC (10:50)
[2025-05-16] MEDS: Chlorhexidine 15 ML PO ×2 (10:50→20:35)
[2025-05-16] MEDS: Lithium Carbonate 300mg Capsule 300 MG PO ×2 (10:50→23:01)
[2025-05-16] MEDS: Fluoxetine HCl 40 MG CAPSULE PO (10:51)
[2025-05-16] MEDS: Propofol 10MG/Ml 1,000 MG/100 ML Bottle 10.2 MG CONT INF ×2 (10:51→18:09)
[2025-05-16] MEDS: Haloperidol 5 MG Tablet PO ×2 (10:51→23:01)
[2025-05-16] MEDS: Furosemide 40 MG/4 ML Vial IV (10:53)
[2025-05-16] MEDS: Pantoprazole Sodium 40 MG in 0.9% Normal Saline (100mL MB+) 100 ML 330 MG IV (11:09)
--- NOTE | 2025-05-16 11:20 | CASEMGMT ---
Addendum entered by Philippe Cifuentes 05/16/25 13:33: RN?CM?ARCHITECTURAL PROJECT CAPTAIN?CM?placed call to pt's mom, Veronica, @ [phone], for initial RN CM assessment. RN CM RN?CM?introduced self and role at [facility].? Shawanda voices understanding and consents to?assessment?at this time.? Care providers, pharmacy, and demographics verified/updated at this time. Veronica did state the other # ([phone]) does not always ring through d/t poor service d/t their location. Strata: 2 PCP: Dr Whitlock Specialists:Psychiatrist. She does not remember their name. Preferred Pharm[facility]: [facility] Benef[facility]:?yes LNOK: MomVeronica Living Arrangements: Lives w/mom in double-wide w/basement and 2 steps to enter. She states pt does okay with the stair most of the time. Pt is mostly independent w/ADL's, mom does assist occasionally, especially w/donning socks. Mom manages pt's medications and does all IADL's. Transportation:?Mom DME: ?Mom states pt does not use DME to ambulate. He has a functioning glucometer. Mom checks pt's BS's daily. She states they are almost out of test strips, but states there are refills @ the pharmacy and she will take care of ordering more. Mom states he does not have any other DME. He does not have a nebulizer, but does use an inhaler. Longterm: Mom states pt used to be in a Longterm, but left there and returned to live w/her about 4 yrs ago. PLAN:??TBD, pending course of treatment. Pt currently intubated. Stefano HAN?RN?CM Original Note: RN CHARLIE NOTE: Pt is currently intubated. Call placed to the # listed for pt's , Veronica. Call did not ring through, went straight to message stating VM not set up yet. There are no other #'s listed as contacts. RN CM placed call to Dr Whitlock's office. They provided the following # for , Veronica, as well. [phone]. This # was added in [facility] [employer]. Stefano HAN RN CM
[2025-05-16 12:14] LABS: Bedside Glucose 150 mg/dL (74-106)
[2025-05-16] MEDS: fentaNYL drip 100 ML 5 MCG CONT INF (15:20)
[2025-05-16 18:24] LABS: Bacteria 0 SEEN /hpf (None Seen); Mucous, Urine 0 SEEN /hpf (<or=2+); Squamous Epithelial Cells - UA 0 SEEN /hpf (0-5)
[2025-05-16 18:25] LABS: Bedside Glucose 156 mg/dL (74-106)
[2025-05-16 18:34] LABS: CPK Total, Creatine Kinase 16 U/L (24-195)
[2025-05-16 18:37] LABS: International Normalized Ratio 1.1; Prothrombin Time (Protime)PT. 14.1 SECONDS (11.7-14.9)
[2025-05-16 18:38] LABS: Partial Thromboplast Time 26.4 Seconds (24.1-36.2)
[2025-05-16 18:58] LABS: Color, Urine Yellow (Yellow); Glucose, Dipstick Normal (Normal); Ketone-Dipstick 15 mg/dl (Negative); Leukocyte Esterase-Dipstick 25 /ul (Negative); Nitrite-Dipstick Negative (Negative); Occult Blood-Urine 150 /ul (Negative); Protein-Dipstick 30 mg/dl (Negative); Urine Bilirubin Dipstick Negative (Negative); Urine Clarity Sl. Cloudy (Clear); Urine Urobilinogen Normal (Normal)
[2025-05-16 19:13] LABS: Red Blood Cells-Urine 5-10 SEEN /hpf (0-5); Uric Acid Crystals Ur 2+ /hpf (<or=1+); White Blood Cells 0-5 SEEN /hpf (0-5)
[2025-05-16] MEDS: Vancomycin HCl 1,750 MG in 0.9% Normal Saline (500mL Bag) 500 ML 250 MG IV (20:33)
--- NOTE | 2025-05-16 21:09 | PCM.RX.CS ---
Consult Antibiotic Management Pharmacy has been consulted to manage selected antibiotic: Vancomycin Type of Intervention Type of Consult: New start Labs Labs: Sodium 140 mmol/L (133-145) 05/16/25 03:19 Potassium 4.1 mmol/L (3.3-5.1) 05/16/25 03:19 Chloride 101 mmol/L (98-108) 05/16/25 03:19 Carbon Dioxide 29.4 mmol/L (21.0-32.0) 05/16/25 03:19 Anion Gap 10 (5-15) 05/16/25 03:19 BUN 30 mg/dL (4-19) H 05/16/25 03:19 Creatinine 1.18 mg/dL (0.70-1.20) 05/16/25 03:19 Est GFR (MDRD) Non-Af 74 (>60) 05/16/25 03:19 BUN/Creatinine Ratio 25.7 RATIO (10-20) H 05/16/25 03:19 Glucose 139 mg/dL (70-99) H 05/16/25 03:19 Microbiology Microbiology: Microbiology 05/15/25 21:08 Blood Culture (Wb) - No Site/Description Given Blood Culture - Preliminary 05/15/25 18:06 Sputum, Induced/Lukens Gram Stain - Final 05/15/25 18:06 Sputum, Induced/Lukens Respiratory Culture - Preliminary Culture exhibits no growth. 05/16/25 05:07 Urine Catheter - Summers Legionella Antigen - Final 05/16/25 05:07 Urine Catheter - Summers Streptococcus pneumoniae Antigen (M - Final 05/15/25 15:50 Mucosa - Nose SARS-CoV-2, Influenza & RSV (PCR) - Final Dosing Weight Weight used for dosin kg Estimated Creatinine Clearance Estimated Creatinine Clearance: 92 Goal Trough Goal Trough: 15-20 mcg/mL Pharmacy Plan for Drug Dosing Pharmacy Plan for Drug Dosing: Pharmacy Service will continue to monitor and adjust dosing as required. Follow-Up Labs Follow-Up Labs: Trough: Vancomycin Date/Time Labs Ordered Labs to be done on [date and time ordered]: 05/17/25 @1999
[2025-05-16] MEDS: Atorvastatin Calcium 40 MG Tablet PO (23:01)
[2025-05-17] VITALS (35 sets, daily range): BP systolic 82–112; BP diastolic 48–70; PULSE 55–64; RESP 18; TEMP 37.2–38; O2SAT 90–97; BMI 34.9
[2025-05-17] MEDS: Propofol 10MG/Ml 1,000 MG/100 ML Bottle 17 MG CONT INF (02:56)
[2025-05-17 02:58] LABS: Bedside Glucose 139 mg/dL (74-106)
[2025-05-17] MEDS: CHLORHEXIDINE GLUC 2% CLOTH 1 EACH TOWELETTE TOPICAL (03:22)
[2025-05-17] MEDS: Vancomycin HCl 1,250 MG in 0.9% Normal Saline (250mL Bag) 250 ML 167 MG IV (04:33)
[2025-05-17] MEDS: Levothyroxine 25 MCG TABLET PO (05:23)
[2025-05-17] MEDS: fentaNYL drip 100 ML 10 MCG CONT INF ×2 (05:29→15:38)
[2025-05-17 05:46] LABS: Bedside Glucose 132 mg/dL (74-106)
[2025-05-17] MEDS: Piperacil/Tazobactam 3.375 GM in 0.9% Normal Saline (50mL MB+) 50 ML IV ×3 (06:06→21:00)
--- NOTE | 2025-05-17 06:48 | PN.CC_ITS ---
Assessment & Plan Assessment/Plan (1) Acute respiratory failure with hypoxia and hypercapnia: PLAN: Plan RECOMMENDATIONS: 1. Continue assist-control mode of mechanical ventilation. Wean FiO2 and PEEP as tolerated. 2. Propofol and fentanyl for sedation. 3. Continue empiric antimicrobials, pending culture results. 4. Obtain morning labs and check BNP. 5. Obtain follow-up chest x-ray and repeat ABG. 6. Okay to initiate tube feeding today from my perspective. 7. Continue appropriate ICU prophylaxis. IMPRESSIONS: 1. Acute hypoxemic and hypercapnic respiratory failure Clinical concern for underlying pneumonia versus pulmonary edema in the setting of heart failure with preserved ejection fraction. The patient was ultimately intubated and remains on assist-control mode of mechanical ventilation. FiO2 and PEEP will be weaned as tolerated. CTA chest showed no evidence for pulmonary embolism. Recommend continuing antibiotics, pending infectious workup. Will obtain follow-up lab work this morning to reassess appropriateness for ongoing diuresis. Tube feeding can be initiated today from my perspective. Repeat chest x-ray and ABG will be obtained this morning. 2. History of obesity/hypertension/hyperlipidemia/diabetes mellitus/bipolar/schizoaffective disorder Complicates care, management, recovery and prognosis. Continue to hold home antihypertensives for now. Continue sliding scale insulin coverage. Okay to initiate tube feeding today from my perspective. TIME: 35 minutes of critical care time, independent of procedures, was spent addressing the patient's acute hypoxemic and hypercapnic respiratory failure, review of all data and collaboration with the care team. Subjective Subjective The patient was seen and examined at the bedside this morning. Events from the last 24 hours have been reviewed. The patient is currently afebrile, hemodynamically stable and maintaining appropriate oxygen saturations on assist- control mode mechanical ventilation with an FiO2 requirement of 60% and PEEP of 5. The patient is documented to be overall net +1.3 L for the hospitalization. He remains sedated on propofol and fentanyl. Objective Data Objective Data The patient's most recent lab work, culture data and imaging studies have all been personally reviewed. Surface echocardiogram demonstrated normal LV size and function with an ejection fraction of 55%. Blood and sputum cultures are pending. Vital Signs: Vital Signs Temp Pulse Resp BP Pulse Ox O2 Del Method O2 Flow Rate 99.0 F 58 L 18 93/54 L 93 Mechanical Ventilator 4 05/17/25 06:00 05/17/25 06:00 05/17/25 06:00 05/17/25 06:00 05/17/25 06:00 05/17/25 06:00 05/15/25 16:00 FiO2 60 05/17/25 06:00 Oxygen Flow Rate (L/min) 4 Oxygen Delivery Method Mechanical Ventilator Weight: 243 lb 12.8 oz Body Mass Index (BMI) 34.9 Intake & Output: Intake and Output for Last 24 Hours 05/15/25 05/16/25 05/17/25 23:59 23:59 23:59 Intake Total 1160.87 / 1175.97 1290.10 / 1305.30 532.31 / 532.31 Output Total 600 / 600 997 / 997 60 / 60 Balance 560.87 / 575.97 293.10 / 308.30 472.31 / 472.31 Lab / Micro Data Attestation: I reviewed the patient's lab results. 05/17/25 09:20 05/17/25 09:20 Labs: Laboratory Results - last 24 hr 05/16/25 11:52: POC Glucose 150 H 05/16/25 18:00: PT 14.1, INR 1.1, APTT 26.4, Total Creatine Kinase 16 L 05/16/25 18:05: POC Glucose 156 H 05/16/25 18:15: Urine Color Yellow, Urine Clarity Sl. Cloudy, Urine pH 6.0, Ur Specific [place] 1.020, Urine Protein 30 H, Urine Glucose (UA) Normal, Urine Ketones 15 H, Urine Occult Blood 150 H, Urine Nitrite Negative, Urine Bilirubin Negative, Urine Urobilinogen Normal, Ur Leukocyte Esterase 25 H, Urine RBC 5-10 SEEN, Urine WBC 0-5 SEEN, Ur Squamous Epith Cells 0 SEEN, Uric Acid Crystals 2+, Urine Bacteria 0 SEEN, Urine Mucus 0 SEEN 05/16/25 23:00: POC Glucose 139 H 05/17/25 05:20: POC Glucose 132 H Micro: Microbiology 05/15/25 21:08 Blood Culture (Wb) - No Site/Description Given Bacteria Detection (PCR) - Preliminary Coag Negative Staph 05/15/25 21:08 Blood Culture (Wb) - No Site/Description Given Blood Culture - Preliminary 05/15/25 18:06 Sputum, Induced/Lukens Gram Stain - Final 05/15/25 18:06 Sputum, Induced/Lukens Respiratory Culture - Preliminary Culture exhibits no growth. 05/16/25 05:07 Urine Catheter - Summers Legionella Antigen - Final 05/16/25 05:07 Urine Catheter - Summers Streptococcus pneumoniae Antigen (M - Final 05/15/25 15:50 Mucosa - Nose SARS-CoV-2, Influenza & RSV (PCR) - Final Radiography Diagnostic Testing: Radiology Impression Echocardiogram 05/15/25 23:26 Interpretation Summary Normal LV size. Left ventricular systolic function is normal. The left ventricular ejection fraction is 55 %. Moderate (1.0-2.0 cm) pericardial effusion. There are no echocardiographic indications of cardiac tamponade. Mild (1+) aortic valve insufficiency. Ordering Physician: Fede Diaz Performed By: Lance Best RCS Physical Exam Const Constitutional Narrative: Intubated, sedated and mechanically ventilated. HEENT normocephalic and head/scalp atraumatic Mouth: endotracheal tube in place and OG tube in place Eyes PERRL, EOMs intact bilaterally and conjunctivae normal Neck supple General: trachea midline Chest inspection of chest normal Resp Auscultation: diminished lung sounds; Negative for rales, rhonchi or wheezes Cardio regular rate and regular rhythm GI normal to inspection, nondistended, normoactive bowel sounds Extremity no clubbing, cyanosis or edema Skin no rashes or lesions noted Neuro Sensorium / Orientation: sedated on vent Charges/Coding Procedures Hospitalists Procedures: 79208 Critical Care 1st Hr
--- NOTE | 2025-05-17 08:38 | RAD_ITS ---
PROCEDURE: CHEST 1 VIEW (PORTABLE) 05/17/2025 REASON FOR EXAM: RESPIRATORY FAILURE Check ETT and NG tube positions. TECHNIQUE: Frontal view of the chest. COMPARISON: Chest radiograph 2019 FINDINGS: Hardware: ETT tip is in satisfactory position 4 cm above the erika. G-tube extends into the fundus of the stomach in satisfactory position. Numerous EKG lead wires project over the chest. PICC line approaches from the right with its tip in the SVC. Heart: Grossly normal size Lungs: Low lung volumes limit sensitivity, but no pearl acute consolidating airspace disease is appreciated. Bones: Unremarkable Other: RAD/Chest 1 View (Portable) IMPRESSION: Support lines and tubes in good position. Stable lung findings Reading Location: [facility]
--- NOTE | 2025-05-17 09:02 | PCM.PN.HOSP ---
Reason for Visit Reason for Visit: Diagnoses Acute respiratory failure with hypoxia (05/15/25) Acute respiratory failure with hypercapnia (05/15/25) Objective Data Objective Data Vital Signs: Vital Signs Temp Pulse Resp BP Pulse Ox O2 Del Method O2 Flow Rate 99.0 F 59 L 18 91/54 L 92 Mechanical Ventilator 4 05/17/25 07:00 05/17/25 08:45 05/17/25 08:45 05/17/25 07:00 05/17/25 08:45 05/17/25 08:00 05/15/25 16:00 FiO2 60 05/17/25 07:00 Oxygen Flow Rate (L/min) 4 Oxygen Delivery Method Mechanical Ventilator Weight: 243 lb 12.8 oz Body Mass Index (BMI) 34.9 Intake & Output: Intake and Output for Last 24 Hours 05/15/25 05/16/25 05/17/25 23:59 23:59 23:59 Intake Total 1160.87 / 1175.97 1290.10 / 1305.30 549.81 / 549.81 Output Total 600 / 600 997 / 997 60 / 60 Balance 560.87 / 575.97 293.10 / 308.30 489.81 / 489.81 Lab / Micro Data 05/16/25 03:19 05/16/25 03:19 Labs: Laboratory Results - last 24 hr 05/16/25 11:52: POC Glucose 150 H 05/16/25 18:00: PT 14.1, INR 1.1, APTT 26.4, Total Creatine Kinase 16 L 05/16/25 18:05: POC Glucose 156 H 05/16/25 18:15: Urine Color Yellow, Urine Clarity Sl. Cloudy, Urine pH 6.0, Ur Specific Island 1.020, Urine Protein 30 H, Urine Glucose (UA) Normal, Urine Ketones 15 H, Urine Occult Blood 150 H, Urine Nitrite Negative, Urine Bilirubin Negative, Urine Urobilinogen Normal, Ur Leukocyte Esterase 25 H, Urine RBC 5-10 SEEN, Urine WBC 0-5 SEEN, Ur Squamous Epith Cells 0 SEEN, Uric Acid Crystals 2+, Urine Bacteria 0 SEEN, Urine Mucus 0 SEEN 05/16/25 23:00: POC Glucose 139 H 05/17/25 05:20: POC Glucose 132 H Micro: Microbiology 05/16/25 18:15 Urine Catheter - Summers Urine Culture - Preliminary Culture exhibits no growth. 05/15/25 21:08 Blood Culture (Wb) - No Site/Description Given Bacteria Detection (PCR) - Final Coag Negative Staph 05/15/25 21:08 Blood Culture (Wb) - No Site/Description Given Blood Culture - Preliminary 05/15/25 18:06 Sputum, Induced/Lukens Gram Stain - Final 05/15/25 18:06 Sputum, Induced/Lukens Respiratory Culture - Preliminary Culture exhibits no growth. 05/16/25 05:07 Urine Catheter - Summers Legionella Antigen - Final 05/16/25 05:07 Urine Catheter - Summers Streptococcus pneumoniae Antigen (M - Final 05/15/25 15:50 Mucosa - Nose SARS-CoV-2, Influenza & RSV (PCR) - Final Radiography Diagnostic Testing: Radiology Impression Echocardiogram 05/15/25 23:26 Interpretation Summary Normal LV size. Left ventricular systolic function is normal. The left ventricular ejection fraction is 55 %. Moderate (1.0-2.0 cm) pericardial effusion. There are no echocardiographic indications of cardiac tamponade. Mild (1+) aortic valve insufficiency. Ordering Physician: Fede Diaz Performed By: Lance Best RCS Physical Exam Narrative Seen and examined. Patient remains intubated on ventilator. seam stay stitcher shows bradycardia in 50s. On 60 % FiO2, 450/5 PEEP. History could not be taken because of being on ventilator. Summers catheter Physical exam: General: Drowsy/lethargy sedated HEENT: Atraumatic, PERRLA, EOMI, Normocephalic. Oral: ETT and OG tube. Neck: Supple, No JVD, Negative Carotid Bruits Chest wall/Lungs: Air entry present in both lungs. Mild crepitations. On vent Cardiovascular: Regular rate and rhythm, Normal S1,S2, No M/G/R Abdomen: Bowel Sounds Present, Soft, Non Tender, Non-Distended : No dysuria. No renal angle tenderness. No suprapubic tenderness. Extremities: 2+ pedal edema, Capillary Refill Less than 3 Seconds Skin: No rashes, No breakdown Musculoskeletal: No Tenderness to Palpation of Joints or Extremities. ROM restricted Neurological: Detailed neuro unobtainable. No obvious focal lateralization sign. Psych/Mental Status: Lightly sedated Assessment & Plan Assessment/Plan (1) Acute respiratory failure with hypoxia and hypercapnia: PLAN: Plan Patient is a 54-year-old male who presented to [facility] ED on 05/15/2025 for shortness of breath and hypoxia. Patient presented with hypoxia and altered mentation. 1. Acute hypoxic and hypercapnic respiratory failure suspected secondary to CHF exacerbation, concern for pneumonia with acute encephalopathy ? Admit under inpatient status to ICU. Casting Machine Control Board Operator consulted. Initial ABG showed pH 7.29, pCO2 68, pO2 93. Placed on BiPAP but unfortunately repeat pH remained at 7.29 and had worsening pCO2 75 and pO2 75 so patient was intubated in the ED. Repeat ABG on mechanical ventilation with pH 7.39, pCO2 56, pO2 only 54. CTA chest showed probable pulmonary edema with small pericardial effusion. Mildly elevated leukocytosis, improving. D-dimer negative. Electrolytes in normal range. BNP elevated at 1732. No prior history of CHF noted in chart. On IV Lasix, dose as per hemodynamics parameters and kidney function. Procalcitonin negative. 2D echo shows EF 55% with moderate 1 to 2 cm pericardial effusion. No echo indication for cardiac tamponade. Mild AI Heart failure core measures including intake and output, fluid restriction less than 1500 mL, daily weight monitoring, kidney and electrolytes monitoring. Ventilator management per house cleaner supervisor. Chest x-ray individually reviewed and shows pulmonary venous congestion and left lower/retrocardiac opacity. 05/17: Remains intubated and sedated. Encephalopathy may be from metabolic encephalopathy. Continue antibiotic 2. hypotension with high suspicion of sepsis. GPC, contamination: Prelim blood culture positive gram-positive cocci. Urinary antigens are negative. Triple PCR for SARS-CoV-2, flu and RSV are negative. Preliminary sputum culture negative. Started on empiric IV vancomycin and Zosyn. BP on lower side 92/53, 90/59, 84/63 x 2. Mild low-grade fever 99.9 Tmax. In the appropriate clinical setting, high suspicion of sepsis but patient may have hypotension from heart failure. Procalcitonin normal. Suspected infection, exact source unclear possible pneumonia. On broad-spectrum antibiotic. Patient does not meet criteria for IV fluid bolus 30 mL/h because of heart failure exacerbation 05/17: Gram stain preliminary shows no growth. Blood culture, PCR CoNS is therefore probably skin contamination. Urine culture shows no growth. Blood culture on 05/16 are pending. Vancomycin discontinued. Continue IV Zosyn. Mild creatinine elevation ? Creatinine 1.32 on admit, baseline around 1.0-1.1. Presume secondary to CHF exacerbation as above. Treating with IV Lasix as above, monitor daily BMP and urine output. 05/16: Creatinine 1.18, better than 1.32. Chronic medical conditions: ? Class I obesity: BMI 34 on admit. Complicates hospital course, care and prognosis. ? Type 2 diabetes mellitus: Glucose 173 on admit. Most recent A1c 7.4% in January. Hold home oral medications. Will treat with sliding scale insulin every 6 hours for now, adjust as needed. ? Hypertension: Holding home propranolol and valsartan as patient has been borderline hypotensive on sedation. ? Hyperlipidemia: Continue home statin. ? History of schizoaffective disorder: Continue home fluoxetine, haloperidol and lithium. ? Hypothyroidism: TSH normal. Continue home Synthroid. DVT prophylaxis: Lovenox CODE STATUS: Full code, unverified Expected disposition: TBD Total time of the visit including total time spent in counseling or coordination of care, (more than 50% of the total time, spent in obtaining medical information from nurses and other ancillary care providers ,explaining to the patient about labs, imaging, diagnosis and management of active complex medical conditions), , review of labs and imaging is 35 minutes. Clinical Impression(s) from Imaging Studies Chest X-Ray 05/15/25 15:55 IMPRESSION: Mild pulmonary vascular congestion interstitial edema. Retrocardiac/left lower lobe opacity suspected. Stable moderate cardiomegaly. Reading Location: [facility] Chest X-Ray 05/15/25 18:16 IMPRESSION: Endotracheal tube tip 2.6 cm above the erkia; consider 1 cm retraction. Enteric tube in appropriate placement. Retrocardiac/left lower lobe opacity not excluded. Mild pulmonary vascular congestion. Stable moderate cardiomegaly. No pleural effusion or pneumothorax. Reading Location: [id number] Chest CTA 05/15/25 18:35 IMPRESSION: No pulmonary embolism. Probable pulmonary edema. Small pericardial effusion. Indeterminate right kidney lesion. Further characterization with nonemergent ultrasound to determine if it is cystic is recommended. Reading Location: [id number] Echocardiogram 05/15/25 23:26 Interpretation Summary Normal LV size. Left ventricular systolic function is normal. The left ventricular ejection fraction is 55 %. Moderate (1.0-2.0 cm) pericardial effusion. There are no echocardiographic indications of cardiac tamponade. Mild (1+) aortic valve insufficiency. Ordering Physician: Fede Diaz Performed By: Lance Best RCS Chest X-Ray 05/16/25 05:10 IMPRESSION: Endotracheal tube is in good position with its tip 2.8 cm above the level of the erika. Enteric feeding tube is in good position with its tip extending below the level of the left hemidiaphragm. Mild increase in bilateral basilar atelectatic pulmonary changes. Mild increase in central pulmonary venous congestion. Enlarged cardiac silhouette. Reading Location: [id number] Charges/Coding Visit Charges Inpatient E&M: 19328 Subs Hosp L3
[2025-05-17 09:05] LABS: Base Excess 9 mmol/L (-2 to +2); Bicarbonate 32.5 mmol/L (22-26); Blood Gas Specimen Type ART; Mode AC; O2 Delivery Device Adult Vent; PEEP 5; PO2 68 mmHG (75-100); RR 18; SITE L Radial; SO2 94 % (95-99); Total Carbon Dioxide 34 mmol/L; pCO2 43.9 mmHg (35-45); pH 7.48 (7.35-7.45)
[2025-05-17 09:31] LABS: Absolute Lymphocyte Count 1.16 X10^3/uL (0.83-4.51); Absolute Neutrophil Count 10.6 X10^3/uL (2.0-7.7); Basophil# 0.04 X10^3/uL; Basophil% 0.3 % (0-1); Eosinophil# 0.16 X10^3/uL; Eosinophils% 1.2 % (0-5); Hematocrit 41.8 % (40-54); Hemoglobin 13.2 g/dL (13.0-16.5); Lymphocyte # 1.16 X10^3/ul (0.83-4.51); Lymphocyte % 8.8 % (19-41); Mean Corp Hgb Conc 31.6 g/dL (32-36); Mean Corpuscular Hgb 30.6 pg (27.0-32.0); Mean Platelet Vol. 10.3 fl (6.2-12.0); Monocyte# 1.15 X10^3/uL; Monocyte% 8.7 % (0-10); NRBC Flagged by Analyzer 0 % (0-5); Neutrophil # 10.59 X10^3/uL (2.7-7.7); Neutrophil % 80.5 % (47-70); Platelet Count 185 K/mm3 (150-450); RBC Distribution Width CV 15.1 % (11.6-14.6); RBC Distribution Width SD 53.8 fl (35.1-43.9); Red Blood Count 4.31 M/mm3 (4.6-6.2); White Blood Count 13.2 K/mm3 (4.4-11.0)
[2025-05-17 09:54] LABS: Anion Gap 11 (5-15); BUN 39 mg/dL (4-19); BUN/Creat Ratio 19.2 RATIO (10-20); Calcium,Total 8.6 mg/dL (7.6-11.0); Chloride 101 mmol/L (98-108); Creatinine, Serum 2.01 mg/dL (0.70-1.20); EST Glomerular Filtration Rate 39 (>60); Estimated Creatinine Clearance 53.53 ml/min (50-250); Glucose 159 mg/dL (70-99); Potassium 4.1 mmol/L (3.3-5.1); Pro- Brain NATRIURETIC PEPTIDE 217 pg/mL (<=900); Sodium Level 140 mmol/L (133-145)
[2025-05-17] MEDS: Haloperidol 5 MG Tablet PO ×2 (10:15→21:00)
[2025-05-17] MEDS: Enoxaparin 40 MG/0.4 ML Syringe SC (10:15)
[2025-05-17] MEDS: Fluoxetine HCl 40 MG CAPSULE PO (10:15)
[2025-05-17] MEDS: Chlorhexidine 15 ML PO ×2 (10:15→21:00)
[2025-05-17] MEDS: Lithium Carbonate 300mg Capsule 300 MG PO ×2 (10:15→21:00)
[2025-05-17] MEDS: Vital High Protein 1,000 ML 20 ML GT (10:49)
[2025-05-17] MEDS: Pantoprazole Sodium 40 MG in 0.9% Normal Saline (100mL MB+) 100 ML 330 MG IV (10:49)
[2025-05-17] MEDS: Propofol 10MG/Ml 1,000 MG/100 ML Bottle 10 MG CONT INF ×2 (10:58→20:15)
[2025-05-17 13:14] LABS: Bedside Glucose 139 mg/dL (74-106)
[2025-05-17 18:25] LABS: Bedside Glucose 130 mg/dL (74-106)
[2025-05-17] MEDS: Atorvastatin Calcium 40 MG Tablet PO (21:00)
[2025-05-17 23:37] LABS: Bedside Glucose 124 mg/dL (74-106)
[2025-05-18] VITALS (52 sets, daily range): BP systolic 83–130; BP diastolic 45–79; PULSE 52–83; RESP 18; TEMP 37.7–38.1; O2SAT 88–94; BMI 35.6
[2025-05-18] MEDS: fentaNYL drip 100 ML 10 MCG CONT INF ×3 (01:20→21:00)
--- NOTE | 2025-05-18 01:50 | RAD_ITS ---
PROCEDURE: CHEST 1 VIEW (PORTABLE) 05/18/2025 REASON FOR EXAM: RESPIRATORY FAILURE TECHNIQUE: Frontal view of the chest. COMPARISON: 05/17/2025. FINDINGS: Endotracheal tube is in good position. Enteric feeding tube is in good position with its tip extending below the level of the left hemidiaphragm. Right PICC line remains in good position. Increased bilateral basilar atelectatic pulmonary changes. There is no demonstrated pleural abnormality. Normal heart and pericardium. Normal mediastinum and myra. Normal visualized pulmonary arteries. Normal visualized aortic arch and descending thoracic aorta. Normal visualized thoracic spine. Normal visualized ribs, clavicles, and shoulders. There is no demonstrated abnormality of the visualized soft tissue structures of the upper abdomen. RAD/Chest 1 View (Portable) IMPRESSION: Endotracheal tube is in good position. Enteric feeding tube is in good position with its tip extending below the level of the left hemidiaphragm. Right PICC line remains in good position. Increased bilateral basilar atelectatic pulmonary changes. Reading Location: [facility]
--- NOTE | 2025-05-18 03:25 | CPS ---
RT at bedside 05/18/25 @0045 for patient desat. Sat was 88% on FiO2 of 55% and PEEP of 5. FiO2 increased to 65% with sats still dipping into the 80s. RT increased PEEP to 8 to see if this would further help with the patient's increasing O2 demands. This reoccurring desat and increase in oxygen demand along with mucus plugging, more noticeable expiratory wheezes on the right and extremely diminished breath sounds on the left, and increasing peak pressures on the vent prompted RT and RN to notify physician of such changes. The hospitalist recomended that RT contact telehealth vp cardiovascular over these concerns and to see if any changes should be made. A repeat chest xray was also recommended and obtained as was an ABG. Telehealth vp cardiovascular was then called with growing concerns and with results of the repeat chest film and ABG. RT made this vp cardiovascular aware that the PEEP was changed back to 5 and FiO2 increased to 80% instead of the PEEP of 8 and 65% due to the lack of an order for vent changes. Screw Machine Hand stated that due to the patient remaining stable at this time on PEEP of 5 and 80% no changes were recommended until the in house vp cardiovascular was at bedside for rounds and could see these changes in patient.
[2025-05-18] MEDS: Propofol 10MG/Ml 1,000 MG/100 ML Bottle 10 MG CONT INF ×3 (04:25→23:00)
[2025-05-18] MEDS: Piperacil/Tazobactam 3.375 GM in 0.9% Normal Saline (50mL MB+) 50 ML IV ×2 (06:27→21:15)
[2025-05-18] MEDS: Levothyroxine 25 MCG TABLET PO (06:32)
[2025-05-18] MEDS: Acetaminophen 325 MG Tablet 650 MG PO (06:34)
[2025-05-18 06:35] LABS: Absolute Lymphocyte Count 1.25 X10^3/uL (0.83-4.51); Absolute Neutrophil Count 9.6 X10^3/uL (2.0-7.7); Basophil# 0.05 X10^3/uL; Basophil% 0.4 % (0-1); Eosinophil# 0.29 X10^3/uL; Eosinophils% 2.4 % (0-5); Hematocrit 39.2 % (40-54); Hemoglobin 12.5 g/dL (13.0-16.5); Lymphocyte # 1.25 X10^3/ul (0.83-4.51); Lymphocyte % 10.2 % (19-41); Mean Corp Hgb Conc 31.9 g/dL (32-36); Mean Corpuscular Hgb 30.9 pg (27.0-32.0); Mean Corpuscular Volume 96.8 fL (80-94); Mean Platelet Vol. 10.3 fl (6.2-12.0); Monocyte# 1.04 X10^3/uL; Monocyte% 8.5 % (0-10); NRBC Flagged by Analyzer 0 % (0-5); Neutrophil # 9.57 X10^3/uL (2.7-7.7); Neutrophil % 77.8 % (47-70); Platelet Count 173 K/mm3 (150-450); RBC Distribution Width CV 15.4 % (11.6-14.6); RBC Distribution Width SD 54.9 fl (35.1-43.9); Red Blood Count 4.05 M/mm3 (4.6-6.2); White Blood Count 12.3 K/mm3 (4.4-11.0)
[2025-05-18] MEDS: 0.9% Saline Lock 10 ML Syringe IV (06:35)
--- NOTE | 2025-05-18 06:53 | PCM.PN.INT ---
Assessment & Plan Assessment/Plan (1) Acute respiratory failure with hypoxia and hypercapnia: PLAN: Plan RECOMMENDATIONS: 1. Continue assist-control mode of mechanical ventilation. Wean FiO2 and PEEP as tolerated. 2. Propofol and fentanyl for sedation. 3. Continue empiric antimicrobials, pending culture results. 4. Continue tube feeding as tolerated. 5. Obtain renal ultrasound. 6. Consultation to nephrology. 7. Continue appropriate ICU prophylaxis. IMPRESSIONS: 1. Acute hypoxemic and hypercapnic respiratory failure Clinical concern for underlying pneumonia versus pulmonary edema in the setting of heart failure with preserved ejection fraction. The patient was ultimately intubated and remains on assist-control mode of mechanical ventilation. FiO2 and PEEP will be weaned as tolerated. CTA chest showed no evidence for pulmonary embolism. Recommend continuing antibiotics, pending infectious workup. I am going to hold off on administering any diuretics, given the patient's underlying renal insufficiency. Tube feeding will be continued as tolerated. 2. Acute kidney injury Clinical concern for prerenal etiology. Will obtain renal ultrasound today along with nephrology consultation. Recommend holding diuretics given underlying renal insufficiency. Continue to monitor urine output for now. No current indication for renal replacement therapy. 3. History of obesity/hypertension/hyperlipidemia/diabetes mellitus/bipolar/schizoaffective disorder Complicates care, management, recovery and prognosis. Continue to hold home antihypertensives for now. Continue sliding scale insulin coverage. Okay to continue tube feeding as tolerated. TIME: 33 minutes of critical care time, independent of procedures, was spent addressing the patient's acute hypoxemic and hypercapnic respiratory failure, acute kidney injury, review of all data and collaboration with the care team. Subjective Subjective The patient was seen and examined at the bedside this morning. Events from the last 24 hours have been reviewed. The patient currently has a low-grade fever but remains otherwise hemodynamically stable on assist-control mode mechanical ventilation with an FiO2 requirement of 80% and PEEP of 5. The patient remains sedated on fentanyl and propofol. He has been tolerant of tube feeding. The patient is currently documented to be overall net +2.3 L for the hospitalization. White blood cell count was noted to be 12,000 this morning. ABG this morning was notable for a pH of 7.48 with a PCO2 of 43 and PO2 of 55. Creatinine has increased to 3.75. Objective Data Objective Data The patient's most recent lab work, culture data and imaging studies have all been personally reviewed. Surface echocardiogram demonstrated normal LV size and function with an ejection fraction of 55%. Blood and sputum cultures are pending. Vital Signs: Vital Signs Temp Pulse Resp BP Pulse Ox O2 Del Method O2 Flow Rate 100.6 F H 63 18 95/51 L 92 Mechanical Ventilator 4 05/18/25 06:00 05/18/25 06:00 05/18/25 06:00 05/18/25 06:00 05/18/25 06:00 05/18/25 06:00 05/15/25 16:00 FiO2 80 05/18/25 06:00 Oxygen Flow Rate (L/min) 4 Oxygen Delivery Method Mechanical Ventilator Weight: 249 lb 1.6 oz Body Mass Index (BMI) 35.6 Intake & Output: Intake and Output for Last 24 Hours 05/16/25 05/17/25 05/18/25 23:59 23:59 23:59 Intake Total 1290.10 / 1305.30 1459.98 / 1479.98 219.17 / 219.17 Output Total 997 / 997 635 / 635 100 / 100 Balance 293.10 / 308.30 824.98 / 844.98 119.17 / 119.17 Lab / Micro Data Attestation: I reviewed the patient's lab results. 05/18/25 06:20 05/18/25 06:20 Labs: Laboratory Results - last 24 hr 05/17/25 09:20: WBC 13.2 H, RBC 4.31 L, Hgb 13.2, Hct 41.8, MCV 97.0 H, MCH 30.6, MCHC 31.6 L, RDW Std Deviation 53.8 H, RDW Coeff of Gautam 15.1 H, Plt Count 185, MPV 10.3, Immature Gran % (Auto) 0.500, Neut % (Auto) 80.5 H, Lymph % (Auto) 8.8 L, Barry % (Auto) 8.7, Eos % (Auto) 1.2, Baso % (Auto) 0.3, Absolute Neuts (auto) 10.6 H, Absolute Lymphs (auto) 1.16, Nucleated RBC % 0, Sodium 140, Potassium 4.1, Chloride 101, Carbon Dioxide 28.0, Anion Gap 11, BUN 39 H, Creatinine 2.01 H, Estim Creat Clear Calc 53.53, Est GFR (MDRD) Non-Af 39 L, BUN/Creatinine Ratio 19.2, Glucose 159 H, Calcium 8.6, NT pro BNP II 217 05/17/25 12:55: POC Glucose 139 H 05/17/25 18:06: POC Glucose 130 H 05/17/25 23:17: POC Glucose 124 H 05/18/25 06:20: WBC 12.3 H, RBC 4.05 L, Hgb 12.5 L, Hct 39.2 L, MCV 96.8 H, MCH 30.9, MCHC 31.9 L, RDW Std Deviation 54.9 H, RDW Coeff of Gautam 15.4 H, Plt Count 173, MPV 10.3, Immature Gran % (Auto) 0.700, Neut % (Auto) 77.8 H, Lymph % (Auto) 10.2 L, Barry % (Auto) 8.5, Eos % (Auto) 2.4, Baso % (Auto) 0.4, Absolute Neuts (auto) 9.6 H, Absolute Lymphs (auto) 1.25, Nucleated RBC % 0 Micro: Microbiology 05/15/25 21:08 Blood Culture (Wb) - No Site/Description Given Bacteria Detection (PCR) - Final Coag Negative Staph 05/15/25 21:08 Blood Culture (Wb) - No Site/Description Given Blood Culture - Preliminary Gram Positive Cocci 05/16/25 18:15 Urine Catheter - Summers Urine Culture - Preliminary Culture exhibits no growth. 05/15/25 18:06 Sputum, Induced/Lukens Gram Stain - Final 05/15/25 18:06 Sputum, Induced/Lukens Respiratory Culture - Preliminary Culture exhibits no growth. 05/16/25 05:07 Urine Catheter - Summers Legionella Antigen - Final 05/16/25 05:07 Urine Catheter - Summers Streptococcus pneumoniae Antigen (M - Final 05/15/25 15:50 Mucosa - Nose SARS-CoV-2, Influenza & RSV (PCR) - Final ABG Data ABG results: ABG 05/17/25 09:01 Specimen Type ART Sample Site L Radial pH 7.48 H Bicarbonate Actual 32.5 H Total CO2 34 Base Excess 9 H O2 Saturation 94 L O2 % 60.0 ABG pCO2 43.9 ABG pO2 68 L Respiration Rate 18 O2 Delivery Device Adult Vent Vent Mode AC Tidal Volume 400.0 POC PEEP 5 Radiography Diagnostic Testing: Radiology Impression Chest X-Ray 05/17/25 08:38 IMPRESSION: Support lines and tubes in good position. Stable lung findings Reading Location: [id number] Chest X-Ray 05/18/25 01:50 IMPRESSION: Endotracheal tube is in good position. Enteric feeding tube is in good position with its tip extending below the level of the left hemidiaphragm. Right PICC line remains in good position. Increased bilateral basilar atelectatic pulmonary changes. [facility] Physical Exam Const Constitutional Narrative: Intubated, sedated and mechanically ventilated. No ventilator dyssynchrony. HEENT normocephalic and head/scalp atraumatic Mouth: endotracheal tube in place and OG tube in place Eyes PERRL, EOMs intact bilaterally and conjunctivae normal Neck supple General: trachea midline Chest inspection of chest normal Resp Auscultation: diminished lung sounds; Negative for rales, rhonchi or wheezes Cardio regular rate and regular rhythm GI normal to inspection, nondistended, normoactive bowel sounds Extremity no clubbing, cyanosis or edema Skin no rashes or lesions noted Neuro Sensorium / Orientation: sedated on vent Charges/Coding Procedures Hospitalists Procedures: 13951 Critical Care 1st Hr
[2025-05-18 07:03] LABS: Anion Gap 12 (5-15); BUN 50 mg/dL (4-19); BUN/Creat Ratio 13.4 RATIO (10-20); Calcium,Total 8.3 mg/dL (7.6-11.0); Carbon Dioxide 27.8 mmol/L (21.0-32.0); Chloride 100 mmol/L (98-108); Creatinine, Serum 3.75 mg/dL (0.70-1.20); EST Glomerular Filtration Rate 19 (>60); Estimated Creatinine Clearance 29.01 ml/min (50-250); Glucose 148 mg/dL (70-99); Potassium 3.8 mmol/L (3.3-5.1); Sodium Level 139 mmol/L (133-145)
[2025-05-18 07:44] LABS: Blood Gas Specimen Type ART; SITE R RADIAL
[2025-05-18 07:45] LABS: Mode A-C; PEEP 8; RR 18
[2025-05-18 07:46] LABS: pCO2 43.5 mmHg (35-45); pH 7.48 (7.35-7.45)
[2025-05-18 07:47] LABS: Base Excess 9 mmol/L (-2 to +2); Bicarbonate 32.5 mmol/L (22-26); PO2 55 mmHG (75-100); Total Carbon Dioxide 34 mmol/L
[2025-05-18 07:49] LABS: SO2 90 % (95-99)
[2025-05-18 07:50] LABS: Bedside Glucose 136 mg/dL (74-106)
--- NOTE | 2025-05-18 08:26 | US_ITS ---
PROCEDURE: KIDNEY AND BLADDER 05/18/2025 REASON FOR EXAM: CHADD TECHNIQUE: KIDNEY AND BLADDER COMPARISON: None FINDINGS: RIGHT KIDNEY: Normal in size and echogenicity. No mass. No urinary stones. No hydronephrosis. LEFT KIDNEY: Normal in size and echogenicity. No mass. No urinary stones. No hydronephrosis. BLADDER: Not well visualized. US/Kidney and Bladder IMPRESSION: Very limited exam due to patient condition. No hydronephrosis. Reading Location: [id number]
--- NOTE | 2025-05-18 09:21 | PCM.PN.HOSP ---
Reason for Visit Reason for Visit: Diagnoses Acute respiratory failure with hypoxia (05/15/25) Acute respiratory failure with hypercapnia (05/15/25) Objective Data Objective Data Vital Signs: Vital Signs Temp Pulse Resp BP Pulse Ox O2 Del Method O2 Flow Rate 100.6 F H 60 18 94/46 L 92 Mechanical Ventilator 4 05/18/25 08:00 05/18/25 09:08 05/18/25 09:08 05/18/25 08:00 05/18/25 09:08 05/18/25 08:00 05/15/25 16:00 FiO2 80 05/18/25 08:00 Oxygen Flow Rate (L/min) 4 Oxygen Delivery Method Mechanical Ventilator Weight: 249 lb 1.6 oz Body Mass Index (BMI) 35.6 Intake & Output: Intake and Output for Last 24 Hours 05/16/25 05/17/25 05/18/25 23:59 23:59 23:59 Intake Total 1290.10 / 1305.30 1459.98 / 1479.98 752.50 / 752.50 Output Total 997 / 997 635 / 635 100 / 100 Balance 293.10 / 308.30 824.98 / 844.98 652.50 / 652.50 Lab / Micro Data 05/18/25 06:20 05/18/25 06:20 Labs: Laboratory Results - last 24 hr 05/17/25 09:20: WBC 13.2 H, RBC 4.31 L, Hgb 13.2, Hct 41.8, MCV 97.0 H, MCH 30.6, MCHC 31.6 L, RDW Std Deviation 53.8 H, RDW Coeff of Gautam 15.1 H, Plt Count 185, MPV 10.3, Immature Gran % (Auto) 0.500, Neut % (Auto) 80.5 H, Lymph % (Auto) 8.8 L, [place] % (Auto) 8.7, Eos % (Auto) 1.2, Baso % (Auto) 0.3, Absolute Neuts (auto) 10.6 H, Absolute Lymphs (auto) 1.16, Nucleated RBC % 0, Sodium 140, Potassium 4.1, Chloride 101, Carbon Dioxide 28.0, Anion Gap 11, BUN 39 H, Creatinine 2.01 H, Estim Creat Clear Calc 53.53, Est GFR (MDRD) Non-Af 39 L, BUN/Creatinine Ratio 19.2, Glucose 159 H, Calcium 8.6, NT pro BNP II 217 05/17/25 12:55: POC Glucose 139 H 05/17/25 18:06: POC Glucose 130 H 05/17/25 23:17: POC Glucose 124 H 05/18/25 06:20: WBC 12.3 H, RBC 4.05 L, Hgb 12.5 L, Hct 39.2 L, MCV 96.8 H, MCH 30.9, MCHC 31.9 L, RDW Std Deviation 54.9 H, RDW Coeff of Gautam 15.4 H, Plt Count 173, MPV 10.3, Immature Gran % (Auto) 0.700, Neut % (Auto) 77.8 H, Lymph % (Auto) 10.2 L, [place] % (Auto) 8.5, Eos % (Auto) 2.4, Baso % (Auto) 0.4, Absolute Neuts (auto) 9.6 H, Absolute Lymphs (auto) 1.25, Nucleated RBC % 0, Sodium 139, Potassium 3.8, Chloride 100, Carbon Dioxide 27.8, Anion Gap 12, BUN 50 H, Creatinine 3.75 H, Estim Creat Clear Calc 29.01 L, Est GFR (MDRD) Non-Af 19 L, BUN/Creatinine Ratio 13.4, Glucose 148 H, Calcium 8.3 05/18/25 06:33: POC Glucose 136 H Micro: Microbiology 05/15/25 21:08 Blood Culture (Wb) - No Site/Description Given Bacteria Detection (PCR) - Final Coag Negative Staph 05/15/25 21:08 Blood Culture (Wb) - No Site/Description Given Blood Culture - Final Staphylococcus hominis hominis 05/15/25 18:06 Sputum, Induced/Lukens Gram Stain - Final 05/15/25 18:06 Sputum, Induced/Lukens Respiratory Culture - Final Culture exhibits no growth. 05/16/25 18:15 Urine Catheter - Summers Urine Culture - Preliminary Culture exhibits no growth. 05/16/25 05:07 Urine Catheter - Summers Legionella Antigen - Final 05/16/25 05:07 Urine Catheter - Summers Streptococcus pneumoniae Antigen (M - Final 05/15/25 15:50 Mucosa - Nose SARS-CoV-2, Influenza & RSV (PCR) - Final ABG Data ABG results: ABG 05/18/25 01:57 Specimen Type ART Sample Site R RADIAL pH 7.48 H Bicarbonate Actual 32.5 H Total CO2 34 Base Excess 9 H O2 Saturation 90 L O2 % 65.0 ABG pCO2 43.5 ABG pO2 55 L Respiration Rate 18 Vent Mode A-C Tidal Volume 400.0 POC PEEP 8 Blood Gas Notified Time 0157 Radiography Diagnostic Testing: Radiology Impression Chest X-Ray 05/18/25 01:50 IMPRESSION: Endotracheal tube is in good position. Enteric feeding tube is in good position with its tip extending below the level of the left hemidiaphragm. Right PICC line remains in good position. Increased bilateral basilar atelectatic pulmonary changes. Reading Location: [place] [address] Physical Exam Narrative Seen and examined. Still febrile, Tmax 100.6 Fahrenheit. Remains intubated. information director shows heart rate in 50s to low 60s Patient remains intubated on ventilator. FiO2 increased to 80%. BP low 90s. History could not be taken because of being on ventilator. Summers catheter Physical exam: General: Drowsy/lethargy sedated HEENT: Atraumatic, PERRLA, EOMI, Normocephalic. Oral: ETT and OG tube. Neck: Supple, No JVD, Negative Carotid Bruits Chest wall/Lungs: Air entry present in both lungs. Mild crepitations. On vent Cardiovascular: Regular rate and rhythm, Normal S1,S2, No M/G/R Abdomen: Bowel Sounds Present, Soft, Non Tender, Non-Distended : Summers catheter no renal angle tenderness. No suprapubic tenderness. Extremities: 2+ pedal edema, Capillary Refill Less than 3 Seconds Skin: No rashes, No breakdown Musculoskeletal: No Tenderness to Palpation of Joints or Extremities. ROM restricted Neurological: Detailed neuro unobtainable. No obvious focal lateralization sign. Psych/Mental Status: Lightly sedated Assessment & Plan Assessment/Plan (1) Acute respiratory failure with hypoxia and hypercapnia: PLAN: Plan Patient is a 54-year-old male who presented to [facility] ED on 05/15/2025 for shortness of breath and hypoxia. Patient presented with hypoxia and altered mentation. 1. Acute hypoxic and hypercapnic respiratory failure suspected secondary to CHF exacerbation, concern for pneumonia with acute encephalopathy ? Admit under inpatient status to ICU. Matting Press Tender consulted. Initial ABG showed pH 7.29, pCO2 68, pO2 93. Placed on BiPAP but unfortunately repeat pH remained at 7.29 and had worsening pCO2 75 and pO2 75 so patient was intubated in the ED. Repeat ABG on mechanical ventilation with pH 7.39, pCO2 56, pO2 only 54. CTA chest showed probable pulmonary edema with small pericardial effusion. Mildly elevated leukocytosis, improving. D-dimer negative. Electrolytes in normal range. BNP elevated at 1732. No prior history of CHF noted in chart. On IV Lasix, dose as per hemodynamics parameters and kidney function. Procalcitonin negative. 2D echo shows EF 55% with moderate 1 to 2 cm pericardial effusion. No echo indication for cardiac tamponade. Mild AI Heart failure core measures including intake and output, fluid restriction less than 1500 mL, daily weight monitoring, kidney and electrolytes monitoring. Ventilator management per charter coordinator. Chest x-ray individually reviewed and shows pulmonary venous congestion and left lower/retrocardiac opacity. 05/17: Remains intubated and sedated. Encephalopathy may be from metabolic encephalopathy. Continue antibiotic 05/18: Patient FiO2 increased to 80%. Matting Press Tender on board 2. hypotension with high suspicion of sepsis. GPC, contamination: Prelim blood culture positive gram-positive cocci. Urinary antigens are negative. Triple PCR for SARS-CoV-2, flu and RSV are negative. Preliminary sputum culture negative. Started on empiric IV vancomycin and Zosyn. BP on lower side 92/53, 90/59, 84/63 x 2. Mild low-grade fever 99.9 Tmax. In the appropriate clinical setting, high suspicion of sepsis but patient may have hypotension from heart failure. Procalcitonin normal. Suspected infection, exact source unclear possible pneumonia. On broad-spectrum antibiotic. Patient does not meet criteria for IV fluid bolus 30 mL/h because of heart failure exacerbation 05/17: Gram stain preliminary shows no growth. Blood culture, PCR CoNS is therefore probably skin contamination. Urine culture shows no growth. Blood culture on 05/16 are pending. Vancomycin discontinued. Continue IV Zosyn. 05/18: Blood culture shows Staph hominis most likely contamination. 2D echo does not show his vegetations. Patient does not have any devices. ID consulted for further opinion as patient still has low-grade fever . Still has leukocytosis but slight improvement Mild creatinine elevation ? Creatinine 1.32 on admit, baseline around 1.0-1.1. Presume secondary to CHF exacerbation as above. Treating with IV Lasix as above, monitor daily BMP and urine output. 05/16: Creatinine 1.18, better than 1.32. Chronic medical conditions: ? Class I obesity: BMI 34 on admit. Complicates hospital course, care and prognosis. ? Type 2 diabetes mellitus: Glucose 173 on admit. Most recent A1c 7.4% in January. Hold home oral medications. Will treat with sliding scale insulin every 6 hours for now, adjust as needed. ? Hypertension: Holding home propranolol and valsartan as patient has been borderline hypotensive on sedation. ? Hyperlipidemia: Continue home statin. ? History of schizoaffective disorder: Continue home fluoxetine, haloperidol and lithium. ? Hypothyroidism: TSH normal. Continue home Synthroid. DVT prophylaxis: Lovenox CODE STATUS: Full code, unverified Expected disposition: TBD Total time of the visit including total time spent in counseling or coordination of care, (more than 50% of the total time, spent in obtaining medical information from nurses and other ancillary care providers ,explaining to the patient about labs, imaging, diagnosis and management of active complex medical conditions), , review of labs and imaging is 35 minutes. Clinical Impression(s) from Imaging Studies Chest X-Ray 05/15/25 15:55 IMPRESSION: Mild pulmonary vascular congestion interstitial edema. Retrocardiac/left lower lobe opacity suspected. Stable moderate cardiomegaly. Reading Location: [facility] Chest X-Ray 05/15/25 18:16 IMPRESSION: Endotracheal tube tip 2.6 cm above the erika; consider 1 cm retraction. Enteric tube in appropriate placement. Retrocardiac/left lower lobe opacity not excluded. Mild pulmonary vascular congestion. Stable moderate cardiomegaly. No pleural effusion or pneumothorax. Reading Location: [facility] Chest CTA 05/15/25 18:35 IMPRESSION: No pulmonary embolism. Probable pulmonary edema. Small pericardial effusion. Indeterminate right kidney lesion. Further characterization with nonemergent ultrasound to determine if it is cystic is recommended. Reading Location: [id number] Echocardiogram 05/15/25 23:26 Interpretation Summary Normal LV size. Left ventricular systolic function is normal. The left ventricular ejection fraction is 55 %. Moderate (1.0-2.0 cm) pericardial effusion. There are no echocardiographic indications of cardiac tamponade. Mild (1+) aortic valve insufficiency. Ordering Physician: Fede Diaz Performed By: Lance Best RCS Chest X-Ray 05/16/25 05:10 IMPRESSION: Endotracheal tube is in good position with its tip 2.8 cm above the level of the erika. Enteric feeding tube is in good position with its tip extending below the level of the left hemidiaphragm. Mild increase in bilateral basilar atelectatic pulmonary changes. Mild increase in central pulmonary venous congestion. Enlarged cardiac silhouette. Reading Location: [id number] Charges/Coding Visit Charges Inpatient E&M: 99064 Subs Hosp L3
[2025-05-18] MEDS: Chlorhexidine 15 ML PO ×2 (09:27→21:14)
[2025-05-18] MEDS: Enoxaparin 40 MG/0.4 ML Syringe SC (09:27)
[2025-05-18] MEDS: CHLORHEXIDINE GLUC 2% CLOTH 1 EACH TOWELETTE TOPICAL (09:27)
[2025-05-18] MEDS: Haloperidol 5 MG Tablet PO ×2 (09:27→21:21)
[2025-05-18] MEDS: Lithium Carbonate 300mg Capsule 300 MG PO (09:27)
[2025-05-18] MEDS: Pantoprazole Sodium 40 MG in 0.9% Normal Saline (100mL MB+) 100 ML 330 MG IV (09:28)
[2025-05-18] MEDS: Fluoxetine HCl 40 MG CAPSULE PO (09:28)
[2025-05-18] MEDS: Midodrine HCl 5 MG Tablet 10 MG PO ×3 (09:32→18:01)
--- NOTE | 2025-05-18 10:10 | CASEMGMT ---
Social Work- SW participated in interdisciplinary rounds with care team. Pt continuing to receive medical treatment due to medical instability. SW remains available to follow for discharge planning needs. DANK Gomez
--- NOTE | 2025-05-18 10:32 | PCM.CONS.R ---
Assessment & Plan Assessment/Plan (1) CHADD (acute kidney injury): PLAN: Baseline creatinine is between 1.0-1.2. He has history of chronic lithium use, it is possible that he has some early CKD from chronic lithium use. Creatinine on admission was close to baseline. Renal ultrasound has been done, limited study due to body habitus but there appears to be no hydronephrosis. CT chest lower cuts showed a possible cystic lesion, this was not clearly seen on ultrasound due to body habitus, this can be evaluated later Urine analysis shows some hematuria however this is a [place] sample He did receive a CT contrast on admission for CTA PE protocol. Blood pressure has been low. Most likely he sustained ATN in the setting of these 2 events. Today he is intubated, FiO2 is up to 80%. BNP is low but it could be artificially low in obese patients. Chest x-ray with lower lobe infiltrates. CT chest with some edema pattern. Potassium is okay, bicarbonate acceptable. Will try to see if we can drive urine output with Lasix. Will try Lasix challenge. No acute indications for renal replacement therapy otherwise Medication list reviewed. He is on lithium 300 mg twice a day. In the setting of acute renal failure most likely he has delayed clearance. [place] levels need to be monitored daily. Since he already had renal failure for couple of days, might be better to hold lithium until the levels are back. This plan was discussed with the hospitalist Dr Carlisle Discussed with ICU attending Dr. Dent. Lasix challenge today HPI Consult Data Date of Consult: 05/18/25 HPI Narrative Reason for Consultation: Acute renal failure HPI Narrative: ALAN DAUGHERTY, is a 54 M who presents to the hospital with shortness of breath. Nephrology on consultation in view of renal failure. Ongoing events include hypoxic and hypercapnic respiratory failure, s/p intubation. Most of the history is obtained from the chart. With respect to renal function, he is creatinine at baseline is between 1.0-1.2. He was admitted on the and at the time of admission, his creatinine is close to baseline. Renal function has worsened within the last 2 days. Creatinine up to 3.2. Urine output has been low. Blood pressure is borderline, discussed with ICU attending, likely will be started on Levophed soon. He did receive a Lasix challenge earlier. [facility] Medical History Asthma Hypercholesterolemia Hypertension Diabetes mellitus Schizophrenia Home Medications ?Medication ?Instructions ?Recorded ?Last Taken ?Type atorvastatin 40 mg tablet 40 mg PO QHS 06/18/21 05/14/25 History valsartan 320 mg tablet 320 mg PO DAILY 06/18/21 05/15/25 History aripiprazole 300 mg intramuscular 300 mg IM QMONTH 09/05/21 Unknown History suspension,extended release (Abilify Maintena) fluoxetine 40 mg capsule 40 mg PO DAILY 05/15/25 05/15/25 History glimepiride 2 mg tablet 2 mg PO DAILY 05/15/25 05/15/25 History haloperidol 5 mg tablet 5 mg PO BID 05/15/25 05/15/25 History levothyroxine 25 mcg tablet 25 mcg PO DAILY 05/15/25 05/15/25 History lithium carbonate 300 mg capsule 300 mg PO BID 05/15/25 05/15/25 History metformin 500 mg tablet,extended 500 mg PO BID 05/15/25 05/15/25 History release 24 hr propranolol 40 mg tablet 40 mg PO TID 05/15/25 05/15/25 History semaglutide 3 mg tablet (Rybelsus) 3 mg PO DAILY 05/15/25 05/15/25 History Allergy/AdvReac Type Severity Reaction Status Date / Time divalproex sodium (From AdvReac Severe Crtiticly Verified 05/15/25 14:54 Depakote) Elevated Ammonia Levels Social History (Updated 05/15/25 @ 15:[address] Danny Gloria MD) household members: family Smoking Status: Never smoker substance use type: does not use ROS ROS Narrative Unable to obtain due to intubated status Physical Exam Narrative no pallor no icterus no JVD s1s2 no murmurs lungs clear abdomen soft no organomegaly no edema no cyanosis [place] + Lab / Micro Data 05/18/25 06:20 05/18/25 06:20 Labs: Laboratory Results - last 24 hr 05/17/25 12:55: POC Glucose 139 H 05/17/25 18:06: POC Glucose 130 H 05/17/25 23:17: POC Glucose 124 H 05/18/25 06:20: WBC 12.3 H, RBC 4.05 L, Hgb 12.5 L, Hct 39.2 L, MCV 96.8 H, MCH 30.9, MCHC 31.9 L, RDW Std Deviation 54.9 H, RDW Coeff of Gautam 15.4 H, Plt Count 173, MPV 10.3, Immature Gran % (Auto) 0.700, Neut % (Auto) 77.8 H, Lymph % (Auto) 10.2 L, [place] % (Auto) 8.5, Eos % (Auto) 2.4, Baso % (Auto) 0.4, Absolute Neuts (auto) 9.6 H, Absolute Lymphs (auto) 1.25, Nucleated RBC % 0, Sodium 139, Potassium 3.8, Chloride 100, Carbon Dioxide 27.8, Anion Gap 12, BUN 50 H, Creatinine 3.75 H, Estim Creat Clear Calc 29.01 L, Est GFR (MDRD) Non-Af 19 L, BUN/Creatinine Ratio 13.4, Glucose 148 H, Calcium 8.3 05/18/25 06:33: POC Glucose 136 H Micro: Microbiology 05/15/25 21:08 Blood Culture (Wb) - No Site/Description Given Bacteria Detection (PCR) - Final Coag Negative Staph 05/15/25 21:08 Blood Culture (Wb) - No Site/Description Given Blood Culture - Final Staphylococcus hominis hominis 05/15/25 18:06 Sputum, Induced/Lukens Gram Stain - Final 05/15/25 18:06 Sputum, Induced/Lukens Respiratory Culture - Final Culture exhibits no growth. 05/16/25 18:15 Urine Catheter - [place] Urine Culture - Preliminary Culture exhibits no growth. ABG Data ABG results: ABG 05/18/25 01:57 Specimen Type ART Sample Site R RADIAL pH 7.48 H Bicarbonate Actual 32.5 H Total CO2 34 Base Excess 9 H O2 Saturation 90 L O2 % 65.0 ABG pCO2 43.5 ABG pO2 55 L Respiration Rate 18 Vent Mode A-C Tidal Volume 400.0 POC PEEP 8 Blood Gas Notified Time 0157 Imaging Radiology Impression Chest X-Ray 05/18/25 01:50 IMPRESSION: Endotracheal tube is in good position. Enteric feeding tube is in good position with its tip extending below the level of the left hemidiaphragm. Right PICC line remains in good position. Increased bilateral basilar atelectatic pulmonary changes. Reading [id number] Renal Ultrasound 05/18/25 08:26 IMPRESSION: Very limited exam due to patient condition. No hydronephrosis. Reading Location: [id number]
[2025-05-18] MEDS: Furosemide 100 MG/10 ML Vial 80 MG IV (10:56)
[2025-05-18] MEDS: Norepinephrine 8 MG in 0.9% Normal Saline (250mL Bag) 242 ML 9.4 MG CONT INF (10:56)
--- NOTE | 2025-05-18 11:13 | PCM.CONS.GEN ---
Assessment & Plan Assessment/Plan (1) CHADD (acute kidney injury): (2) Acute respiratory failure with hypoxia and hypercapnia: PLAN: Low grade fever. Covid neg, sputum cx pending, UAgs neg. On zosyn for now. BNP mildly elevated on admit. Will check hiv, procal, lactic acid. Adjusted zosyn to q12 due to CHADD. Will follow, thank you, d/w Dr. Dent (3) Community acquired pneumonia: HPI Consult Data Date of Consult: 05/18/25 HPI Narrative Reason for Consultation: fever HPI Narrative: ALAN DAUGHERTY, is a 54 M who has h/o schizophrenia, T2DM, sent to ED from PCP office with acute onset dyspnea and hypoxia. Had dry cough. Intubated, admitted to icu, on vanc/zosyn. Remains on vent, vanc stopped, worsening CHADD. Pt unable to provide history or ROS due to mental status. [facility] Medical History Asthma Hypercholesterolemia Hypertension Diabetes mellitus Schizophrenia Home Medications ?Medication ?Instructions ?Recorded ?Last Taken ?Type atorvastatin 40 mg tablet 40 mg PO QHS 06/18/21 05/14/25 History valsartan 320 mg tablet 320 mg PO DAILY 06/18/21 05/15/25 History aripiprazole 300 mg intramuscular 300 mg IM QMONTH 09/05/21 Unknown History suspension,extended release (Abilify Maintena) fluoxetine 40 mg capsule 40 mg PO DAILY 05/15/25 05/15/25 History glimepiride 2 mg tablet 2 mg PO DAILY 05/15/25 05/15/25 History haloperidol 5 mg tablet 5 mg PO BID 05/15/25 05/15/25 History levothyroxine 25 mcg tablet 25 mcg PO DAILY 05/15/25 05/15/25 History lithium carbonate 300 mg capsule 300 mg PO BID 05/15/25 05/15/25 History metformin 500 mg tablet,extended 500 mg PO BID 05/15/25 05/15/25 History release 24 hr propranolol 40 mg tablet 40 mg PO TID 05/15/25 05/15/25 History semaglutide 3 mg tablet (Rybelsus) 3 mg PO DAILY 05/15/25 05/15/25 History Allergy/AdvReac Type Severity Reaction Status Date / Time divalproex sodium (From AdvReac Severe Crtiticly Verified 05/15/25 14:54 Depakote) Elevated Ammonia Levels Social History (Updated 05/15/25 @ 15:[address] Danny Gloria MD) household members: family Smoking Status: Never smoker substance use type: does not use Physical Exam Const no apparent distress Constitutional Narrative: opens eyes to voice HEENT normocephalic and head/scalp atraumatic Eyes PERRL and EOMs intact bilaterally Neck supple and No nodes Resp Effort and Inspection: mechanically ventilated Auscultation: diminished lung sounds Cardio regular rate and regular rhythm GI soft to palpation, non-tender and non-distended Extremity General Extremity: edema Skin no rashes or lesions noted Neuro CN's II-XII intact bilaterally Lab / Micro Data Attestation: I reviewed the patient's lab results. 05/18/25 06:20 05/18/25 06:20 Labs: Laboratory Results - last 24 hr 05/17/25 12:55: POC Glucose 139 H 05/17/25 18:06: POC Glucose 130 H 05/17/25 23:17: POC Glucose 124 H 05/18/25 06:20: WBC 12.3 H, RBC 4.05 L, Hgb 12.5 L, Hct 39.2 L, MCV 96.8 H, MCH 30.9, MCHC 31.9 L, RDW Std Deviation 54.9 H, RDW Coeff of Gautam 15.4 H, Plt Count 173, MPV 10.3, Immature Gran % (Auto) 0.700, Neut % (Auto) 77.8 H, Lymph % (Auto) 10.2 L, [place] % (Auto) 8.5, Eos % (Auto) 2.4, Baso % (Auto) 0.4, Absolute Neuts (auto) 9.6 H, Absolute Lymphs (auto) 1.25, Nucleated RBC % 0, Sodium 139, Potassium 3.8, Chloride 100, Carbon Dioxide 27.8, Anion Gap 12, BUN 50 H, Creatinine 3.75 H, Estim Creat Clear Calc 29.01 L, Est GFR (MDRD) Non-Af 19 L, BUN/Creatinine Ratio 13.4, Glucose 148 H, Calcium 8.3 05/18/25 06:33: POC Glucose 136 H Micro: Microbiology 05/15/25 21:08 Blood Culture (Wb) - No Site/Description Given Bacteria Detection (PCR) - Final Coag Negative Staph 05/15/25 21:08 Blood Culture (Wb) - No Site/Description Given Blood Culture - Final Staphylococcus hominis hominis 05/15/25 18:06 Sputum, Induced/Lukens Gram Stain - Final 05/15/25 18:06 Sputum, Induced/Lukens Respiratory Culture - Final Culture exhibits no growth. 05/16/25 18:15 Urine Catheter - Summers Urine Culture - Preliminary Culture exhibits no growth. ABG Data ABG results: ABG 05/18/25 01:57 Specimen Type ART Sample Site R RADIAL pH 7.48 H Bicarbonate Actual 32.5 H Total CO2 34 Base Excess 9 H O2 Saturation 90 L O2 % 65.0 ABG pCO2 43.5 ABG pO2 55 L Respiration Rate 18 Vent Mode A-C Tidal Volume 400.0 POC PEEP 8 Blood Gas Notified Time 0157 Imaging Radiology Impression Chest X-Ray 05/18/25 01:50 IMPRESSION: Endotracheal tube is in good position. Enteric feeding tube is in good position with its tip extending below the level of the left hemidiaphragm. Right PICC line remains in good position. Increased bilateral basilar atelectatic pulmonary changes. Reading Location: [facility] Renal Ultrasound 05/18/25 08:26 IMPRESSION: Very limited exam due to patient condition. No hydronephrosis. Reading Location: [id number]
[2025-05-18] MEDS: Insulin Lispro 100 UNIT/ML INSULN.PEN SC ×2 (11:34→18:00)
[2025-05-18 11:37] LABS: Lactic Acid < 1.0 mmol/L (0.0-2.0)
[2025-05-18 11:39] LABS: HIV Nonreactive (Nonreactive)
[2025-05-18 11:51] LABS: Lithium 1.41 mmol/L (0.60-1.20)
[2025-05-18 11:51] LABS: Bedside Glucose 163 mg/dL (74-106)
[2025-05-18] MEDS: Vital High Protein 1,000 ML 50 ML GT (13:42)
[2025-05-18 18:29] LABS: Bedside Glucose 178 mg/dL (74-106)
[2025-05-18] MEDS: Atorvastatin Calcium 40 MG Tablet PO (21:21)
[2025-05-19] VITALS (65 sets, daily range): BP systolic 80–151; BP diastolic 44–97; PULSE 18–94; RESP 18–23; TEMP 37.5–38.6; O2SAT 72–95; BMI 36.0
[2025-05-19] MEDS: Insulin Lispro 100 UNIT/ML INSULN.PEN SC ×5 (00:13→23:17)
[2025-05-19 00:45] LABS: Bedside Glucose 162 mg/dL (74-106)
[2025-05-19] MEDS: Acetaminophen 325 MG Tablet 650 MG PO ×2 (00:58→11:06)
[2025-05-19 02:01] LABS: Allen Test Positive; Base Excess 4 mmol/L (-2 to +2); Bicarbonate 28.5 mmol/L (22-26); Blood Gas Specimen Type ART; Mode AC; O2 Delivery Device Adult Vent; PEEP 10; PO2 64 mmHG (75-100); RR 18; SITE L Radial; SO2 92 % (95-99); Total Carbon Dioxide 30 mmol/L; pCO2 45.5 mmHg (35-45)
[2025-05-19 04:01] LABS: Absolute Lymphocyte Count 1.11 X10^3/uL (0.83-4.51); Absolute Neutrophil Count 14.3 X10^3/uL (2.0-7.7); Basophil# 0.05 X10^3/uL; Basophil% 0.3 % (0-1); Eosinophil# 0.37 X10^3/uL; Eosinophils% 2.1 % (0-5); Hematocrit 42.3 % (40-54); Hemoglobin 13.1 g/dL (13.0-16.5); Lymphocyte # 1.11 X10^3/ul (0.83-4.51); Lymphocyte % 6.3 % (19-41); Mean Corpuscular Hgb 30.4 pg (27.0-32.0); Mean Corpuscular Volume 98.1 fL (80-94); Mean Platelet Vol. 10.7 fl (6.2-12.0); Monocyte% 9.6 % (0-10); NRBC Flagged by Analyzer 0 % (0-5); Neutrophil # 14.34 X10^3/uL (2.7-7.7); Neutrophil % 80.9 % (47-70); POSITIVE DIFFERENTIAL YES; Platelet Count 201 K/mm3 (150-450); RBC Distribution Width CV 15.1 % (11.6-14.6); RBC Distribution Width SD 55.4 fl (35.1-43.9); Red Blood Count 4.31 M/mm3 (4.6-6.2); White Blood Count 17.7 K/mm3 (4.4-11.0)
[2025-05-19 04:03] LABS: Differential Indicated SCAN CRITERIA MET
[2025-05-19 04:24] LABS: BUN 59 mg/dL (4-19); Creatinine, Serum 4.24 mg/dL (0.70-1.20); Glucose 206 mg/dL (70-99)
[2025-05-19 04:25] LABS: ALB/GLOB Ratio 1.1 RATIO (0.9-2.4); AST(SGOT) 18 U/L (<=37); Alanine Aminotransfer ALT/SGPT 13 U/L (<=46); Albumin, Serum 3.4 g/dL (3.5-5.0); Alkaline Phosphatase 111 U/L (40-129); Anion Gap 16 (5-15); BUN/Creat Ratio 13.9 RATIO (10-20); Calcium,Total 8.6 mg/dL (7.6-11.0); Carbon Dioxide 23.7 mmol/L (21.0-32.0); Chloride 98 mmol/L (98-108); EST Glomerular Filtration Rate 16 (>60); Estimated Creatinine Clearance 25.78 ml/min (50-250); Magnesium 2.1 mg/dL (1.5-2.2); Phosphorus 5.6 mg/dL (2.7-4.5); Protein, Total 6.3 g/dL (5.9-8.4); Sodium Level 138 mmol/L (133-145); Total Bilirubin 1.27 mg/dL (0.00-1.30)
--- NOTE | 2025-05-19 05:00 | RAD_ITS ---
PROCEDURE: CHEST 1 VIEW (PORTABLE) 05/19/2025 REASON FOR EXAM: RESPIRATORY FAILURE TECHNIQUE: Frontal view of the chest. COMPARISON: 05/18/2025. FINDINGS: Endotracheal tube is in good position. Enteric feeding tube is in good position with its tip extending below the level of the left hemidiaphragm. Right PICC line remains in good position. Mild further increase in bilateral basilar atelectatic pulmonary changes. There is no demonstrated pleural abnormality. Normal heart and pericardium. Normal mediastinum and myra. Normal visualized pulmonary arteries. Normal visualized aortic arch and descending thoracic aorta. Normal visualized thoracic spine. Normal visualized ribs, clavicles, and shoulders. There is no demonstrated abnormality of the visualized soft tissue structures of the upper abdomen. RAD/Chest 1 View (Portable) IMPRESSION: Endotracheal tube is in good position. Enteric feeding tube is in good position with its tip extending below the level of the left hemidiaphragm. Right PICC line remains in good position. Mild further increase in bilateral basilar atelectatic pulmonary changes. Reading Location: [id number]
[2025-05-19 05:07] LABS: Differential Comment SCANNED
[2025-05-19] MEDS: Levothyroxine 25 MCG TABLET PO (06:01)
[2025-05-19] MEDS: CHLORHEXIDINE GLUC 2% CLOTH 1 EACH TOWELETTE TOPICAL ×2 (06:02→23:21)
[2025-05-19] MEDS: 0.9% Saline Lock 10 ML Syringe IV ×2 (06:02→11:09)
[2025-05-19 06:35] LABS: Bedside Glucose 232 mg/dL (74-106)
[2025-05-19 06:45] LABS: Allen Test Positive; Base Excess 2 mmol/L (-2 to +2); Bicarbonate 27.5 mmol/L (22-26); Blood Gas Specimen Type ART; Mode AC/PC; O2 Delivery Device Adult Vent; PEEP 10; PO2 61 mmHG (75-100); RR 18; SITE L Radial; SO2 90 % (95-99); Total Carbon Dioxide 29 mmol/L; pCO2 47.6 mmHg (35-45); pH 7.37 (7.35-7.45)
[2025-05-19] MEDS: fentaNYL drip 100 ML 10 MCG CONT INF ×2 (07:00→15:17)
[2025-05-19] MEDS: Propofol 10MG/Ml 1,000 MG/100 ML Bottle 10.3 MG CONT INF (07:00)
[2025-05-19] MEDS: TITRATION PARAMETER CHANGE 1 EACH IV (07:14)
[2025-05-19] MEDS: Chlorhexidine 15 ML PO ×2 (08:00→21:07)
--- NOTE | 2025-05-19 08:25 | RAD_ITS ---
PROCEDURE: CHEST 1 VIEW (PORTABLE) 05/19/2025 REASON FOR EXAM: R/O PNEUMO TECHNIQUE: Frontal view of the chest. COMPARISON: 05/19/2025 FINDINGS: Endotracheal tube tip 4.9 cm above the erika; consider 1 cm advancement. Enteric tube in appropriate placement. Right-sided PICC line. Moderate pulmonary edema. Retrocardiac opacity is not excluded. No pleural effusion or pneumothorax. RAD/Chest 1 View (Portable) IMPRESSION: Endotracheal tube tip 4.9 cm above the erika; consider 1 cm advancement. Lung findings are grossly unchanged. No pneumothorax. Retrocardiac opacity is not excluded. Reading Location: [id number]
--- NOTE | 2025-05-19 09:18 | PN.HOSP_ITS ---
Reason for Visit Reason for Visit: Diagnoses Pneumonia, unspecified organism (05/15/25) Acute respiratory failure with hypoxia (05/15/25) Acute respiratory failure with hypercapnia (05/15/25) Acute kidney failure, unspecified (05/15/25) Objective Data Objective Data Vital Signs: Vital Signs Temp Pulse Resp BP Pulse Ox O2 Del Method O2 Flow Rate 100.3 F H 69 18 115/57 L 92 Mechanical Ventilator 90 05/19/25 07:00 05/19/25 07:00 05/19/25 07:00 05/19/25 07:00 05/19/25 07:00 05/19/25 07:00 05/18/25 16:00 FiO2 100 05/19/25 07:00 Oxygen Flow Rate (L/min) 90 Oxygen Delivery Method Mechanical Ventilator Weight: 251 lb 8 oz Body Mass Index (BMI) 36.0 Intake & Output: Intake and Output for Last 24 Hours 05/17/25 05/18/25 05/19/25 23:59 23:59 23:59 Intake Total 1459.98 / 1479.98 1819.81 / 1908.61 423.05 / 423.05 Output Total 635 / 635 600 / 750 210 / 210 Balance 824.98 / 844.98 1219.81 / 1158.61 213.05 / 213.05 Lab / Micro Data 05/19/25 03:45 05/19/25 03:45 Labs: Laboratory Results - last 24 hr 05/18/25 10:42: [place] 1.41 H* 05/18/25 10:45: Lactic Acid < 1.0, Procalcitonin 0.40 H, HIV 1&2 Antibody Nonreactive 05/18/25 11:32: POC Glucose 163 H 05/18/25 18:00: POC Glucose 178 H 05/19/25 00:08: POC Glucose 162 H 05/19/25 03:45: WBC 17.7 H, RBC 4.31 L, Hgb 13.1, Hct 42.3, MCV 98.1 H, MCH 30.4, MCHC 31.0 L, RDW Std Deviation 55.4 H, RDW Coeff of Gautam 15.1 H, Plt Count 201, MPV 10.7, Immature Gran % (Auto) 0.800, Neut % (Auto) 80.9 H, Lymph % (Auto) 6.3 L, [place] % (Auto) 9.6, Eos % (Auto) 2.1, Baso % (Auto) 0.3, Absolute Neuts (auto) 14.3 H, Absolute Lymphs (auto) 1.11, Nucleated RBC % 0, Differential Comment SCANNED, Sodium 138, Potassium 4.0, Chloride 98, Carbon Dioxide 23.7, Anion Gap 16 H, BUN 59 H, Creatinine 4.24 H, Estim Creat Clear Calc 25.78 L, Est GFR (MDRD) Non-Af 16 L, BUN/Creatinine Ratio 13.9, Glucose 206 H, Calcium 8.6, Phosphorus 5.6 H, Magnesium 2.1, Total Bilirubin 1.27, AST 18, ALT 13, Alkaline Phosphatase 111, Total Protein 6.3, Albumin 3.4 L, Globulin 3.0, Albumin/Globulin Ratio 1.1 05/19/25 06:05: POC Glucose 232 H Micro: Microbiology 05/16/25 20:22 Blood Culture (Wb) - Other Blood Culture - Preliminary No growth in 48 hours. 05/16/25 17:55 Blood Culture (Wb) - Left Hand Blood Culture - Preliminary No growth in 48 hours. 05/15/25 21:08 Blood Culture (Wb) - No Site/Description Given Bacteria Detection (PCR) - Final Coag Negative Staph 05/15/25 21:08 Blood Culture (Wb) - No Site/Description Given Blood Culture - Final Staphylococcus hominis hominis 05/15/25 18:06 Sputum, Induced/Lukens Gram Stain - Final 05/15/25 18:06 Sputum, Induced/Lukens Respiratory Culture - Final Culture exhibits no growth. 05/16/25 18:15 Urine Catheter - [place]mers Urine Culture - Preliminary Culture exhibits no growth. 05/16/25 05:07 Urine Catheter - [place] Legionella Antigen - Final 05/16/25 05:07 Urine Catheter - [place] Streptococcus pneumoniae Antigen (M - Final 05/15/25 15:50 Mucosa - Nose SARS-CoV-2, Influenza & RSV (PCR) - Final ABG Data ABG results: ABG 05/19/25 05/19/25 01:57 06:43 Specimen Type ART ART Sample Site L Radial L Radial pH 7.40 7.37 Bicarbonate Actual 28.5 H 27.5 H Total CO2 30 29 Base Excess 4 H 2 O2 Saturation 92 L 90 L O2 % 100.0 100.0 ABG pCO2 45.5 H 47.6 H ABG pO2 64 L 61 L Asif Test Positive Positive Respiration Rate 18 18 O2 Delivery Device Adult Vent Adult Vent Vent Mode AC AC/PC Tidal Volume 400.0 POC PEEP 10 10 Radiography Diagnostic Testing: Radiology Impression Renal Ultrasound 05/18/25 08:26 IMPRESSION: Very limited exam due to patient condition. No hydronephrosis. Reading Location: [facility] Chest X-Ray 05/19/25 05:00 IMPRESSION: Endotracheal tube is in good position. Enteric feeding tube is in good position with its tip extending below the level of the left hemidiaphragm. Right PICC line remains in good position. Mild further increase in bilateral basilar atelectatic pulmonary changes. Reading Location: [place] [id number] Physical Exam Narrative Seen and examined. Overnight events noted. Chart reviewed. Patient general condition is worsening with on maximal vent setting, maximum norepinephrine drip, and kidney worsening with no significant urine output. Tmax 100.8 Fahrenheit. 600 mL urine output yesterday 200 mL since midnight today Physical exam: General: Drowsy/lethargy sedated HEENT: Atraumatic, PERRLA, EOMI, Normocephalic. Oral: ETT and OG tube. Neck: Supple, No JVD, Negative Carotid Bruits Chest wall/Lungs: Air entry present in both lungs. Mild crepitations. On vent Cardiovascular: Regular rate and rhythm, Normal S1,S2, No M/G/R Abdomen: Bowel Sounds Present, Soft, Non Tender, Non-Distended : Summers catheter no renal angle tenderness. No suprapubic tenderness. Extremities: 2+ pedal edema, Capillary Refill Less than 3 Seconds Skin: No rashes, No breakdown Musculoskeletal: No Tenderness to Palpation of Joints or Extremities. ROM restricted Neurological: Detailed neuro unobtainable. No obvious focal lateralization sign. Psych/Mental Status: Lightly sedated Assessment & Plan Assessment/Plan (1) Acute respiratory failure with hypoxia and hypercapnia: PLAN: Plan Patient is a 54-year-old male who presented to [facility] ED on 05/15/2025 for shortness of breath and hypoxia. Patient presented with hypoxia and altered mentation. 1. Acute hypoxic and hypercapnic respiratory failure suspected secondary to CHF exacerbation, concern for pneumonia with acute encephalopathy ? Admit under inpatient status to ICU. [employer] Supervisor consulted. Initial ABG showed pH 7.29, pCO2 68, pO2 93. Placed on BiPAP but unfortunately repeat pH remained at 7.29 and had worsening pCO2 75 and pO2 75 so patient was intubated in the ED. Repeat ABG on mechanical ventilation with pH 7.39, pCO2 56, pO2 only 54. CTA chest showed probable pulmonary edema with small pericardial effusion. Mildly elevated leukocytosis, improving. D-dimer negative. Electrolytes in normal range. BNP elevated at 1732. No prior history of CHF noted in chart. On IV Lasix, dose as per hemodynamics parameters and kidney function. Procalcitonin negative. 2D echo shows EF 55% with moderate 1 to 2 cm pericardial effusion. No echo indication for cardiac tamponade. Mild AI Heart failure core measures including intake and output, fluid restriction less than 1500 mL, daily weight monitoring, kidney and electrolytes monitoring. Ventilator management per chronic specialist. Chest x-ray individually reviewed and shows pulmonary venous congestion and left lower/retrocardiac opacity. 05/17: Remains intubated and sedated. Encephalopathy may be from metabolic encephalopathy. Continue antibiotic 05/18: Patient FiO2 increased to 80%. [employer] Supervisor on board 05/19: FiO2 100%, PEEP 12, I to E ratio 1:1, mean airway pressure 15. On maximal vent capacity 2. hypotension with high suspicion of sepsis. GPC, contamination: Prelim blood culture positive gram-positive cocci. Urinary antigens are negative. Triple PCR for SARS-CoV-2, flu and RSV are negative. Preliminary sputum culture negative. Started on empiric IV vancomycin and Zosyn. BP on lower side 92/53, 90/59, 84/63 x 2. Mild low-grade fever 99.9 Tmax. In the appropriate clinical setting, high suspicion of sepsis but patient may have hypotension from heart failure. Procalcitonin normal. Suspected infection, exact source unclear possible pneumonia. On broad-spectrum antibiotic. Patient does not meet criteria for IV fluid bolus 30 mL/h because of heart failure exacerbation 05/17: Gram stain preliminary shows no growth. Blood culture, PCR CoNS is therefore probably skin contamination. Urine culture shows no growth. Blood culture on 05/16 are pending. Vancomycin discontinued. Continue IV Zosyn. 05/18: Blood culture shows Staph hominis most likely contamination. 2D echo does not show his vegetations. Patient does not have any devices. ID consulted for further opinion as patient still has low-grade fever . Still has leukocytosis but slight improvement 05/19: Patient on max norepinephrine drip. On midodrine also. CHADD, worsening in 2 ATN multifactorial possible sepsis, cardiorenal disease, DM type and obesity and hypotension ? Creatinine 1.32 on admit, baseline around 1.0-1.1. Presume secondary to CHF exacerbation as above. Treating with IV Lasix as above, monitor daily BMP and urine output. 05/16: Creatinine 1.18, better than 1.32. 05/19: Creatinine 4.24 jumped from 2.0, to 3.75. Discussed with the table machine operator. Agreed on starting Bumex drip and 3 doses of IV albumin to correct extravascular volume overload and CHADD Chronic medical conditions: ? Class I obesity: BMI 34 on admit. Complicates hospital course, care and prognosis. ? Type 2 diabetes mellitus: Glucose 173 on admit. Most recent A1c 7.4% in January. Hold home oral medications. Will treat with sliding scale insulin every 6 hours for now, adjust as needed. ? Hypertension: Holding home propranolol and valsartan as patient has been borderline hypotensive on sedation. ? Hyperlipidemia: Continue home statin. ? History of schizoaffective disorder: Continue home fluoxetine, haloperidol and lithium. ? Hypothyroidism: TSH normal. Continue home Synthroid. DVT prophylaxis: Lovenox CODE STATUS: Full code, unverified Expected disposition: TBD Total time of the visit including total time spent in counseling or coordination of care, (more than 50% of the total time, spent in obtaining medical information from nurses and other ancillary care providers ,explaining to the patient about labs, imaging, diagnosis and management of active complex medical conditions), discussion with the table machine operator, intensive, review of labs and imaging and clinical update given to patient's mother 45 minutes Clinical Impression(s) from Imaging Studies Chest X-Ray 05/15/25 15:55 IMPRESSION: Mild pulmonary vascular congestion interstitial edema. Retrocardiac/left lower lobe opacity suspected. Stable moderate cardiomegaly. Reading Location: [facility] Chest X-Ray 05/15/25 18:16 IMPRESSION: Endotracheal tube tip 2.6 cm above the erika; consider 1 cm retraction. Enteric tube in appropriate placement. Retrocardiac/left lower lobe opacity not excluded. Mild pulmonary vascular congestion. Stable moderate cardiomegaly. No pleural effusion or pneumothorax. Reading Location: [id number] Chest CTA 05/15/25 18:35 IMPRESSION: No pulmonary embolism. Probable pulmonary edema. Small pericardial effusion. Indeterminate right kidney lesion. Further characterization with nonemergent ultrasound to determine if it is cystic is recommended. Reading Location: [id number] Echocardiogram 05/15/25 23:26 Interpretation Summary Normal LV size. Left ventricular systolic function is normal. The left ventricular ejection fraction is 55 %. Moderate (1.0-2.0 cm) pericardial effusion. There are no echocardiographic indications of cardiac tamponade. Mild (1+) aortic valve insufficiency. Ordering Physician: Fede Diaz Performed By: Lance Best RCS Chest X-Ray 05/16/25 05:10 IMPRESSION: Endotracheal tube is in good position with its tip 2.8 cm above the level of the erika. Enteric feeding tube is in good position with its tip extending below the level of the left hemidiaphragm. Mild increase in bilateral basilar atelectatic pulmonary changes. Mild increase in central pulmonary venous congestion. Enlarged cardiac silhouette. [facility] Charges/Coding Visit Charges Inpatient E&M: 22104 Subs Hosp L3
[2025-05-19] MEDS: Ipratropium/Albuterol Sulfate 3 ML AMPUL.NEB INHALATION ×3 (09:20→19:31)
--- NOTE | 2025-05-19 09:29 | PCM.PN.REN ---
Subjective Subjective Respiratory status worsened overnight, on maximum ventilator settings. Objective Data Objective Data Vital Signs: Vital Signs Temp Pulse Resp BP Pulse Ox O2 Del Method O2 Flow Rate 100.3 F H 69 18 115/57 L 92 Mechanical Ventilator 90 05/19/25 07:00 05/19/25 07:00 05/19/25 07:00 05/19/25 07:00 05/19/25 07:00 05/19/25 07:00 05/18/25 16:00 FiO2 100 05/19/25 07:00 Oxygen Flow Rate (L/min) 90 Oxygen Delivery Method Mechanical Ventilator Weight: 114.078 kg Body Mass Index (BMI) 36.0 Intake & Output: Intake and Output for Last 24 Hours 05/17/25 05/18/25 05/19/25 23:59 23:59 23:59 Intake Total 1459.98 / 1479.98 1819.81 / 1908.61 423.05 / 423.05 Output Total 635 / 635 600 / 750 210 / 210 Balance 824.98 / 844.98 1219.81 / 1158.61 213.05 / 213.05 Lab / Micro Data 05/19/25 03:45 05/19/25 03:45 Labs: Laboratory Results - last 24 hr 05/18/25 10:42: [place] 1.41 H* 05/18/25 10:45: Lactic Acid < 1.0, Procalcitonin 0.40 H, HIV 1&2 Antibody Nonreactive 05/18/25 11:32: POC Glucose 163 H 05/18/25 18:00: POC Glucose 178 H 05/19/25 00:08: POC Glucose 162 H 05/19/25 03:45: WBC 17.7 H, RBC 4.31 L, Hgb 13.1, Hct 42.3, MCV 98.1 H, MCH 30.4, MCHC 31.0 L, RDW Std Deviation 55.4 H, RDW Coeff of Gautam 15.1 H, Plt Count 201, MPV 10.7, Immature Gran % (Auto) 0.800, Neut % (Auto) 80.9 H, Lymph % (Auto) 6.3 L, [place] % (Auto) 9.6, Eos % (Auto) 2.1, Baso % (Auto) 0.3, Absolute Neuts (auto) 14.3 H, Absolute Lymphs (auto) 1.11, Nucleated RBC % 0, Differential Comment SCANNED, Sodium 138, Potassium 4.0, Chloride 98, Carbon Dioxide 23.7, Anion Gap 16 H, BUN 59 H, Creatinine 4.24 H, Estim Creat Clear Calc 25.78 L, Est GFR (MDRD) Non-Af 16 L, BUN/Creatinine Ratio 13.9, Glucose 206 H, Calcium 8.6, Phosphorus 5.6 H, Magnesium 2.1, Total Bilirubin 1.27, AST 18, ALT 13, Alkaline Phosphatase 111, Total Protein 6.3, Albumin 3.4 L, Globulin 3.0, Albumin/Globulin Ratio 1.1 05/19/25 06:05: POC Glucose 232 H Micro: Microbiology 05/16/25 20:22 Blood Culture (Wb) - Other Blood Culture - Preliminary No growth in 48 hours. 05/16/25 17:55 Blood Culture (Wb) - Left Hand Blood Culture - Preliminary No growth in 48 hours. 05/15/25 21:08 Blood Culture (Wb) - No Site/Description Given Bacteria Detection (PCR) - Final Coag Negative Staph 05/15/25 21:08 Blood Culture (Wb) - No Site/Description Given Blood Culture - Final Staphylococcus hominis hominis 05/15/25 18:06 Sputum, Induced/Lukens Gram Stain - Final 05/15/25 18:06 Sputum, Induced/Lukens Respiratory Culture - Final Culture exhibits no growth. 05/16/25 18:15 Urine Catheter - [place] Urine Culture - Preliminary Culture exhibits no growth. 05/16/25 05:07 Urine Catheter - [place] Legionella Antigen - Final 05/16/25 05:07 Urine Catheter - [place] Streptococcus pneumoniae Antigen (M - Final 05/15/25 15:50 Mucosa - Nose SARS-CoV-2, Influenza & RSV (PCR) - Final ABG Data ABG results: ABG 05/19/25 05/19/25 01:57 06:43 Specimen Type ART ART Sample Site L Radial L Radial pH 7.40 7.37 Bicarbonate Actual 28.5 H 27.5 H Total CO2 30 29 Base Excess 4 H 2 O2 Saturation 92 L 90 L O2 % 100.0 100.0 ABG pCO2 45.5 H 47.6 H ABG pO2 64 L 61 L Asif Test Positive Positive Respiration Rate 18 18 O2 Delivery Device Adult Vent Adult Vent Vent Mode AC AC/PC Tidal Volume 400.0 POC PEEP 10 10 Radiography Diagnostic Testing: Radiology Impression Renal Ultrasound 05/18/25 08:26 IMPRESSION: Very limited exam due to patient condition. No hydronephrosis. Reading Location: [facility] Chest X-Ray 05/19/25 05:00 IMPRESSION: Endotracheal tube is in good position. Enteric feeding tube is in good position with its tip extending below the level of the left hemidiaphragm. Right PICC line remains in good position. Mild further increase in bilateral basilar atelectatic pulmonary changes. Reading Location: [place] [id number] Physical Exam Narrative on ventilator support s1s2 no murmurs lungs diminished abdomen soft no pitting edema no cyanosis [place]sel[place] + with scant yellow urine in bag Assessment & Plan Assessment/Plan (1) CHADD (acute kidney injury): PLAN: Baseline creatinine is between 1.0-1.2. He has history of chronic lithium use, it is possible that he has some early CKD from chronic lithium use. Creatinine on admission was close to baseline, today SCr 4.24. Potassium and bicarb normal. Renal ultrasound limited study due to body habitus but there appears to be no hydronephrosis. He did receive a CT contrast on admission for CTA PE protocol. Blood pressure low, on levophed. Most likely he sustained ATN in the setting of these 2 events. overnight respiratory status worsened, now on maximum vent settings. Chest x-ray with lower lobe infiltrates. CT chest with some edema pattern. Potassium is okay, bicarbonate acceptable. Attempted lasix challenge yesterday, UOP 600ml in 24hrs. Will start bumex gtt and if no improvement patient may be heading towards CRRT. Discussed nephrology plan with Dr. Carlisle. Assessment and plan reviewed with Dr. Brito.
[2025-05-19] MEDS: Bumetanide 25 MG in CONTAINER,EMPTY 1 BAG CONT INF (10:48)
[2025-05-19] MEDS: Pantoprazole Sodium 40 MG in 0.9% Normal Saline (100mL MB+) 100 ML 330 MG IV (11:00)
[2025-05-19] MEDS: Haloperidol 5 MG Tablet PO ×2 (11:07→21:07)
[2025-05-19] MEDS: Senna/Docusate Sodium 1 Tablet 2 TABLET GT ×2 (11:08→21:07)
[2025-05-19] MEDS: Fluoxetine HCl 40 MG CAPSULE PO (11:08)
[2025-05-19] MEDS: Polyethylene Glycol 3350 17 GM PACKET GT (11:08)
[2025-05-19] MEDS: Piperacil/Tazobactam 3.375 GM in 0.9% Normal Saline (50mL MB+) 50 ML IV ×2 (12:01→21:08)
[2025-05-19] MEDS: Enoxaparin 30 MG/0.3 ML Syringe SC (12:03)
[2025-05-19] MEDS: Albumin Human 25% (100 mL) 25 GM/100 ML BAG IV ×2 (12:05→18:43)
[2025-05-19 12:50] LABS: Bedside Glucose 184 mg/dL (74-106)
[2025-05-19] MEDS: Norepinephrine 8 MG in 0.9% Normal Saline (250mL Bag) 242 ML 18.8 MG CONT INF (13:45)
--- NOTE | 2025-05-19 14:15 | PN.CC_ITS ---
Objective Data Objective Data Vital Signs: Vital Signs Last response 3 Temperature 38.4 C H 05/19/25 13:45 Temperature Source Core 05/19/25 13:45 Pulse Rate 18 L 05/19/25 13:58 Pulse Strength Normal (2+) 05/18/25 21:52 Respiratory Rate 18 05/19/25 13:58 Respiratory Effort Mechanically Ventilated 05/19/25 12:00 Respiratory Depth Normal 05/19/25 12:00 Respiratory Pattern Normal 05/19/25 13:58 Blood Pressure 135/84 H 05/19/25 13:45 Blood Pressure Mean 101 05/19/25 13:45 Blood Pressure Source Monitor 05/19/25 13:45 Blood Pressure Position Semi-Fowlers 05/19/25 13:45 Blood Pressure Location Left Forearm 05/19/25 13:45 Pulse Ox 94 05/19/25 13:58 Oxygen Delivery Method Mechanical Ventilator 05/19/25 13:45 Oxygen Flow Rate (L/min) 90 05/18/25 16:00 Fraction of Inspired Oxygen (FIO2) 90 05/19/25 13:45 I&O: I&O Last 24 Hours 3 05/18/25 05/19/25 05/19/25 23:59 11:59 23:59 Intake Total 841.98 / 1908.61 1517.32 / 1816.42 299.1 / 1816.42 Output Total 500 / 750 210 / 455 245 / 455 Balance 341.98 / 1158.61 1307.32 / 1361.42 54.1 / 1361.42 I&O: Total Stay 3 05/15/25 14:52 thru 05/19/25 13:49 Intake Total 7547.18 Output Total 3287 Balance 4260.18 Current Meds Ordered / Administered: Current meds ordered / Administered 3 Generic Name Dose Route Start Last Admin Trade Name Freq PRN Reason Stop Dose Admin Acetaminophen 650 mg 05/15/25 19:16 05/19/25 11:06 Acetaminophen 325 Mg Tablet PO 650 mg Q6H PRN PRN Administration Pain 1-10 Or Fever>100.7 Albuterol/Ipratropium 3 ml 05/19/25 08:30 05/19/25 13:58 Ipratropium/Albuterol Sulfate 3 Ml Ampul.Neb INHALATION 3 ml Q6H.RT SAMUEL Administration Atorvastatin Calcium 40 mg 05/15/25 22:00 05/18/25 21:21 Atorvastatin Calcium 40 Mg Tablet PO 40 mg QHS SAMUEL Administration Chlorhexidine Gluconate 15 ml 05/15/25 22:00 05/19/25 08:00 Chlorhexidine 15 Ml PO 15 ml BID SAMUEL Administration Chlorhexidine Gluconate 1 each 05/16/25 10:00 05/19/25 06:02 Chlorhexidine Gluc 2% Cloth 1 Each Towelette TOPICAL 1 each DAILY SAMUEL Administration Enoxaparin Sodium 30 mg 05/19/25 11:00 05/19/25 12:03 Enoxaparin 30 Mg/0.3 Ml Syringe SC 30 mg DAILY SAMUEL Administration Fluoxetine HCl 40 mg 05/16/25 10:00 05/19/25 11:08 Fluoxetine Hcl 40 Mg Capsule PO 40 mg DAILY SAMUEL Administration Glucagon 1 mg 05/15/25 19:16 Glucagon 1 Mg/Ml Syringe IM X1 PRN Hypoglycemia Protocol Haloperidol 5 mg 05/15/25 22:00 05/19/25 11:07 Haloperidol 5 Mg Tablet PO 5 mg BID SAMUEL Administration Protocol Propofol 1,000 mg in 100 mls @ 6.845 mls/hr 05/15/25 17:30 05/19/25 13:00 Diprivan CONT INF 20 mcg/kg/min .Q12H SAMUEL 13.7 mls/hr Titration Protocol 10 MCG/KG/MIN Dextrose 250 mls @ 0 mls/hr 05/15/25 19:16 Dextrose 10%-Water IV .Q0M PRN HYPOGLYCEMIA Protocol As Directed Sodium Chloride 250 mls @ 15 mls/hr 05/15/25 19:23 IV .[id number] PRN Saline Flush Sodium Chloride 250 mls @ 15 mls/hr 05/15/25 19:23 IV .[id number] PRN Additional IVPB Infusion Fentanyl 100 mls @ 2.5 mls/hr 05/15/25 20:00 05/19/25 13:00 CONT INF 100 mcg/hr UD SAMUEL 10 mls/hr Titration Protocol 25 MCG/HR Pantoprazole Sodium 40 mg/ 100 mls @ 330 mls/hr 05/16/25 10:00 05/19/25 13:47 Sodium Chloride IV Infused Q24 SAMUEL Infusion Enteral Nutritional Formula 1,000 mls @ 50 mls/hr 05/17/25 09:45 05/19/25 08:00 Vital High Protein GT 0 mls/hr .Q20H SAMUEL Infusion Norepinephrine Bitartrate 8 mg 250 mls @ 9.375 mls/hr 05/18/25 09:00 05/19/25 13:45 / Sodium Chloride CONT INF 10 mcg/min .[id number] SAMUEL 18.8 mls/hr Administration Protocol 5 MCG/MIN Piperacillin Sod/Tazobactam 50 mls @ 12.5 mls/hr 05/18/25 22:00 05/19/25 12:01 Sod 3.375 gm/ Sodium Chloride IV 12.5 mls/hr Q12H SAMUEL Administration Bumetanide 25 mg/ 100 mls @ 2 mls/hr 05/19/25 09:15 05/19/25 10:48 Miscellaneous Information CONT INF 0.5 mg/hr .Q50H SAMUEL 2 mls/hr Administration 0.5 MG/HR Albumin Human 25 gm in 100 mls @ 60 mls/hr 05/19/25 10:15 05/19/25 13:47 IV 05/20/25 03:54 Infused Q8H SAMUEL Infusion Insulin Human Lispro 0 unit 05/15/25 19:16 05/19/25 12:22 Insulin Lispro 100 Unit/Ml Insuln.Pen SC 1 unit Q6 SAMUEL Administration Protocol Levothyroxine Sodium 25 mcg 05/16/25 06:00 05/19/25 06:01 Levothyroxine 25 Mcg Tablet PO 25 mcg DAILY@0600 SAMUEL Administration Melatonin 3 mg 05/15/25 19:16 Melatonin 3 Mg Tablet PO QHS PRN PRN INSOMNIA Midodrine 10 mg 05/18/25 08:58 05/19/25 12:39 Midodrine Hcl 5 Mg Tablet PO Not Given TIDCM SAMUEL Ondansetron HCl 4 mg 05/15/25 19:16 Ondansetron 4 Mg/2 Ml Vial IV Q8H PRN PRN NAUSEA/VOMITING Polyethylene Glycol 17 gm 05/19/25 10:00 05/19/25 11:08 Polyethylene Glycol 3350 17 Gm Packet GT 17 gm DAILY SAMUEL Administration Senna/Docusate Sodium 2 tablet 05/19/25 10:00 05/19/25 11:08 Senna/Docusate Sodium 1 Tablet GT 2 tablet BID SAMUEL Administration Sodium Chloride 10 - 40 ml 05/15/25 19:23 05/19/25 11:09 0.9% Saline Lock 10 Ml Syringe IV 30 ml UD PRN Administration SALINE FLUSH Lab / Micro Data Attestation: I reviewed the patient's lab results. 05/19/25 03:45 05/19/25 03:45 Labs: Laboratory Results - last 24 hr 05/18/25 18:00: POC Glucose 178 H 05/19/25 00:08: POC Glucose 162 H 05/19/25 03:45: WBC 17.7 H, RBC 4.31 L, Hgb 13.1, Hct 42.3, MCV 98.1 H, MCH 30.4, MCHC 31.0 L, RDW Std Deviation 55.4 H, RDW Coeff of Gautam 15.1 H, Plt Count 201, MPV 10.7, Immature Gran % (Auto) 0.800, Neut % (Auto) 80.9 H, Lymph % (Auto) 6.3 L, [place] % (Auto) 9.6, Eos % (Auto) 2.1, Baso % (Auto) 0.3, Absolute Neuts (auto) 14.3 H, Absolute Lymphs (auto) 1.11, Nucleated RBC % 0, Differential Comment SCANNED, Sodium 138, Potassium 4.0, Chloride 98, Carbon Dioxide 23.7, Anion Gap 16 H, BUN 59 H, Creatinine 4.24 H, Estim Creat Clear Calc 25.78 L, Est GFR (MDRD) Non-Af 16 L, BUN/Creatinine Ratio 13.9, Glucose 206 H, Calcium 8.6, Phosphorus 5.6 H, Magnesium 2.1, Total Bilirubin 1.27, AST 18, ALT 13, Alkaline Phosphatase 111, Total Protein 6.3, Albumin 3.4 L, Globulin 3.0, Albumin/Globulin Ratio 1.1 05/19/25 06:05: POC Glucose 232 H 05/19/25 12:21: POC Glucose 184 H Micro: Microbiology 05/16/25 18:15 Urine Catheter - Summers Urine Culture - Final Culture exhibits no growth. 05/16/25 20:22 Blood Culture (Wb) - Other Blood Culture - Preliminary No growth in 48 hours. 05/16/25 17:55 Blood Culture (Wb) - Left Hand Blood Culture - Preliminary No growth in 48 hours. ABG Data ABG results: ABG 05/19/25 05/19/25 01:57 06:43 Specimen Type ART ART Sample Site L Radial L Radial pH 7.40 7.37 Bicarbonate Actual 28.5 H 27.5 H Total CO2 30 29 Base Excess 4 H 2 O2 Saturation 92 L 90 L O2 % 100.0 100.0 ABG pCO2 45.5 H 47.6 H ABG pO2 64 L 61 L Asif Test Positive Positive Respiration Rate 18 18 O2 Delivery Device Adult Vent Adult Vent Vent Mode AC AC/PC Tidal Volume 400.0 POC PEEP 10 10 Attestation: I personally reviewed and interpreted this ABG as follows: Imaging Radiology Impression Chest X-Ray 05/19/25 05:00 IMPRESSION: Endotracheal tube is in good position. Enteric feeding tube is in good position with its tip extending below the level of the left hemidiaphragm. Right PICC line remains in good position. Mild further increase in bilateral basilar atelectatic pulmonary changes. Reading Location: [place] [id number] Chest X-Ray 05/19/25 08:25 IMPRESSION: Endotracheal tube tip 4.9 cm above the erika; consider 1 cm advancement. Lung findings are grossly unchanged. No pneumothorax. Retrocardiac opacity is not excluded. Reading Location: [id number] Assessment and Plan . Assessment and plan: IMPRESSIONS: 1. Acute hypoxemic and hypercapnic respiratory failure - Pneumonia vs HFpEF - CXR really unimpressive with only low inflation volumes - unstable sats this AM suggest evolving ALI/ ARDS >> uncomplicated heart failure - blood gases reviewed - adjusted PCV to higher IP to achieve Vt closer to 6mL/Kg IBW (ARDSNet) - extend I:E to 1:1 - following blood gases and daily CXR 2. Acute kidney injury -follow up US -Renal consulted 3. History of obesity/hypertension/hyperlipidemia/diabetes mellitus/bipolar/schizoaffective disorder Complicates care, management, recovery and prognosis. Continue to hold home antihypertensives for now. Continue sliding scale insulin coverage. Okay to continue tube feeding as tolerated. Plan: 1.See above Critical Care Time: 50 minutes The entirety of this encounter was done via Telemedicine Physical Exam Const General Appearance: ill appearing, intubated and patient mechanically ventilated HEENT External Ear: external ears normal Mouth: endotracheal tube in place Teeth and Gingiva: fair dentition Eyes PERRL and EOMs intact bilaterally Neck full ROM Chest inspection of chest normal Resp normal respiratory effort Effort and Inspection: mechanically ventilated Cardio regular rate Subjective Subjective Events reviewed- CTSP for unstable O2 sats which dropped precipitously this AM despite high vent settings. Had been placed on PCV overnight by my colleague.
[2025-05-19] MEDS: Propofol 10MG/Ml 1,000 MG/100 ML Bottle 13.7 MG CONT INF (15:17)
[2025-05-19] MEDS: Vital High Protein 1,000 ML 50 ML GT (15:56)
[2025-05-19 19:14] LABS: Bedside Glucose 187 mg/dL (74-106)
[2025-05-19] MEDS: Propofol 10MG/Ml 1,000 MG/100 ML Bottle 17.1 MG CONT INF (20:24)
[2025-05-19] MEDS: Atorvastatin Calcium 40 MG Tablet PO (21:07)
[2025-05-19 23:54] LABS: Bedside Glucose 226 mg/dL (74-106)
[2025-05-20] VITALS (72 sets, daily range): BP systolic 84–139; BP diastolic 46–85; PULSE 62–91; RESP 17–18; TEMP 37.6–38.8; O2SAT 85–97; BMI 36.0
[2025-05-20] MEDS: fentaNYL drip 100 ML 10 MCG CONT INF ×3 (01:51→18:52)
[2025-05-20] MEDS: Propofol 10MG/Ml 1,000 MG/100 ML Bottle 20.5 MG CONT INF (01:51)
[2025-05-20] MEDS: Albumin Human 25% (100 mL) 25 GM/100 ML BAG IV (01:51)
[2025-05-20] MEDS: Ipratropium/Albuterol Sulfate 3 ML AMPUL.NEB INHALATION ×4 (01:52→20:03)
[2025-05-20] MEDS: Insulin Lispro 100 UNIT/ML INSULN.PEN SC ×4 (05:10→23:30)
[2025-05-20] MEDS: Levothyroxine 25 MCG TABLET PO (05:10)
[2025-05-20 05:35] LABS: Bedside Glucose 313 mg/dL (74-106)
[2025-05-20] MEDS: Propofol 10MG/Ml 1,000 MG/100 ML Bottle 20.6 MG CONT INF ×5 (06:00→23:40)
[2025-05-20] MEDS: Acetaminophen 325 MG Tablet 650 MG PO ×2 (06:01→14:35)
[2025-05-20 07:30] LABS: Absolute Lymphocyte Count 1.07 X10^3/uL (0.83-4.51); Absolute Neutrophil Count 9.3 X10^3/uL (2.0-7.7); Basophil# 0.02 X10^3/uL; Basophil% 0.2 % (0-1); Eosinophil# 0.23 X10^3/uL; Hematocrit 35.3 % (40-54); Hemoglobin 11.5 g/dL (13.0-16.5); Lymphocyte # 1.07 X10^3/ul (0.83-4.51); Lymphocyte % 9.2 % (19-41); Mean Corp Hgb Conc 32.6 g/dL (32-36); Mean Corpuscular Hgb 30.6 pg (27.0-32.0); Mean Corpuscular Volume 93.9 fL (80-94); Mean Platelet Vol. 10.8 fl (6.2-12.0); Monocyte# 0.95 X10^3/uL; Monocyte% 8.1 % (0-10); NRBC Flagged by Analyzer 0 % (0-5); Neutrophil % 79.7 % (47-70); Platelet Count 178 K/mm3 (150-450); RBC Distribution Width CV 14.7 % (11.6-14.6); RBC Distribution Width SD 51.2 fl (35.1-43.9); Red Blood Count 3.76 M/mm3 (4.6-6.2); White Blood Count 11.7 K/mm3 (4.4-11.0)
[2025-05-20] MEDS: Haloperidol 5 MG Tablet PO ×2 (07:45→21:05)
[2025-05-20] MEDS: Chlorhexidine 15 ML PO ×2 (07:45→21:03)
[2025-05-20] MEDS: Enoxaparin 30 MG/0.3 ML Syringe SC (07:45)
[2025-05-20] MEDS: Fluoxetine HCl 40 MG CAPSULE PO (07:46)
[2025-05-20] MEDS: Senna/Docusate Sodium 1 Tablet 2 TABLET GT ×2 (07:46→21:05)
[2025-05-20] MEDS: Polyethylene Glycol 3350 17 GM PACKET GT (07:46)
--- NOTE | 2025-05-20 08:19 | PN.RENAL_ITS ---
Subjective Subjective No overnight events. Urine output picked up. Requiring low-dose Levophed. Clinically looks better today. Oxygenation somewhat improved. Objective Data Objective Data Vital Signs: Vital Signs Temp Pulse Resp BP Pulse Ox O2 Del Method O2 Flow Rate 100.8 F H 72 18 113/54 L 94 Mechanical Ventilator 90 05/20/25 06:00 05/20/25 07:03 05/20/25 07:03 05/20/25 07:00 05/20/25 07:03 05/20/25 07:00 05/18/25 16:00 FiO2 80 05/20/25 07:00 Oxygen Flow Rate (L/min) 90 Oxygen Delivery Method Mechanical Ventilator Weight: 114.215 kg Body Mass Index (BMI) 36.0 Intake & Output: Intake and Output for Last 24 Hours 05/18/25 05/19/25 05/20/25 23:59 23:59 23:59 Intake Total 1819.81 / 1908.61 2864.18 / 2884.91 693.71 / 693.71 Output Total 600 / 750 2180 / 2180 700 / 700 Balance 1219.81 / 1158.61 684.18 / 704.91 -6.29 / -6.29 Lab / Micro Data 05/19/25 03:45 05/20/25 07:20 Labs: Laboratory Results - last 24 hr 05/19/25 12:21: POC Glucose 184 H 05/19/25 18:49: POC Glucose 187 H 05/19/25 23:09: POC Glucose 226 H 05/20/25 05:06: POC Glucose 313 H Micro: Microbiology 05/16/25 18:15 Urine Catheter - Shelton Urine Culture - Final Culture exhibits no growth. 05/16/25 20:22 Blood Culture (Wb) - Other Blood Culture - Preliminary No growth in 48 hours. 05/16/25 17:55 Blood Culture (Wb) - Left Hand Blood Culture - Preliminary No growth in 48 hours. 05/15/25 21:08 Blood Culture (Wb) - No Site/Description Given Bacteria Detection (PCR) - Final Coag Negative Staph 05/15/25 21:08 Blood Culture (Wb) - No Site/Description Given Blood Culture - Final Staphylococcus hominis hominis 05/15/25 18:06 Sputum, Induced/Lukens Gram Stain - Final 05/15/25 18:06 Sputum, Induced/Lukens Respiratory Culture - Final Culture exhibits no growth. 05/16/25 05:07 Urine Catheter - Shelton Legionella Antigen - Final 05/16/25 05:07 Urine Catheter - Shelton Streptococcus pneumoniae Antigen (M - Final 05/15/25 15:50 Mucosa - Nose SARS-CoV-2, Influenza & RSV (PCR) - Final Radiography Diagnostic Testing: Radiology Impression Chest X-Ray 05/19/25 08:25 IMPRESSION: Endotracheal tube tip 4.9 cm above the erika; consider 1 cm advancement. Lung findings are grossly unchanged. No pneumothorax. Retrocardiac opacity is not excluded. Reading Location: [facility] Physical Exam Narrative on ventilator support s1s2 no murmurs lungs diminished, no rales or rhonchi abdomen soft no pitting edema no cyanosis shelton + with clear yellow urine in bag Assessment & Plan Assessment/Plan (1) CHADD (acute kidney injury): PLAN: Baseline creatinine is between 1.0-1.2. He has history of chronic lithium use, it is possible that he has some early CKD from chronic lithium use. Creatinine on admission was close to baseline. Renal ultrasound limited study due to body habitus but there appears to be no hydronephrosis. He did receive a CT contrast on admission for CTA PE protocol. Blood pressure low, on levophed. Most likely he sustained ATN in the setting of these 2 events. Respiratory status has improved and not on maximum vent settings as he was yesterday. Will continue bumex gtt at 0.5mg/hr again today. Bps improving, on ~2-3mcg levophed. Labs pending for today. SCr 1.18 on admission, yesterday SCr 4.24, Potassium and bicarb normal--> labs are pending for today. Possibly SCr may be slightly up from yesterday but as long as potassium/bicarb acceptable will likely hold off on any RIB BENDER for today since urine output is picking up. Per cumulative I&O patient is net +3.5 L. Discussed nephrology plan with Dr. Carlisle. Assessment and plan reviewed with Dr. Brito.
[2025-05-20 08:32] LABS: Anion Gap 15 (5-15); BUN 61 mg/dL (4-19); BUN/Creat Ratio 17.8 RATIO (10-20); Carbon Dioxide 24.4 mmol/L (21.0-32.0); Chloride 98 mmol/L (98-108); Creatinine, Serum 3.45 mg/dL (0.70-1.20); EST Glomerular Filtration Rate 20 (>60); Glucose 332 mg/dL (70-99); Magnesium 1.9 mg/dL (1.5-2.2); Phosphorus 1.5 mg/dL (2.7-4.5); Potassium 3.4 mmol/L (3.3-5.1); Sodium Level 138 mmol/L (133-145)
--- NOTE | 2025-05-20 08:58 | PCM.PN.HOSP ---
Reason for Visit Reason for Visit: Diagnoses Pneumonia, unspecified organism (05/15/25) Acute respiratory failure with hypoxia (05/15/25) Acute respiratory failure with hypercapnia (05/15/25) Acute kidney failure, unspecified (05/15/25) Objective Data Objective Data Vital Signs: Vital Signs Temp Pulse Resp BP Pulse Ox O2 Del Method O2 Flow Rate 100.8 F H 72 18 113/54 L 94 Mechanical Ventilator 90 05/20/25 06:00 05/20/25 07:03 05/20/25 07:03 05/20/25 07:00 05/20/25 07:03 05/20/25 07:00 05/18/25 16:00 FiO2 80 05/20/25 07:00 Oxygen Flow Rate (L/min) 90 Oxygen Delivery Method Mechanical Ventilator Weight: 251 lb 12.8 oz Body Mass Index (BMI) 36.0 Intake & Output: Intake and Output for Last 24 Hours 05/18/25 05/19/25 05/20/25 23:59 23:59 23:59 Intake Total 1819.81 / 1908.61 2864.18 / 2884.91 693.71 / 693.71 Output Total 600 / 750 2180 / 2180 700 / 700 Balance 1219.81 / 1158.61 684.18 / 704.91 -6.29 / -6.29 Lab / Micro Data 05/20/25 07:20 05/20/25 07:20 Labs: Laboratory Results - last 24 hr 05/19/25 12:21: POC Glucose 184 H 05/19/25 18:49: POC Glucose 187 H 05/19/25 23:09: POC Glucose 226 H 05/20/25 05:06: POC Glucose 313 H 05/20/25 07:20: WBC 11.7 H, RBC 3.76 L, Hgb 11.5 L, Hct 35.3 L, MCV 93.9, MCH 30.6, MCHC 32.6 D, RDW Std Deviation 51.2 H, RDW Coeff of Gautam 14.7 H, Plt Count 178, MPV 10.8, Immature Gran % (Auto) 0.800, Neut % (Auto) 79.7 H, Lymph % (Auto) 9.2 L, [place] % (Auto) 8.1, Eos % (Auto) 2.0, Baso % (Auto) 0.2, Absolute Neuts (auto) 9.3 H, Absolute Lymphs (auto) 1.07, Nucleated RBC % 0, Sodium 138, Potassium 3.4, Chloride 98, Carbon Dioxide 24.4, Anion Gap 15, BUN 61 H, Creatinine 3.45 H, Estim Creat Clear Calc 31.70 L, Est GFR (MDRD) Non-Af 20 L, BUN/Creatinine Ratio 17.8, Glucose 332 H, Calcium 9.0, Phosphorus 1.5 L, Magnesium 1.9 Micro: Microbiology 05/16/25 18:15 Urine Catheter - Summers Urine Culture - Final Culture exhibits no growth. 05/16/25 20:22 Blood Culture (Wb) - Other Blood Culture - Preliminary No growth in 48 hours. 05/16/25 17:55 Blood Culture (Wb) - Left Hand Blood Culture - Preliminary No growth in 48 hours. 05/15/25 21:08 Blood Culture (Wb) - No Site/Description Given Bacteria Detection (PCR) - Final Coag Negative Staph 05/15/25 21:08 Blood Culture (Wb) - No Site/Description Given Blood Culture - Final Staphylococcus hominis hominis 05/15/25 18:06 Sputum, Induced/Lukens Gram Stain - Final 05/15/25 18:06 Sputum, Induced/Lukens Respiratory Culture - Final Culture exhibits no growth. 05/16/25 05:07 Urine Catheter - Summers Legionella Antigen - Final 05/16/25 05:07 Urine Catheter - Summers Streptococcus pneumoniae Antigen (M - Final 05/15/25 15:50 Mucosa - Nose SARS-CoV-2, Influenza & RSV (PCR) - Final Radiography Diagnostic Testing: Radiology Impression Chest X-Ray 05/19/25 08:25 IMPRESSION: Endotracheal tube tip 4.9 cm above the erika; consider 1 cm advancement. Lung findings are grossly unchanged. No pneumothorax. Retrocardiac opacity is not excluded. Reading Location: [facility] Physical Exam Narrative Seen and examined. Overnight events noted. Chart reviewed. Patient had about 2200 mL urine yesterday in last 24 hours Tmax 100.8 Fahrenheit. BP 113/54 sinus rhythm. Currently, on 80% FiO2 and 1.7, PEEP 13. Physical exam: General: Drowsy/lethargy sedated. Lightly sedated HEENT: Atraumatic, PERRLA, EOMI, Normocephalic. Oral: ETT and OG tube. Neck: Supple, No JVD, Negative Carotid Bruits Chest wall/Lungs: Air entry present in both lungs. Mild crepitations. On vent Cardiovascular: Regular rate and rhythm, Normal S1,S2, No M/G/R Abdomen: Bowel Sounds Present, Soft, Non Tender, Non-Distended : Summers catheter no renal angle tenderness. No suprapubic tenderness. Extremities: All 4 extremities, edema is better, Capillary Refill Less than 3 Seconds Skin: No rashes, No breakdown Musculoskeletal: No Tenderness to Palpation of Joints or Extremities. ROM restricted Neurological: Detailed neuro unobtainable. No obvious focal lateralization sign. Psych/Mental Status: Lightly sedated Assessment & Plan Assessment/Plan (1) Acute respiratory failure with hypoxia and hypercapnia: PLAN: Plan Patient is a 54-year-old male who presented to [facility] ED on 05/15/2025 for shortness of breath and hypoxia. Patient presented with hypoxia and altered mentation. 1. Acute hypoxic and hypercapnic respiratory failure suspected secondary to CHF exacerbation, concern for pneumonia with acute encephalopathy ? Admit under inpatient status to ICU. Developmental Writing Instructor consulted. Initial ABG showed pH 7.29, pCO2 68, pO2 93. Placed on BiPAP but unfortunately repeat pH remained at 7.29 and had worsening pCO2 75 and pO2 75 so patient was intubated in the ED. Repeat ABG on mechanical ventilation with pH 7.39, pCO2 56, pO2 only 54. CTA chest showed probable pulmonary edema with small pericardial effusion. Mildly elevated leukocytosis, improving. D-dimer negative. Electrolytes in normal range. BNP elevated at 1732. No prior history of CHF noted in chart. On IV Lasix, dose as per hemodynamics parameters and kidney function. Procalcitonin negative. 2D echo shows EF 55% with moderate 1 to 2 cm pericardial effusion. No echo indication for cardiac tamponade. Mild AI Heart failure core measures including intake and output, fluid restriction less than 1500 mL, daily weight monitoring, kidney and electrolytes monitoring. Ventilator management per balancer scale. Chest x-ray individually reviewed and shows pulmonary venous congestion and left lower/retrocardiac opacity. 05/17: Remains intubated and sedated. Encephalopathy may be from metabolic encephalopathy. Continue antibiotic 05/18: Patient FiO2 increased to 80%. Developmental Writing Instructor on board 05/19: FiO2 100%, PEEP 12, I to E ratio 1:1, mean airway pressure 15. On maximal vent capacity 05/20: Slight improvement in vent setting, 80% FiO2, PEEP 12. Developmental Writing Instructor managing the vent settings 2. hypotension with high suspicion of sepsis. GPC, contamination: Prelim blood culture positive gram-positive cocci. Urinary antigens are negative. Triple PCR for SARS-CoV-2, flu and RSV are negative. Preliminary sputum culture negative. Started on empiric IV vancomycin and Zosyn. BP on lower side 92/53, 90/59, 84/63 x 2. Mild low-grade fever 99.9 Tmax. In the appropriate clinical setting, high suspicion of sepsis but patient may have hypotension from heart failure. Procalcitonin normal. Suspected infection, exact source unclear possible pneumonia. On broad-spectrum antibiotic. Patient does not meet criteria for IV fluid bolus 30 mL/h because of heart failure exacerbation 05/17: Gram stain preliminary shows no growth. Blood culture, PCR CoNS is therefore probably skin contamination. Urine culture shows no growth. Blood culture on 05/16 are pending. Vancomycin discontinued. Continue IV Zosyn. 05/18: Blood culture shows Staph hominis most likely contamination. 2D echo does not show his vegetations. Patient does not have any devices. ID consulted for further opinion as patient still has low-grade fever . Still has leukocytosis but slight improvement 05/19: Patient on max norepinephrine drip. On midodrine also. 05/20: Patient is still on norepinephrine drip on 2 mics per minute, titrating down CHADD, worsening in 2 ATN multifactorial possible sepsis, cardiorenal disease, DM type and obesity and hypotension ? Creatinine 1.32 on admit, baseline around 1.0-1.1. Presume secondary to CHF exacerbation as above. Treating with IV Lasix as above, monitor daily BMP and urine output. 05/16: Creatinine 1.18, better than 1.32. 05/19: Creatinine 4.24 jumped from 2.0, to 3.75. Discussed with the zipper trimmer. Agreed on starting Bumex drip and 3 doses of IV albumin to correct extravascular volume overload and CHADD 05/20: Creatinine started improving, first time at from 4.24-3.45. Patient also made about 2200 mL urine output. Discussed with the zipper trimmer. Continue Bumex drip 0.5 mg/h. Chronic medical conditions: ? Class I obesity: BMI 34 on admit. Complicates hospital course, care and prognosis. ? Type 2 diabetes mellitus: Glucose 173 on admit. Most recent A1c 7.4% in January. Hold home oral medications. Will treat with sliding scale insulin every 6 hours for now, adjust as needed. ? Hypertension: Holding home propranolol and valsartan as patient has been borderline hypotensive on sedation. ? Hyperlipidemia: Continue home statin. ? History of schizoaffective disorder: Continue home fluoxetine, haloperidol and lithium. ? Hypothyroidism: TSH normal. Continue home Synthroid. DVT prophylaxis: Lovenox CODE STATUS: Full code, unverified Expected disposition: TBD Total time of the visit including total time spent in counseling or coordination of care, (more than 50% of the total time, spent in obtaining medical information from nurses and other ancillary care providers ,explaining to the patient about labs, imaging, diagnosis and management of active complex medical conditions), discussion with the zipper trimmer, intensive, review of labs and imaging and clinical update given to patient's mother 45 minutes Clinical Impression(s) from Imaging Studies Chest X-Ray 05/15/25 15:55 IMPRESSION: Mild pulmonary vascular congestion interstitial edema. Retrocardiac/left lower lobe opacity suspected. Stable moderate cardiomegaly. Reading Location: [facility] Chest X-Ray 05/15/25 18:16 IMPRESSION: Endotracheal tube tip 2.6 cm above the erika; consider 1 cm retraction. Enteric tube in appropriate placement. Retrocardiac/left lower lobe opacity not excluded. Mild pulmonary vascular congestion. Stable moderate cardiomegaly. No pleural effusion or pneumothorax. Reading Location: [facility] Chest CTA 05/15/25 18:35 IMPRESSION: No pulmonary embolism. Probable pulmonary edema. Small pericardial effusion. Indeterminate right kidney lesion. Further characterization with nonemergent ultrasound to determine if it is cystic is recommended. Reading Location: [id number] Echocardiogram 05/15/25 23:26 Interpretation Summary Normal LV size. Left ventricular systolic function is normal. The left ventricular ejection fraction is 55 %. Moderate (1.0-2.0 cm) pericardial effusion. There are no echocardiographic indications of cardiac tamponade. Mild (1+) aortic valve insufficiency. Ordering Physician: Fede Diaz Performed By: Lance Best RCS Chest X-Ray 05/16/25 05:10 IMPRESSION: Endotracheal tube is in good position with its tip 2.8 cm above the level of the erika. Enteric feeding tube is in good position with its tip extending below the level of the left hemidiaphragm. Mild increase in bilateral basilar atelectatic pulmonary changes. Mild increase in central pulmonary venous congestion. Enlarged cardiac silhouette. [facility] Charges/Coding Visit Charges Inpatient E&M: 25360 Subs Hosp L3
[2025-05-20] MEDS: Pantoprazole Sodium 40 MG in 0.9% Normal Saline (100mL MB+) 100 ML 330 MG IV (10:17)
[2025-05-20] MEDS: 0.9% Normal Saline (250mL Bag) 250 ML 15 ML IV (10:30)
[2025-05-20] MEDS: Piperacil/Tazobactam 3.375 GM in 0.9% Normal Saline (50mL MB+) 50 ML IV ×2 (10:35→21:03)
--- NOTE | 2025-05-20 11:49 | PCM.PN.TICU ---
Objective Data Objective Data Vital Signs: Vital Signs Last response Temperature 38.2 C H 05/20/25 06:00 Temperature Source Core 05/20/25 06:00 Pulse Rate 72 05/20/25 09:00 Pulse Strength Normal (2+) 05/19/25 22:00 Respiratory Rate 18 05/20/25 09:00 Respiratory Effort Mechanically Ventilated 05/20/25 03:58 Respiratory Depth Normal 05/20/25 03:58 Respiratory Pattern Normal 05/20/25 09:00 Blood Pressure 129/69 H 05/20/25 10:00 Blood Pressure Mean 89 05/20/25 10:00 Blood Pressure Source Monitor 05/20/25 07:00 Blood Pressure Position Semi-Fowlers 05/20/25 07:00 Blood Pressure Location Left Forearm 05/20/25 07:00 Pulse Ox 93 05/20/25 09:00 Oxygen Delivery Method Mechanical Ventilator 05/20/25 07:00 Oxygen Flow Rate (L/min) 90 05/18/25 16:00 Fraction of Inspired Oxygen (FIO2) 80 05/20/25 07:00 I&O: I&O Last 24 Hours 05/19/25 05/19/25 05/20/25 11:59 23:59 11:59 Intake Total 1517.32 / 2884.91 1346.86 / 2884.91 849.80 / 849.80 Output Total 210 / 2180 1970 / 2180 1100 / 1100 Balance 1307.32 / 704.91 -623.14 / 704.91 -250.20 / -250.20 I&O: Total Stay 05/15/25 14:52 thru 05/20/25 11:22 Intake Total 9444.74 Output Total 6112 Balance 3332.74 Current Meds Ordered / Administered: Current meds ordered / Administered Generic Name Dose Route Start Last Admin Trade Name Freq PRN Reason Stop Dose Admin Acetaminophen 650 mg 05/15/25 19:16 05/20/25 06:01 Acetaminophen 325 Mg Tablet PO 650 mg Q6H PRN PRN Administration Pain 1-10 Or Fever>100.7 Albuterol/Ipratropium 3 ml 05/19/25 08:30 05/20/25 07:02 Ipratropium/Albuterol Sulfate 3 Ml Ampul.Neb INHALATION 3 ml Q6H.RT SAMUEL Administration Atorvastatin Calcium 40 mg 05/15/25:00 05/19/25 21:07 Atorvastatin Calcium 40 Mg Tablet PO 40 mg QHS SAMUEL Administration Chlorhexidine Gluconate 15 ml 05/15/25 22:00 05/20/25 07:45 Chlorhexidine 15 Ml PO 15 ml BID SAMUEL Administration Chlorhexidine Gluconate 1 each 05/16/25 10:00 05/19/25 23:21 Chlorhexidine Gluc 2% Cloth 1 Each Towelette TOPICAL 1 each DAILY SAMUEL Administration Enoxaparin Sodium 40 mg 05/21/25 10:00 Enoxaparin 40 Mg/0.4 Ml Syringe SC DAILY SAMUEL Fluoxetine HCl 40 mg 05/16/25 10:00 05/20/25 07:46 Fluoxetine Hcl 40 Mg Capsule PO 40 mg DAILY SAMUEL Administration Glucagon 1 mg 05/15/25 19:16 Glucagon 1 Mg/Ml Syringe IM X1 PRN Hypoglycemia Protocol Haloperidol 5 mg 05/15/25 22:00 05/20/25 07:45 Haloperidol 5 Mg Tablet PO 5 mg BID SAMUEL Administration Protocol Propofol 1,000 mg in 100 mls @ 6.853 mls/hr 05/15/25 17:30 05/20/25 10:34 Diprivan CONT INF 30 mcg/kg/min .Q12H SAMUEL 20.6 mls/hr Administration Protocol 10 MCG/KG/MIN Dextrose 250 mls @ 0 mls/hr 05/15/25 19:16 Dextrose 10%-Water IV .Q0M PRN HYPOGLYCEMIA Protocol As Directed Sodium Chloride 250 mls @ 15 mls/hr 05/15/25 19:23 05/20/25 10:30 IV 15 mls/hr .[id number] PRN Administration Saline Flush Sodium Chloride 250 mls @ 15 mls/hr 05/15/25 19:23 IV .[id number] PRN Additional IVPB Infusion Fentanyl 100 mls @ 2.5 mls/hr 05/15/25 20:00 05/20/25 10:34 CONT INF 100 mcg/hr UD SAMUEL 10 mls/hr Administration Protocol 25 MCG/HR Pantoprazole Sodium 40 mg/ 100 mls @ 330 mls/hr 05/16/25 10:00 05/20/25 10:17 Sodium Chloride IV 330 mls/hr Q24 SAMUEL Administration Enteral Nutritional Formula 1,000 mls @ 50 mls/hr 05/17/25 09:45 05/19/25 20:00 Vital High Protein GT 50 mls/hr .Q20H SAMUEL Infusion Norepinephrine Bitartrate 8 mg 250 mls @ 9.375 mls/hr 05/18/25 09:00 05/20/25 10:00 / Sodium Chloride CONT INF 3 mcg/min .[id number] SAMUEL 5.6 mls/hr Titration Protocol 5 MCG/MIN Piperacillin Sod/Tazobactam 50 mls @ 12.5 mls/hr 05/18/25 22:00 05/20/25 10:35 Sod 3.375 gm/ Sodium Chloride IV 12.5 mls/hr Q12H SAMUEL Administration Bumetanide 25 mg/ 100 mls @ 2 mls/hr 05/19/25 09:15 05/19/25 19:00 Miscellaneous Information CONT INF 0.5 mg/hr .Q50H SAMUEL 2 mls/hr Infusion 0.5 MG/HR Insulin Human Lispro 0 unit 05/15/25 19:16 05/20/25 05:10 Insulin Lispro 100 Unit/Ml Insuln.Pen SC 5 unit Q6 SAMUEL Administration Protocol Levothyroxine Sodium 25 mcg 05/16/25 06:00 05/20/25 05:10 Levothyroxine 25 Mcg Tablet PO 25 mcg DAILY@0600 SAMUEL Administration Melatonin 3 mg 05/15/25 19:16 Melatonin 3 Mg Tablet PO QHS PRN PRN INSOMNIA Ondansetron HCl 4 mg 05/15/25 19:16 Ondansetron 4 Mg/2 Ml Vial IV Q8H PRN PRN NAUSEA/VOMITING Polyethylene Glycol 17 gm 05/19/25 10:00 05/20/25 07:46 Polyethylene Glycol 3350 17 Gm Packet GT 17 gm DAILY SAMUEL Administration Senna/Docusate Sodium 2 tablet 05/19/25 10:00 05/20/25 07:46 Senna/Docusate Sodium 1 Tablet GT 2 tablet BID SAMUEL Administration Sodium Chloride 10 - 40 ml 05/15/25 19:23 05/19/25 11:09 0.9% Saline Lock 10 Ml Syringe IV 30 ml UD PRN Administration SALINE FLUSH Lab / Micro Data Attestation: I reviewed the patient's lab results. 05/20/25 07:20 05/20/25 07:20 Labs: Laboratory Results - last 24 hr 05/19/25 12:21: POC Glucose 184 H 05/19/25 18:49: POC Glucose 187 H 05/19/25 23:09: POC Glucose 226 H 05/20/25 05:06: POC Glucose 313 H 05/20/25 07:20: WBC 11.7 H, RBC 3.76 L, Hgb 11.5 L, Hct 35.3 L, MCV 93.9, MCH 30.6, MCHC 32.6 D, RDW Std Deviation 51.2 H, RDW Coeff of Gautam 14.7 H, Plt Count 178, MPV 10.8, Immature Gran % (Auto) 0.800, Neut % (Auto) 79.7 H, Lymph % (Auto) 9.2 L, [place] % (Auto) 8.1, Eos % (Auto) 2.0, Baso % (Auto) 0.2, Absolute Neuts (auto) 9.3 H, Absolute Lymphs (auto) 1.07, Nucleated RBC % 0, Sodium 138, Potassium 3.4, Chloride 98, Carbon Dioxide 24.4, Anion Gap 15, BUN 61 H, Creatinine 3.45 H, Estim Creat Clear Calc 31.70 L, Est GFR (MDRD) Non-Af 20 L, BUN/Creatinine Ratio 17.8, Glucose 332 H, Calcium 9.0, Phosphorus 1.5 L, Magnesium 1.9 Micro: Microbiology 05/16/25 18:15 Urine Catheter - Summers Urine Culture - Final Culture exhibits no growth. 05/16/25 20:22 Blood Culture (Wb) - Other Blood Culture - Preliminary No growth in 48 hours. 05/16/25 17:55 Blood Culture (Wb) - Left Hand Blood Culture - Preliminary No growth in 48 hours. ABG Data Attestation: I personally reviewed and interpreted this ABG as follows: Imaging Radiology Impression Chest X-Ray 05/19/25 08:25 IMPRESSION: Endotracheal tube tip 4.9 cm above the erika; consider 1 cm advancement. Lung findings are grossly unchanged. No pneumothorax. Retrocardiac opacity is not excluded. Reading Location: [facility] Assessment and Plan . Assessment and plan: IMPRESSIONS: 1. Acute hypoxemic and hypercapnic respiratory failure - meeting criteria for severe ARDS though imaging and course more suggestive of pneumonia vs HFpEF - CXR shows low inflation volumes 2. Acute kidney injury -Renal consult noted 3. History of obesity/hypertension/hyperlipidemia/diabetes mellitus/bipolar/schizoaffective disorder Complicates care, management, recovery and prognosis. Continue to hold home antihypertensives for now. Continue sliding scale insulin coverage. Okay to continue tube feeding as tolerated. Plan: 1. Continue PCV - IP 18/ I:E 1:1/PEEP 13 cmH2O - PIPs 31 achieves Vt < 6mL/Kg IBW (ARDSNet) - following blood gases - repeat CXR today and daily 2. minimize fluid administration as much as possible pending Renal input 3. standard ICU px 4. TFs 5. same Abx for now pending culture results Critical Care Time: 50 minutes The entirety of this encounter was done via Telemedicine Physical Exam Const no apparent distress General Appearance: intubated and patient mechanically ventilated Orientation / Consciousness: lethargic HEENT external ears normal and oropharynx normal Mouth: endotracheal tube in place Eyes EOMs intact bilaterally and no scleral icterus Neck full ROM Chest inspection of chest normal Resp normal respiratory effort and normal air movement Cardio regular rate Neuro Sensorium / Orientation: sedated on vent Subjective Subjective Severe hypoxemia eventually stabilized with PCV though remains on high level of support. He is not struggling against the vent.
--- NOTE | 2025-05-20 12:08 | RAD_ITS ---
PROCEDURE: CHEST 1 VIEW (PORTABLE) 05/20/2025 REASON FOR EXAM: SOB Authorities support TECHNIQUE: Frontal view of the chest. COMPARISON: May 19, 2025 FINDINGS: Hardware: ET tube tip in good position 5 cm above the erika. NG tube is seen extending well below the diaphragm the side port of the tube is well within the stomach. Heart: Normal size Lungs: Low lung volumes decreased sensitivity, but grossly clear. Bones: No aggressive bone lesions. Other: RAD/Chest 1 View (Portable) IMPRESSION: ET tube and NG tube in good position. Reading Location: [facility]
[2025-05-20 13:01] LABS: Bedside Glucose 307 mg/dL (74-106)
[2025-05-20] MEDS: Insulin Glargine-YFGN 100 UNIT/ML Pen 15 UNIT SC (14:37)
[2025-05-20] MEDS: Insulin Lispro 100 UNIT/ML INSULN.PEN 8 UNIT SC (14:41)
[2025-05-20] MEDS: Vital High Protein 1,000 ML 50 ML GT (14:47)
[2025-05-20 15:06] LABS: Bedside Glucose 356 mg/dL (74-106)
[2025-05-20] MEDS: Norepinephrine 8 MG in 0.9% Normal Saline (250mL Bag) 242 ML 7.5 MG CONT INF (15:46)
[2025-05-20 18:27] LABS: Bedside Glucose 340 mg/dL (74-106)
[2025-05-20] MEDS: Bumetanide 25 MG in CONTAINER,EMPTY 1 BAG CONT INF (18:57)
[2025-05-20] MEDS: Acetaminophen 650 MG/20 ML UDC GT (21:03)
[2025-05-20] MEDS: Heparin Injection (Vial) 5,000 UNIT/ML VIAL 5000 UNIT SC (21:04)
[2025-05-20] MEDS: Atorvastatin Calcium 40 MG Tablet PO (21:05)
[2025-05-20] MEDS: Insulin Lispro 100 UNIT/ML INSULN.PEN 10 UNIT SC (23:31)
[2025-05-20 23:51] LABS: Bedside Glucose 397 mg/dL (74-106)
[2025-05-21] VITALS (49 sets, daily range): BP systolic 74–131; BP diastolic 45–74; PULSE 60–93; RESP 16–18; TEMP 37.8–38.7; O2SAT 77–100; BMI 36.3
[2025-05-21] MEDS: Ipratropium/Albuterol Sulfate 3 ML AMPUL.NEB INHALATION ×4 (02:04→19:06)
[2025-05-21 02:18] LABS: Bedside Glucose 378 mg/dL (74-106)
[2025-05-21] MEDS: 0.9% Saline Lock 10 ML Syringe IV (03:13)
[2025-05-21] MEDS: Acetaminophen 650 MG/20 ML UDC GT ×3 (03:13→18:33)
[2025-05-21 03:28] LABS: Absolute Lymphocyte Count 0.83 X10^3/uL (0.83-4.51); Absolute Neutrophil Count 8.9 X10^3/uL (2.0-7.7); Basophil# 0.03 X10^3/uL; Basophil% 0.3 % (0-1); Eosinophil# 0.35 X10^3/uL; Eosinophils% 3.1 % (0-5); Hematocrit 36.2 % (40-54); Hemoglobin 11.8 g/dL (13.0-16.5); Lymphocyte # 0.83 X10^3/ul (0.83-4.51); Lymphocyte % 7.4 % (19-41); Mean Corp Hgb Conc 32.6 g/dL (32-36); Mean Corpuscular Hgb 30.7 pg (27.0-32.0); Mean Corpuscular Volume 94.3 fL (80-94); Mean Platelet Vol. 10.8 fl (6.2-12.0); Monocyte# 1.09 X10^3/uL; Monocyte% 9.7 % (0-10); NRBC Flagged by Analyzer 0 % (0-5); Neutrophil # 8.86 X10^3/uL (2.7-7.7); Neutrophil % 78.9 % (47-70); Platelet Count 179 K/mm3 (150-450); RBC Distribution Width SD 51.9 fl (35.1-43.9); Red Blood Count 3.84 M/mm3 (4.6-6.2); White Blood Count 11.2 K/mm3 (4.4-11.0)
[2025-05-21 03:57] LABS: Albumin, Serum 3.5 g/dL (3.5-5.0); Anion Gap 17 (5-15); BUN 65 mg/dL (4-19); BUN/Creat Ratio 20.6 RATIO (10-20); Calcium,Total 9.4 mg/dL (7.6-11.0); Carbon Dioxide 22.7 mmol/L (21.0-32.0); Chloride 96 mmol/L (98-108); Creatinine, Serum 3.13 mg/dL (0.70-1.20); EST Glomerular Filtration Rate 23 (>60); Estimated Creatinine Clearance 34.94 ml/min (50-250); Glucose 418 mg/dL (70-99); Magnesium 1.8 mg/dL (1.5-2.2); Phosphorus 2.9 mg/dL (2.7-4.5); Potassium 3.3 mmol/L (3.3-5.1); Sodium Level 136 mmol/L (133-145)
[2025-05-21] MEDS: Propofol 10MG/Ml 1,000 MG/100 ML Bottle 20.6 MG CONT INF (03:57)
[2025-05-21] MEDS: fentaNYL drip 100 ML 10 MCG CONT INF ×3 (03:57→23:46)
[2025-05-21] MEDS: Insulin Lispro 100 UNIT/ML INSULN.PEN 10 UNIT SC ×4 (05:06→23:47)
[2025-05-21] MEDS: Insulin Lispro 100 UNIT/ML INSULN.PEN SC ×4 (05:06→23:46)
[2025-05-21] MEDS: Levothyroxine 25 MCG TABLET PO (05:07)
[2025-05-21] MEDS: Heparin Injection (Vial) 5,000 UNIT/ML VIAL 5000 UNIT SC ×3 (05:07→21:17)
[2025-05-21 05:35] LABS: Bedside Glucose 433 mg/dL (74-106)
--- NOTE | 2025-05-21 07:24 | PCM.PN.INT ---
Assessment & Plan Assessment/Plan (1) Acute respiratory failure with hypoxia and hypercapnia: PLAN: Plan RECOMMENDATIONS: 1. Continue ACPC mode of ventilation. Continue to wean FiO2 and PEEP as tolerated. 2. Continue to wean Levophed to maintain a mean arterial pressure at or above 65 mmHg. 3. Continue Bumex infusion as tolerated by hemodynamics and renal function. 4. Add vancomycin to antimicrobial regimen and obtain repeat blood, urine and sputum cultures. 5. Obtain follow-up ABG this morning. 6. Continue propofol and fentanyl for sedation. 7. Continue tube feeding as tolerated. 8. Continue appropriate ICU prophylaxis. IMPRESSIONS: 1. Acute hypoxemic and hypercapnic respiratory failure Clinical concern for underlying pneumonia versus pulmonary edema in the setting of heart failure with preserved ejection fraction. The patient was ultimately intubated and remains on ACPC mode of mechanical ventilation. FiO2 and PEEP will be weaned as tolerated. CTA chest showed no evidence for pulmonary embolism. Given ongoing fevers, will add vancomycin to current antimicrobial regimen today. In addition, repeat blood, urine and sputum cultures will be obtained along with follow-up ABG. Tube feeding will be continued as tolerated. Lastly, we will plan to continue ongoing diuresis as tolerated by hemodynamics and renal function. Tube feeding will be continued as tolerated. 2. Multifactorial shock Most likely related to underlying sepsis coupled with hemodynamic impacts of sedating medications. The patient will be continued on Levophed to maintain a mean arterial pressure at or above 65 mmHg. 3. Acute kidney injury Clinical concern for ATN. Nephrology is currently following to assist with medical management. Creatinine is improving with ongoing diuresis, which will be continued. 4. History of obesity/hypertension/hyperlipidemia/diabetes mellitus/bipolar/schizoaffective disorder Complicates care, management, recovery and prognosis. Continue to hold home antihypertensives for now. Continue sliding scale insulin coverage. Continue tube feeding as tolerated. TIME: 34 minutes of critical care time, independent of procedures, was spent addressing the patient's acute hypoxemic and hypercapnic respiratory failure, acute kidney injury, review of all data and collaboration with the care team. Subjective Subjective The patient was seen and examined at the bedside this morning. Events from the last 24 hours have been reviewed. The patient is currently being maintained on ACPC mode of mechanical ventilation with an FiO2 requirement of 85% and PEEP of 13. The patient is currently febrile with a Levophed requirement of 4 mcg/min. He remains on continuous Bumex infusion and is currently sedated on propofol and fentanyl. He has been tolerant of tube feedings. The patient is currently documented to be overall net +4.7 L for the hospitalization. White blood cell count was noted to be 11,000. Hemoglobin is stable at 11.8 g/dL. Creatinine has improved to 3.13. Glucose is elevated at 418. Objective Data Objective Data The patient's most recent lab work, culture data and imaging studies have all been personally reviewed. Surface echocardiogram demonstrated normal LV size and function with an ejection fraction of 55%. Blood culture dated May 15 was positive for Staphylococcus hominis. Vital Signs: Vital Signs Temp Pulse Resp BP Pulse Ox O2 Del Method O2 Flow Rate 100.8 F H 72 18 112/58 L 95 Mechanical Ventilator 90 05/21/25 06:00 05/21/25 07:05 05/21/25 07:05 05/21/25 06:00 05/21/25 07:05 05/21/25 06:00 05/18/25 16:00 FiO2 85 05/21/25 06:00 Oxygen Flow Rate (L/min) 90 Oxygen Delivery Method Mechanical Ventilator Weight: 254 lb 6.4 oz Body Mass Index (BMI) 36.3 Intake & Output: Intake and Output for Last 24 Hours 05/19/25 05/20/25 05/21/25 23:59 23:59 23:59 Intake Total 2864.18 / 2884.91 2997.51 / 3088.78 554.39 / 554.39 Output Total 2180 / 2180 2049 / 2049 385 / 385 Balance 684.18 / 704.91 947.51 / 1038.78 169.39 / 169.39 Lab / Micro Data Attestation: I reviewed the patient's lab results. 05/21/25 03:20 05/21/25 03:20 Labs: Laboratory Results - last 24 hr 05/20/25 07:20: WBC 11.7 H, RBC 3.76 L, Hgb 11.5 L, Hct 35.3 L, MCV 93.9, MCH 30.6, MCHC 32.6 D, RDW Std Deviation 51.2 H, RDW Coeff of Gautam 14.7 H, Plt Count 178, MPV 10.8, Immature Gran % (Auto) 0.800, Neut % (Auto) 79.7 H, Lymph % (Auto) 9.2 L, Bell % (Auto) 8.1, Eos % (Auto) 2.0, Baso % (Auto) 0.2, Absolute Neuts (auto) 9.3 H, Absolute Lymphs (auto) 1.07, Nucleated RBC % 0, Sodium 138, Potassium 3.4, Chloride 98, Carbon Dioxide 24.4, Anion Gap 15, BUN 61 H, Creatinine 3.45 H, Estim Creat Clear Calc 31.70 L, Est GFR (MDRD) Non-Af 20 L, BUN/Creatinine Ratio 17.8, Glucose 332 H, Calcium 9.0, Phosphorus 1.5 L, Magnesium 1.9 05/20/25 12:14: POC Glucose 307 H 05/20/25 14:39: POC Glucose 356 H 05/20/25 17:51: POC Glucose 340 H 05/20/25 23:29: POC Glucose 397 H 05/21/25 01:59: POC Glucose 378 H 05/21/25 03:20: WBC 11.2 H, RBC 3.84 L, Hgb 11.8 L, Hct 36.2 L, MCV 94.3 H, MCH 30.7, MCHC 32.6, RDW Std Deviation 51.9 H, RDW Coeff of Gautam 15.0 H, Plt Count 179, MPV 10.8, Immature Gran % (Auto) 0.600, Neut % (Auto) 78.9 H, Lymph % (Auto) 7.4 L, Bell % (Auto) 9.7, Eos % (Auto) 3.1, Baso % (Auto) 0.3, Absolute Neuts (auto) 8.9 H, Absolute Lymphs (auto) 0.83, Nucleated RBC % 0, Sodium 136, Potassium 3.3, Chloride 96 L, Carbon Dioxide 22.7, Anion Gap 17 H, BUN 65 H, Creatinine 3.13 H, Estim Creat Clear Calc 34.94 L, Est GFR (MDRD) Non-Af 23 L, BUN/Creatinine Ratio 20.6 H, Glucose 418 H, Calcium 9.4, Phosphorus 2.9, Magnesium 1.8, Albumin 3.5 05/21/25 05:04: POC Glucose 433 H Micro: Microbiology 05/16/25 18:15 Urine Catheter - Summers Urine Culture - Final Culture exhibits no growth. 05/16/25 20:22 Blood Culture (Wb) - Other Blood Culture - Preliminary No growth in 48 hours. 05/16/25 17:55 Blood Culture (Wb) - Left Hand Blood Culture - Preliminary No growth in 48 hours. 05/15/25 21:08 Blood Culture (Wb) - No Site/Description Given Bacteria Detection (PCR) - Final Coag Negative Staph 05/15/25 21:08 Blood Culture (Wb) - No Site/Description Given Blood Culture - Final Staphylococcus hominis hominis 05/15/25 18:06 Sputum, Induced/Lukens Gram Stain - Final 05/15/25 18:06 Sputum, Induced/Lukens Respiratory Culture - Final Culture exhibits no growth. 05/16/25 05:07 Urine Catheter - Summers Legionella Antigen - Final 05/16/25 05:07 Urine Catheter - Summers Streptococcus pneumoniae Antigen (M - Final 05/15/25 15:50 Mucosa - Nose SARS-CoV-2, Influenza & RSV (PCR) - Final ABG Data ABG results: ABG 05/17/25 09:01 Specimen Type ART Sample Site L Radial pH 7.48 H Bicarbonate Actual 32.5 H Total CO2 34 Base Excess 9 H O2 Saturation 94 L O2 % 60.0 ABG pCO2 43.9 ABG pO2 68 L Respiration Rate 18 O2 Delivery Device Adult Vent Vent Mode AC Tidal Volume 400.0 POC PEEP 5 Radiography Diagnostic Testing: Radiology Impression Chest X-Ray 05/20/25 12:08 IMPRESSION: ET tube and NG tube in good position. Reading Location: [facility] Physical Exam Const Constitutional Narrative: Intubated, sedated and mechanically ventilated. No ventilator dyssynchrony. HEENT normocephalic and head/scalp atraumatic Mouth: endotracheal tube in place and OG tube in place Eyes PERRL, EOMs intact bilaterally and conjunctivae normal Neck supple General: trachea midline Chest inspection of chest normal Resp Auscultation: diminished lung sounds; Negative for rales, rhonchi or wheezes Cardio regular rate and regular rhythm GI normal to inspection, nondistended, normoactive bowel sounds Extremity General Extremity: edema bilateral lower extremity; Negative for clubbing Skin no rashes or lesions noted Neuro Sensorium / Orientation: sedated on vent Charges/Coding Procedures Hospitalists Procedures: [id number] Critical Care 1st Hr
[2025-05-21] MEDS: Pantoprazole Sodium 40 MG in 0.9% Normal Saline (100mL MB+) 100 ML 330 MG IV (08:16)
[2025-05-21] MEDS: Chlorhexidine 15 ML PO ×2 (08:17→21:16)
[2025-05-21] MEDS: CHLORHEXIDINE GLUC 2% CLOTH 1 EACH TOWELETTE TOPICAL (08:17)
[2025-05-21] MEDS: Propofol 10MG/Ml 1,000 MG/100 ML Bottle 20.8 MG CONT INF ×4 (09:06→23:46)
[2025-05-21] MEDS: Vancomycin HCl 2,000 MG in 0.9% Normal Saline (500mL Bag) 500 ML 250 MG IV (09:29)
[2025-05-21] MEDS: Potassium Chloride 10mEq/100mL 10 MEQ/100 ML IV.SOLN. 100 MEQ IV BOLUS ×4 (09:33→15:05)
--- NOTE | 2025-05-21 09:43 | PN.HOSP_ITS ---
Reason for Visit Reason for Visit: Diagnoses Pneumonia, unspecified organism (05/15/25) Acute respiratory failure with hypoxia (05/15/25) Acute respiratory failure with hypercapnia (05/15/25) Acute kidney failure, unspecified (05/15/25) Subjective Subjective Saw patient at bedside this morning. Remains intubated and sedated, not following commands. Objective Data Objective Data Vital Signs: Vital Signs Temp Pulse Resp BP Pulse Ox O2 Del Method O2 Flow Rate 101.2 F H 78 18 102/56 L 95 Mechanical Ventilator 85 05/21/25 09:00 05/21/25 09:30 05/21/25 09:00 05/21/25 09:30 05/21/25 09:00 05/21/25 09:00 05/21/25 08:00 FiO2 25 05/21/25 09:00 Oxygen Flow Rate (L/min) 85 Oxygen Delivery Method Mechanical Ventilator Weight: 115.394 kg Body Mass Index (BMI) 36.3 Intake & Output: Intake and Output for Last 24 Hours 05/19/25 05/20/25 05/21/25 23:59 23:59 23:59 Intake Total 2864.18 / 2884.91 2997.51 / 3088.78 795.72 / 795.72 Output Total 2180 / 2180 2050 / 2050 445 / 445 Balance 684.18 / 704.91 947.51 / 1038.78 350.72 / 350.72 Lab / Micro Data 05/21/25 03:20 05/21/25 03:20 Labs: Laboratory Results - last 24 hr 05/20/25 12:14: POC Glucose 307 H 05/20/25 14:39: POC Glucose 356 H 05/20/25 17:51: POC Glucose 340 H 05/20/25 23:29: POC Glucose 397 H 05/21/25 01:59: POC Glucose 378 H 05/21/25 03:20: WBC 11.2 H, RBC 3.84 L, Hgb 11.8 L, Hct 36.2 L, MCV 94.3 H, MCH 30.7, MCHC 32.6, RDW Std Deviation 51.9 H, RDW Coeff of Gautam 15.0 H, Plt Count 179, MPV 10.8, Immature Gran % (Auto) 0.600, Neut % (Auto) 78.9 H, Lymph % (Auto) 7.4 L, Mcdonough % (Auto) 9.7, Eos % (Auto) 3.1, Baso % (Auto) 0.3, Absolute Neuts (auto) 8.9 H, Absolute Lymphs (auto) 0.83, Nucleated RBC % 0, Sodium 136, Potassium 3.3, Chloride 96 L, Carbon Dioxide 22.7, Anion Gap 17 H, BUN 65 H, C reatinine 3.13 H, Estim Creat Clear Calc 34.94 L, Est GFR (MDRD) Non-Af 23 L, B UN/Creatinine Ratio 20.6 H, Glucose 418 H, Calcium 9.4, Phosphorus 2.9, Magnesium 1.8, Albumin 3.5 05/21/25 05:04: POC Glucose 433 H Micro: Microbiology 05/16/25 18:15 Urine Catheter - Summers Urine Culture - Final Culture exhibits no growth. 05/16/25 20:22 Blood Culture (Wb) - Other Blood Culture - Preliminary No growth in 48 hours. 05/16/25 17:55 Blood Culture (Wb) - Left Hand Blood Culture - Preliminary No growth in 48 hours. 05/15/25 21:08 Blood Culture (Wb) - No Site/Description Given Bacteria Detection (PCR) - Final Coag Negative Staph 05/15/25 21:08 Blood Culture (Wb) - No Site/Description Given Blood Culture - Final Staphylococcus hominis hominis 05/15/25 18:06 Sputum, Induced/Lukens Gram Stain - Final 05/15/25 18:06 Sputum, Induced/Lukens Respiratory Culture - Final Culture exhibits no growth. 05/16/25 05:07 Urine Catheter - Summers Legionella Antigen - Final 05/16/25 05:07 Urine Catheter - Summers Streptococcus pneumoniae Antigen (M - Final 05/15/25 15:50 Mucosa - Nose SARS-CoV-2, Influenza & RSV (PCR) - Final Radiography Diagnostic Testing: Radiology Impression Chest X-Ray 05/20/25 12:08 IMPRESSION: ET tube and NG tube in good position. Reading Location: [facility] Physical Exam Const Constitutional Narrative: Intubated and sedated, not following commands. HEENT head/scalp atraumatic and moist oral mucous membranes Neck supple Cardio Cardio Narrative: Diminished breath sounds bilaterally with crackles noted in bases. No wheezing noted. GI soft to palpation and non-distended Extremity normal to inspection Assessment & Plan Assessment/Plan (1) Acute respiratory failure with hypoxia and hypercapnia: PLAN: Plan Patient is a 54-year-old male who presented to [facility] ED on 05/15/2025 for shortness of breath and hypoxia. 1. Acute hypoxic and hypercapnic respiratory failure secondary to HFpEF exacerbation versus community-acquired pneumonia, moderate pericardial effusion without tamponade suspected secondary to CHF exacerbation with acute metabolic encephalopathy ? Application Design Engineer following. Presented with hypoxia and altered mentation. Intubated in the ED. Clinical concern for underlying pneumonia versus pulmonary edema in the setting of HFpEF. CTA chest showed pulmonary edema, was negative for PE. Echo showed EF 55%, moderate pericardial effusion with no tamponade features, no other concerning findings. Infectious workup negative. Unfortunately has had very high oxygen requirements and meets criteria for severe ARDS. Continue to treat with IV vancomycin and Zosyn for pneumonia. On Bumex drip per nephrology as noted below. Ventilator management and further recommendations per courtesy clerk. 2. Acute metabolic encephalopathy ? Application Design Engineer following as above. Was altered on admit likely secondary to respiratory failure. Remains intubated and sedated. Monitor. 3. Hypotension ? Infectious disease following. Initially with concern for sepsis leading to hypotension. Blood culture 1 out of 2 positive for Staph hominis but per ID this is very likely a contaminant. TTE negative for vegetations and patient has no devices in place. Infectious workup has otherwise been negative to this point. Had high Levophed requirements for a time; has had good improvement with low requirements at this time. Continue midodrine. Appreciate further ID recommendations. 4. CHADD ? Nephrology following. Baseline creatinine 1.0-1.2. Most likely CHADD secondary to ATN that is multifactorial from hypotension and contrast from CTA chest on admit. Chronic lithium use could be small contributor; notably lithium level slightly elevated at 1.41. Holding lithium as below. Renal ultrasound was limited by body habitus but no hydronephrosis noted. Creatinine peaked at 4.24, now improving on Bumex drip with good urine output. No acute indications for FILM SPLICER. Continue to monitor daily BMP and urine output. Appreciate further nephrology recommendations. Chronic medical conditions: ? Class I obesity: BMI 34 on admit. Complicates hospital course, care and prognosis. ? Type 2 diabetes mellitus: Glucose 173 on admit. Most recent A1c 7.4% in January. Insulin regimen increased during hospitalization as sugars were running high. Currently treating with Lantus 25 units daily, Humalog 10 units every 6 hours sliding scale. Will adjust as needed. ? Hypertension: Holding home propranolol and valsartan. ? Hyperlipidemia: Continue home statin. ? History of schizoaffective disorder: Continue home fluoxetine and haloperidol. Holding lithium. ? Hypothyroidism: TSH normal. Continue home Synthroid. DVT prophylaxis: Heparin subcu CODE STATUS: Full code, verified Expected disposition: TBD Total clinical time spent by myself addressing the patient's medical issues, reviewing all the data, and collaborating with patient's care team: 35 minutes. Charges/Coding Visit Charges Inpatient E&M: 27651 Subs Hosp L2
[2025-05-21 09:55] LABS: Allen Test Positive; Base Excess 2 mmol/L (-2 to +2); Bicarbonate 24.9 mmol/L (22-26); Blood Gas Specimen Type ART; Comment Pi 18; Mode AC/PC; O2 Delivery Device Adult Vent; PEEP 13; PO2 71 mmHG (75-100); RR 18; SITE L Radial; SO2 96 % (95-99); Total Carbon Dioxide 26 mmol/L; pCO2 30.5 mmHg (35-45); pH 7.52 (7.35-7.45)
[2025-05-21] MEDS: Bisacodyl 10 MG Suppository RC (10:16)
[2025-05-21] MEDS: Fluoxetine HCl 40 MG CAPSULE PO (10:17)
[2025-05-21] MEDS: Polyethylene Glycol 3350 17 GM PACKET GT (10:17)
[2025-05-21] MEDS: Haloperidol 5 MG Tablet PO ×2 (10:17→21:17)
[2025-05-21] MEDS: Senna/Docusate Sodium 1 Tablet 2 TABLET GT ×2 (10:17→21:17)
[2025-05-21] MEDS: Vital High Protein 1,000 ML 50 ML GT (10:33)
--- NOTE | 2025-05-21 12:04 | PN.RENAL_ITS ---
Subjective Subjective Remains intubated. Urine output has been good. Creatinine improving. Objective Data Objective Data Vital Signs: Vital Signs Temp Pulse Resp BP Pulse Ox O2 Del Method O2 Flow Rate 101.2 F H 77 18 102/56 L 77 Mechanical Ventilator 85 05/21/25 09:00 05/21/25 09:35 05/21/25 09:35 05/21/25 09:30 05/21/25 10:36 05/21/25 09:00 05/21/25 08:00 FiO2 25 05/21/25 09:00 Oxygen Flow Rate (L/min) 85 Oxygen Delivery Method Mechanical Ventilator Weight: 115.394 kg Body Mass Index (BMI) 36.3 Intake & Output: Intake and Output for Last 24 Hours 05/19/25 05/20/25 05/21/25 23:59 23:59 23:59 Intake Total 2864.18 / 2884.91 2997.51 / 3088.78 1738.22 / 1738.22 Output Total 2180 / 2180 2050 / 205 445 / 445 Balance 684.18 / 704.91 947.51 / 1038.78 1293.22 / 1293.22 Lab / Micro Data 05/21/25 03:20 05/21/25 03:20 Labs: Laboratory Results - last 24 hr 05/20/25 12:14: POC Glucose 307 H 05/20/25 14:39: POC Glucose 356 H 05/20/25 17:51: POC Glucose 340 H 05/20/25 23:29: POC Glucose 397 H 05/21/25 01:59: POC Glucose 378 H 05/21/25 03:20: WBC 11.2 H, RBC 3.84 L, Hgb 11.8 L, Hct 36.2 L, MCV 94.3 H, MCH 30.7, MCHC 32.6, RDW Std Deviation 51.9 H, RDW Coeff of Gautam 15.0 H, Plt Count 179, MPV 10.8, Immature Gran % (Auto) 0.600, Neut % (Auto) 78.9 H, Lymph % (Auto) 7.4 L, Schleicher % (Auto) 9.7, Eos % (Auto) 3.1, Baso % (Auto) 0.3, Absolute Neuts (auto) 8.9 H, Absolute Lymphs (auto) 0.83, Nucleated RBC % 0, Sodium 136, Potassium 3.3, Chloride 96 L, Carbon Dioxide 22.7, Anion Gap 17 H, BUN 65 H, C reatinine 3.13 H, Estim Creat Clear Calc 34.94 L, Est GFR (MDRD) Non-Af 23 L, B UN/Creatinine Ratio 20.6 H, Glucose 418 H, Calcium 9.4, Phosphorus 2.9, Magnesium 1.8, Albumin 3.5 05/21/25 05:04: POC Glucose 433 H Micro: Microbiology 05/16/25 18:15 Urine Catheter - Shelton Urine Culture - Final Culture exhibits no growth. 05/16/25 20:22 Blood Culture (Wb) - Other Blood Culture - Preliminary No growth in 48 hours. 05/16/25 17:55 Blood Culture (Wb) - Left Hand Blood Culture - Preliminary No growth in 48 hours. 05/15/25 21:08 Blood Culture (Wb) - No Site/Description Given Bacteria Detection (PCR) - Final Coag Negative Staph 05/15/25 21:08 Blood Culture (Wb) - No Site/Description Given Blood Culture - Final Staphylococcus hominis hominis 05/15/25 18:06 Sputum, Induced/Lukens Gram Stain - Final 05/15/25 18:06 Sputum, Induced/Lukens Respiratory Culture - Final Culture exhibits no growth. 05/16/25 05:07 Urine Catheter - Shelton Legionella Antigen - Final 05/16/25 05:07 Urine Catheter - Shelton Streptococcus pneumoniae Antigen (M - Final 05/15/25 15:50 Mucosa - Nose SARS-CoV-2, Influenza & RSV (PCR) - Final ABG Data ABG results: ABG 05/21/25 09:52 Specimen Type ART Sample Site L Radial pH 7.52 H Bicarbonate Actual 24.9 Total CO2 26 Base Excess 2 O2 Saturation 96 O2 % 85.0 ABG pCO2 30.5 L ABG pO2 71 L Asif Test Positive Respiration Rate 18 O2 Delivery Device Adult Vent Vent Mode AC/PC POC PEEP 13 Clinical Comments Pi 18 Radiography Diagnostic Testing: Radiology Impression Chest X-Ray 05/20/25 12:08 IMPRESSION: ET tube and NG tube in good position. Reading Location: [facility] Physical Exam Narrative on ventilator support s1s2 no murmurs lungs diminished, no rales or rhonchi abdomen soft no pitting edema no cyanosis shelton + with clear yellow urine in bag Assessment & Plan Assessment/Plan (1) CHADD (acute kidney injury): PLAN: Baseline creatinine is between 1.0-1.2. He has history of chronic lithium use, it is possible that he has some early CKD from chronic lithium use. Creatinine on admission was close to baseline. Renal ultrasound limited study due to body habitus but there appears to be no hydronephrosis. He did receive a CT contrast on admission for CTA PE protocol. Blood pressure low, on levophed. Most likely he sustained ATN in the setting of these 2 events. Has been on Bumex drip. Urine output has improved significantly, creatinine is improving. Recovering ATN. Remains on low-dose Levophed. Ongoing fever spikes. Management as per primary/ICU [place] levels noted. Since creatinine is improving, most likely lithium levels will come down. Can resume lithium with close monitoring of kidney function and lithium levels.
[2025-05-21] MEDS: Insulin Glargine-YFGN 100 UNIT/ML Pen 25 UNIT SC (12:09)
[2025-05-21 12:32] LABS: Bedside Glucose 393 mg/dL (74-106)
--- NOTE | 2025-05-21 12:51 | PCM.PN.ID ---
Physical Exam Narrative On vent, pressor. Const no apparent distress Resp Effort and Inspection: mechanically ventilated Cardio regular rate and regular rhythm GI soft to palpation, non-tender and non-distended Extremity General Extremity: edema Skin no rashes or lesions noted ID ID: Route of nutrition/ use of supplements: [] Nutritional Intake: [] IV Site: [] Summers Catheter: [] Assessment & Plan Assessment/Plan (1) CHADD (acute kidney injury): (2) Acute respiratory failure with hypoxia and hypercapnia: PLAN: Still with fever, shock, mech vent. Vanc added, cont zosyn, cxs repeated. Will follow (3) Community acquired pneumonia:
[2025-05-21] MEDS: Piperacil/Tazobactam 3.375 GM in 0.9% Normal Saline (50mL MB+) 50 ML IV ×2 (13:25→21:17)
--- NOTE | 2025-05-21 13:33 | PCM.RX.CS ---
Consult Antibiotic Management Pharmacy has been consulted to manage selected antibiotic: Vancomycin Type of Intervention Type of Consult: New start Suspected Infection Suspected Infection: Pneumonia Labs Labs: Sodium 136 mmol/L (133-145) 05/21/25 03:20 Potassium 3.3 mmol/L (3.3-5.1) 05/21/25 03:20 Chloride 96 mmol/L (98-108) L 05/21/25 03:20 Carbon Dioxide 22.7 mmol/L (21.0-32.0) 05/21/25 03:20 Anion Gap 17 (5-15) H 05/21/25 03:20 BUN 65 mg/dL (4-19) H 05/21/25 03:20 Creatinine 3.13 mg/dL (0.70-1.20) H 05/21/25 03:20 Est GFR (MDRD) Non-Af 23 (>60) L 05/21/25 03:20 BUN/Creatinine Ratio 20.6 RATIO (10-20) H 05/21/25 03:20 Glucose 418 mg/dL (70-99) H 05/21/25 03:20 Microbiology Microbiology: Microbiology 05/16/25 18:15 Urine Catheter - Summres Urine Culture - Final Culture exhibits no growth. 05/16/25 20:22 Blood Culture (Wb) - Other Blood Culture - Preliminary No growth in 48 hours. 05/16/25 17:55 Blood Culture (Wb) - Left Hand Blood Culture - Preliminary No growth in 48 hours. 05/15/25 21:08 Blood Culture (Wb) - No Site/Description Given Bacteria Detection (PCR) - Final Coag Negative Staph 05/15/25 21:08 Blood Culture (Wb) - No Site/Description Given Blood Culture - Final Staphylococcus hominis hominis 05/15/25 18:06 Sputum, Induced/Lukens Gram Stain - Final 05/15/25 18:06 Sputum, Induced/Lukens Respiratory Culture - Final Culture exhibits no growth. 05/16/25 05:07 Urine Catheter - Summers Legionella Antigen - Final 05/16/25 05:07 Urine Catheter - Summers Streptococcus pneumoniae Antigen (M - Final 05/15/25 15:50 Mucosa - Nose SARS-CoV-2, Influenza & RSV (PCR) - Final Goal Trough Goal Trough: 15-20 mcg/mL Pharmacy Plan for Drug Dosing Pharmacy Plan for Drug Dosing: NEW START IV VANCOMYCIN Consulting Physician: Dr. Dent Indication: Pneumonia, ongoing fevers Goal Trough: 15-20 SrCr: 3.13 CrCl: 35 mL/min Comments: patient had a 2000mg loading dose x1 ordered and administered 05/21 @0929 Vancomycin Dose: 1500mg IV Q24hr to start 05/22/25 @0900 Pending Level: 05/23/25 @0830, prior to 3rd total dose per protocol Pharmacy Service will continue to monitor and adjust dosing as required.
[2025-05-21 18:30] LABS: Bedside Glucose 340 mg/dL (74-106)
[2025-05-21] MEDS: Atorvastatin Calcium 40 MG Tablet PO (21:17)
[2025-05-21] MEDS: Norepinephrine 8 MG in 0.9% Normal Saline (250mL Bag) 242 ML 11.3 MG CONT INF (21:21)
[2025-05-22] VITALS (60 sets, daily range): BP systolic 70–182; BP diastolic 43–89; PULSE 73–146; RESP 15–18; TEMP 37.7–38.8; O2SAT 92–100; BMI 36.6
[2025-05-22 00:12] LABS: Bedside Glucose 354 mg/dL (74-106)
[2025-05-22] MEDS: Acetaminophen 650 MG/20 ML UDC GT (01:12)
[2025-05-22] MEDS: Ipratropium/Albuterol Sulfate 3 ML AMPUL.NEB INHALATION ×4 (02:16→19:20)
[2025-05-22] MEDS: Propofol 10MG/Ml 1,000 MG/100 ML Bottle 20.8 MG CONT INF (04:28)
[2025-05-22] MEDS: 0.9% Saline Lock 10 ML Syringe IV ×3 (04:28→23:27)
[2025-05-22 04:44] LABS: Anion Gap 18 (5-15); BUN 79 mg/dL (4-19); BUN/Creat Ratio 21.6 RATIO (10-20); Calcium,Total 9.2 mg/dL (7.6-11.0); Carbon Dioxide 20.2 mmol/L (21.0-32.0); Chloride 97 mmol/L (98-108); Creatinine, Serum 3.64 mg/dL (0.70-1.20); EST Glomerular Filtration Rate 19 (>60); Estimated Creatinine Clearance 30.28 ml/min (50-250); Glucose 374 mg/dL (70-99); Potassium 3.4 mmol/L (3.3-5.1); Sodium Level 135 mmol/L (133-145)
[2025-05-22] MEDS: Heparin Injection (Vial) 5,000 UNIT/ML VIAL 5000 UNIT SC (05:11)
[2025-05-22] MEDS: CHLORHEXIDINE GLUC 2% CLOTH 1 EACH TOWELETTE TOPICAL (05:11)
[2025-05-22] MEDS: Levothyroxine 25 MCG TABLET PO (05:11)
[2025-05-22] MEDS: Insulin Lispro 100 UNIT/ML INSULN.PEN 10 UNIT SC ×4 (05:14→23:10)
[2025-05-22] MEDS: Insulin Lispro 100 UNIT/ML INSULN.PEN SC ×4 (05:14→23:10)
[2025-05-22] MEDS: Piperacil/Tazobactam 3.375 GM in 0.9% Normal Saline (50mL MB+) 50 ML IV (05:17)
[2025-05-22] MEDS: Vital High Protein 1,000 ML 50 ML GT (06:35)
--- NOTE | 2025-05-22 06:53 | PCM.PN.INT ---
Assessment & Plan Assessment/Plan (1) Acute respiratory failure with hypoxia and hypercapnia: PLAN: Plan RECOMMENDATIONS: 1. Continue ACPC mode of ventilation. Continue to wean FiO2 and PEEP as tolerated. 2. Continue to wean Levophed to maintain a mean arterial pressure at or above 65 mmHg. 3. Continue Bumex infusion as tolerated by hemodynamics and renal function. 4. Continue broad-spectrum antimicrobials pending repeat culture results. 5. Continue current sedation regimen with propofol and fentanyl. 6. Continue tube feeding as tolerated. 7. Given persistent hypoxemia, will obtain limited echo to evaluate for cardiac level shunt. 8. Continue appropriate ICU prophylaxis. IMPRESSIONS: 1. Acute hypoxemic and hypercapnic respiratory failure Clinical concern for underlying pneumonia versus pulmonary edema in the setting of heart failure with preserved ejection fraction. The patient was ultimately intubated and remains on ACPC mode of mechanical ventilation. FiO2 and PEEP will be weaned as tolerated. CTA chest showed no evidence for pulmonary embolism. However, the patient's hypoxemia seems out of proportion to the findings noted on chest imaging. Therefore, will obtain limited echocardiogram today to evaluate for cardiac level shunt. In the interim, the patient will be continued on broad-spectrum antimicrobials, pending repeat culture workup. Tube feeding will be continued as tolerated. Diuretic management will be deferred to nephrology. 2. Multifactorial shock Most likely related to underlying sepsis coupled with hemodynamic impacts of sedating medications. The patient will be continued on Levophed to maintain a mean arterial pressure at or above 65 mmHg. 3. Acute kidney injury Clinical concern for ATN. Nephrology is currently following to assist with medical management. Will defer ongoing management of Bumex infusion to nephrology. 4. History of obesity/hypertension/hyperlipidemia/diabetes mellitus/bipolar/schizoaffective disorder Complicates care, management, recovery and prognosis. Continue to hold home antihypertensives for now. Continue sliding scale insulin coverage. Continue tube feeding as tolerated. TIME: 33 minutes of critical care time, independent of procedures, was spent addressing the patient's acute hypoxemic and hypercapnic respiratory failure, acute kidney injury, review of all data and collaboration with the care team. Subjective Subjective The patient was seen and examined at the bedside this morning. Events from the last 24 hours have been reviewed. The patient continues to have fevers and remains on Levophed at 6 mcg/min to maintain hemodynamic stability. The patient remains on assist-control mode mechanical ventilation with an FiO2 requirement of 90% and PEEP of 13. The patient is documented to be overall net +7.8 L for the hospitalization. He has been tolerant of tube feeding. White blood cell count is elevated at 12,000. Hemoglobin is stable at 11.1 g/dL. Platelet count is within normal limits. ABG was notable for a pH of 7.35 with a pCO2 of 43 and pO2 of 64. Chemistry profile was notable for a creatinine of 3.64. Objective Data Objective Data The patient's most recent lab work, culture data and imaging studies have all been personally reviewed. Surface echocardiogram demonstrated normal LV size and function with an ejection fraction of 55%. Blood culture dated May 15 was positive for Staphylococcus hominis. Vital Signs: Vital Signs Temp Pulse Resp BP Pulse Ox O2 Del Method O2 Flow Rate 101.2 F H 74 16 96/55 L 98 Mechanical Ventilator 85 05/22/25 06:00 05/22/25 06:00 05/22/25 06:00 05/22/25 06:00 05/22/25 06:00 05/22/25 06:00 05/21/25 08:00 FiO2 95 05/22/25 06:00 Oxygen Flow Rate (L/min) 85 Oxygen Delivery Method Mechanical Ventilator Weight: 255 lb 11.2 oz Body Mass Index (BMI) 36.6 Intake & Output: Intake and Output for Last 24 Hours 05/20/25 05/21/25 05/22/25 23:59 23:59 23:59 Intake Total 2997.51 / 3088.78 3900.33 / 3983.81 1028.72 / 1028.72 Output Total 0 / 2050 1670 / 1770 200 / 200 Balance 947.51 / 1038.78 2230.33 / 2213.81 828.72 / 828.72 Lab / Micro Data Attestation: I reviewed the patient's lab results. 05/22/25 04:02 05/22/25 04:02 Labs: Laboratory Results - last 24 hr 05/21/25 12:04: POC Glucose 393 H 05/21/25 18:03: POC Glucose 340 H 05/21/25 23:44: POC Glucose 354 H 05/22/25 04:02: Sodium 135, Potassium 3.4, Chloride 97 L, Carbon Dioxide 20.2 L, Anion Gap 18 H, BUN 79 H, Creatinine 3.64 H, Estim Creat Clear Calc 30.28 L, Est GFR (MDRD) Non-Af 19 L, BUN/Creatinine Ratio 21.6 H, Glucose 374 H, Calcium 9.2 Micro: Microbiology 05/16/25 18:15 Urine Catheter - Summers Urine Culture - Final Culture exhibits no growth. 05/16/25 20:22 Blood Culture (Wb) - Other Blood Culture - Preliminary No growth in 48 hours. 05/16/25 17:55 Blood Culture (Wb) - Left Hand Blood Culture - Preliminary No growth in 48 hours. 05/15/25 21:08 Blood Culture (Wb) - No Site/Description Given Bacteria Detection (PCR) - Final Coag Negative Staph 05/15/25 21:08 Blood Culture (Wb) - No Site/Description Given Blood Culture - Final Staphylococcus hominis hominis 05/15/25 18:06 Sputum, Induced/Lukens Gram Stain - Final 05/15/25 18:06 Sputum, Induced/Lukens Respiratory Culture - Final Culture exhibits no growth. 05/16/25 05:07 Urine Catheter - Summers Legionella Antigen - Final 05/16/25 05:07 Urine Catheter - Summers Streptococcus pneumoniae Antigen (M - Final 05/15/25 15:50 Mucosa - Nose SARS-CoV-2, Influenza & RSV (PCR) - Final ABG Data ABG results: ABG 05/21/25 09:52 Specimen Type ART Sample Site L Radial pH 7.52 H Bicarbonate Actual 24.9 Total CO2 26 Base Excess 2 O2 Saturation 96 O2 % 85.0 ABG pCO2 30.5 L ABG pO2 71 L Asif Test Positive Respiration Rate 18 O2 Delivery Device Adult Vent Vent Mode AC/PC POC PEEP 13 Clinical Comments Pi 18 Radiography Diagnostic Testing: Radiology Impression Chest X-Ray 05/20/25 12:08 IMPRESSION: ET tube and NG tube in good position. Reading Location: [facility] Physical Exam Const Constitutional Narrative: Intubated, sedated and mechanically ventilated. No ventilator dyssynchrony. HEENT normocephalic and head/scalp atraumatic Mouth: endotracheal tube in place and OG tube in place Eyes PERRL, EOMs intact bilaterally and conjunctivae normal Neck supple General: trachea midline Chest inspection of chest normal Resp Auscultation: diminished lung sounds; Negative for rales, rhonchi or wheezes Cardio regular rate and regular rhythm GI normal to inspection, nondistended, normoactive bowel sounds Extremity General Extremity: edema bilateral lower extremity; Negative for clubbing Skin no rashes or lesions noted Neuro Sensorium / Orientation: sedated on vent Charges/Coding Procedures Hospitalists Procedures: 42642 Critical Care 1st Hr
[2025-05-22 07:06] LABS: Absolute Lymphocyte Count 0.77 X10^3/uL (0.83-4.51); Absolute Neutrophil Count 9.6 X10^3/uL (2.0-7.7); Basophil# 0.03 X10^3/uL; Basophil% 0.2 % (0-1); Eosinophil# 0.48 X10^3/uL; Eosinophils% 3.9 % (0-5); Hematocrit 35.2 % (40-54); Hemoglobin 11.1 g/dL (13.0-16.5); Lymphocyte # 0.77 X10^3/ul (0.83-4.51); Lymphocyte % 6.3 % (19-41); Mean Corp Hgb Conc 31.5 g/dL (32-36); Mean Corpuscular Hgb 30.2 pg (27.0-32.0); Mean Corpuscular Volume 95.7 fL (80-94); Mean Platelet Vol. 11.1 fl (6.2-12.0); Monocyte# 1.29 X10^3/uL; Monocyte% 10.5 % (0-10); NRBC Flagged by Analyzer 0 % (0-5); Neutrophil # 9.56 X10^3/uL (2.7-7.7); Neutrophil % 77.9 % (47-70); Platelet Count 209 K/mm3 (150-450); RBC Distribution Width CV 15.4 % (11.6-14.6); RBC Distribution Width SD 54.2 fl (35.1-43.9); Red Blood Count 3.68 M/mm3 (4.6-6.2); White Blood Count 12.3 K/mm3 (4.4-11.0)
--- NOTE | 2025-05-22 07:08 | ECHOL_ITS ---
Reason For Study : SOB Procedure This was a limited 2D transthoracic echocardiogram. Exam performed portable in ICU/CCU. Left Ventricle Normal LV size. Severe concentric left ventricular hypertrophy. D shaped septum in systole and diastole. Left ventricular systolic function is normal. The left ventricular ejection fraction is 55 %. No regional wall motion abnormalities noted. Right Ventricle Severely dilated right ventricle. Moderately severe global right ventricular systolic dysfunction. Severe segmental dysfunction of right ventricle. Atria Normal left atrium. Normal right atrium. Bubble contrast study is negative for PFO/ASD. Mitral Valve Normal mitral valve. Tricuspid Valve Normal tricuspid valve. Moderate (2+) tricuspid valve insufficiency. Pulmonary artery systolic pressure is 76 mmHg. Great Vessels Normal aortic root. The pulmonary artery is normal size. Pericardium/Pleural Small (<1.0 cm) pericardial effusion. Medication Performed a rapid injection of agitated mix of 9 cc saline and 1cc air to assess for atrial septal defect. MMode/2D Measurements & Calculations LVIDd: 3.8 cm IVSd: 1.8 cm LA dimension(2D): 3.2 cm LVIDs: 1.9 cm LVPWd: 1.4 cm RVDd: 4.7 cm FS: 48.9 % Doppler Measurements & Calculations TR max cami: 419.4 cm/sec TR max P.4 mmHg ECHO/Echo, Limited Study Interpretation Summary Bubble contrast study is negative for PFO/ASD. Normal LV size. Left ventricular systolic function is normal. The left ventricular ejection fraction is 55 %. Severe concentric left ventricular hypertrophy. Severely dilated right ventricle. D shaped septum in systole and diastole. Small (<1.0 cm) pericardial effusion. Ordering Physician: Real Dent Referring Physician: Kit Whitlock Chi Performed By: Alysia Palma, SHERIN
[2025-05-22 07:48] LABS: Allen Test Positive; Base Excess -2 mmol/L (-2 to +2); Blood Gas Specimen Type ART; Mode AC/PC; O2 Delivery Device Adult Vent; PEEP 13; PO2 64 mmHG (75-100); RR 16; SITE L Radial; SO2 91 % (95-99); Total Carbon Dioxide 25 mmol/L; pH 7.35 (7.35-7.45)
[2025-05-22] MEDS: Haloperidol 5 MG Tablet PO ×2 (08:11→20:35)
[2025-05-22] MEDS: Lithium Carbonate 300mg Capsule 300 MG PO (08:11)
[2025-05-22] MEDS: Fluoxetine HCl 40 MG CAPSULE PO (08:11)
[2025-05-22] MEDS: Chlorhexidine 15 ML PO ×2 (08:19→20:36)
[2025-05-22] MEDS: Propofol 10MG/Ml 1,000 MG/100 ML Bottle 20.9 MG CONT INF ×4 (08:41→22:25)
[2025-05-22] MEDS: fentaNYL drip 100 ML 10 MCG CONT INF ×2 (08:41→17:24)
--- NOTE | 2025-05-22 09:21 | CASEMGMT ---
Insurance review for hospitals In-network with?MCR insurance if transfer is recommended is as follows: [facility], [facility], [place], [facility], [facility], [facility], , [place], [facility], [facility], and [place].
[2025-05-22] MEDS: Pantoprazole Sodium 40 MG in 0.9% Normal Saline (100mL MB+) 100 ML 330 MG IV (09:35)
[2025-05-22] MEDS: Vancomycin HCl 1,500 MG in 0.9% Normal Saline (500mL Bag) 500 ML 250 MG IV (10:00)
--- NOTE | 2025-05-22 10:21 | PN.RENAL_ITS ---
Subjective Subjective Remains intubated. No overnight events. On unit Levophed 6 mcg. Objective Data Objective Data Vital Signs: Vital Signs Temp Pulse Resp BP Pulse Ox O2 Del Method O2 Flow Rate 101.2 F H 74 16 96/55 L 97 Mechanical Ventilator 85 05/22/25 06:00 05/22/25 10:10 05/22/25 10:10 05/22/25 06:00 05/22/25 10:10 05/22/25 08:00 05/21/25 08:00 FiO2 95 05/22/25 06:00 Oxygen Flow Rate (L/min) 85 Oxygen Delivery Method Mechanical Ventilator Weight: 115.984 kg Body Mass Index (BMI) 36.6 Intake & Output: Intake and Output for Last 24 Hours 05/20/25 05/21/25 05/22/25 23:59 23:59 23:59 Intake Total 2997.51 / 3088.78 3900.33 / 3983.81 1415.46 / 1415.46 Output Total 2049 / 205 1670 / 1770 200 / 200 Balance 947.51 / 1038.78 2230.33 / 2213.81 1215.46 / 1215.46 Lab / Micro Data 05/22/25 04:02 05/22/25 04:02 Labs: Laboratory Results - last 24 hr 05/21/25 12:04: POC Glucose 393 H 05/21/25 18:03: POC Glucose 340 H 05/21/25 23:44: POC Glucose 354 H 05/22/25 04:02: WBC 12.3 H, RBC 3.68 L, Hgb 11.1 L, Hct 35.2 L, MCV 95.7 H, MCH 30.2, MCHC 31.5 L, RDW Std Deviation 54.2 H, RDW Coeff of Gautam 15.4 H, Plt Count 209, MPV 11.1, Immature Gran % (Auto) 1.200 H, Neut % (Auto) 77.9 H, Lymph % (Auto) 6.3 L, [place] % (Auto) 10.5 H, Eos % (Auto) 3.9, Baso % (Auto) 0.2, A bsolute Neuts (auto) 9.6 H, Absolute Lymphs (auto) 0.77 L, Nucleated RBC % 0, Sodium 135, Potassium 3.4, Chloride 97 L, Carbon Dioxide 20.2 L, Anion Gap 18 H, BUN 79 H, Creatinine 3.64 H, Estim Creat Clear Calc 30.28 L, Est GFR (MDRD) Non- Af 19 L, BUN/Creatinine Ratio 21.6 H, Glucose 374 H, Calcium 9.2 Micro: Microbiology 05/16/25 17:55 Blood Culture (Wb) - Left Hand Blood Culture - Final 05/16/25 20:22 Blood Culture (Wb) - Other Blood Culture - Final 05/22/25 05:30 Stool Clostridioides difficile (PCR) - Final 05/16/25 18:15 Urine Catheter - Shelton Urine Culture - Final Culture exhibits no growth. 05/15/25 21:08 Blood Culture (Wb) - No Site/Description Given Bacteria Detection (PCR) - Final Coag Negative Staph 05/15/25 21:08 Blood Culture (Wb) - No Site/Description Given Blood Culture - Final Staphylococcus hominis hominis 05/15/25 18:06 Sputum, Induced/Lukens Gram Stain - Final 05/15/25 18:06 Sputum, Induced/Lukens Respiratory Culture - Final Culture exhibits no growth. 05/16/25 05:07 Urine Catheter - Shelton Legionella Antigen - Final 05/16/25 05:07 Urine Catheter - Shelton Streptococcus pneumoniae Antigen (M - Final 05/15/25 15:50 Mucosa - Nose SARS-CoV-2, Influenza & RSV (PCR) - Final ABG Data ABG results: ABG 05/22/25 07:44 Specimen Type ART Sample Site L Radial pH 7.35 Bicarbonate Actual 24.0 Total CO2 25 Base Excess -2 O2 Saturation 91 L O2 % 90.0 ABG pCO2 43.0 ABG pO2 64 L Asif Test Positive Respiration Rate 16 O2 Delivery Device Adult Vent Vent Mode AC/PC POC PEEP 13 Physical Exam Narrative on ventilator support s1s2 no murmurs lungs diminished, no rales or rhonchi abdomen soft no pitting edema no cyanosis shelton + with clear yellow urine in bag Assessment & Plan Assessment/Plan (1) CHADD (acute kidney injury): PLAN: Baseline creatinine is between 1.0-1.2. He has history of chronic lithium use, it is possible that he has some early CKD from chronic lithium use. Creatinine on admission was close to baseline. Renal ultrasound limited study due to body habitus but there appears to be no hydronephrosis. He did receive a CT contrast on admission for CTA PE protocol. Blood pressure low, on levophed. Most likely he sustained ATN in the setting of these 2 events. - CHADD secondary to ATN. Remains on low-dose Levophed. On Wednesday patient was started on Bumex drip and has been on Bumex drip 0.5 mg/hr. Urine output improved significantly around 1.7 L urine output yesterday. Serum creatinine 1.4 on admission, peaked at 4.24 on 05/19--> SCr 3.13 05/21 but today serum creatinine up to 3.64. Potassium and bicarb acceptable. Will stop Bumex drip and give small amount of IV fluids today. No acute indication for [employer] at this time. Labs ordered for am. -Acute hypoxemic and hypercapnic respiratory failure, patient remains on low- dose Levophed, ongoing fever spikes. Management as per primary/ICU - Patient was started back on lithium 300 mg twice daily. Will trend lithium levels next few days. Last lithium level 1.4. Assessment and plan reviewed with Dr. Veliz
[2025-05-22] MEDS: Insulin Glargine-YFGN 100 UNIT/ML Pen 25 UNIT SC (10:49)
[2025-05-22] MEDS: Lactated Ringers 1,000 ML 500 ML IV (10:52)
[2025-05-22 11:12] LABS: Bedside Glucose 369 mg/dL (74-106)
[2025-05-22 11:12] LABS: Bedside Glucose 391 mg/dL (74-106)
--- NOTE | 2025-05-22 11:17 | PCM.PN.ID ---
Physical Exam Narrative Still fever, increasing O2 reqs, on pressor Const no apparent distress Resp Effort and Inspection: mechanically ventilated Auscultation: diminished lung sounds Cardio regular rate and regular rhythm GI soft to palpation, non-tender and non-distended Skin no rashes or lesions noted ID ID: Route of nutrition/ use of supplements: [] Nutritional Intake: [] IV Site: [] Summers Catheter: [] Assessment & Plan Assessment/Plan (1) CHADD (acute kidney injury): (2) Acute respiratory failure with hypoxia and hypercapnia: PLAN: Still with fever, shock, mech vent. Vanc added, worse o2. Cdiff neg. Will check full resp pcr panel and change zosyn to meropenem. Will follow (3) Community acquired pneumonia:
--- NOTE | 2025-05-22 11:30 | PCM.PN.HOSP ---
Reason for Visit Reason for Visit: Diagnoses Pneumonia, unspecified organism (05/15/25) Acute respiratory failure with hypoxia (05/15/25) Acute respiratory failure with hypercapnia (05/15/25) Acute kidney failure, unspecified (05/15/25) Subjective Subjective Saw patient at bedside this morning. Patient remains intubated and sedated and not following commands. Objective Data Objective Data Vital Signs: Vital Signs Temp Pulse Resp BP Pulse Ox O2 Del Method O2 Flow Rate 100.7 F H 74 16 104/55 L 97 Mechanical Ventilator 85 05/22/25 10:00 05/22/25 10:10 05/22/25 10:10 05/22/25 10:00 05/22/25 10:10 05/22/25 10:00 05/21/25 08:00 FiO2 85 05/22/25 10:00 Oxygen Flow Rate (L/min) 85 Oxygen Delivery Method Mechanical Ventilator Weight: 115.984 kg Body Mass Index (BMI) 36.6 Intake & Output: Intake and Output for Last 24 Hours 05/20/25 05/21/25 05/22/25 23:59 23:59 23:59 Intake Total 2997.51 / 3088.78 3900.33 / 3983.81 1532.25 / 1532.25 Output Total 2049 / 2049 1670 / 1770 200 / 200 Balance 947.51 / 1038.78 2230.33 / 2213.81 1332.25 / 1332.25 Lab / Micro Data 05/22/25 04:02 05/22/25 04:02 Labs: Laboratory Results - last 24 hr 05/21/25 12:04: POC Glucose 393 H 05/21/25 18:03: POC Glucose 340 H 05/21/25 23:44: POC Glucose 354 H 05/22/25 04:02: WBC 12.3 H, RBC 3.68 L, Hgb 11.1 L, Hct 35.2 L, MCV 95.7 H, MCH 30.2, MCHC 31.5 L, RDW Std Deviation 54.2 H, RDW Coeff of Gautam 15.4 H, Plt Count 209, MPV 11.1, Immature Gran % (Auto) 1.200 H, Neut % (Auto) 77.9 H, Lymph % (Auto) 6.3 L, [place] % (Auto) 10.5 H, Eos % (Auto) 3.9, Baso % (Auto) 0.2, Absolute Neuts (auto) 9.6 H, Absolute Lymphs (auto) 0.77 L, Nucleated RBC % 0, Sodium 135, Potassium 3.4, Chloride 97 L, Carbon Dioxide 20.2 L, Anion Gap 18 H, BUN 79 H, Creatinine 3.64 H, Estim Creat Clear Calc 30.28 L, Est GFR (MDRD) Non-Af 19 L, BUN/Creatinine Ratio 21.6 H, Glucose 374 H, Calcium 9.2 05/22/25 05:13: POC Glucose 369 H 05/22/25 10:48: POC Glucose 391 H Micro: Microbiology 05/21/25 10:45 Sputum, Induced/Lukens Gram Stain - Final 05/16/25 17:55 Blood Culture (Wb) - Left Hand Blood Culture - Final 05/16/25 20:22 Blood Culture (Wb) - Other Blood Culture - Final 05/22/25 05:30 Stool Clostridioides difficile (PCR) - Final 05/16/25 18:15 Urine Catheter - Summers Urine Culture - Final Culture exhibits no growth. 05/15/25 21:08 Blood Culture (Wb) - No Site/Description Given Bacteria Detection (PCR) - Final Coag Negative Staph 05/15/25 21:08 Blood Culture (Wb) - No Site/Description Given Blood Culture - Final Staphylococcus hominis hominis 05/15/25 18:06 Sputum, Induced/Lukens Gram Stain - Final 05/15/25 18:06 Sputum, Induced/Lukens Respiratory Culture - Final Culture exhibits no growth. 05/16/25 05:07 Urine Catheter - Summers Legionella Antigen - Final 05/16/25 05:07 Urine Catheter - Summers Streptococcus pneumoniae Antigen (M - Final 05/15/25 15:50 Mucosa - Nose SARS-CoV-2, Influenza & RSV (PCR) - Final ABG Data ABG results: ABG 05/22/25 07:44 Specimen Type ART Sample Site L Radial pH 7.35 Bicarbonate Actual 24.0 Total CO2 25 Base Excess -2 O2 Saturation 91 L O2 % 90.0 ABG pCO2 43.0 ABG pO2 64 L Asif Test Positive Respiration Rate 16 O2 Delivery Device Adult Vent Vent Mode AC/PC POC PEEP 13 Radiography Diagnostic Testing: Radiology Impression Echocardiogram 05/22/25 07:08 Interpretation Summary Bubble contrast study is negative for PFO/ASD. Normal LV size. Left ventricular systolic function is normal. The left ventricular ejection fraction is 55 %. Severe concentric left ventricular hypertrophy. Ordering Physician: Real Dent Referring Physician: Kit Whitlock Chi Performed By: Alysia Palma RDCS Physical Exam Const Constitutional Narrative: Intubated and sedated, not following commands. HEENT head/scalp atraumatic and moist oral mucous membranes Neck supple Cardio Cardio Narrative: Diminished breath sounds bilaterally with crackles noted in bases. No wheezing noted. GI soft to palpation and non-distended Extremity normal to inspection Assessment & Plan Assessment/Plan (1) Acute respiratory failure with hypoxia and hypercapnia: PLAN: Plan Patient is a 54-year-old male who presented to [facility] ED on 05/15/2025 for shortness of breath and hypoxia. 1. Acute hypoxic and hypercapnic respiratory failure secondary to HFpEF exacerbation versus community-acquired pneumonia ? Flattening Machine Operator and ID following. Presented with hypoxia, altered mentation and hypotension. Intubated in the ED. Clinical concern for underlying pneumonia versus pulmonary edema in the setting of HFpEF. CTA chest showed pulmonary edema, was negative for PE. Echo showed EF 55%, moderate pericardial effusion with no tamponade features, no other concerning findings. Had blood cultures 1 out of 2 positive for Staph hominis but was suspected this was a contaminant per ID. Infectious workup otherwise negative. Unfortunately has had very high oxygen requirements and meets criteria for severe ARDS. Has also continued to fever despite broad-spectrum antibiotics. Repeat limited echo on 05/22 with EF 55%, normal RV size and function, very elevated pulmonary pressures; importantly only a small pericardial effusion was noted. Per ID, will check full respiratory panel and transition from Zosyn to meropenem. Continue IV vancomycin. Ventilator management and further recommendations per corporate legal secretary. 2. Acute metabolic encephalopathy ? Flattening Machine Operator following as above. Was altered on admit likely secondary to respiratory failure. Remains intubated and sedated. Monitor. 3. CHADD ? Nephrology following. Baseline creatinine 1.0-1.2. Most likely CHADD secondary to ATN that is multifactorial from hypotension and contrast from CTA chest on admit. Chronic lithium use could be small contributor; notably lithium level slightly elevated at 1.41. Renal ultrasound was limited by body habitus but no hydronephrosis noted. Creatinine peaked at 4.24, then began to improve on Bumex drip with good urine output. Creatinine slightly worsened on 05/22 likely due to slight overdiuresis; Bumex drip discontinued and given 500 cc fluid bolus. No acute indications for EMT INTERMEDIATE. Continue to monitor daily BMP and urine output. Appreciate further nephrology recommendations. Chronic medical conditions: ? Class I obesity: BMI 34 on admit. Complicates hospital course, care and prognosis. ? Type 2 diabetes mellitus: Glucose 173 on admit. Most recent A1c 7.4% in January. Insulin regimen increased during hospitalization as sugars were running high. Currently treating with Lantus 25 units daily, Humalog 10 units every 6 hours sliding scale. Will adjust as needed. ? Hypertension: Holding home propranolol and valsartan. ? Hyperlipidemia: Continue home statin. ? History of schizoaffective disorder: Continue home fluoxetine and haloperidol. Discussed with nephrology and okay to resume home lithium on 05/22 with plan to check lithium levels on a daily basis while hospitalized. ? Hypothyroidism: TSH normal. Continue home Synthroid. DVT prophylaxis: Heparin subcu CODE STATUS: Full code, verified Expected disposition: TBD Total clinical time spent by myself addressing the patient's medical issues, reviewing all the data, and collaborating with patient's care team: 35 minutes. Charges/Coding Visit Charges Inpatient E&M: 11238 Subs Hosp L2
[2025-05-22] MEDS: Meropenem 500 MG in 0.9% Normal Saline (50mL MB+) 50 ML 100 MG IV ×2 (12:58→20:45)
[2025-05-22 13:53] LABS: Partial Thromboplast Time 30.6 Seconds (24.1-36.2)
[2025-05-22 14:12] LABS: International Normalized Ratio 1.3; Prothrombin Time (Protime)PT. 16.2 SECONDS (11.7-14.9)
[2025-05-22] MEDS: HEPARIN/D5w 25,000 UNITS 25,000 UNITS/250 ML IV.SOLN. 16 UNITS CONT INF (14:35)
[2025-05-22] MEDS: Norepinephrine 8 MG in 0.9% Normal Saline (250mL Bag) 242 ML 24.4 MG CONT INF (14:35)
[2025-05-22] MEDS: MethylPREDNISolone 125 MG/2 ML Vial 60 MG IV ×2 (15:35→20:35)
--- NOTE | 2025-05-22 16:23 | PCM.HOSP.N ---
Hospitalist Note Had lengthy discussion with patient's mother and aunt at the bedside this afternoon. Patient unfortunately continues to do poorly. He remains on 90% FiO2 currently. Echo today showed severely dilated RV with moderately severe global RV systolic dysfunction. Patient has now had increasing Levophed requirements this afternoon. He is currently on 20 of Levophed and vasopressin may need to be added soon. Given worsening right heart failure, I told them that unfortunately he has an exceedingly low chance of recovery. They were agreeable to transitioning patient to DNR CCA DNI. Patient's 2 brothers and nephew will be coming in later this evening. I advised mother that if his condition continues to deteriorate, it would be lawrence to transition patient to hospice care with family to be by his side when he dies. She was agreeable with this. CODE STATUS changed to DNR CCA DNI with tentative plan to transition patient to DNR CC with terminal extubation this evening once all family arrives.
--- NOTE | 2025-05-22 16:29 | CHAPLAIN ---
Type of Pastoral Visit _x__ Initial Visit ___ Follow-up Visit ___ On-call Visit ___ General Patient Visit ___ Spiritual Assessment ___ Family Conference ___ Bereavement ___ Rapid Response ___ Code Blue ___ Other (describe below) Pastoral Care Referral From ___ Patient ___ Family _x__ Nurse ___ Physician ___ Snowmaker ___ Medical Office Asst ___ Other (describe below) Sacrament/Intervention ___ Active listening ___ Anointing ___ Restorationist ___ Bereavement ___ Communion ___ Kaci exploration ___ ___ Life review _x__ Prayer ___ Reconciliation ___ Sacrament of Sick _x__ Supportive presence ___ Wedding ___ Other (describe below) Pastoral Comments RN requested supportive visit to family members as patient is to be extubated late this evening; DR is present at conversation and explains the likelihood of patient passing away today; mother and aunt are in the room; siblings are to be arriving after their work shifts; offer of support and presence; aunt is more able to share feelings and situation; family is not gnosticism but aunt agrees that prayer would be acceptable at this time; asking how to help and be supportive to this family but they are unable to articulate anything needed; RN will make sure that comfort cart and bereavement items are given soon in support of family
[2025-05-22 17:49] LABS: Bedside Glucose 360 mg/dL (74-106)
[2025-05-22] MEDS: Atorvastatin Calcium 40 MG Tablet PO (20:35)
[2025-05-22 21:21] LABS: Partial Thromboplast Time 50.9 Seconds (24.1-36.2)
--- NOTE | 2025-05-22 22:04 | NURSING ---
Addendum entered by Portia Lane 05/22/25 22:21: Dr. Henley, [facility] hospitalist, notified of this information as well. Original Note: In report, [facility] RN relayed information that we were waiting on a few more family members to come in and see patient, and then we would proceed with extubation and comfort measures yet tonight. Called [facility] per facility policy d/t end of life discussions between Dr. Diaz and the family, and change of code status earlier this afternoon. After several phone calls and some information, they determined patient would potentially be eligible for organ donation prior to extubation. Radu from [facility] asked to speak with patient's next of kin, which is Veronica his mother. This RN asked Veronica if she wanted to speak with her privately or if she wanted everyone in the room to be able to speak with her. Veronica wanted everyone to be part of the conversation. This RN assisted Veronica, Veronica's sister, and the patient's brother who were all in the room to speak with Radu over the phone. Radu explained that the patient would potentially be eligible to help others through organ donation and asked if the patient had ever thought about that. Veronica and her sister did not think that he would have. Veronica remained fairly silent during the conversation and when asked by Radu if she would be okay with potentially pursuing organ donation, she shook her head no. This was relayed to Radu on speaker phone. After the phone call, emotional support given to family at bedside. They expressed understanding of his code status and that it was ultimately up to them when to extubate. This RN explained the process of extubating and giving medications to keep him calm and comfortable. They are unsure if the patient's nephew (the last one to come in) will actually come in tonight. They will discuss what they would like to do.
[2025-05-22] MEDS: Heparin Injection (Vial) 5,000 UNIT/ML VIAL IV (22:31)
--- NOTE | 2025-05-22 23:17 | NURSING ---
Addendum entered by Portia Lane 05/22/25 23:54: Code status changed to DNRCC. Original Note: Patient's mother Veronica, Veronica's sister, patient's brother, and patient's nephew all at bedside. They are ready for extubation and express understanding and agreement. Offered Dr. Henley to come speak with them, but they said they felt comfortable with their conversation prior in the afternoon with Dr. Diaz and didn't have any further questions or concerns. Respiratory notified, comfort meds and extubation order placed from Dr. Henley.
[2025-05-22] MEDS: Lorazepam 2 MG/ML WCH Syringe IV (23:27)
[2025-05-22] MEDS: Morphine 4 MG/ML Syringe IV (23:27)
[2025-05-22 23:31] LABS: Bedside Glucose 414 mg/dL (74-106)
--- NOTE | 2025-05-22 23:48 | NURSING ---
Addendum entered by Portia Lane 05/23/25 00:39: Patient noted to be asystole on monitor. Time of 0003. Verified absence of heart sounds and respirations w/ T. RANDY Toussaint. Dr. Henley notified. Original Note: Patient extubated at 2327, morphine and ativan given for comfort. Family at bedside.
[2025-05-23] VITALS: BP 73/49; PULSE 73; RESP 14; TEMP 38.2; O2SAT 36
--- NOTE | 2025-05-23 00:20 | PCM.HOSP.N ---
Hospitalist Note Family had requested terminal extubation with DNR-CC status. Patient was extubated and passed 05/23/25 at 00:03.
--- NOTE | 2025-05-23 07:18 | EXP.PCM_ITS ---
Preliminary Cause of Preliminary Cause of Preliminary Cause of : Acute respiratory failure Date of Admission: 05/15/25 Date of : 05/23/25 Principle Diagnosis Problem List: Active and Suspected Problems (Updated 05/18/25 @ 10:[address] Marybel Veliz MD) CHADD (acute kidney injury) (Acute) Abnormal EKG (Acute) Acute respiratory failure with hypoxia and hypercapnia (Acute) Community acquired pneumonia (Acute) Hospital Course Patient is a 54-year-old male who presented to [facility] ED on 05/15/2025 with shortness of breath, hypoxia, altered mentation and hypotension. He was intubated in the ED. His hospital course was complicated by severe hypoxic respiratory failure with right heart failure, severe CHADD and suspected pneumonia. Inspector Mechanical, ID and nephrology followed. Family ultimately decided to proceed with patient comfort care and he was extubated and passed peacefully on 05/23. Time of 00:03. 1. Acute hypoxic and hypercapnic respiratory failure secondary to HFpEF exacerbation versus community-acquired pneumonia with acute right heart failure ? Presented with hypoxia, altered mentation and hypotension. Intubated in the ED. Clinical concern for underlying pneumonia versus pulmonary edema in the setting of HFpEF. CTA chest showed pulmonary edema, was negative for PE. Echo showed EF 55%, moderate pericardial effusion with no tamponade features, no other concerning findings. Had blood cultures 1 out of 2 positive for Staph hominis but was suspected this was a contaminant per ID. Infectious workup otherwise negative. Unfortunately had very high oxygen requirements and met criteria for severe ARDS. Also had continued to fever despite broad-spectrum antibiotics. Repeat limited echo on 05/22 with EF 55%, severe RV dilation with moderate to severe RV dysfunction. Patient ultimately had increasing pressor requirements on 05/22 suspected secondary to acute right heart failure. He was consistently requiring 90% FiO2 to maintain appropriate saturations. Had goals of care discussion with mother and other family at the bedside on the day of 05/22 and decision was made to proceed with comfort care measures with terminal extubation. Passed peacefully on the heading matcher and assembler of 05/23 as above. Discharge diagnoses: ? Acute metabolic encephalopathy ? CHADD ? Type 2 diabetes mellitus ? Hypertension ? Hyperlipidemia ? History of schizoaffective disorder ? Hypothyroidism ? Class I obesity Total clinical time spent by myself addressing the patient's medical issues, reviewing all the data, and collaborating with patient's care team: 35 minutes. Visit Charges Inpatient E&M: 33450 Disch Hosp >30min
--- NOTE | 2025-05-23 07:18 | DCINST_ITS ---
Discharge Instructions DC O2, CPAP, BIPAP needs Home O2 Discharge instructions: No Follow Up Care Test Results: Test results from this visit will be discussed in further detail at your follow- up appointment, if applicable. Discharge Plan Admission Admit Date/Time: 05/15/25 17:17 Primary Reason for Your Visit: respiratory failure Attending Provider: Fede Diaz Primary Care Provider: Kit Whitlock Chi Consulting Providers: Fede Diaz; Gustavo Sousa; Dawit Grajeda; Luis Marcos; Real Dent; Jayro Rico; Sandeep Randhawa; Santy Howard; Judi Greenwood; Mic Da Silva; Mikie Driver; Jacobo Villeda; Chinyere Martin; Ryan Boykin; Caroline Lau; Nicholas Contreras; Keon Deluna; Gary Stein; Asher Collins; Brunilda Joshi; Juan Cueto; Uriel Aviles; Sebastien Torres; Dru Jeong; Marybel Veliz; Garfield Paige; Sesar Carlisle Disposition Disposition (needs filled in before D/C Order can be placed):
== END 2025-05-23 02:08 | DRG 870 ==
LOC: ED 16:53 → ICU 17:44
PROVIDERS: Emergency Medicine; Internal Medicine; Internal Medicine Critical Care Medicine; Internal Medicine Infectious Disease; Nurse Practitioner Adult Health; Admitting Provider Hospitalist; Emergency Provider Emergency Medicine; PCP Family Medicine Geriatric Medicine; Visit Provider Hospitalist
DX: A41.9 Sepsis, unspecified organism (principal); J80 Acute respiratory distress syndrome; N17.0 Acute kidney failure with tubular necrosis; R65.21 Severe sepsis with septic shock; I50.31 Acute diastolic (congestive) heart failure; G93.41 Metabolic encephalopathy; J18.9 Pneumonia, unspecified organism; F20.0 Paranoid schizophrenia; I13.0 Hypertensive heart and chronic kidney disease with heart failure and stage 1 through stage 4 chronic kidney disease, or unspecified chronic kidney disease; J98.11 Atelectasis; I31.39 Other pericardial effusion (noninflammatory); E03.9 Hypothyroidism, unspecified; N18.9 Chronic kidney disease, unspecified; E11.65 Type 2 diabetes mellitus with hyperglycemia; Z68.35 Body mass index [BMI] 35.0-35.9, adult; E11.22 Type 2 diabetes mellitus with diabetic chronic kidney disease; F31.9 Bipolar disorder, unspecified; E78.2 Mixed hyperlipidemia; I95.2 Hypotension due to drugs; Z51.5 Encounter for palliative care; R79.89 Other specified abnormal findings of blood chemistry; E66.811 Obesity, class 1; R94.31 Abnormal electrocardiogram [ECG] [EKG]; Z11.52 Encounter for screening for COVID-19; Z79.2 Long term (current) use of antibiotics; Z66 Do not resuscitate
CPT/HCPCS: 31500; 31720; 36415; 36600; 51702; 71045; 71046; 71275; 76770; 80048; 80053; 80069; 80178; 81001; 82550; 82803; 82962; 83605; 83735; 83880; 84100; 84145; 84478; 84484; 85025; 85027; 85379; 85610; 85730; 86703; 87040; 87070; 87077; 87086; 87149; 87186; 87205; 87449; 87493; 87506; 87631; 87633; 93005; 93306; 93308; 94002; 94003; 94640; 97162; 97803; 99252; 99285; J2185; P9047; Q9957; Q9967; A4216; G0463; J1938